=== PATIENT | female | born 1940 | race Caucasian/White ===

== ENCOUNTER 2018-08-26 15:31 | Inpatient (IN) ==
[2018-08-26] MEDS ORDERED: IOPAMIDOL 100 ML BOTTLE IV ONE (15:32)
[2018-08-26] MEDS ORDERED: 0.9 % SODIUM CHLORIDE 1,000 ML IV ONE (16:06)
[2018-08-26] MEDS ORDERED: PIPERACILLIN SODIUM/TAZOBACTAM 3.375 GM in DEXTROSE 5% IN WATER 50 ML IV SCH (16:15)
[2018-08-26 17:12] LABS: Basophils # (Auto) 0 K/mcL (0.0-0.3); Basophils % (Auto) 0.1 % (0.0-2.0); Eosinophils # (Auto) 0.1 K/mcL (0.0-0.7); Eosinophils % (Auto) 1.3 % (0.0-7.0); Granulocytes % (Auto) 68.2 % (38.0-78.0); Lymphocytes # (Auto) 1.9 K/mcL (1.5-4.8); Lymphocytes % (Auto) 20.2 % (15.5-49.0); Mean Cell Volume 76.6 fL (80.0-100.0); Mean Corpuscular HGB Conc 30.8 g/dL (31.0-36.0); Monocytes % (Auto) 10.2 % (1.0-12.0); Platelet Count 157 K/mcL (140-440); RBC 3.19 M/mcL (4.00-5.20); Red Cell Distribution Width 19.7 % (11.5-14.5)
[2018-08-26] MEDS ORDERED: 0.9 % SODIUM CHLORIDE 500 ML IV ONE (17:31)
[2018-08-26 17:35] LABS: ALT/SGPT 34 U/l (0-40); Albumin 3.7 gm/dL (3.2-5.2); Albumin/Globulin Ratio 1.2 (1.0-2.3); Alkaline Phosphatase 43 U/L (39-117); Blood Urea Nitrogen 16 mg/dl (8-23)
[2018-08-26] MEDS ORDERED: 0.9 % SODIUM CHLORIDE 250 ML IV SCH (17:45)
[2018-08-26] MEDS ORDERED: MAGNESIUM SULFATE 2 GM/50 ML BAG IV ONE (18:18)
--- NOTE | 2018-08-26 18:19 | Emergency Department Note ---
SOB HPI - General Chief Complaint: Shortness of Breath/Dyspnea Stated Complaint: sob Time Seen by Provider: 08/26/18 16:06 Source: patient Mode of arrival: ambulatory Limitations: no limitations - History of Present Illness 78-year-old female comes in complaining of shortness of breath. Her sats were about 85% on room air so is requiring oxygen now. She does not take oxygen at home. She does have a productive cough. She was initially seen here on 07/20/2018 and had an GI bleed for which she was transferred over to [place] with a hemoglobin of 5. Dr. Yañez over there did upper and lower endoscopy but could not find the source of the bleed. Anyways they stabilized her and transfused her to a hemoglobin of 9. Then 3 days ago after she had been at home stable she went up to [place] and Dr. iSngh did a balloon enteroscopy to find a bleeding site at the terminal ileum which he took care of. Since the endoscopy 3 days ago she has had trouble breathing and a sore throat along with a cough. She denies fever. She has had loose stools because of the bowel prep and now has been a little constipated; no bowel movement since the colonoscopy 3 days ago. I requested records from [place] and they sent some of the GI records which I reviewed - Related Data Home Medications Medication Instructions Recorded Confirmed Clobetasol Propionate/Emoll 15 gm TP TID PRN 08/26/18 08/26/18 [Clobetasol Emollient 0.05% Crm] Diltiazem [Cardizem Cd] 120 mg PO DAILY 08/26/18 08/26/18 Furosemide [Lasix] 20 mg PO DAILY 08/26/18 08/26/18 Insulin Detemir [Levemir] 75 unit SQ HS 08/26/18 08/26/18 Lovastatin 10 mg PO HS 08/26/18 08/26/18 Nystatin Crm 1 dose TOPICAL DAILY PRN 08/26/18 08/26/18 Omeprazole [PriLOSEC] 20 mg PO ACB 08/26/18 08/26/18 Potassium Chloride [Kdur] 10 meq PO DAILY 08/26/18 08/26/18 metFORMIN HCL [Metformin HCl] 1,000 mg PO BID 08/26/18 08/26/18 sitaGLIPtin [Januvia] 100 mg PO DAILY 08/26/18 08/26/18 Allergies Allergy/AdvReac Type Severity Reaction Status Date / Time clindamycin AdvReac Mild Nausea Verified 08/26/18 20:32 Sulfa (Sulfonamide AdvReac Mild Vomiting Verified 08/26/18 20:32 Antibiotics) Review of Systems All systems ED: reviewed and negative except as stated. Past Medical History - Past Medical History Attestation: Yes: The following information was validated with the patient. [facility] Narrative: Family History (Last Updated 07/20/18 @ 16:30 by Piyush Mcclendon DO) Mother Colon cancer Breast cancer Father Throat cancer Sister Colon cancer Lung cancer Liver cancer Medical History (Last Updated 07/20/18 @ 16:34 by Piyush Mcclendon DO) Heart murmur (Chronic) Abnormal EKG (Chronic) Rosacea (Chronic) History of iron deficiency anemia (Chronic) History of MRSA infection (Resolved) Glaucoma (Chronic) Chronic kidney disease, stage 2 (mild) (Chronic) Chronic anticoagulation (Chronic) Fatty liver (Chronic) Hyperlipidemia (Chronic) Peripheral edema (Chronic) Aortic stenosis (Chronic) Hypertension, essential (Chronic) Paroxysmal atrial fibrillation (Chronic) Obesity (BMI 30.0-34.9) (Chronic) Pneumonia (Acute) Diabetes mellitus type 2, insulin dependent (Chronic) Past Surgical History (Last Updated 07/20/18 @ 16:28 by Piyush Mcclendon DO) Finger amputation, traumatic (Acute) S/P carpal tunnel release (Acute) S/P cataract surgery (Acute) S/P discectomy (Acute) S/P hysterectomy (Acute) S/P knee surgery (Acute) Medical history: Reports: atrial fibrillation, DM, GI bleed, glaucoma, hyperlip idemia, hypertension, AIDEN, osteoporosis, renal disease, other (Aortic stenosis, rosacea). Denies: CVA, DVT, myocardial infarction, pulmonary embolus Psychiatric history: Denies: anxiety, depression Surgical history ED: Reports: hysterectomy, orthopedic, other (Carpal tunnel, cervical spine, patellar fracture), other (Incontinence surgery, endoscopies) - Social History smoking status: Former smoker Alcohol use: Reports: None Drug use: Reports: none. Denies: marijuana Physical Exam Mild pallor. Normocephalic atraumatic. Conjunctive are clear sclerae nonicteric. No nasal discharge or congestion. Oropharynx pink moist. Neck is supple without lymphadenopathy or thyromegaly. Heart is regular rate and rhythm no murmur appreciated. Lungs are clear to auscultation bilaterally but she does have a productive cough and mild end expiratory wheeze. Requiring nasal cannula oxygen. Abdomen is soft nontender nondistended. Rectal exam is Hemoccult negative. +1 bilateral pitting pedal edema. Alert oriented able to answer questions appropriately Limitations: no limitations Course Vital Signs Temperature 97.6 F 08/26/18 15:32 Pulse Rate 111 H 08/26/18 15:32 Respiratory Rate 18 08/26/18 15:32 Blood Pressure 144/60 08/26/18 15:32 Pulse Oximetry (%) 90 08/26/18 15:32 Temperature 99.2 F H 08/27/18 07:47 Pulse Rate 104 H 08/27/18 07:47 Respiratory Rate 26 H 08/27/18 07:47 Blood Pressure 153/69 08/27/18 07:47 Pulse Oximetry (%) 90 08/27/18 07:47 Shortness of Breath/Dyspnea - Lab Data Lab results reviewed: Yes I reviewed the patient's lab results. Result diagrams: 08/27/18 03:45 08/27/18 03:45 Lab Results 08/26/18 08/26/18 08/26/18 Range/Units 16:03 16:03 16:06 WBC 9.5 (4.5-11.0) K/mcL RBC 3.19 L (4.00-5.20) M/mcL Hgb 7.5 L (12.0-15.0) g/dL Hct 24.4 L (36.0-48.0) % MCV 76.6 L (80.0-100.0) fL MCH 23.6 L (26.0-34.0) pg MCHC 30.8 L (31.0-36.0) g/dL RDW 19.7 H (11.5-14.5) % Plt Count 157 (140-440) K/mcL MPV 10.2 (7.4-10.4) fL Gran % 68.2 (38.0-78.0) % Lymph % (Auto) 20.2 (15.5-49.0) % [place] % (Auto) 10.2 (1.0-12.0) % Eos % (Auto) 1.3 (0.0-7.0) % Baso % (Auto) 0.1 (0.0-2.0) % Gran # 6.5 (1.8-8.0) K/mcL Lymph # (Auto) 1.9 (1.5-4.8) K/mcL [place] # (Auto) 1.0 H (0.1-0.9) K/mcL Eos # (Auto) 0.1 (0.0-0.7) K/mcL Baso # (Auto) 0 (0.0-0.3) K/mcL ESR (0-20) mm/hr VBG Lactic Acid (0.5-2.0) mmol/L Sodium 135 (133-145) mmol/L Potassium 4.0 (3.3-5.1) mmol/L Chloride 99 (96-108) mmol/L Carbon Dioxide 23 (22-30) mmol/L Anion Gap 13.0 (8-16) BUN 16 (8-23) mg/dl Creatinine 1.0 (0.6-1.1) mg/dl GFR Calculation 55 Glucose 265 H (70-105) mg/dL Calcium 9.4 (8.6-10.4) mg/dl Magnesium (1.6-2.5) mg/dL Total Bilirubin 0.9 (0.0-1.0) mg/dL AST 40 H (0-37) U/l ALT 34 (0-40) U/l Alkaline Phosphatase 43 (39-117) U/L Troponin T (0-0.03) ng/ml C-Reactive Protein (0.0-0.8) mg/dl NT-Pro-B Natriuret Pep (0-450) pg/ml Total Protein 6.8 (5.9-8.4) gm/dL Albumin 3.7 (3.2-5.2) gm/dL Globulin 3.1 (2.2-3.7) gm/dL Albumin/Globulin Ratio 1.2 (1.0-2.3) Procalcitonin < 0.10 (<0.10) ng/mL 08/26/18 08/26/18 08/26/18 Range/Units 16:17 16:17 16:17 WBC (4.5-11.0) K/mcL RBC (4.00-5.20) M/mcL Hgb (12.0-15.0) g/dL Hct (36.0-48.0) % MCV (80.0-100.0) fL MCH (26.0-34.0) pg MCHC (31.0-36.0) g/dL RDW (11.5-14.5) % Plt Count (140-440) K/mcL MPV (7.4-10.4) fL Gran % (38.0-78.0) % Lymph % (Auto) (15.5-49.0) % [place] % (Auto) (1.0-12.0) % Eos % (Auto) (0.0-7.0) % Baso % (Auto) (0.0-2.0) % Gran # (1.8-8.0) K/mcL Lymph # (Auto) (1.5-4.8) K/mcL [place] # (Auto) (0.1-0.9) K/mcL Eos # (Auto) (0.0-0.7) K/mcL Baso # (Auto) (0.0-0.3) K/mcL ESR (0-20) mm/hr VBG Lactic Acid 2.7 H (0.5-2.0) mmol/L Sodium (133-145) mmol/L Potassium (3.3-5.1) mmol/L Chloride (96-108) mmol/L Carbon Dioxide (22-30) mmol/L Anion Gap (8-16) BUN (8-23) mg/dl Creatinine (0.6-1.1) mg/dl GFR Calculation Glucose (70-105) mg/dL Calcium (8.6-10.4) mg/dl Magnesium 1.4 L (1.6-2.5) mg/dL Total Bilirubin (0.0-1.0) mg/dL AST (0-37) U/l ALT (0-40) U/l Alkaline Phosphatase (39-117) U/L Troponin T 0.03 (0-0.03) ng/ml C-Reactive Protein (0.0-0.8) mg/dl NT-Pro-B Natriuret Pep 1935.0 H (0-450) pg/ml Total Protein (5.9-8.4) gm/dL Albumin (3.2-5.2) gm/dL Globulin (2.2-3.7) gm/dL Albumin/Globulin Ratio (1.0-2.3) Procalcitonin (<0.10) ng/mL 08/26/18 08/26/18 Range/Units 17:00 17:00 WBC (4.5-11.0) K/mcL RBC (4.00-5.20) M/mcL Hgb (12.0-15.0) g/dL Hct (36.0-48.0) % MCV (80.0-100.0) fL MCH (26.0-34.0) pg MCHC (31.0-36.0) g/dL RDW (11.5-14.5) % Plt Count (140-440) K/mcL MPV (7.4-10.4) fL Gran % (38.0-78.0) % Lymph % (Auto) (15.5-49.0) % [place] % (Auto) (1.0-12.0) % Eos % (Auto) (0.0-7.0) % Baso % (Auto) (0.0-2.0) % Gran # (1.8-8.0) K/mcL Lymph # (Auto) (1.5-4.8) K/mcL [place] # (Auto) (0.1-0.9) K/mcL Eos # (Auto) (0.0-0.7) K/mcL Baso # (Auto) (0.0-0.3) K/mcL ESR 45 H (0-20) mm/hr VBG Lactic Acid (0.5-2.0) mmol/L Sodium (133-145) mmol/L Potassium (3.3-5.1) mmol/L Chloride (96-108) mmol/L Carbon Dioxide (22-30) mmol/L Anion Gap (8-16) BUN (8-23) mg/dl Creatinine (0.6-1.1) mg/dl GFR Calculation Glucose (70-105) mg/dL Calcium (8.6-10.4) mg/dl Magnesium (1.6-2.5) mg/dL Total Bilirubin (0.0-1.0) mg/dL AST (0-37) U/l ALT (0-40) U/l Alkaline Phosphatase (39-117) U/L Troponin T (0-0.03) ng/ml C-Reactive Protein 0.7 (0.0-0.8) mg/dl NT-Pro-B Natriuret Pep (0-450) pg/ml Total Protein (5.9-8.4) gm/dL Albumin (3.2-5.2) gm/dL Globulin (2.2-3.7) gm/dL Albumin/Globulin Ratio (1.0-2.3) Procalcitonin (<0.10) ng/mL ABG shows a pH 7.41 PCO2 of 40 and a PO2 of 58 on 1.5 liters per minute nasal cannula O2 - Radiology Data Radiology results reviewed: Yes I reviewed the patient's radiology results. CT scan of the chest was ordered which showed no pulmonary emboli but however it did show stigmata emphysema as well as right lower lobe pneumonia. Right-sided pleural effusion as well - EKG Data EKG attestation: Yes I reviewed and interpreted this EKG. EKG results narrative: EKG shows Q waves in 2 and aVF T wave depression in 1 and aVL. Rate of 105 Disposition Pt seen by BUSINESS TRAINER/PA only: No Clinical Impression: Anemia, blood loss, Pleural effusion, Hypomagnesemia Pneumonia Qualifiers: Pneumonia type: due to unspecified organism Laterality: right Lung location: lower lobe of lung Qualified Code(s): J18.1 - Lobar pneumonia, unspecified organism Summary: Patient was seen and evaluated started along. Workup ordered as noted above Blood cultures were done for the possibility of sepsis and Zosyn started CT scan shows multiple issues including right lower lobe pneumonia. Because of her recent GI bleed and the need for transfusion now-she is symptomatic and has a hemoglobin of 7.5-discussed her case with Dr. Salvador Matthews who agreed to consult on her as long as she was not currently bleeding. Noted rectal exam was negative for lower GI bleed melena/hematochezia she is not having hematemesis. I then discussed the case with Dr. Berg, hospitalist, who agreed to accept the patient for further care and evaluation here in the hospital Blood transfusion was ordered but not given in the ER as we are waiting for crossmatch. Mag rider was ordered for low magnesium Disposition: Xfer As Inpt ([facility]) Condition: Fair
[2018-08-26] MEDS ORDERED: FUROSEMIDE 20 MG/2 ML VIAL IV ONE (18:22)
--- NOTE | 2018-08-26 20:03 | XRay Report ---
HISTORY: Shortness of breath and recent episode of pneumonia FINDINGS: There is a small alveolar infiltrate posteriorly and inferiorly in the right lower lobe. There are tiny bilateral pleural effusions. The heart is mildly enlarged. Pulmonary vessels appear normal in caliber. No adenopathy is detected. Spine has a kyphotic curvature. There has been prior cervical fusion at C6-7. IMPRESSION: Mild right lower lobe pneumonia Interpreted and Authenticated by: José Miguel Montgomery 08/26/18
[2018-08-26] MEDS ORDERED: MAGNESIUM SULFATE 2 GM/50 ML BAG IV PRN (20:06)
[2018-08-26] MEDS ORDERED: ACETAMINOPHEN 1,000 MG/100 ML BOTTLE IV PRN (20:06)
[2018-08-26] MEDS ORDERED: ACETAMINOPHEN 325 MG TABLET PO PRN (20:06)
[2018-08-26] MEDS ORDERED: ONDANSETRON 4 MG/2 ML VIAL IV PRN (20:06)
[2018-08-26] MEDS ORDERED: POTASSIUM CHLORIDE 20 MEQ PACKET PO PRN (20:06)
[2018-08-26] MEDS ORDERED: 0.9 % SODIUM CHLORIDE 1,000 ML IV SCH (20:06)
--- NOTE | 2018-08-26 20:13 | Cat Scan Report ---
CLINICAL INFORMATION: Productive cough, dyspnea and hypoxia COMPARISON: None. TECHNIQUE: 70 cc of Isovue-300 was injected intravenously, and 20 seconds later, 2.5 mm helical slices were obtained from the lung apices through the bases. Following reconstruction, 2.5 mm sagittal, coronal and axial reformations were processed. The exam was reviewed at lung, mediastinal and bone window. 7 mm axial MIPS were also obtained the radiation exposure was limited using dose reduction technology FINDINGS: There are no intraluminal filling defects within the pulmonary arteries. The central pulmonary arteries are relatively large which suggests pulmonary artery hypertension. Right ventricle the heart is not abnormally dilated. There is overall mild cardiomegaly and a moderate amount of calcified plaque is present in the coronary arteries as well as the aorta. The aorta is normal in caliber. Patient has mild emphysema with the greatest involvement in the upper lobes. There are small bilateral layering pleural effusions, right larger than left. Associated with this is consolidation posteriorly in the right lung base. This probably atelectasis. Minor scarring or atelectasis is present in the inferior segment of lingula. There is flattening of the right mainstem bronchus. The wall does not appear to be thickened and there is no extrinsic mass compressing it. This may be due to tracheomalacia. The trachea is normal in caliber. More subtle flattening of the left mainstem bronchus is also present. The peripheral bronchi are normal in contour. Patient has moderate hepatomegaly. The left lobe is bulbous. There may be a few varices in the epigastrium. IMPRESSION: Emphysema Bilateral pleural effusions Atelectasis or pneumonia in the right lower lobe Enlarged central pulmonary arteries suggesting pulmonary artery hypertension Partial collapse of the right mainstem bronchus which may be bronchomalacia Moderate hepatomegaly with a few varices No evidence of pulmonary emboli Dr. Crooks was called with the results Interpreted and Authenticated by: José Miguel Montgomery 08/26/18
[2018-08-26] MEDS: DOCUSATE SODIUM 100 MG CAPSULE PO SCH (21:00)
[2018-08-26] MEDS: SENNOSIDES/DOCUSATE SODIUM 1 TAB TABLET PO SCH (21:00)
[2018-08-26] MEDS: 0.9 % SODIUM CHLORIDE 10 ML SYRINGE IV SCH (21:00)
--- NOTE | 2018-08-26 21:10 | Internal Med History&Physical ---
Medical - H&P: [facility] Patient information: Note initiated : 08/26/18 at 9:07 pm Service Date, if different from initiated Date: [] Patient: Padmini Cunha a 78 y/o F admitted on 08/26/18 for sob. Chief Complaint: [] Chief complaint: cough , SOB History of present illness: Ms. Cunha is a 78 year old F with history of atrial fibrillation and has been on Eliquis for CVA prophylaxis. Patient recently had GI bleed with blood loss anemia requiring multiple endoscopies. Most recent double-balloon enteroscopy was on Monday at [place] where she was intubated during the procedure. Postprocedure patient has noted increasing hoarseness/cough and over the last 24 hours has become progressively short of breath/increasing effort intolerance and very weak and non-productive sputum. She subsequently comes to the ER for evaluation. Initial workup was significant for hemoglobin of 7.5, hypoxia requiring 2 L oxygen and right lower lobe infiltrate on chest imaging. Hospitalist service was consulted. At the time of evaluation patient is alert oriented. She is nondistressed and was able to provide history as above. She denies recent travel,, bloody stool, abdominal pain, weight loss. She further denies sick contacts. She attributes her symptoms secondary to recent procedure. Review of systems 10 point review system was performed and is negative except for one discussed above Medical - H&P: PMH Medical history: Atrial fibrillation DM type II GERD Hyperlipidemia GI bleed Surgical history: Recent double balloon enteroscopy 08/24/18 Pertinent family history: Lives alone Social history: No history of smoking alcoholism Medical - H&P: Meds Home Medications Medication Instructions Recorded Confirmed Type Clobetasol Propionate/Emoll 15 gm TP TID PRN 08/26/18 08/26/18 History [Clobetasol Emollient 0.05% Crm] Diltiazem [Cardizem Cd] 120 mg PO DAILY 08/26/18 08/26/18 History Furosemide [Lasix] 20 mg PO DAILY 08/26/18 08/26/18 History Insulin Detemir [Levemir] 75 unit SQ HS 08/26/18 08/26/18 History Lovastatin 10 mg PO HS 08/26/18 08/26/18 History Nystatin Crm 1 dose TOPICAL DAILY PRN 08/26/18 08/26/18 History Omeprazole [PriLOSEC] 20 mg PO ACB 08/26/18 08/26/18 History Potassium Chloride [Kdur] 10 meq PO DAILY 08/26/18 08/26/18 History metFORMIN HCL [Metformin HCl] 1,000 mg PO BID 08/26/18 08/26/18 History sitaGLIPtin [Januvia] 100 mg PO DAILY 08/26/18 08/26/18 History Allergies Allergy/AdvReac Type Severity Reaction Status Date / Time clindamycin AdvReac Mild Nausea Verified 08/26/18 20:32 Sulfa (Sulfonamide AdvReac Mild Vomiting Verified 08/26/18 20:32 Antibiotics) Medical - H&P: Exam - Constitutional Vitals: Temp Pulse Resp BP Pulse Ox 97.6 F 97 H 29 H 125/65 94 08/26/18 15:32 08/26/18 18:16 08/26/18 18:01 08/26/18 18:16 08/26/18 18:16 General appearance: no acute distress Exam: Morbidly obese Eye movements symmetrical Oral cavity dry No ear nose discharge Head normocephalic neck no lymphadenopathy S1-S2 regular rhythm Diminished breath sounds bases Abdomen soft nontender Lower extremity no cyanosis clubbing [place] is draining clear urine skin no suspicious lesion except for pallor Neuro nonfocal Psych alert cooperative Medical - H&P: Reslt - Labs CBC & Chem 7: 08/27/18 03:45 08/27/18 03:45 Labs: Short CBC 08/26/18 Range/Units 16:03 WBC 9.5 (4.5-11.0) K/mcL Hgb 7.5 L (12.0-15.0) g/dL Hct 24.4 L (36.0-48.0) % Plt Count 157 (140-440) K/mcL BMP 08/26/18 16:03 Sodium 135 Potassium 4.0 Chloride 99 Carbon Dioxide 23 BUN 16 Creatinine 1.0 Glucose 265 H Calcium 9.4 Cardiac Enzymes 08/26/18 Range/Units 16:17 Troponin T 0.03 (0-0.03) ng/ml Liver Function 08/26/18 Range/Units 16:03 Total Bilirubin 0.9 (0.0-1.0) mg/dL AST 40 H (0-37) U/l ALT 34 (0-40) U/l Alkaline Phosphatase 43 (39-117) U/L Albumin 3.7 (3.2-5.2) gm/dL Medical - H&P: A/P (1) Right lower lobe pneumonia Current visit: Yes Status: Acute * Right lower lobe pneumonia-likely aspiration. Continue antibiotic coverage. Aspiration precaution * Anemia likely persistent GI bleed-continue PPI/clear liquid diet. Repeat hemoglobin, 2 units PRBC transfusion * Sepsis-sofa score 2, on antibiotic coverage * Hypoxic respiratory failure secondary to pneumonia. Continue oxygen support/bronchodilators/pulmonary toilet * History of A. fib continue diltiazem * DM type II continue basal prandial insulin * GERD on PPI * Full code * DVT prophylaxis SCDs Plan * Start PPI * 2 units PRBC transfusion * Antibiotic coverage/aspiration precaution * Bronchodilators/pulmonary toilet * prior medical condition management on home meds * Inpatient admit
[2018-08-26] MEDS: IPRATROPIUM/ALBUTEROL 3 ML AMPUL.NEB NEB SCH ×2 (23:41→23:42)
[2018-08-26] MEDS: BUDESONIDE 0.5 MG/2 ML AMPUL.NEB NEB SCH (23:42)
[2018-08-27] MEDS: PIPERACILLIN SODIUM/TAZOBACTAM 3.375 GM in DEXTROSE 5% IN WATER 50 ML IV SCH ×5 (02:08→23:44)
[2018-08-27] MEDS: IPRATROPIUM/ALBUTEROL 3 ML AMPUL.NEB NEB SCH ×6 (03:20→23:29)
[2018-08-27] MEDS: 0.9 % SODIUM CHLORIDE 10 ML SYRINGE IV SCH ×3 (05:22→21:50)
[2018-08-27 05:58] LABS: Mean Cell Volume 79.2 fL (80.0-100.0); Mean Corpuscular HGB Conc 31.9 g/dL (31.0-36.0); Platelet Count 147 K/mcL (140-440); RBC 3.91 M/mcL (4.00-5.20); Red Cell Distribution Width 18.5 % (11.5-14.5)
[2018-08-27 06:48] LABS: ALT/SGPT 33 U/l (0-40); Albumin 3.7 gm/dL (3.2-5.2); Albumin/Globulin Ratio 1.2 (1.0-2.3); Alkaline Phosphatase 44 U/L (39-117); Bilirubin,Direct 0.5 mg/dL (0.0-0.3); Blood Urea Nitrogen 11 mg/dl (8-23); Gamma Glutamyl Transpeptidase 49 U/L (5-36); Uric Acid 7.9 mg/dL (2.5-8.0)
[2018-08-27 06:55] LABS: Anisocytosis 1+ (NONE SEEN); Band Neutrophils % 1 % (0-10); Eosinophils % (Manual) 3 % (0-7); Hypochromasia 1+ (NONE SEEN); Lymphocytes % 28 % (15-49); Monocytes % (Manual) 5 % (1-12); Platelet Estimate NORMAL (NORMAL); RBC Morphology ABNORM (NORMAL); Segmented Neutrophils % 63 % (38-78)
[2018-08-27] MEDS: BUDESONIDE 0.5 MG/2 ML AMPUL.NEB NEB SCH ×2 (07:28→20:06)
[2018-08-27] MEDS: OMEPRAZOLE 20 MG CAPSULE PO SCH (07:41)
[2018-08-27] MEDS: POTASSIUM CHLORIDE 10 MEQ TABLET PO SCH (07:41)
[2018-08-27] MEDS ORDERED: FUROSEMIDE 20 MG TABLET PO SCH (09:00)
[2018-08-27] MEDS: MULTIVIT,THER IRON,CA,FA & MIN 1 TABLET PO SCH (09:12)
[2018-08-27] MEDS: DILTIAZEM 120 MG CAP.XL.24H PO SCH (09:12)
[2018-08-27] MEDS: DOCUSATE SODIUM 100 MG CAPSULE PO SCH ×2 (09:12→21:48)
[2018-08-27] MEDS: sitaGLIPtin 100 MG TABLET PO SCH (09:16)
[2018-08-27] MEDS: FUROSEMIDE 20 MG/2 ML VIAL IV SCH ×2 (10:20→16:12)
--- NOTE | 2018-08-27 11:22 | Internal Med Progress Note ---
Medical - PN: Subj Patient information: Note initiated : 08/27/18 at 11:19 am Service Date, if different from initiated Date: [] Patient: Padmini Cunha a 78 y/o F admitted on 08/26/18 for sob. Chief Complaint: [] Interval history: Ms. Cunha is a 78 year old F with history of atrial fibrillation and has been on Eliquis for CVA prophylaxis. Patient recently had GI bleed with blood loss anemia requiring multiple endoscopies. Most recent double-balloon enteroscopy was on Monday at [place] where she was intubated during the procedure. Postprocedure patient has noted increasing hoarseness/cough and over the last 24 hours has become progressively short of breath/increasing effort intolerance and very weak and non-productive sputum. She subsequently comes to the ER for evaluation. Initial workup was significant for hemoglobin of 7.5, hypoxia requiring 2 L oxygen and right lower lobe infiltrate on chest imaging. Hospitalist service was consulted. At the time of evaluation patient is alert oriented. She is nondistressed and was able to provide history as above. She denies recent travel,, bloody stool, abdominal pain, weight loss. She further denies sick contacts. She attributes her symptoms secondary to recent procedure. 08/27-patient looking worse. More shortness of breath. Diuretics increased. Echocardiogram reviewed, EF 70% as of 05/15/18. Hemoglobin 9.9. Continue close monitoring. Start regular diet/rehab support - Constitutional Vitals: Vital Signs Temp Pulse Resp BP Pulse Ox 99.2 F H 93 H 24 H 153/69 90 08/27/18 07:47 08/27/18 11:03 08/27/18 11:03 08/27/18 07:47 08/27/18 07:47 Period Temp Pulse Resp BP Sys/Bryson Pulse Ox Last 24 Hr 97.6 F-99.4 F 89-111 16-93 125-153/52-70 89-97 Intake and Output 08/26/18 08/27/18 08/27/18 21:59 05:59 13:59 Intake Total 1558 385 50 Output Total 1100 825 Balance 458 -440 50 Weight 194 lb Intake & Output: Intake & Output 08/26/18 08/27/18 08/27/18 21:59 05:59 13:59 Intake Total 1558 385 50 Output Total 1100 825 Balance 458 -440 50 Weight 194 lb Intake: IV 1092 50 50 Sodium Chloride 0.9% 1,000 ml @ 1042 50 mls/hr IV .Q20H [facility] Rx#: [id number] Zosyn 3.375 gm In Dextrose 5% 50 50 50 in Water 50 ml @ 100 mls/hr IV Q6H [facility] Rx#:[id number] Oral 100 Blood Product 366 335 Output: Urine Catheter Amount 1100 825 Other: Urine Appearance Clear Clear Uretheral ([place]) Clear Clear Urine Color Pale Dark Yellow Uretheral ([place]) Pale Blood Tinged Stool Size Small Stool Consistency Loose General appearance: moderate distress (S OB) Exam: Diminished breath sounds bases Alert oriented but labored Anxious Lymphedema Medical - PN: Obj Da - Labs CBC & Chem 7: 08/27/18 03:45 08/27/18 03:45 Labs: Abnormal Lab Results 08/27/18 08/27/18 08/26/18 03:45 03:45 17:00 RBC 3.91 L Hgb 9.9 L Hct 31.0 L MCV 79.2 L MCH 25.2 L MCHC RDW 18.5 H [place] # (Auto) RBC Morphology Abnorm A Polychromasia 1+ A Hypochromasia 1+ A Anisocytosis 1+ A Microcytosis 1+ A ESR 45 H VBG Lactic Acid Glucose 179 H Magnesium 1.5 L Total Bilirubin 3.4 H Direct Bilirubin 0.5 H GGT 49 H AST 38 H Lactate Dehydrogenase 266 H NT-Pro-B Natriuret Pep 08/26/18 08/26/18 08/26/18 16:17 16:17 16:03 RBC Hgb Hct MCV MCH MCHC RDW [place] # (Auto) RBC Morphology Polychromasia Hypochromasia Anisocytosis Microcytosis ESR VBG Lactic Acid 2.7 H Glucose 265 H Magnesium 1.4 L Total Bilirubin Direct Bilirubin GGT AST 40 H Lactate Dehydrogenase NT-Pro-B Natriuret Pep 1935.0 H 08/26/18 16:03 RBC 3.19 L Hgb 7.5 L Hct 24.4 L MCV 76.6 L MCH 23.6 L MCHC 30.8 L RDW 19.7 H [place] # (Auto) 1.0 H RBC Morphology Polychromasia Hypochromasia Anisocytosis Microcytosis ESR VBG Lactic Acid Glucose Magnesium Total Bilirubin Direct Bilirubin GGT AST Lactate Dehydrogenase NT-Pro-B Natriuret Pep Meds: Medications Acetaminophen (Tylenol) 650 mg PO Q4-6HP PRN PRN Reason: PAIN/FEVER > 101 Last Admin: 08/26/18 23:16 Dose: 650 mg Documented by: Albuterol/Ipratropium (Duoneb) 3 ml NEB Q4HRT [facility] Last Admin: 08/27/18 10:57 Dose: 3 ml Documented by: Budesonide (Pulmicort) 0.5 mg NEB Q12 [facility] Last Admin: 08/27/18 07:28 Dose: 0.5 mg Documented by: Diltiazem HCl (Cardizem Cd) 120 mg PO DAILY [facility] Last Admin: 08/27/18 09:12 Dose: 120 mg Documented by: Docusate Sodium (Colace) 100 mg PO BID [facility] Last Admin: 08/27/18 09:12 Dose: 100 mg Documented by: Furosemide (Lasix) 20 mg IV BIDD [facility] Last Admin: 08/27/18 10:20 Dose: 20 mg Documented by: Magnesium Sulfate (Magnesium Sulfate) 2 gm in 50 mls @ 50 mls/hr IV UD PRN PRN Reason: MG = or < 1.7 Acetaminophen (Ofirmev) 1,000 mg in 100 mls @ 200 mls/hr IV Q6HP PRN PRN Reason: PAIN/FEVER > 101 Piperacillin Sod/Tazobactam (Sod 3.375 gm/ Dextrose) 50 mls @ 100 mls/hr IV Q6H [facility] Last Infusion: 08/27/18 06:00 Dose: Infused Documented by: Insulin Glargine (Lantus) 75 unit SQ HS [facility] Iron Carb/Multivit/[place]/Folic Acid (Multivitamin W/Minerals) 1 tab PO DAILY [facility] Last Admin: 08/27/18 09:12 Dose: 1 tab Documented by: Omeprazole (Prilosec) 20 mg PO ACB [facility] Last Admin: 08/27/18 07:41 Dose: 20 mg Documented by: Ondansetron HCl (Zofran) 4 mg IV Q4-6HP PRN PRN Reason: Nausea And Vomiting Potassium Chloride (Klor-Con) 40 meq PO DAILYP PRN PRN Reason: K+ < 3.5 Potassium Chloride (Kdur) 10 meq PO QAMCC [facility] Last Admin: 08/27/18 07:41 Dose: 10 meq Documented by: Senna/Docusate Sodium (Senna Plus Tablet) 1 tab PO [facility] Last Admin: 08/26/18 21:00 Dose: Not Given Documented by: Simvastatin (Zocor) 5 mg PO HS [facility] Sitagliptin Phosphate (Januvia) 100 mg PO DAILY [facility] Last Admin: 08/27/18 09:16 Dose: 100 mg Documented by: Sodium Chloride (Saline Flush) 10 ml IV Q8 [facility] Last Admin: 08/27/18 05:22 Dose: Not Given Documented by: Medical - PN: A/P - Time Spent With Patient Total time spent is greater than 50% in coordination of care (as documented) at patient's floor/unit and/or counseling patient: 25 - 35 minutes (1) Right lower lobe pneumonia Status: Acute Assessment and plan: * Right lower lobe pneumonia- Await viral panel/strep pneumo/mycoplasma and sputum cultures. Continue aspiration precaution. Broad antibiotic coverage * Anemia secondary to recent GI bleed-advance diet, continue PPI. Status post 2 units PRBC transfusion * Sepsis-clinical improvement noted on antibiotics * Hypoxic respiratory failure secondary to pneumonia. On 2.5 L oxygen. Continue bronchodilators/pulmonary toilet. Continue diuresis * History of A. fib continue diltiazem * DM type II continue basal prandial insulin * GERD on PPI * Full code * DVT prophylaxis SCDs Plan * Continue diuresis * Antibiotic coverage/aspiration precaution * Bronchodilators/pulmonary toilet * prior medical condition management on home meds Current Visit: Yes Medical - PN: Qual - VTE Deep Vein Thrombosis/Pulmonary Embolism Present on Admission: No
[2018-08-27] MEDS: INSULIN LISPRO 1 UNIT/0.01 ML UNIT SQ SCH ×3 (12:38→21:49)
[2018-08-27] MEDS ORDERED: SIMVASTATIN 10 MG TABLET PO SCH (21:00)
[2018-08-27] MEDS ORDERED: LOVASTATIN 10 MG PO SCH (21:00)
[2018-08-27] MEDS ORDERED: INSULIN GLARGINE, HUMAN 1 UNIT/0.01 ML SQ SCH (21:00)
[2018-08-27] MEDS ORDERED: INSULIN DETEMIR SQ SCH (21:00)
[2018-08-27] MEDS: SENNOSIDES/DOCUSATE SODIUM 1 TAB TABLET PO SCH (21:48)
[2018-08-28] MEDS: IPRATROPIUM/ALBUTEROL 3 ML AMPUL.NEB NEB SCH ×6 (02:57→22:53)
[2018-08-28] MEDS: PIPERACILLIN SODIUM/TAZOBACTAM 3.375 GM in DEXTROSE 5% IN WATER 50 ML IV SCH ×4 (05:35→23:32)
[2018-08-28] MEDS: 0.9 % SODIUM CHLORIDE 10 ML SYRINGE IV SCH ×4 (05:36→23:33)
[2018-08-28 06:32] LABS: Platelet Count 164 K/mcL (140-440)
[2018-08-28 06:45] LABS: ALT/SGPT 28 U/l (0-40); Albumin 3.6 gm/dL (3.2-5.2); Albumin/Globulin Ratio 1.1 (1.0-2.3); Alkaline Phosphatase 43 U/L (39-117); Bilirubin,Direct 0.4 mg/dL (0.0-0.3); Blood Urea Nitrogen 11 mg/dl (8-23); Gamma Glutamyl Transpeptidase 47 U/L (5-36)
[2018-08-28] MEDS: BUDESONIDE 0.5 MG/2 ML AMPUL.NEB NEB SCH ×2 (07:11→18:47)
[2018-08-28] MEDS: OMEPRAZOLE 20 MG CAPSULE PO SCH (07:39)
[2018-08-28] MEDS: sitaGLIPtin 100 MG TABLET PO SCH (08:35)
[2018-08-28] MEDS: POTASSIUM CHLORIDE 10 MEQ TABLET PO SCH (08:35)
[2018-08-28] MEDS: INSULIN LISPRO 1 UNIT/0.01 ML UNIT SQ SCH ×4 (08:35→21:12)
[2018-08-28] MEDS: DOCUSATE SODIUM 100 MG CAPSULE PO SCH ×2 (08:35→21:11)
[2018-08-28] MEDS: FUROSEMIDE 20 MG/2 ML VIAL IV SCH ×2 (08:36→15:39)
[2018-08-28] MEDS: MULTIVIT,THER IRON,CA,FA & MIN 1 TABLET PO SCH (08:36)
[2018-08-28] MEDS: DILTIAZEM 120 MG CAP.XL.24H PO SCH (08:36)
[2018-08-28 10:16] LABS: Anisocytosis 1+ (NONE SEEN); Band Neutrophils % 1 % (0-10); Eosinophils % (Manual) 3 % (0-7); Hypochromasia 1+ (NONE SEEN); Lymphocytes % 14 % (15-49); Monocytes % (Manual) 7 % (1-12); Platelet Estimate NORMAL (NORMAL); RBC Morphology ABNORM (NORMAL); Segmented Neutrophils % 75 % (38-78)
--- NOTE | 2018-08-28 11:39 | Internal Med Progress Note ---
Medical - PN: Subj Patient information: Note initiated : 08/28/18 at 11:36 am Service Date, if different from initiated Date: [] Patient: Padmini Cunha a 78 y/o F admitted on 08/26/18 for sob. Chief Complaint: [] Interval history: Ms. Cunha is a 78 year old F with history of atrial fibrillation and has been on Eliquis for CVA prophylaxis. Patient recently had GI bleed with blood loss anemia requiring multiple endoscopies. Most recent double-balloon enteroscopy was on Monday at [place] where she was intubated during the procedure. Postprocedure patient has noted increasing hoarseness/cough and over the last 24 hours has become progressively short of breath/increasing effort intolerance and very weak and non-productive sputum. She subsequently comes to the ER for evaluation. Initial workup was significant for hemoglobin of 7.5, hypoxia requiring 2 L oxygen and right lower lobe infiltrate on chest imaging. Hospitalist service was consulted. At the time of evaluation patient is alert oriented. She is nondistressed and was able to provide history as above. She denies recent travel,, bloody stool, abdominal pain, weight loss. She further denies sick contacts. She attributes her symptoms secondary to recent procedure. 08/27-patient looking worse. More shortness of breath. Diuretics increased. Echocardiogram reviewed, EF 70% as of 05/15/18. Hemoglobin 9.9. Continue close monitoring. Start regular diet/rehab support 08/28-patient diuresing well with over 3000 cc net negative. Transfer to medical floor. No overnight fever or chills. On antibiotic coverage. On the right breast recommendations. Ongoing physical therapy. Denies active concerns. - Constitutional Vitals: Vital Signs Temp Pulse Resp BP Pulse Ox 98.5 F 87 16 141/52 96 08/28/18 03:26 08/28/18 11:10 08/28/18 11:10 08/28/18 09:34 08/28/18 09:34 Period Temp Pulse Resp BP Sys/Bryson Pulse Ox Last 24 Hr 98.0 F-99.0 F 82-95 16-22 131-144/52-69 90-97 Intake and Output 08/27/18 08/28/18 08/28/18 21:59 05:59 13:59 Intake Total 360 80 50 Output Total 1200 900 Balance -840 -820 50 Weight 188 lb Intake & Output: Intake & Output 08/27/18 08/28/18 08/28/18 21:59 05:59 13:59 Intake Total 360 80 50 Output Total 1200 900 Balance -840 -820 50 Weight 188 lb Intake: IV 300 50 50 Zosyn 3.375 gm In Dextrose 5% 50 50 50 in Water 50 ml @ 100 mls/hr IV Q6H [facility] Rx#:[id number] Oral 60 30 Output: Urine Catheter Amount 1200 900 Other: Meal Dinner Percent of Meal Consumed 100% Feeding Ability Independent Urine Appearance Cloudy Sediment Uretheral ([place]une) Cloudy Sediment Urine Color Dark Yellow Dark Yellow [place] Uretheral ([place]) Dark Yellow Urine Odor Normal Stool Size Moderate Stool Color Brown Stool Consistency Formed # Bowel Movements 1 General appearance: morbidly obese, no acute distress Exam: Alert oriented Nonlabored breathing Nondistended abdomen No anxiety On 2 L oxygen Medical - PN: Obj Da - Labs CBC & Chem 7: 08/28/18 03:15 08/28/18 03:15 Labs: Abnormal Lab Results 08/28/18 08/28/18 08/27/18 03:15 03:15 03:45 RBC 3.90 L Hgb 9.8 L Hct 30.8 L MCV 79.0 L MCH 25.2 L MCHC RDW 19.0 H [place] # (Auto) Lymphocytes % 14 L RBC Morphology Abnorm A Polychromasia 1+ A Hypochromasia 1+ A Anisocytosis 1+ A Microcytosis 1+ A ESR VBG Lactic Acid Carbon Dioxide 33 H Glucose 212 H 179 H Magnesium 1.5 L Total Bilirubin 1.8 H 3.4 H Direct Bilirubin 0.4 H 0.5 H GGT 47 H 49 H AST 38 H Lactate Dehydrogenase 266 H NT-Pro-B Natriuret Pep 08/27/18 08/26/18 08/26/18 03:45 17:00 16:17 RBC 3.91 L Hgb 9.9 L Hct 31.0 L MCV 79.2 L MCH 25.2 L MCHC RDW 18.5 H [place] # (Auto) Lymphocytes % RBC Morphology Abnorm A Polychromasia 1+ A Hypochromasia 1+ A Anisocytosis 1+ A Microcytosis 1+ A ESR 45 H VBG Lactic Acid Carbon Dioxide Glucose Magnesium 1.4 L Total Bilirubin Direct Bilirubin GGT AST Lactate Dehydrogenase NT-Pro-B Natriuret Pep 1935.0 H 08/26/18 08/26/18 08/26/18 16:17 16:03 16:03 RBC 3.19 L Hgb 7.5 L Hct 24.4 L MCV 76.6 L MCH 23.6 L MCHC 30.8 L RDW 19.7 H [place] # (Auto) 1.0 H Lymphocytes % RBC Morphology Polychromasia Hypochromasia Anisocytosis Microcytosis ESR VBG Lactic Acid 2.7 H Carbon Dioxide Glucose 265 H Magnesium Total Bilirubin Direct Bilirubin GGT AST 40 H Lactate Dehydrogenase NT-Pro-B Natriuret Pep Meds: Medications Acetaminophen (Tylenol) 650 mg PO Q4-6HP PRN PRN Reason: PAIN/FEVER > 101 Last Admin: 08/26/18 23:16 Dose: 650 mg Documented by: Albuterol/Ipratropium (Duoneb) 3 ml NEB Q4HRT [facility] Last Admin: 08/28/18 11:08 Dose: 3 ml Documented by: Budesonide (Pulmicort) 0.5 mg NEB Q12 [facility] Last Admin: 08/28/18 07:11 Dose: 0.5 mg Documented by: Diagnostic Test (Pha) (Accu-Chek) 1 each FS ACHS [facility] Last Admin: 08/28/18 08:35 Dose: 1 each Documented by: Diltiazem HCl (Cardizem Cd) 120 mg PO DAILY [facility] Last Admin: 08/28/18 08:36 Dose: 120 mg Documented by: Docusate Sodium (Colace) 100 mg PO BID [facility] Last Admin: 08/28/18 08:35 Dose: 100 mg Documented by: Furosemide (Lasix) 20 mg IV BIDD [facility] Last Admin: 08/28/18 08:36 Dose: 20 mg Documented by: Magnesium Sulfate (Magnesium Sulfate) 2 gm in 50 mls @ 50 mls/hr IV UD PRN PRN Reason: MG = or < 1.7 Last Admin: 08/27/18 19:35 Dose: 50 mls/hr Documented by: Acetaminophen (Ofirmev) 1,000 mg in 100 mls @ 200 mls/hr IV Q6HP PRN PRN Reason: PAIN/FEVER > 101 Piperacillin Sod/Tazobactam (Sod 3.375 gm/ Dextrose) 50 mls @ 100 mls/hr IV Q6H [facility] Last Infusion: 08/28/18 06:10 Dose: Infused Documented by: Insulin Glargine (Lantus) 75 unit SQ [facility] Last Admin: 08/27/18 21:49 Dose: 75 unit Documented by: Insulin Human Lispro (Humalog) 0 unit SQ [facility]; Protocol Last Admin: 08/28/18 08:35 Dose: 8 units Documented by: Iron Carb/Multivit/[place]/Folic Acid (Multivitamin W/Minerals) 1 tab PO DAILY [facility] Last Admin: 08/28/18 08:36 Dose: 1 tab Documented by: Omeprazole (Prilosec) 20 mg PO ACB [facility] Last Admin: 08/28/18 07:39 Dose: 20 mg Documented by: Ondansetron HCl (Zofran) 4 mg IV Q4-6HP PRN PRN Reason: Nausea And Vomiting Potassium Chloride (Klor-Con) 40 meq PO DAILYP PRN PRN Reason: K+ < 3.5 Potassium Chloride (Kdur) 10 meq PO QAC [facility] Last Admin: 08/28/18 08:35 Dose: 10 meq Documented by: Senna/Docusate Sodium (Senna Plus Tablet) 1 tab PO [facility] Last Admin: 08/27/18 21:48 Dose: 1 tab Documented by: Simvastatin (Zocor) 5 mg PO [facility] Last Admin: 08/27/18 21:48 Dose: 5 mg Documented by: Sitagliptin Phosphate (Januvia) 100 mg PO DAILY [facility] Last Admin: 08/28/18 08:35 Dose: 100 mg Documented by: Sodium Chloride (Saline Flush) 10 ml IV Q8 [facility] Last Admin: 08/28/18 05:36 Dose: 10 ml Documented by: Medical - PN: A/P - Time Spent With Patient Total time spent is greater than 50% in coordination of care (as documented) at patient's floor/unit and/or counseling patient: 25 - 35 minutes (1) Right lower lobe pneumonia Status: Acute Assessment and plan: * Right lower lobe pneumonia-clinically improving however negative viral panel/strep pneumo/mycoplasma and sputum cultures. Likely aspiration. Continue aspiration precaution and antibiotic coverage * Anemia secondary to recent GI bleed-advance diet, continue PPI. Status post 2 units PRBC transfusion * Sepsis-clinical improvement noted * Hypoxic respiratory failure secondary to pneumonia. On supplemental 2-3 L oxygen. Continue bronchodilators/pulmonary toilet. Continue diuresis * History of A. fib continue diltiazem * DM type II continue basal prandial insulin * GERD on PPI * Full code * DVT prophylaxis SCDs Plan * Transfer to medical floor * Antibiotic coverage/aspiration precaution * Diuresis * Bronchodilators/pulmonary toilet * prior medical condition management on home meds Current Visit: Yes Medical - PN: Qual - VTE Deep Vein Thrombosis/Pulmonary Embolism Present on Admission: No
[2018-08-28] MEDS ORDERED: ACETAMINOPHEN 1,000 MG/100 ML BOTTLE IV PRN (12:52)
[2018-08-28] MEDS ORDERED: ONDANSETRON 4 MG/2 ML VIAL IV PRN (12:52)
[2018-08-28] MEDS ORDERED: POTASSIUM CHLORIDE 20 MEQ PACKET PO PRN (12:52)
[2018-08-28] MEDS: MAGNESIUM SULFATE 2 GM/50 ML BAG IV PRN (18:08)
[2018-08-28] MEDS: SIMVASTATIN 10 MG TABLET PO SCH (21:11)
[2018-08-28] MEDS: SENNOSIDES/DOCUSATE SODIUM 1 TAB TABLET PO SCH (21:11)
[2018-08-28] MEDS: INSULIN GLARGINE, HUMAN 1 UNIT/0.01 ML SQ SCH (21:12)
[2018-08-29] MEDS: IPRATROPIUM/ALBUTEROL 3 ML AMPUL.NEB NEB SCH ×6 (04:51→23:24)
[2018-08-29] MEDS: 0.9 % SODIUM CHLORIDE 10 ML SYRINGE IV SCH ×2 (05:46→16:29)
[2018-08-29] MEDS: PIPERACILLIN SODIUM/TAZOBACTAM 3.375 GM in DEXTROSE 5% IN WATER 50 ML IV SCH ×3 (05:46→18:00)
[2018-08-29 06:30] LABS: Mean Cell Volume 79.9 fL (80.0-100.0); Mean Corpuscular HGB Conc 31.7 g/dL (31.0-36.0); Platelet Count 174 K/mcL (140-440); Red Cell Distribution Width 19.4 % (11.5-14.5)
[2018-08-29 07:01] LABS: ALT/SGPT 25 U/l (0-40); Albumin 3.5 gm/dL (3.2-5.2); Albumin/Globulin Ratio 1.1 (1.0-2.3); Alkaline Phosphatase 44 U/L (39-117); Bilirubin,Direct 0.3 mg/dL (0.0-0.3); Blood Urea Nitrogen 12 mg/dl (8-23); Gamma Glutamyl Transpeptidase 44 U/L (5-36); Uric Acid 4.4 mg/dL (2.5-8.0)
[2018-08-29 07:27] LABS: Anisocytosis 1+ (NONE SEEN); Band Neutrophils % 1 % (0-10); Eosinophils % (Manual) 1 % (0-7); Hypochromasia 1+ (NONE SEEN); Lymphocytes % 15 % (15-49); Monocytes % (Manual) 13 % (1-12); Platelet Estimate NORMAL (NORMAL); RBC Morphology ABNORM (NORMAL); Segmented Neutrophils % 70 % (38-78)
[2018-08-29] MEDS: INSULIN LISPRO 1 UNIT/0.01 ML UNIT SQ SCH ×4 (07:56→21:50)
[2018-08-29] MEDS: POTASSIUM CHLORIDE 10 MEQ TABLET PO SCH (07:57)
[2018-08-29] MEDS: FUROSEMIDE 20 MG/2 ML VIAL IV SCH ×2 (07:58→16:29)
[2018-08-29] MEDS: OMEPRAZOLE 20 MG CAPSULE PO SCH (08:10)
[2018-08-29] MEDS: BUDESONIDE 0.5 MG/2 ML AMPUL.NEB NEB SCH ×2 (08:26→20:47)
[2018-08-29] MEDS: DILTIAZEM 120 MG CAP.XL.24H PO SCH (09:56)
[2018-08-29] MEDS: MULTIVIT,THER IRON,CA,FA & MIN 1 TABLET PO SCH (09:56)
[2018-08-29] MEDS: sitaGLIPtin 100 MG TABLET PO SCH (09:56)
[2018-08-29] MEDS: DOCUSATE SODIUM 100 MG CAPSULE PO SCH ×2 (09:56→21:48)
[2018-08-29] MEDS: guaiFENesin/DEXTROMETHORPHAN ORAL SOL PO PRN ×2 (16:37→21:48)
--- NOTE | 2018-08-29 17:36 | Internal Med Progress Note ---
Medical - PN: Subj Patient information: Note initiated : 08/29/18 at 5:33 pm Service Date, if different from initiated Date: [] Patient: Padmini Cunha a 78 y/o F admitted on 08/26/18 for sob. Chief Complaint: [] Interval history: Ms. uCnha is a 78 year old F with history of atrial fibrillation and has been on Eliquis for CVA prophylaxis. Patient recently had GI bleed with blood loss anemia requiring multiple endoscopies. Most recent double-balloon enteroscopy was on Monday at [place] where she was intubated during the procedure. Postprocedure patient has noted increasing hoarseness/cough and over the last 24 hours has become progressively short of breath/increasing effort intolerance and very weak and non-productive sputum. She subsequently comes to the ER for evaluation. Initial workup was significant for hemoglobin of 7.5, hypoxia requiring 2 L oxygen and right lower lobe infiltrate on chest imaging. Hospitalist service was consulted. At the time of evaluation patient is alert oriented. She is nondistressed and was able to provide history as above. She denies recent travel,, bloody stool, abdominal pain, weight loss. She further denies sick contacts. She attributes her symptoms secondary to recent procedure. 08/27-patient looking worse. More shortness of breath. Diuretics increased. Echocardiogram reviewed, EF 70% as of 05/15/18. Hemoglobin 9.9. Continue close monitoring. Start regular diet/rehab support 08/28-patient diuresing well with over 3000 cc net negative. Transfer to medical floor. No overnight fever or chills. On antibiotic coverage. On the right breast recommendations. Ongoing physical therapy. Denies active concerns. 08/29-patient doing better. Persistent cough however now on 1 L oxygen. No GI bleed. Hemoglobin stable. Gradual clinical improvement noted. Denies shortness of breath, fever, chills. No overnight telemetry events. Transfer to medical floor. No concerns expressed by nursing staff. Ongoing rehab/nutrition support. - Constitutional Vitals: Vital Signs Temp Pulse Resp BP Pulse Ox 98.6 F 85 20 140/65 97 08/29/18 16:00 08/29/18 16:00 08/29/18 16:00 08/29/18 16:00 08/29/18 16:00 Period Temp Pulse Resp BP Sys/Bryson Pulse Ox Last 24 Hr 97.8 F-99 F 83-98 12-32 126-149/58-72 92-97 Intake and Output 08/29/18 08/29/18 08/29/18 05:59 13:59 21:59 Intake Total 50 460 600 Output Total 1300 1100 Balance -1250 -640 600 Intake & Output: Intake & Output 08/29/18 08/29/18 08/29/18 05:59 13:59 21:59 Intake Total 50 460 600 Output Total 1300 1100 Balance -1250 -640 600 Intake: IV 50 100 Zosyn 3.375 gm In Dextrose 5% 50 100 in Water 50 ml @ 100 mls/hr IV Q6H [facility] Rx#:[id number] Oral 360 GI Tube Flush 600 Output: Urine Catheter Amount 1300 1100 Uretheral ([place]) 1100 Other: Meal Breakfast Percent of Meal Consumed 100% 75% General appearance: cooperative, no acute distress Exam: Alert oriented Slightly short of breath Minimal anxiety Lymphedema resolved Medical - PN: Obj Da - Labs CBC & Chem 7: 08/29/18 04:14 08/29/18 04:14 Labs: Abnormal Lab Results 08/29/18 08/29/18 08/28/18 04:14 04:14 03:15 RBC 3.90 L Hgb 9.9 L Hct 31.1 L MCV 79.9 L MCH 25.3 L RDW 19.4 H Lymphocytes % Monocytes % (Manual) 13 H RBC Morphology Abnorm A Polychromasia Hypochromasia 1+ A Anisocytosis 1+ A Microcytosis 1+ A ESR Carbon Dioxide 34 H 33 H Glucose 192 H 212 H Magnesium Total Bilirubin 1.5 H 1.8 H Direct Bilirubin 0.4 H GGT 44 H 47 H AST Lactate Dehydrogenase NT-Pro-B Natriuret Pep 08/28/18 08/27/18 08/27/18 03:15 03:45 03:45 RBC 3.90 L 3.91 L Hgb 9.8 L 9.9 L Hct 30.8 L 31.0 L MCV 79.0 L 79.2 L MCH 25.2 L 25.2 L RDW 19.0 H 18.5 H Lymphocytes % 14 L Monocytes % (Manual) RBC Morphology Abnorm A Abnorm A Polychromasia 1+ A 1+ A Hypochromasia 1+ A 1+ A Anisocytosis 1+ A 1+ A Microcytosis 1+ A 1+ A ESR Carbon Dioxide Glucose 179 H Magnesium 1.5 L Total Bilirubin 3.4 H Direct Bilirubin 0.5 H GGT 49 H AST 38 H Lactate Dehydrogenase 266 H NT-Pro-B Natriuret Pep 08/26/18 08/26/18 08/26/18 17:00 16:17 16:03 RBC Hgb Hct MCV MCH RDW Lymphocytes % Monocytes % (Manual) RBC Morphology Polychromasia Hypochromasia Anisocytosis Microcytosis ESR 45 H Carbon Dioxide Glucose 265 H Magnesium Total Bilirubin Direct Bilirubin GGT AST 40 H Lactate Dehydrogenase NT-Pro-B Natriuret Pep 1935.0 H Meds: Medications Acetaminophen (Tylenol) 650 mg PO Q4-6HP PRN PRN Reason: PAIN/FEVER > 101 Albuterol/Ipratropium (Duoneb) 3 ml NEB Q4HRT [facility] Last Admin: 08/29/18 15:37 Dose: 3 ml Documented by: Budesonide (Pulmicort) 0.5 mg NEB Q12 [facility] Last Admin: 08/29/18 08:26 Dose: 0.5 mg Documented by: Diagnostic Test (Pha) (Accu-Chek) 1 each FS ACHS [facility] Last Admin: 08/29/18 11:08 Dose: 1 each Documented by: Diltiazem HCl (Cardizem Cd) 120 mg PO DAILY [facility] Last Admin: 08/29/18 09:56 Dose: 120 mg Documented by: Docusate Sodium (Colace) 100 mg PO BID [facility] Last Admin: 08/29/18 09:56 Dose: 100 mg Documented by: Furosemide (Lasix) 20 mg IV BIDD [facility] Last Admin: 08/29/18 16:29 Dose: 20 mg Documented by: Guaifenesin (Robitussin Dm) 5 ml PO Q4HP PRN PRN Reason: Cough Last Admin: 08/29/18 16:37 Dose: 5 ml Documented by: Magnesium Sulfate (Magnesium Sulfate) 2 gm in 50 mls @ 50 mls/hr IV UD PRN PRN Reason: MG = or < 1.7 Last Infusion: 08/28/18 19:24 Dose: Infused Documented by: Acetaminophen (Ofirmev) 1,000 mg in 100 mls @ 200 mls/hr IV Q6HP PRN PRN Reason: PAIN/FEVER > 101 Piperacillin Sod/Tazobactam (Sod 3.375 gm/ Dextrose) 50 mls @ 100 mls/hr IV Q6H [facility] Last Infusion: 08/29/18 12:40 Dose: Infused Documented by: Insulin Glargine (Lantus) 75 unit SQ [facility] Last Admin: 08/28/18 21:12 Dose: 75 units Documented by: Insulin Human Lispro (Humalog) 0 unit SQ [facility]; Protocol Last Admin: 08/29/18 11:20 Dose: 10 units Documented by: Iron Carb/Multivit/[employer]/Folic Acid (Multivitamin W/Minerals) 1 tab PO DAILY [facility] Last Admin: 08/29/18 09:56 Dose: 1 tab Documented by: [facility] Omeprazole (Prilosec) 20 mg PO ACB [facility] Last Admin: 08/29/18 08:10 Dose: 20 mg Documented by: Ondansetron HCl (Zofran) 4 mg IV Q4-6HP PRN PRN Reason: Nausea And Vomiting Potassium Chloride (Klor-Con) 40 meq PO DAILYP PRN PRN Reason: K+ < 3.5 Last Admin: 08/28/18 15:40 Dose: 40 meq Documented by: Potassium Chloride (Kdur) 10 meq PO QAC [facility] Last Admin: 08/29/18 07:57 Dose: 10 meq Documented by: Senna/Docusate Sodium (Senna Plus Tablet) 1 tab PO [facility] Last Admin: 08/28/18 21:11 Dose: 1 tab Documented by: Simvastatin (Zocor) 5 mg PO [facility] Last Admin: 08/28/18 21:11 Dose: 5 mg Documented by: Sitagliptin Phosphate (Januvia) 100 mg PO DAILY [facility] Last Admin: 08/29/18 09:56 Dose: 100 mg Documented by: Sodium Chloride (Saline Flush) 10 ml IV Q8 [facility] Last Admin: 08/29/18 16:29 Dose: 10 ml Documented by: Medical - PN: A/P - Time Spent With Patient Total time spent is greater than 50% in coordination of care (as documented) at patient's floor/unit and/or counseling patient: 25 - 35 minutes (1) Right lower lobe pneumonia Status: Acute Assessment and plan: * Right lower lobe pneumonia-clinically improving, workup negative including viral panel/strep pneumo/mycoplasma and sputum cultures. Likely aspiration. Continue aspiration precaution and antibiotic coverage * Anemia secondary to recent GI bleed-advance diet, continue PPI. Status post 2 units PRBC transfusion. Hemoglobin stable around 9 * Sepsis-clinically resolved * Hypoxic respiratory failure secondary to pneumonia. Now on 1 L oxygen. Transfer to medical floor. Continue bronchodilators/pulmonary toilet. Continue diuresis * History of A. fib continue diltiazem * DM type II continue basal prandial insulin * GERD on PPI * Full code * DVT prophylaxis SCDs Plan * DC [place] catheter * Antibiotic coverage/aspiration precaution * Continue diuresis * Bronchodilators/pulmonary toilet * Discharge planning per case management * Medical condition management as above Current Visit: Yes Medical - PN: Qual - VTE Deep Vein Thrombosis/Pulmonary Embolism Present on Admission: No
[2018-08-29] MEDS: metFORMIN 500 MG TABLET PO SCH (17:50)
[2018-08-29] MEDS: SIMVASTATIN 10 MG TABLET PO SCH (21:48)
[2018-08-29] MEDS: SENNOSIDES/DOCUSATE SODIUM 1 TAB TABLET PO SCH (21:48)
[2018-08-29] MEDS: INSULIN GLARGINE, HUMAN 1 UNIT/0.01 ML SQ SCH (21:49)
[2018-08-30] MEDS: PIPERACILLIN SODIUM/TAZOBACTAM 3.375 GM in DEXTROSE 5% IN WATER 50 ML IV SCH ×4 (00:23→16:55)
[2018-08-30] MEDS: 0.9 % SODIUM CHLORIDE 10 ML SYRINGE IV SCH ×3 (00:23→13:00)
[2018-08-30] MEDS: IPRATROPIUM/ALBUTEROL 3 ML AMPUL.NEB NEB SCH ×6 (03:58→23:11)
[2018-08-30] MEDS: guaiFENesin/DEXTROMETHORPHAN ORAL SOL PO PRN ×3 (03:58→19:40)
[2018-08-30 06:40] LABS: Mean Cell Volume 80.1 fL (80.0-100.0); Mean Corpuscular HGB Conc 31.7 g/dL (31.0-36.0); Platelet Count 191 K/mcL (140-440); RBC 4.18 M/mcL (4.00-5.20); Red Cell Distribution Width 20.1 % (11.5-14.5)
[2018-08-30 07:12] LABS: ALT/SGPT 24 U/l (0-40); Albumin 3.6 gm/dL (3.2-5.2); Alkaline Phosphatase 46 U/L (39-117); Bilirubin,Direct 0.3 mg/dL (0.0-0.3); Blood Urea Nitrogen 15 mg/dl (8-23); Gamma Glutamyl Transpeptidase 47 U/L (5-36); Uric Acid 4.1 mg/dL (2.5-8.0)
[2018-08-30] MEDS: BUDESONIDE 0.5 MG/2 ML AMPUL.NEB NEB SCH ×2 (07:57→19:13)
[2018-08-30] MEDS: FUROSEMIDE 20 MG/2 ML VIAL IV SCH ×2 (08:32→16:55)
[2018-08-30] MEDS: DOCUSATE SODIUM 100 MG CAPSULE PO SCH ×2 (08:39→21:19)
[2018-08-30] MEDS: sitaGLIPtin 100 MG TABLET PO SCH (08:39)
[2018-08-30] MEDS: POTASSIUM CHLORIDE 10 MEQ TABLET PO SCH (08:39)
[2018-08-30] MEDS: MULTIVIT,THER IRON,CA,FA & MIN 1 TABLET PO SCH (08:40)
[2018-08-30] MEDS: metFORMIN 500 MG TABLET PO SCH ×2 (08:41→16:55)
[2018-08-30] MEDS: DILTIAZEM 120 MG CAP.XL.24H PO SCH (08:41)
[2018-08-30 09:23] LABS: Anisocytosis 1+ (NONE SEEN); Band Neutrophils % 1 % (0-10); Eosinophils % (Manual) 2 % (0-7); Hypochromasia 1+ (NONE SEEN); Lymphocytes % 18 % (15-49); Monocytes % (Manual) 14 % (1-12); Plasma Cells 1 % (0-0); Platelet Estimate NORMAL (NORMAL); RBC Morphology ABNORM (NORMAL); Segmented Neutrophils % 63 % (38-78)
[2018-08-30] MEDS: INSULIN LISPRO 1 UNIT/0.01 ML UNIT SQ SCH ×4 (10:10→21:18)
[2018-08-30] MEDS: OMEPRAZOLE 20 MG CAPSULE PO SCH (10:11)
[2018-08-30] MEDS: MAGNESIUM SULFATE 2 GM/50 ML BAG IV PRN (11:08)
--- NOTE | 2018-08-30 11:30 | Internal Med Progress Note ---
Medical - PN: Subj Patient information: Note initiated : 08/30/18 at 11:26 am Service Date, if different from initiated Date: [] Patient: Padmini Cunha a 78 y/o F admitted on 08/26/18 for sob. Chief Complaint: [] Interval history: Ms. Cunha is a 78 year old F with history of atrial fibrillation and has been on Eliquis for CVA prophylaxis. Patient recently had GI bleed with blood loss anemia requiring multiple endoscopies. Most recent double-balloon enteroscopy was on Monday at [facility] where she was intubated during the procedure. Postprocedure patient has noted increasing hoarseness/cough and over the last 24 hours has become progressively short of breath/increasing effort intolerance and very weak and non-productive sputum. She subsequently comes to the ER for evaluation. Initial workup was significant for hemoglobin of 7.5, hypoxia requiring 2 L oxygen and right lower lobe infiltrate on chest imaging. Hospitalist service was consulted. At the time of evaluation patient is alert oriented. She is nondistressed and was able to provide history as above. She denies recent travel,, bloody stool, abdominal pain, weight loss. She further denies sick contacts. She attributes her symptoms secondary to recent procedure. 08/27-patient looking worse. More shortness of breath. Diuretics increased. Echocardiogram reviewed, EF 70% as of 05/15/18. Hemoglobin 9.9. Continue close monitoring. Start regular diet/rehab support 08/28-patient diuresing well with over 3000 cc net negative. Transfer to medical floor. No overnight fever or chills. On antibiotic coverage. On the right breast recommendations. Ongoing physical therapy. Denies active concerns. 08/29-patient doing better. Persistent cough however now on 1 L oxygen. No GI bleed. Hemoglobin stable. Gradual clinical improvement noted. Denies shortness of breath, fever, chills. No overnight telemetry events. Transfer to medical floor. No concerns expressed by nursing staff. Ongoing rehab/nutrition support. 08/30-patient doing well however feeling a lot fatigued. Persistent cough and was unable to sleep currently on cough suppressant. Diuresing well, no fever chills or overnight events. No other concerns expressed to nursing staff. Tolerating diet and physical therapy. Anticipate discharge in 24 hours if continues to improve clinically. - Constitutional Vitals: Vital Signs Temp Pulse Resp BP Pulse Ox 97.8 F 89 20 141/68 89 L 08/30/18 09:41 08/30/18 09:41 08/30/18 09:41 08/30/18 09:41 08/30/18 09:41 Period Temp Pulse Resp BP Sys/Bryson Pulse Ox Last 24 Hr 97.8 F-98.9 F 84-96 12-32 128-146/56-68 89-97 Intake and Output 08/29/18 08/30/18 08/30/18 21:59 05:59 13:59 Intake Total 650 550 Balance 650 550 Weight 180 lb 8 oz Intake & Output: Intake & Output 08/29/18 08/30/18 08/30/18 21:59 05:59 13:59 Intake Total 650 550 Balance 650 550 Weight 180 lb 8 oz Intake: IV 50 50 Zosyn 3.375 gm In Dextrose 5% 50 50 in Water 50 ml @ 100 mls/hr IV Q6H [facility] Rx#:[id number] Oral 500 GI Tube Flush 600 Other: Percent of Meal Consumed 75% # Voids 2 General appearance: cooperative, no acute distress Exam: Alert oriented Mild anxiety from persistent cough No labored breathing Nondistended abdomen Lymphedema improved Medical - PN: Obj Da - Labs CBC & Chem 7: 08/30/18 05:12 08/30/18 05:12 Labs: Abnormal Lab Results 08/30/18 08/30/18 08/29/18 05:12 05:12 04:14 RBC Hgb 10.6 L Hct 33.5 L MCV MCH 25.4 L RDW 20.1 H Lymphocytes % Monocytes % (Manual) 14 H Nucleated RBCs 1 H Plasma Cells 1 H RBC Morphology Abnorm A Polychromasia 2+ A Hypochromasia 1+ A Anisocytosis 1+ A Microcytosis Carbon Dioxide 35 H 34 H Glucose 165 H 192 H Magnesium 1.4 L Total Bilirubin 1.5 H 1.5 H Direct Bilirubin GGT 47 H 44 H 08/29/18 08/28/18 08/28/18 04:14 03:15 03:15 RBC 3.90 L 3.90 L Hgb 9.9 L 9.8 L Hct 31.1 L 30.8 L MCV 79.9 L 79.0 L MCH 25.3 L 25.2 L RDW 19.4 H 19.0 H Lymphocytes % 14 L Monocytes % (Manual) 13 H Nucleated RBCs Plasma Cells RBC Morphology Abnorm A Abnorm A Polychromasia 1+ A Hypochromasia 1+ A 1+ A Anisocytosis 1+ A 1+ A Microcytosis 1+ A 1+ A Carbon Dioxide 33 H Glucose 212 H Magnesium Total Bilirubin 1.8 H Direct Bilirubin 0.4 H GGT 47 H Meds: Medications Acetaminophen (Tylenol) 650 mg PO Q4-6HP PRN PRN Reason: PAIN/FEVER > 101 Albuterol/Ipratropium (Duoneb) 3 ml NEB Q4HRT COUNT INCLUDES THE [facility] Last Admin: 08/30/18 07:55 Dose: 3 ml Documented by: Budesonide (Pulmicort) 0.5 mg NEB Q12 COUNT [facility]CLUD[facility] Last Admin: 08/30/18 07:57 Dose: 0.5 mg Documented by: Diagnostic Test (Pha) (Accu-Chek) 1 each FS ACHS COUNT INCLUDES THE [facility] Last Admin: 08/30/18 08:33 Dose: 1 each Documented by: Diltiazem HCl (Cardizem Cd) 120 mg PO DAILY COUNT [facility]CLUDES [facility] Last Admin: 08/30/18 08:41 Dose: 120 mg Documented by: Docusate Sodium (Colace) 100 mg PO BID COUNT [facility]CLUDES [facility] Last Admin: 08/30/18 08:39 Dose: 100 mg Documented by: Furosemide (Lasix) 20 mg IV BIDD COUNT INCLUDES [facility] Last Admin: 08/30/18 08:32 Dose: 20 mg Documented by: Guaifenesin (Robitussin Dm) 5 ml PO Q4HP PRN PRN Reason: Cough Last Admin: 08/30/18 10:22 Dose: 5 ml Documented by: Magnesium Sulfate (Magnesium Sulfate) 2 gm in 50 mls @ 50 mls/hr IV UD PRN PRN Reason: MG = or < 1.7 Last Admin: 08/30/18 11:08 Dose: 50 mls/hr Documented by: Acetaminophen (Ofirmev) 1,000 mg in 100 mls @ 200 mls/hr IV Q6HP PRN PRN Reason: PAIN/FEVER > 101 Piperacillin Sod/Tazobactam (Sod 3.375 gm/ Dextrose) 50 mls @ 100 mls/hr IV Q6H COUNT [facility]CLUDES [facility] Last Admin: 08/30/18 05:54 Dose: 100 mls/hr Documented by: Insulin Glargine (Lantus) 75 unit SQ [facility] Last Admin: 08/29/18 21:49 Dose: 75 units Documented by: Insulin Human Lispro (Humalog) 0 unit SQ [facility]; Protocol Last Admin: 08/30/18 10:10 Dose: 2 units Documented by: Iron Carb/Multivit/Evans/Folic Acid (Multivitamin W/Minerals) 1 tab PO DAILY COUNT [facility]CLUDES [facility] Last Admin: 08/30/18 08:40 Dose: 1 tab Documented by: Metformin HCl (Glucophage) 1,000 mg PO BIDCC COUNT INCLUDES [facility] Last Admin: 08/30/18 08:41 Dose: 1,000 mg Documented by: Omeprazole (Prilosec) 20 mg PO ACB COUNT [facility]CLUDES [facility] Last Admin: 08/30/18 10:11 Dose: 20 mg Documented by: Ondansetron HCl (Zofran) 4 mg IV Q4-6HP PRN PRN Reason: Nausea And Vomiting Potassium Chloride (Klor-Con) 40 meq PO DAILYP PRN PRN Reason: K+ < 3.5 Last Admin: 08/28/18 15:40 Dose: 40 meq Documented by: Potassium Chloride (Kdur) 10 meq PO QAC COUNT INCLUDES [facility] Last Admin: 08/30/18 08:39 Dose: 10 meq Documented by: Senna/Docusate Sodium (Senna Plus Tablet) 1 tab PO [facility] Last Admin: 08/29/18 21:48 Dose: 1 tab Documented by: Simvastatin (Zocor) 5 mg PO [facility] Last Admin: 08/29/18 21:48 Dose: 5 mg Documented by: Sitagliptin Phosphate (Januvia) 100 mg PO DAILY COUNT [facility]CLUDES [facility] Last Admin: 08/30/18 08:39 Dose: 100 mg Documented by: Sodium Chloride (Saline Flush) 10 ml IV Q8 COUNT [facility]CLUDES [facility] Last Admin: 08/30/18 08:34 Dose: 10 ml Documented by: Medical - PN: A/P - Time Spent With Patient Total time spent is greater than 50% in coordination of care (as documented) at patient's floor/unit and/or counseling patient: 15 - 24 minutes (1) Right lower lobe pneumonia Status: Acute Assessment and plan: * Right lower lobe pneumonia-clinically improving, workup negative including viral panel/strep pneumo/mycoplasma and sputum cultures. Likely aspiration. Continue aspiration precaution and antibiotic coverage through 09/02 * Sepsis-clinically resolved * Hypoxic respiratory failure secondary to pneumonia. Now on 1 L oxygen. Transfer to medical floor. Continue bronchodilators/pulmonary toilet. Continue diuresis * Blood loss anemia secondary to recent GI bleed status post double balloon enteroscopy at [place] and cauterization- continue PPI. Status post 2 units PRBC transfusion. Hemoglobin improved around 10 * History of A. fib continue diltiazem * DM type II continue basal prandial insulin * GERD on PPI * Full code * DVT prophylaxis SCDs Plan * Continue antitussive * Antibiotic coverage through 09/02 * aspiration precaution * Continue diuresis * Bronchodilators/pulmonary toilet * Anticipate discharge in 24 hours * Medical condition management as above Current Visit: Yes Medical - PN: Qual - VTE Deep Vein Thrombosis/Pulmonary Embolism Present on Admission: No
[2018-08-30] MEDS: INSULIN GLARGINE, HUMAN 1 UNIT/0.01 ML SQ SCH (21:18)
[2018-08-30] MEDS: SIMVASTATIN 10 MG TABLET PO SCH (21:19)
[2018-08-30] MEDS: SENNOSIDES/DOCUSATE SODIUM 1 TAB TABLET PO SCH (21:19)
[2018-08-31] MEDS: PIPERACILLIN SODIUM/TAZOBACTAM 3.375 GM in DEXTROSE 5% IN WATER 50 ML IV SCH ×4 (00:05→17:01)
[2018-08-31] MEDS: 0.9 % SODIUM CHLORIDE 10 ML SYRINGE IV SCH ×4 (00:06→22:13)
[2018-08-31] MEDS: guaiFENesin/DEXTROMETHORPHAN ORAL SOL PO PRN ×3 (02:13→19:15)
[2018-08-31] MEDS: IPRATROPIUM/ALBUTEROL 3 ML AMPUL.NEB NEB SCH ×6 (02:17→23:22)
[2018-08-31 07:00] LABS: Mean Cell Volume 81.1 fL (80.0-100.0); Mean Corpuscular HGB Conc 31.5 g/dL (31.0-36.0); Platelet Count 196 K/mcL (140-440); RBC 3.94 M/mcL (4.00-5.20); Red Cell Distribution Width 20.6 % (11.5-14.5)
[2018-08-31 07:15] LABS: ALT/SGPT 29 U/l (0-40); Albumin 3.7 gm/dL (3.2-5.2); Albumin/Globulin Ratio 1.1 (1.0-2.3); Alkaline Phosphatase 48 U/L (39-117); Bilirubin,Direct 0.2 mg/dL (0.0-0.3); Blood Urea Nitrogen 17 mg/dl (8-23); Gamma Glutamyl Transpeptidase 48 U/L (5-36); Uric Acid 4.4 mg/dL (2.5-8.0)
[2018-08-31] MEDS: OMEPRAZOLE 20 MG CAPSULE PO SCH (07:37)
[2018-08-31] MEDS: INSULIN LISPRO 1 UNIT/0.01 ML UNIT SQ SCH ×4 (07:40→21:44)
[2018-08-31] MEDS: BUDESONIDE 0.5 MG/2 ML AMPUL.NEB NEB SCH ×2 (07:50→19:28)
[2018-08-31 08:35] LABS: Anisocytosis 1+ (NONE SEEN); Band Neutrophils % 1 % (0-10); Eosinophils % (Manual) 1 % (0-7); Hypochromasia 1+ (NONE SEEN); Lymphocytes % 19 % (15-49); Monocytes % (Manual) 12 % (1-12); Platelet Estimate NORMAL (NORMAL); RBC Morphology ABNORM (NORMAL); Segmented Neutrophils % 67 % (38-78)
[2018-08-31] MEDS: metFORMIN 500 MG TABLET PO SCH ×2 (08:44→17:00)
[2018-08-31] MEDS: POTASSIUM CHLORIDE 10 MEQ TABLET PO SCH (08:45)
[2018-08-31] MEDS: sitaGLIPtin 100 MG TABLET PO SCH (08:46)
[2018-08-31] MEDS: DOCUSATE SODIUM 100 MG CAPSULE PO SCH ×2 (08:46→21:46)
[2018-08-31] MEDS: DILTIAZEM 120 MG CAP.XL.24H PO SCH (08:47)
[2018-08-31] MEDS: MULTIVIT,THER IRON,CA,FA & MIN 1 TABLET PO SCH (08:55)
[2018-08-31] MEDS: FUROSEMIDE 20 MG/2 ML VIAL IV SCH (10:27)
--- NOTE | 2018-08-31 11:34 | Internal Med Progress Note ---
Medical - PN: Subj Patient information: Note initiated : 08/31/18 at 11:34 am Service Date, if different from initiated Date: [] Patient: Padmini Cunha a 78 y/o F admitted on 08/26/18 for sob. Chief Complaint: [] Interval history: Ms. Cunha is a 78 year old F with history of atrial fibrillation and has been on Eliquis for CVA prophylaxis. Patient recently had GI bleed with blood loss anemia requiring multiple endoscopies. Most recent double-balloon enteroscopy was on Monday at [facility] where she was intubated during the procedure. Postprocedure patient has noted increasing hoarseness/cough and over the last 24 hours has become progressively short of breath/increasing effort intolerance and very weak and non-productive sputum. She subsequently comes to the ER for evaluation. Initial workup was significant for hemoglobin of 7.5, hypoxia requiring 2 L oxygen and right lower lobe infiltrate on chest imaging. Hospitalist service was consulted. At the time of evaluation patient is alert oriented. She is nondistressed and was able to provide history as above. She denies recent travel,, bloody stool, abdominal pain, weight loss. She further denies sick contacts. She attributes her symptoms secondary to recent procedure. 08/27-patient looking worse. More shortness of breath. Diuretics increased. Echocardiogram reviewed, EF 70% as of 05/15/18. Hemoglobin 9.9. Continue close monitoring. Start regular diet/rehab support 08/28-patient diuresing well with over 3000 cc net negative. Transfer to medical floor. No overnight fever or chills. On antibiotic coverage. On the right breast recommendations. Ongoing physical therapy. Denies active concerns. 08/29-patient doing better. Persistent cough however now on 1 L oxygen. No GI bleed. Hemoglobin stable. Gradual clinical improvement noted. Denies shortness of breath, fever, chills. No overnight telemetry events. Transfer to medical floor. No concerns expressed by nursing staff. Ongoing rehab/nutrition support. 08/30-patient doing well however feeling a lot fatigued. Persistent cough and was unable to sleep currently on cough suppressant. Diuresing well, no fever chills or overnight events. No other concerns expressed to nursing staff. Tolerating diet and physical therapy. Anticipate discharge in 24 hours if continues to improve clinically. 08/31-patient had a rough 24 hours with persistent coughing and was unable to sleep. She feels wiped out. Very uncomfortable this morning. Stat chest x-ray ordered. Continue bronchodilators/antibiotic coverage. Discharge planning on hold due to change in status. - Constitutional Vitals: Vital Signs Temp Pulse Resp BP Pulse Ox 98.3 F 94 H 20 143/65 93 08/31/18 08:00 08/31/18 08:00 08/31/18 08:00 08/31/18 08:00 08/31/18 08:00 Period Temp Pulse Resp BP Sys/Bryson Pulse Ox Last 24 Hr 96.8 F-98.7 F 82-105 16-24 115-149/55-75 90-96 Intake and Output 08/30/18 08/31/18 08/31/18 21:59 05:59 13:59 Intake Total 50 600 50 Output Total 2 Balance 50 598 50 Weight 180 lb Intake & Output: Intake & Output 08/30/18 08/31/18 08/31/18 21:59 05:59 13:59 Intake Total 50 600 50 Output Total 2 Balance 50 598 50 Weight 180 lb Intake: IV 50 50 50 Zosyn 3.375 gm In Dextrose 5% 50 50 50 in Water 50 ml @ 100 mls/hr IV Q6H [facility] Rx#:[id number] Oral 550 Output: # of times incontinent of urine 2 Other: Meal Breakfast Percent of Meal Consumed 100% Feeding Ability Independent General appearance: no acute distress Exam: Feels fatigued lethargic and drowsy Persistent cough with shortness of breath No lymphedema Anxious Medical - PN: Obj Da - Labs CBC & Chem 7: 08/31/18 05:30 08/31/18 05:30 Labs: Abnormal Lab Results 08/31/18 08/31/18 08/30/18 05:30 05:30 05:12 RBC 3.94 L Hgb 10.1 L Hct 32.0 L MCV MCH 25.6 L RDW 20.6 H Monocytes % (Manual) Nucleated RBCs Plasma Cells RBC Morphology Abnorm A Polychromasia Hypochromasia 1+ A Anisocytosis 1+ A Microcytosis Carbon Dioxide 34 H 35 H Glucose 146 H 165 H Magnesium 1.5 L 1.4 L Total Bilirubin 1.1 H 1.5 H GGT 48 H 47 H AST 48 H 08/30/18 08/29/18 08/29/18 05:12 04:14 04:14 RBC 3.90 L Hgb 10.6 L 9.9 L Hct 33.5 L 31.1 L MCV 79.9 L MCH 25.4 L 25.3 L RDW 20.1 H 19.4 H Monocytes % (Manual) 14 H 13 H Nucleated RBCs 1 H Plasma Cells 1 H RBC Morphology Abnorm A Abnorm A Polychromasia 2+ A Hypochromasia 1+ A 1+ A Anisocytosis 1+ A 1+ A Microcytosis 1+ A Carbon Dioxide 34 H Glucose 192 H Magnesium Total Bilirubin 1.5 H GGT 44 H AST Meds: Medications Acetaminophen (Tylenol) 650 mg PO Q4-6HP PRN PRN Reason: PAIN/FEVER > 101 Albuterol/Ipratropium (Duoneb) 3 ml NEB Q4HRT [facility] Last Admin: 08/31/18 07:50 Dose: 3 ml Documented by: Budesonide (Pulmicort) 0.5 mg NEB Q12 [facility] Last Admin: 08/31/18 07:50 Dose: 0.5 mg Documented by: Diagnostic Test (Pha) (Accu-Chek) 1 each FS ACHS [facility] Last Admin: 08/31/18 07:36 Dose: 1 each Documented by: Diltiazem HCl (Cardizem Cd) 120 mg PO DAILY [facility] Last Admin: 08/31/18 08:47 Dose: 120 mg Documented by: Docusate Sodium (Colace) 100 mg PO BID [facility] Last Admin: 08/31/18 08:46 Dose: 100 mg Documented by: Furosemide (Lasix) 20 mg IV BIDD [facility] Last Admin: 08/31/18 10:27 Dose: 20 mg Documented by: Guaifenesin (Robitussin Dm) 5 ml PO Q4HP PRN PRN Reason: Cough Last Admin: 08/31/18 08:47 Dose: 5 ml Documented by: Magnesium Sulfate (Magnesium Sulfate) 2 gm in 50 mls @ 50 mls/hr IV UD PRN PRN Reason: MG = or < 1.7 Last Admin: 08/30/18 11:08 Dose: 50 mls/hr Documented by: Acetaminophen (Ofirmev) 1,000 mg in 100 mls @ 200 mls/hr IV Q6HP PRN PRN Reason: PAIN/FEVER > 101 Piperacillin Sod/Tazobactam (Sod 3.375 gm/ Dextrose) 50 mls @ 100 mls/hr IV Q6H [facility] Last Infusion: 08/31/18 06:30 Dose: Infused Documented by: Insulin Glargine (Lantus) 75 unit SQ [facility] Last Admin: 08/30/18 21:18 Dose: 75 units Documented by: Insulin Human Lispro (Humalog) 0 unit SQ [facility]; Protocol Last Admin: 08/31/18 07:40 Dose: Not Given Documented by: Iron Carb/Multivit/Beckham/Folic Acid (Multivitamin W/Minerals) 1 tab PO DAILY [facility] Last Admin: 08/31/18 08:55 Dose: 1 tab Documented by: Metformin HCl (Glucophage) 1,000 mg PO BIDCC [facility] Last Admin: 08/31/18 08:44 Dose: 1,000 mg Documented by: Omeprazole (Prilosec) 20 mg PO ACB [facility] Last Admin: 08/31/18 07:37 Dose: 20 mg Documented by: Ondansetron HCl (Zofran) 4 mg IV Q4-6HP PRN PRN Reason: Nausea And Vomiting Potassium Chloride (Klor-Con) 40 meq PO DAILYP PRN PRN Reason: K+ < 3.5 Last Admin: 08/28/18 15:40 Dose: 40 meq Documented by: Potassium Chloride (Kdur) 10 meq PO QAC [facility] Last Admin: 08/31/18 08:45 Dose: 10 meq Documented by: Senna/Docusate Sodium (Senna Plus Tablet) 1 tab PO [facility] Last Admin: 08/30/18 21:19 Dose: Not Given Documented by: Simvastatin (Zocor) 5 mg PO [facility] Last Admin: 08/30/18 21:19 Dose: 5 mg Documented by: Sitagliptin Phosphate (Januvia) 100 mg PO DAILY [facility] Last Admin: 08/31/18 08:46 Dose: 100 mg Documented by: Sodium Chloride (Saline Flush) 10 ml IV Q8 [facility] Last Admin: 08/31/18 05:57 Dose: 10 ml Documented by: Medical - PN: A/P - Time Spent With Patient Total time spent is greater than 50% in coordination of care (as documented) at patient's floor/unit and/or counseling patient: 25 - 35 minutes (1) Right lower lobe pneumonia Status: Acute Assessment and plan: * Right lower lobe pneumonia-clinically improving, workup negative including viral panel/strep pneumo/mycoplasma and sputum cultures. Likely aspiration. Continue aspiration precaution and antibiotic coverage through 09/02. Repeat chest imaging in light of worsening cough and shortness of breath * Sepsis-clinically resolved * Hypoxic respiratory failure secondary to pneumonia. Now on 1 L oxygen. Transfer to medical floor. Continue bronchodilators/pulmonary toilet. Continue diuresis * Blood loss anemia secondary to recent GI bleed status post double balloon enteroscopy at [facility] and cauterization- continue PPI. Status post 2 units PRBC transfusion. Hemoglobin improved around 10 * History of A. fib continue diltiazem * DM type II continue basal prandial insulin * GERD on PPI * Full code * DVT prophylaxis SCDs Plan * Continue antitussive * X-ray chest * Continue antibiotic through 09/02 * Continue aspiration precaution * Bronchodilators/pulmonary toilet/diuresis * Hold discharge plan for additional 24 hours * Medical condition management as above Current Visit: Yes Medical - PN: Qual - VTE Deep Vein Thrombosis/Pulmonary Embolism Present on Admission: No
--- NOTE | 2018-08-31 12:27 | XRay Report ---
INDICATION: Cough. Dyspnea. TECHNIQUE: AP chest x-ray,portable upright COMPARISON: Previous chest x-ray dated 08/26/2018. Previous chest CT scan dated 08/26/2018 FINDINGS:Small right pleural effusion. Right basilar volume loss or infiltrate. There is cardiomegaly, unchanged. Pulmonary vascularity is mildly prominent. Right basilar infiltrate and pleural effusion may be due to pneumonia but mild congestive heart failure is possible. Clinical correlation and follow-up radiograph is necessary. IMPRESSION: 1. Cardiomegaly and probable pulmonary congestion 2. Right basilar infiltrate and small effusion. Findings may be due to congestive heart failure or pneumonia Interpreted and Authenticated by: Juan Francisco Barillas 08/31/18
--- NOTE | 2018-08-31 15:31 | Internal Med Progress Note ---
Medical - PN: Subj Patient information: Note initiated : 08/31/18 at 3:23 pm Service Date, if different from initiated Date: [] Patient: Padmini Cunha a 78 y/o F admitted on 08/26/18 for sob. Chief Complaint: [] Interval history: Ms. Cunha is a 78 year old F with history of atrial fibrillation and has been on Eliquis for CVA prophylaxis. Patient recently had GI bleed with blood loss anemia requiring multiple endoscopies. Most recent double-balloon enteroscopy was on Monday at [place] where she was intubated during the procedure. Postprocedure patient has noted increasing hoarseness/cough and over the last 24 hours has become progressively short of breath/increasing effort intolerance and very weak and non-productive sputum. She subsequently comes to the ER for evaluation. Initial workup was significant for hemoglobin of 7.5, hypoxia requiring 2 L oxygen and right lower lobe infiltrate on chest imaging. Hospitalist service was consulted. At the time of evaluation patient is alert oriented. She is nondistressed and was able to provide history as above. She denies recent travel,, bloody stool, abdominal pain, weight loss. She further denies sick contacts. She attributes her symptoms secondary to recent procedure. 08/27-patient looking worse. More shortness of breath. Diuretics increased. Echocardiogram reviewed, EF 70% as of 05/15/18. Hemoglobin 9.9. Continue close monitoring. Start regular diet/rehab support 08/28-patient diuresing well with over 3000 cc net negative. Transfer to medical floor. No overnight fever or chills. On antibiotic coverage. On the right breast recommendations. Ongoing physical therapy. Denies active concerns. 08/29-patient doing better. Persistent cough however now on 1 L oxygen. No GI bleed. Hemoglobin stable. Gradual clinical improvement noted. Denies shortness of breath, fever, chills. No overnight telemetry events. Transfer to medical floor. No concerns expressed by nursing staff. Ongoing rehab/nutrition support. 08/30-patient doing well however feeling a lot fatigued. Persistent cough and was unable to sleep currently on cough suppressant. Diuresing well, no fever chills or overnight events. No other concerns expressed to nursing staff. Tolerating diet and physical therapy. Anticipate discharge in 24 hours if continues to improve clinically. 08/31-patient had a rough 24 hours with persistent coughing and was unable to sleep. She feels wiped out. Very uncomfortable this morning. Stat chest x-ray ordered. Continue bronchodilators/antibiotic coverage. Discharge planning on hold due to change in status. 09/01 - Constitutional Vitals: Vital Signs Temp Pulse Resp BP Pulse Ox 97.5 F 81 16 138/62 96 08/31/18 11:45 08/31/18 14:46 08/31/18 14:46 08/31/18 11:45 08/31/18 11:45 Period Temp Pulse Resp BP Sys/Bryson Pulse Ox Last 24 Hr 96.8 F-98.7 F 81-105 16-24 115-149/55-75 90-96 Intake and Output 08/31/18 08/31/18 08/31/18 05:59 13:59 21:59 Intake Total 600 290 Output Total 2 1 Balance 598 289 Intake & Output: Intake & Output 08/31/18 08/31/18 08/31/18 05:59 13:59 21:59 Intake Total 600 290 Output Total 2 1 Balance 598 289 Intake: IV 50 50 Zosyn 3.375 gm In Dextrose 5% 50 50 in Water 50 ml @ 100 mls/hr IV Q6H [facility] Rx#:[id number] Oral 550 240 Output: # of times incontinent of urine 2 1 Other: Meal Lunch Percent of Meal Consumed 100% Feeding Ability Independent Urine Appearance Clear Urine Color Bright Yellow Urine Odor Normal Stool Size Small Stool Color Brown # Voids 2 # Bowel Movements 1 Exam: General: Alert, Awake, No acute Distress Eyes/N/T: EOMI, Head/Neck: neck supple, CV: RRR, No murmurs, Pulm: Abd: soft, nontender, +BS x4 Ext: no clubbing/cyanosis/edema Neuro: Alert, no focal deficits, moves all extremities, Skin: warm/dry Medical - PN: Obj Da - Labs CBC & Chem 7: 08/31/18 05:30 08/31/18 05:30 Labs: Abnormal Lab Results 08/31/18 08/31/18 08/30/18 05:30 05:30 05:12 RBC 3.94 L Hgb 10.1 L Hct 32.0 L MCV MCH 25.6 L RDW 20.6 H Monocytes % (Manual) Nucleated RBCs Plasma Cells RBC Morphology Abnorm A Polychromasia Hypochromasia 1+ A Anisocytosis 1+ A Microcytosis Carbon Dioxide 34 H 35 H Glucose 146 H 165 H Magnesium 1.5 L 1.4 L Total Bilirubin 1.1 H 1.5 H GGT 48 H 47 H AST 48 H 08/30/18 08/29/18 08/29/18 05:12 04:14 04:14 RBC 3.90 L Hgb 10.6 L 9.9 L Hct 33.5 L 31.1 L MCV 79.9 L MCH 25.4 L 25.3 L RDW 20.1 H 19.4 H Monocytes % (Manual) 14 H 13 H Nucleated RBCs 1 H Plasma Cells 1 H RBC Morphology Abnorm A Abnorm A Polychromasia 2+ A Hypochromasia 1+ A 1+ A Anisocytosis 1+ A 1+ A Microcytosis 1+ A Carbon Dioxide 34 H Glucose 192 H Magnesium Total Bilirubin 1.5 H GGT 44 H AST Meds: Medications Acetaminophen (Tylenol) 650 mg PO Q4-6HP PRN PRN Reason: PAIN/FEVER > 101 Albuterol/Ipratropium (Duoneb) 3 ml NEB Q4HRT [facility] Last Admin: 08/31/18 14:46 Dose: 3 ml Documented by: Budesonide (Pulmicort) 0.5 mg NEB Q12 [facility] Last Admin: 08/31/18 07:50 Dose: 0.5 mg Documented by: Diagnostic Test (Pha) (Accu-Chek) 1 each FS ACHS [facility] Last Admin: 08/31/18 11:43 Dose: 1 each Documented by: Diltiazem HCl (Cardizem Cd) 120 mg PO DAILY [facility] Last Admin: 08/31/18 08:47 Dose: 120 mg Documented by: Docusate Sodium (Colace) 100 mg PO BID [facility] Last Admin: 08/31/18 08:46 Dose: 100 mg Documented by: Furosemide (Lasix) 20 mg IV DAILY [facility] Furosemide (Lasix) 40 mg IV ONCE ONE Stop: 08/31/18 16:01 Guaifenesin (Robitussin Dm) 5 ml PO Q4HP PRN PRN Reason: Cough Last Admin: 08/31/18 08:47 Dose: 5 ml Documented by: Magnesium Sulfate (Magnesium Sulfate) 2 gm in 50 mls @ 50 mls/hr IV UD PRN PRN Reason: MG = or < 1.7 Last Admin: 08/30/18 11:08 Dose: 50 mls/hr Documented by: Acetaminophen (Ofirmev) 1,000 mg in 100 mls @ 200 mls/hr IV Q6HP PRN PRN Reason: PAIN/FEVER > 101 Piperacillin Sod/Tazobactam (Sod 3.375 gm/ Dextrose) 50 mls @ 100 mls/hr IV Q6H [facility] Last Admin: 08/31/18 12:08 Dose: 100 mls/hr Documented by: Insulin Glargine (Lantus) 75 unit SQ [facility] Last Admin: 08/30/18 21:18 Dose: 75 units Documented by: Insulin Human Lispro (Humalog) 0 unit SQ [facility]; Protocol Last Admin: 08/31/18 13:30 Dose: 6 units Documented by: Iron Carb/Multivit/[place]/Folic Acid (Multivitamin W/Minerals) 1 tab PO DAILY [facility] Last Admin: 08/31/18 08:55 Dose: 1 tab Documented by: Metformin [facility] (Gluc[facility]) [facility] Last Admin: 08/31/18 08:44 Dose: 1,000 mg Documented by: Omeprazole (Prilosec) 20 mg PO B [facility] Last Admin: 08/31/18 07:37 Dose: 20 mg Documented by: Ondansetron HCl (Zofran) 4 mg IV Q4-6HP PRN PRN Reason: Nausea And Vomiting Potassium Chloride (Klor-Con) 40 meq PO DAILYP PRN PRN Reason: K+ < 3.5 Last Admin: 08/28/18 15:40 Dose: 40 meq Documented by: [facility] ([facility]) [facility] Last Admin: 08/31/18 08:45 Dose: 10 meq Documented by: Senna/Docusate Sodium (Senna Plus Tablet) 1 tab PO [facility] Last Admin: 08/30/18 21:19 Dose: Not Given Documented by: Simvastatin (Zocor) 5 mg PO [facility] Last Admin: 08/30/18 21:19 Dose: 5 mg Documented by: Sitagliptin Phosphate (Januvia) 100 mg PO DAILY [facility] Last Admin: 08/31/18 08:46 Dose: 100 mg Documented by: Sodium Chloride (Saline Flush) 10 ml IV Q8 [facility] Last Admin: 08/31/18 05:57 Dose: 10 ml Documented by: Medical - PN: A/P - Time Spent With Patient Total time spent is greater than 50% in coordination of care (as documented) at patient's floor/unit and/or counseling patient: - Narrative A/P Narrative: A: *Right lower lobe pneumonia: clinically improving, suspected Aspiration -negative including viral panel/strep pneumo/mycoplasma and sputum cultures. *Sepsis-clinically resolved *Hypoxic respiratory failure secondary to pneumoniaL: -Now on 1 L oxygen. *Volume Overload: echo last April with good EF, unable to assess diastolic fxn *Blood loss anemia secondary to recent GI bleed status post double balloon enteroscopy at [place] and cauterization: continue PPI -Status post 2 units PRBC transfusion (08/26) -Hgb stable *History of A. fib: *DM type II: *GERD on PPI Plan: -Continue aspiration precaution and antibiotic coverage through 09/02 -f/u CXR -Bronchodilators/pulmonary toilet/diuresis -wean O2 -cont diuresis -cont diltiazem -basal and SSI -pt/ot -ppx: SCD Full Code Medical - PN: Qual - VTE Deep Vein Thrombosis/Pulmonary Embolism Present on Admission: No
--- NOTE | 2018-08-31 15:34 | Discharge Summary ---
Medical - DS: Prov Patient information: Note initiated : 08/31/18 at 3:31 pm Service Date, if different from initiated Date: [] Patient: Padmini Cunha 78 y/o F admitted on 08/26/18 for sob. Chief Complaint: [] Date of admission: 08/26/18 19:50 Discharge date: 09/06/18 Primary care physician: Mary Rudd Consults: 08/26/18 Consult to Physician [CONS] Stat Comment: Consulting Provider: Ronnie Berg Reason For Exam: Physician to Consult Medical - DS: Meds - Discharge Medications Prescriptions: Fluticasone/Salmeterol [Advair 250-50 Diskus] 1 puff INH BID #1 inhaler Lactobacillus [Culturelle] 1 cap PO BID #60 cap predniSONE [Prednisone] 40 mg PO QAMCC #1 tab Active and Home Medications: Home Medications Clobetasol Propionate/Emoll [Clobetasol Emollient 0.05% Crm] 15 gm TP TID PRN 08/26/18 [History Confirmed 08/26/18 Last Taken Unknown] Diltiazem [Cardizem Cd] 120 mg PO DAILY 08/26/18 [History Confirmed 08/26/18 Last Taken Unknown] Furosemide [Lasix] 20 mg PO DAILY 08/26/18 [History Confirmed 08/26/18 Last Taken Unknown] Insulin Detemir [Levemir] 75 unit SQ HS 08/26/18 [History Confirmed 08/26/18 Last Taken Unknown] Lovastatin 10 mg PO HS 08/26/18 [History Confirmed 08/26/18 Last Taken Unknown] Nystatin Crm 1 dose TOPICAL DAILY PRN 08/26/18 [History Confirmed 08/26/18 Last Taken Unknown] Omeprazole [PriLOSEC] 20 mg PO ACB 08/26/18 [History Confirmed 08/26/18 Last Taken Unknown] Potassium Chloride [Kdur] 10 meq PO DAILY 08/26/18 [History Confirmed 08/26/18 Last Taken Unknown] metFORMIN HCL [Metformin HCl] 1,000 mg PO BID 08/26/18 [History Confirmed 08/26/18 Last Taken Unknown] sitaGLIPtin [Januvia] 100 mg PO DAILY 08/26/18 [History Confirmed 08/26/18 Last Taken Unknown] Home Medications Clobetasol Propionate/Emoll [Clobetasol Emollient 0.05% Crm] 15 gm TP TID PRN 08/26/18 [History Confirmed 08/26/18 Last Taken Unknown] Diltiazem [Cardizem Cd] 120 mg PO DAILY 08/26/18 [History Confirmed 08/26/18 Last Taken Unknown] Furosemide [Lasix] 20 mg PO DAILY 08/26/18 [History Confirmed 08/26/18 Last Taken Unknown] Insulin Detemir [Levemir] 75 unit SQ HS 08/26/18 [History Confirmed 08/26/18 Last Taken Unknown] Lovastatin 10 mg PO HS 08/26/18 [History Confirmed 08/26/18 Last Taken Unknown] Nystatin Crm 1 dose TOPICAL DAILY PRN 08/26/18 [History Confirmed 08/26/18 Last Taken Unknown] Omeprazole [Prilosec] 20 mg PO ACB 08/26/18 [History Confirmed 08/26/18 Last Taken Unknown] Potassium Chloride [Kdur] 10 meq PO DAILY 08/26/18 [History Confirmed 08/26/18 Last Taken Unknown] metFORMIN HCL [Metformin HCl] 1,000 mg PO BID 08/26/18 [History Confirmed 08/26/18 Last Taken Unknown] sitaGLIPtin [Januvia] 100 mg PO DAILY 08/26/18 [History Confirmed 08/26/18 Last Taken Unknown] Lactobacillus [Culturelle] 1 cap PO BID #60 cap 08/31/18 [Rx Last Taken Unknown] predniSONE [Prednisone] 40 mg PO QAMCC #1 tab 09/04/18 [Rx Last Taken Unknown] Fluticasone/Salmeterol [Advair 250-50 Diskus] 1 puff INH BID #1 inhaler 09/05/18 [Rx Last Taken Unknown] Medical - DS: Hosp Hospital course: Ms. Cunha is a 78 year old F with history of atrial fibrillation and has been on Eliquis for CVA prophylaxis. Patient recently had GI bleed with blood loss anemia requiring multiple endoscopies. Most recent double-balloon enteroscopy was on Monday at [place] where she was intubated during the procedure. Postprocedure patient has noted increasing hoarseness/cough and over the last 24 hours has become progressively short of breath/increasing effort intolerance and very weak and non-productive sputum. She subsequently comes to the ER for evaluation. Initial workup was significant for hemoglobin of 7.5, hypoxia requiring 2 L oxygen and right lower lobe infiltrate on chest imaging. Hospitalist service was consulted. At the time of evaluation patient is alert oriented. She is nondistressed and was able to provide history as above. She denies recent travel,, bloody stool, abdominal pain, weight loss. She further denies sick contacts. She attributes her symptoms secondary to recent procedure. 08/27-patient looking worse. More shortness of breath. Diuretics increased. Echocardiogram reviewed, EF 70% as of 05/15/18. Hemoglobin 9.9. Continue close monitoring. Start regular diet/rehab support 08/28-patient diuresing well with over 3000 cc net negative. Transfer to medical floor. No overnight fever or chills. On antibiotic coverage. On the right breast recommendations. Ongoing physical therapy. Denies active concerns. 08/29-patient doing better. Persistent cough however now on 1 L oxygen. No GI bleed. Hemoglobin stable. Gradual clinical improvement noted. Denies shortness of breath, fever, chills. No overnight telemetry events. Transfer to medical floor. No concerns expressed by nursing staff. Ongoing rehab/nutrition support. 08/30-patient doing well however feeling a lot fatigued. Persistent cough and wa s unable to sleep currently on cough suppressant. Diuresing well, no fever chills or overnight events. No other concerns expressed to nursing staff. Tolerating diet and physical therapy. Anticipate discharge in 24 hours if continues to improve clinically. 08/31-patient had a rough 24 hours with persistent coughing and was unable to sleep. She feels wiped out. Very uncomfortable this morning. Stat chest x-ray ordered. Continue bronchodilators/antibiotic coverage. Discharge planning on hold due to change in status. 09/02 States she feels about the same as yesterday. Coughing kept her up at night. And coughing gives her headache. No fevers. Still feels like she has phlegm the cough up but she cannot get it out. On 1 L nasal cannula. 09/03 Slept better last night, and does feel a little bit better. Still having coughing. Speech therapy evaluate today nursing to decrease oxygen, will increase Tessalon Perle and keep her ambulating more today. Does have a smoking history. No headache no nausea today. 09/04 Slept better. Cough improving. Shortness of breath better. Having dark/soft stools. No other new complaints. Overall feeling better. Repeat H&H with slight drop. Follow-up in a.m. a 09/05 Feeling much better breathing well minimal cough no real significant shortness of breath. Still having dark soft stools. Does not seem to be lightheaded. To Dr. Hernandez GI specialist in [place] who is the partner of Dr. Hernandez. Given the small blood loss, no emergent bleeding, he has for follow-up with him within 2 weeks and for twice weekly blood draws until the appointment. 09/06 Feeling well. Stable hemoglobin. Does not recall any melena last night. Stable for discharge Discharge diagnosis: Pneumonia sepsis hypoxic respiratory failure blood loss anemia secondary to Secondary discharge diagnosis: Blood loss anemia secondary to recent GI bleed Diabetes A. fib GERD - Time Spent with Patient Total time spent providing and/or coordinating discharge services: Greater than 30 minutes Medical - DS: Exam - Constitutional Vitals: Vital Signs Temp Pulse Pulse Resp BP Pulse Ox 08/31/18 15:00 99.4 F H 20 140/58 93 08/31/18 14:46 81 16 08/31/18 11:45 97.5 F 84 20 138/62 96 08/31/18 08:00 98.3 F 87 94 H 20 143/65 93 08/31/18 07:50 87 20 08/31/18 04:00 97.7 F 96 H 20 149/75 96 08/31/18 00:00 97.9 F 102 H 22 133/62 93 08/30/18 23:13 94 H 18 08/30/18 20:00 98.7 F 105 H 24 H 140/63 93 08/30/18 19:15 86 16 94 08/30/18 16:00 96.8 F L 82 18 115/55 94 Intake and Output 08/31/18 08/31/18 08/31/18 05:59 13:59 21:59 Intake Total 600 290 500 Output Total 2 1 Balance 598 289 500 Intake: IV 50 50 Zosyn 3.375 gm In Dextrose 5% 50 50 in Water 50 ml @ 100 mls/hr IV Q6H [facility] Rx#:[id number] Oral 550 240 500 Output: # of times incontinent of urine 2 1 Other: Meal Lunch Percent of Meal Consumed 100% Feeding Ability Independent Urine Appearance Clear Urine Color Bright Yellow Urine Odor Normal Stool Size Small Stool Color Brown # Voids 2 # Bowel Movements 1 3 Medical - DS: Data Labs on day of discharge: Labs from last 24 hours 08/31/18 08/31/18 05:30 05:30 WBC 4.9 RBC 3.94 L Hgb 10.1 L Hct 32.0 L MCV 81.1 MCH 25.6 L MCHC 31.5 RDW 20.6 H Plt Count 196 MPV 9.8 Total Counted 100 Seg Neutrophils % 67 Band Neutrophils % 1 Lymphocytes % 19 Monocytes % (Manual) 12 Eosinophils % (Manual) 1 Platelet Estimate Normal RBC Morphology Abnorm A Hypochromasia 1+ A Anisocytosis 1+ A Sodium 139 Potassium 3.9 Chloride 97 Carbon Dioxide 34 H Anion Gap 8.0 BUN 17 Creatinine 0.8 GFR Calculation 72 Glucose 146 H Uric Acid 4.4 Calcium 9.7 Phosphorus 4.0 Magnesium 1.5 L Total Bilirubin 1.1 H Direct Bilirubin 0.2 GGT 48 H AST 48 H ALT 29 Alkaline Phosphatase 48 Lactate Dehydrogenase 232 Total Protein 7.0 Albumin 3.7 Globulin 3.3 Albumin/Globulin Ratio 1.1 Triglycerides 109 Preliminary micro results at discharge 08/26/18 17:00 Blood Culture - Preliminary Blood 08/26/18 17:10 Blood Culture - Preliminary Blood Medical - DS: A/P - Patient/Caregiver Discharge Instructions Activity: increase activity as tolerated Diet: Consistent Carbohydrate Additional Instructions: Activity: increase activity as tolerated Diet: Consistent Carbohydrate Additional Instructions: Follow-up with GI specialist who performed the recent procedure within 7 days. Prescriptions: Lactobacillus [Culturelle] 1 cap PO BID #60 cap p\PredniSONE [Prednisone] 40 mg PO QAMCC #1 tab LAB: TWICE WEEKLY CBC X4 C for nursing also. Patient to monitor for signs of gross bleeding dark tarry stools symptoms of dizziness lightheadedness chest pain or shortness of breath and to return to the ED immediately. Prescriptions: Fluticasone/Salmeterol [Advair 250-50 Diskus] 1 puff INH BID #1 inhaler Lactobacillus [Culturelle] 1 cap PO BID #60 cap predniSONE [Prednisone] 40 mg PO QAMCC #1 tab Other Amb Orders: OT Discharge Order Location: None Selected Physical Therapy at Discharge - [facility] Location: None Selected - Follow up Plan Follow up with: Mary Rudd ARNP [Primary Care Provider] - Holli [place] [Referring] - (7-14 days) Disposition: Home Health Service Prognosis: Fair Rehab Potential: Fair Medical - DS: Qual - VTE Deep Vein Thrombosis/Pulmonary Embolism Present on Admission: No
[2018-08-31] MEDS ORDERED: FUROSEMIDE 40 MG/4 ML VIAL IV ONE (16:00)
[2018-08-31] MEDS: MAGNESIUM SULFATE 2 GM/50 ML BAG IV PRN (19:15)
[2018-08-31] MEDS: SIMVASTATIN 10 MG TABLET PO SCH (21:45)
[2018-08-31] MEDS: INSULIN GLARGINE, HUMAN 1 UNIT/0.01 ML SQ SCH (21:45)
[2018-08-31] MEDS: SENNOSIDES/DOCUSATE SODIUM 1 TAB TABLET PO SCH (21:46)
[2018-09-01] MEDS: PIPERACILLIN SODIUM/TAZOBACTAM 3.375 GM in DEXTROSE 5% IN WATER 50 ML IV SCH ×4 (00:14→17:37)
[2018-09-01] MEDS: guaiFENesin/DEXTROMETHORPHAN ORAL SOL PO PRN ×6 (00:37→22:46)
[2018-09-01] MEDS: IPRATROPIUM/ALBUTEROL 3 ML AMPUL.NEB NEB SCH ×6 (03:57→23:11)
[2018-09-01] MEDS: 0.9 % SODIUM CHLORIDE 10 ML SYRINGE IV SCH ×3 (05:52→22:49)
[2018-09-01 06:31] LABS: ALT/SGPT 43 U/l (0-40); Albumin 3.5 gm/dL (3.2-5.2); Albumin/Globulin Ratio 0.9 (1.0-2.3); Alkaline Phosphatase 51 U/L (39-117); Bilirubin,Direct 0.2 mg/dL (0.0-0.3); Blood Urea Nitrogen 17 mg/dl (8-23); Gamma Glutamyl Transpeptidase 48 U/L (5-36); Uric Acid 4.9 mg/dL (2.5-8.0)
--- NOTE | 2018-09-01 07:33 | Internal Med Progress Note ---
Medical - PN: Subj Patient information: Note initiated : 09/01/18 at 7:30 am Service Date, if different from initiated Date: [] Patient: Padmini Cunha a 78 y/o F admitted on 08/26/18 for sob. Chief Complaint: [] Interval history: Ms. Cunha is a 78 year old F with history of atrial fibrillation and has been on Eliquis for CVA prophylaxis. Patient recently had GI bleed with blood loss anemia requiring multiple endoscopies. Most recent double-balloon enteroscopy was on Monday at [facility] where she was intubated during the procedure. Postprocedure patient has noted increasing hoarseness/cough and over the last 24 hours has become progressively short of breath/increasing effort intolerance and very weak and non-productive sputum. She subsequently comes to the ER for evaluation. Initial workup was significant for hemoglobin of 7.5, hypoxia requiring 2 L oxygen and right lower lobe infiltrate on chest imaging. Hospitalist service was consulted. At the time of evaluation patient is alert oriented. She is nondistressed and was able to provide history as above. She denies recent travel,, bloody stool, abdominal pain, weight loss. She further denies sick contacts. She attributes her symptoms secondary to recent procedure. 08/27-patient looking worse. More shortness of breath. Diuretics increased. Echocardiogram reviewed, EF 70% as of 05/15/18. Hemoglobin 9.9. Continue close monitoring. Start regular diet/rehab support 08/28-patient diuresing well with over 3000 cc net negative. Transfer to medical floor. No overnight fever or chills. On antibiotic coverage. On the right breast recommendations. Ongoing physical therapy. Denies active concerns. 08/29-patient doing better. Persistent cough however now on 1 L oxygen. No GI bleed. Hemoglobin stable. Gradual clinical improvement noted. Denies shortness of breath, fever, chills. No overnight telemetry events. Transfer to medical floor. No concerns expressed by nursing staff. Ongoing rehab/nutrition support. 08/30-patient doing well however feeling a lot fatigued. Persistent cough and was unable to sleep currently on cough suppressant. Diuresing well, no fever chills or overnight events. No other concerns expressed to nursing staff. Tolerating diet and physical therapy. Anticipate discharge in 24 hours if continues to improve clinically. 08/31-patient had a rough 24 hours with persistent coughing and was unable to sleep. She feels wiped out. Very uncomfortable this morning. Stat chest x-ray ordered. Continue bronchodilators/antibiotic coverage. Discharge planning on hold due to change in status. 09/01 Poor sleep because of coughing. Coughing gives her headache and some back pain. She feels like she has phlegm to cough up but she is unable to cough it out she also has some sinus congestion. Shortness of breath. Does not feel any worse than yesterday, difficult to say if she feels much better. Review of Systems: denies fever/chills/nausea/vomiting/chest or abdominal pain/diarrhea. Otherwise see above. - Constitutional Vitals: Vital Signs Temp Pulse Resp BP Pulse Ox 97.6 F 91 H 20 127/54 93 09/01/18 06:34 09/01/18 04:14 09/01/18 06:34 09/01/18 06:34 09/01/18 06:34 Period Temp Pulse Resp BP Sys/Bryson Pulse Ox Last 24 Hr 97.5 F-99.4 F 81-103 16-30 127-155/52-67 90-96 Intake and Output 08/31/18 09/01/18 09/01/18 21:59 05:59 13:59 Intake Total 550 400 Balance 550 400 Weight 81.647 kg Intake & Output: Intake & Output 08/31/18 09/01/18 09/01/18 21:59 05:59 13:59 Intake Total 550 400 Balance 550 400 Weight 81.647 kg Intake: IV 50 100 Zosyn 3.375 gm In Dextrose 5% 50 50 in Water 50 ml @ 100 mls/hr IV Q6H [facility] Rx#:[id number] Oral 500 300 Other: Meal pudding Percent of Meal Consumed 50% Feeding Ability Independent # Voids 1 1 # Bowel Movements 3 Exam: General: Alert, Awake, No acute Distress Eyes/N/T: EOMI, Head/Neck: neck supple, CV: RRR, No murmurs, Pulm: mild b/l wheezing, mild rhonchi b/l Abd: soft, nontender, +BS x4 Ext: no clubbing/cyanosis, trace bilateral lower extremity edema Neuro: Alert, no focal deficits, moves all extremities, Skin: warm/dry Medical - PN: Obj Da - Labs CBC & Chem 7: 08/31/18 05:30 09/01/18 04:55 Labs: Abnormal Lab Results 09/01/18 08/31/18 08/31/18 04:55 05:30 05:30 RBC 3.94 L Hgb 10.1 L Hct 32.0 L MCH 25.6 L RDW 20.6 H Monocytes % (Manual) Nucleated RBCs Plasma Cells RBC Morphology Abnorm A Polychromasia Hypochromasia 1+ A Anisocytosis 1+ A Chloride 95 L Carbon Dioxide 35 H 34 H Glucose 146 H Magnesium 1.5 L Total Bilirubin 1.1 H GGT 48 H 48 H AST 87 H 48 H ALT 43 H Lactate Dehydrogenase 257 H Albumin/Globulin Ratio 0.9 L 08/30/18 08/30/18 05:12 05:12 RBC Hgb 10.6 L Hct 33.5 L MCH 25.4 L RDW 20.1 H Monocytes % (Manual) 14 H Nucleated RBCs 1 H Plasma Cells 1 H RBC Morphology Abnorm A Polychromasia 2+ A Hypochromasia 1+ A Anisocytosis 1+ A Chloride Carbon Dioxide 35 H Glucose 165 H Magnesium 1.4 L Total Bilirubin 1.5 H GGT 47 H AST ALT Lactate Dehydrogenase Albumin/Globulin Ratio Meds: Medications Acetaminophen (Tylenol) 650 mg PO Q4-6HP PRN PRN Reason: PAIN/FEVER > 101 Albuterol/Ipratropium (Duoneb) 3 ml NEB Q4HRT [facility] Last Admin: 09/01/18 03:57 Dose: 3 ml Documented by: Budesonide (Pulmicort) 0.5 mg NEB Q12 [facility] Last Admin: 08/31/18 19:28 Dose: 0.5 mg Documented by: Diagnostic Test (Pha) (Accu-Chek) 1 each FS ACHS [facility] Last Admin: 08/31/18 21:44 Dose: 1 each Documented by: Diltiazem HCl (Cardizem Cd) 120 mg PO DAILY [facility] Last Admin: 08/31/18 08:47 Dose: 120 mg Documented by: Docusate Sodium (Colace) 100 mg PO BID [facility] Last Admin: 08/31/18 21:46 Dose: Not Given Documented by: Furosemide (Lasix) 20 mg IV DAILY [facility] Guaifenesin (Robitussin Dm) 5 ml PO Q4HP PRN PRN Reason: Cough Last Admin: 09/01/18 06:11 Dose: 5 ml Documented by: Magnesium Sulfate (Magnesium Sulfate) 2 gm in 50 mls @ 50 mls/hr IV UD PRN PRN Reason: MG = or < 1.7 Last Infusion: 09/01/18 00:38 Dose: Infused Documented by: Acetaminophen (Ofirmev) 1,000 mg in 100 mls @ 200 mls/hr IV Q6HP PRN PRN Reason: PAIN/FEVER > 101 Piperacillin Sod/Tazobactam (Sod 3.375 gm/ Dextrose) 50 mls @ 100 mls/hr IV Q6H [facility] Last Admin: 09/01/18 05:53 Dose: 100 mls/hr Documented by: Insulin Glargine (Lantus) 75 unit SQ [facility] Last Admin: 08/31/18 21:45 Dose: 75 units Documented by: Insulin Human Lispro (Humalog) 0 unit SQ [facility]; Protocol Last Admin: 08/31/18 21:44 Dose: 2 units Documented by: Iron Carb/Multivit/[place]/Folic Acid (Multivitamin W/Minerals) 1 tab PO DAILY [facility] Last Admin: 08/31/18 08:55 Dose: 1 tab Documented by: Metformin HCl (Glucophage) 1,000 mg PO BIDCC [facility] Last Admin: 08/31/18 17:00 Dose: 1,000 mg Documented by: Omeprazole (Prilosec) 20 mg PO ACB [facility] Last Admin: 08/31/18 07:37 Dose: 20 mg Documented by: Ondansetron HCl (Zofran) 4 mg IV Q4-6HP PRN PRN Reason: Nausea And Vomiting Potassium Chloride (Klor-Con) 40 meq PO DAILYP PRN PRN Reason: K+ < 3.5 Last Admin: 08/28/18 15:40 Dose: 40 meq Documented by: Potassium Chloride (Kdur) 10 meq PO QAMCC [facility] Last Admin: 08/31/18 08:45 Dose: 10 meq Documented by: Senna/Docusate Sodium (Senna Plus Tablet) 1 tab PO [facility] Last Admin: 08/31/18 21:46 Dose: Not Given Documented by: Simvastatin (Zocor) 5 mg PO [facility] Last Admin: 08/31/18 21:45 Dose: 5 mg Documented by: Sitagliptin Phosphate (Januvia) 100 mg PO DAILY [facility] Last Admin: 08/31/18 08:46 Dose: 100 mg Documented by: Sodium Chloride (Saline Flush) 10 ml IV Q8 [facility] Last Admin: 09/01/18 05:52 Dose: 10 ml Documented by: Medical - PN: A/P - Time Spent With Patient Total time spent is greater than 50% in coordination of care (as documented) at patient's floor/unit and/or counseling patient: - Narrative A/P Narrative: A: *RLL PNA: clinically improving, suspected Aspiration -negative including viral panel/strep pneumo/mycoplasma and sputum cultures. *Sepsis: clinically resolved *Acute Hypoxic respiratory failure: 2/ above -on 1-2L NC *Volume Overload: echo last April with good EF, unable to assess diastolic fxn *Blood loss anemia secondary to recent GI bleed status post double balloon enteroscopy at [facility] and cauterization: continue PPI -Status post 2 units PRBC transfusion (08/26) -Hgb stable *History of A. fib: *DM type II: *GERD on PPI Plan: -Continue aspiration precaution and antibiotic coverage through 09/02 -f/u CXR improved -Bronchodilators/pulmonary toilet -wean O2 -cont diuresis -cont diltiazem -basal and SSI -pt/ot -ppx: SCD Full Code Medical - PN: Qual - VTE Deep Vein Thrombosis/Pulmonary Embolism Present on Admission: No
[2018-09-01] MEDS: INSULIN LISPRO 1 UNIT/0.01 ML UNIT SQ SCH ×4 (07:42→22:50)
[2018-09-01] MEDS: OMEPRAZOLE 20 MG CAPSULE PO SCH (07:46)
[2018-09-01] MEDS: POTASSIUM CHLORIDE 10 MEQ TABLET PO SCH (07:46)
[2018-09-01] MEDS: metFORMIN 500 MG TABLET PO SCH ×2 (07:46→17:37)
[2018-09-01] MEDS: BUDESONIDE 0.5 MG/2 ML AMPUL.NEB NEB SCH ×2 (07:47→19:36)
--- NOTE | 2018-09-01 08:51 | XRay Report ---
INDICATION: Chest pain. History of pneumonia. TECHNIQUE: PA and lateral upright chest x-ray COMPARISON: Chest x-rays dated and FINDINGS:Mild cardiomegaly is essentially unchanged. Pulmonary vascularity appears normal and improved. There are bibasilar infiltrates and blunting of both costophrenic angles consistent with small effusions. Overall appearance is improved since 08/31/2018. Bibasilar parenchymal densities may represent residual edema or pneumonia. No new focal pulmonary parenchymal infiltrate. IMPRESSION: 1. Mild bibasilar parenchymal density and small effusions. Findings may represent pneumonia or residual edema 2. Chest x-ray is improved. No new abnormality. Interpreted and Authenticated by: Juan Francisco Barillas 09/01/18
[2018-09-01] MEDS ORDERED: FUROSEMIDE 20 MG/2 ML VIAL IV SCH (09:00)
[2018-09-01] MEDS: MULTIVIT,THER IRON,CA,FA & MIN 1 TABLET PO SCH (09:18)
[2018-09-01] MEDS: DOCUSATE SODIUM 100 MG CAPSULE PO SCH ×2 (09:18→22:47)
[2018-09-01] MEDS: sitaGLIPtin 100 MG TABLET PO SCH (09:18)
[2018-09-01] MEDS: DILTIAZEM 120 MG CAP.XL.24H PO SCH (09:18)
[2018-09-01] MEDS ORDERED: traMADol 50 MG TABLET PO PRN (09:21)
[2018-09-01] MEDS: ACETAMINOPHEN 325 MG TABLET PO PRN ×2 (09:30→17:45)
[2018-09-01] MEDS: LORATADINE 10 MG TABLET PO SCH (11:11)
[2018-09-01] MEDS: MAGNESIUM SULFATE 2 GM/50 ML BAG IV PRN (16:26)
[2018-09-01] MEDS: INSULIN GLARGINE, HUMAN 1 UNIT/0.01 ML SQ SCH (22:47)
[2018-09-01] MEDS: SIMVASTATIN 10 MG TABLET PO SCH (22:48)
[2018-09-01] MEDS: SENNOSIDES/DOCUSATE SODIUM 1 TAB TABLET PO SCH (22:48)
[2018-09-02] MEDS: PIPERACILLIN SODIUM/TAZOBACTAM 3.375 GM in DEXTROSE 5% IN WATER 50 ML IV SCH ×4 (01:33→17:44)
[2018-09-02] MEDS: IPRATROPIUM/ALBUTEROL 3 ML AMPUL.NEB NEB SCH ×6 (03:12→23:05)
[2018-09-02] MEDS: 0.9 % SODIUM CHLORIDE 10 ML SYRINGE IV SCH ×3 (06:37→21:37)
[2018-09-02 06:43] LABS: ALT/SGPT 45 U/l (0-40); Albumin 3.9 gm/dL (3.2-5.2); Albumin/Globulin Ratio 1.1 (1.0-2.3); Alkaline Phosphatase 51 U/L (39-117); Bilirubin,Direct < 0.2 mg/dL (0.0-0.3); Blood Urea Nitrogen 25 mg/dl (8-23); Gamma Glutamyl Transpeptidase 50 U/L (5-36); Uric Acid 5.5 mg/dL (2.5-8.0)
[2018-09-02] MEDS: ACETAMINOPHEN 325 MG TABLET PO PRN (06:49)
[2018-09-02] MEDS: OMEPRAZOLE 20 MG CAPSULE PO SCH (06:49)
[2018-09-02] MEDS: BUDESONIDE 0.5 MG/2 ML AMPUL.NEB NEB SCH ×2 (07:09→19:04)
--- NOTE | 2018-09-02 07:50 | Internal Med Progress Note ---
Medical - PN: Subj Patient information: Note initiated : 09/02/18 at 7:45 am Service Date, if different from initiated Date: [] Patient: Padmini Cunha a 78 y/o F admitted on 08/26/18 for sob. Chief Complaint: [] Interval history: Ms. Cunha is a 78 year old F with history of atrial fibrillation and has been on Eliquis for CVA prophylaxis. Patient recently had GI bleed with blood loss anemia requiring multiple endoscopies. Most recent double-balloon enteroscopy was on Monday at [facility] where she was intubated during the procedure. Postprocedure patient has noted increasing hoarseness/cough and over the last 24 hours has become progressively short of breath/increasing effort intolerance and very weak and non-productive sputum. She subsequently comes to the ER for evaluation. Initial workup was significant for hemoglobin of 7.5, hypoxia requiring 2 L oxygen and right lower lobe infiltrate on chest imaging. Hospitalist service was consulted. At the time of evaluation patient is alert oriented. She is nondistressed and was able to provide history as above. She denies recent travel,, bloody stool, abdominal pain, weight loss. She further denies sick contacts. She attributes her symptoms secondary to recent procedure. 08/27-patient looking worse. More shortness of breath. Diuretics increased. Echocardiogram reviewed, EF 70% as of 05/15/18. Hemoglobin 9.9. Continue close monitoring. Start regular diet/rehab support 08/28-patient diuresing well with over 3000 cc net negative. Transfer to medical floor. No overnight fever or chills. On antibiotic coverage. On the right breast recommendations. Ongoing physical therapy. Denies active concerns. 08/29-patient doing better. Persistent cough however now on 1 L oxygen. No GI bleed. Hemoglobin stable. Gradual clinical improvement noted. Denies shortness of breath, fever, chills. No overnight telemetry events. Transfer to medical floor. No concerns expressed by nursing staff. Ongoing rehab/nutrition support. 08/30-patient doing well however feeling a lot fatigued. Persistent cough and was unable to sleep currently on cough suppressant. Diuresing well, no fever chills or overnight events. No other concerns expressed to nursing staff. Tolerating diet and physical therapy. Anticipate discharge in 24 hours if continues to improve clinically. 08/31-patient had a rough 24 hours with persistent coughing and was unable to sleep. She feels wiped out. Very uncomfortable this morning. Stat chest x-ray ordered. Continue bronchodilators/antibiotic coverage. Discharge planning on hold due to change in status. 09/01 Poor sleep because of coughing. Coughing gives her headache and some back pain. She feels like she has phlegm to cough up but she is unable to cough it out she also has some sinus congestion. Shortness of breath. Does not feel any worse than yesterday, difficult to say if she feels much better. 09/02 States she feels about the same as yesterday. Coughing kept her up at night. And coughing gives her headache. No fevers. Still feels like she has phlegm the cough up but she cannot get it out. On 1 L nasal cannula. Review of Systems: denies fever/chills/nausea/vomiting/chest or abdominal pain/diarrhea. Otherwise see above. - Constitutional Vitals: Vital Signs Temp Pulse Resp BP Pulse Ox 97.8 F 101 H 16 146/60 90 09/02/18 06:36 09/02/18 07:18 09/02/18 07:18 09/02/18 06:36 09/02/18 07:10 Period Temp Pulse Resp BP Sys/Bryson Pulse Ox Last 24 Hr 97.3 F-98.8 F 82-107 16-26 116-146/51-80 90-96 Intake and Output 09/01/18 09/02/18 09/02/18 21:59 05:59 13:59 Intake Total 690 225 Output Total 500 Balance 690 -275 Weight 80.513 kg Intake & Output: Intake & Output 09/01/18 09/02/18 09/02/18 21:59 05:59 13:59 Intake Total 690 225 Output Total 500 Balance 690 -275 Weight 80.513 kg Intake: IV 50 100 Zosyn 3.375 gm In Dextrose 5% 100 in Water 50 ml @ 100 mls/hr IV Q6H [facility] Rx#:[id number] Oral 640 125 Output: Void Amount 500 Other: Meal Dinner Percent of Meal Consumed 100% Urine Appearance Clear Urine Color Dark Yellow Urine Odor Normal Exam: General: Alert, Awake, No acute Distress Eyes/N/T: EOMI, Head/Neck: neck supple, CV: RRR, No murmurs, Pulm: Shallow breaths but clear as much is able to hear on the shallow breath, no wheezing Abd: soft, nontender, +BS x4 Ext: no clubbing/cyanosis, trace bilateral lower extremity edema Neuro: Alert, no focal deficits, moves all extremities, Skin: warm/dry Medical - PN: Obj Da - Labs CBC & Chem 7: 08/31/18 05:30 09/02/18 05:11 Labs: Abnormal Lab Results 09/02/18 09/01/18 08/31/18 05:11 04:55 05:30 RBC Hgb Hct MCH RDW Monocytes % (Manual) Nucleated RBCs Plasma Cells RBC Morphology Polychromasia Hypochromasia Anisocytosis Chloride 95 L Carbon Dioxide 37 H 35 H 34 H Anion Gap 6.0 L BUN 25 H Glucose 185 H 146 H Magnesium 1.5 L Total Bilirubin 1.1 H GGT 50 H 48 H 48 H AST 72 H 87 H 48 H ALT 45 H 43 H Lactate Dehydrogenase 257 H Albumin/Globulin Ratio 0.9 L 08/31/18 08/30/18 05:30 05:12 RBC 3.94 L Hgb 10.1 L Hct 32.0 L MCH 25.6 L RDW 20.6 H Monocytes % (Manual) 14 H Nucleated RBCs 1 H Plasma Cells 1 H RBC Morphology Abnorm A Abnorm A Polychromasia 2+ A Hypochromasia 1+ A 1+ A Anisocytosis 1+ A 1+ A Chloride Carbon Dioxide Anion Gap BUN Glucose Magnesium Total Bilirubin GGT AST ALT Lactate Dehydrogenase Albumin/Globulin Ratio Meds: Medications Acetaminophen (Tylenol) 650 mg PO Q4-6HP PRN PRN Reason: PAIN/FEVER > 101 Last Admin: 09/02/18 06:49 Dose: 650 mg Documented by: Albuterol/Ipratropium (Duoneb) 3 ml NEB Q4HRT [facility] Last Admin: 09/02/18 07:08 Dose: 3 ml Documented by: Budesonide (Pulmicort) 0.5 mg NEB Q12 [facility] Last Admin: 09/02/18 07:09 Dose: 0.5 mg Documented by: Diagnostic Test (Pha) (Accu-Chek) 1 each FS ACHS [facility] Last Admin: 09/02/18 06:50 Dose: 1 each Documented by: Diltiazem HCl (Cardizem Cd) 120 mg PO DAILY [facility] Last Admin: 09/01/18 09:18 Dose: 120 mg Documented by: Docusate Sodium (Colace) 100 mg PO BID [facility] Last Admin: 09/01/18 22:47 Dose: Not Given Documented by: Furosemide (Lasix) 20 mg IV DAILY [facility] Last Admin: 09/01/18 09:18 Dose: 20 mg Documented by: Guaifenesin (Robitussin Dm) 5 ml PO Q4HP PRN PRN Reason: Cough Last Admin: 09/01/18 22:46 Dose: 5 ml Documented by: Magnesium Sulfate (Magnesium Sulfate) 2 gm in 50 mls @ 50 mls/hr IV UD PRN PRN Reason: MG = or < 1.7 Last Infusion: 09/01/18 17:26 Dose: Infused Documented by: Acetaminophen (Ofirmev) 1,000 mg in 100 mls @ 200 mls/hr IV Q6HP PRN PRN Reason: PAIN/FEVER > 101 Piperacillin Sod/Tazobactam (Sod 3.375 gm/ Dextrose) 50 mls @ 100 mls/hr IV Q6H [facility] Last Admin: 09/02/18 06:36 Dose: 100 mls/hr Documented by: Insulin Glargine (Lantus) 75 unit SQ HS [facility] Last Admin: 09/01/18 22:47 Dose: 75 units Documented by: Insulin Human Lispro (Humalog) 0 unit SQ ACHS [facility]; Protocol Last Admin: 09/01/18 22:50 Dose: 2 units Documented by: Iron Carb/Multivit/[employer]/Folic Acid (Multivitamin W/Minerals) 1 tab PO DAILY [facility] Last Admin: 09/01/18 09:18 Dose: 1 tab Documented by: Loratadine (Claritin) 10 mg PO DAILY [facility] Stop: 09/03/18 09:01 Last Admin: 09/01/18 11:11 Dose: 10 mg Documented by: Metformin HCl (Glucophage) 1,000 mg PO BIDCC [facility] Last Admin: 09/01/18 17:37 Dose: 1,000 mg Documented by: Omeprazole (Prilosec) 20 mg PO ACB [facility] Last Admin: 09/02/18 06:49 Dose: 20 mg Documented by: Ondansetron HCl (Zofran) 4 mg IV Q4-6HP PRN PRN Reason: Nausea And Vomiting Last Admin: 09/01/18 09:29 Dose: 4 mg Documented by: Potassium Chloride (Klor-Con) 40 meq PO DAILYP PRN PRN Reason: K+ < 3.5 Last Admin: 08/28/18 15:40 Dose: 40 meq Documented by: Potassium [facility] ([facility]ur) [facility] Last Admin: 09/01/18 07:46 Dose: 10 meq Documented by: Senna/Docusate Sodium (Senna Plus Tablet) 1 tab PO [facility] Last Admin: 09/01/18 22:48 Dose: Not Given Documented by: Simvastatin (Zocor) 5 mg PO [facility] Last Admin: 09/01/18 22:48 Dose: 5 mg Documented by: Sitagliptin Phosphate (Januvia) 100 mg PO DAILY [facility] Last Admin: 09/01/18 09:18 Dose: 100 mg Documented by: Sodium Chloride (Saline Flush) 10 ml IV Q8 [facility] Last Admin: 09/02/18 06:37 Dose: 10 ml Documented by: Tramadol HCl (Ultram) 50 mg PO Q4-6HP PRN PRN Reason: Pain Medical - PN: A/P - Time Spent With Patient Total time spent is greater than 50% in coordination of care (as documented) at patient's floor/unit and/or counseling patient: - Narrative A/P Narrative: A: *RLL PNA (suspected aspiration: slowly improving but still feels bad with continued cough and keeping her up at night -negative including viral panel/strep pneumo/mycoplasma and sputum cultures. *Sepsis: clinically resolved *Acute Hypoxic respiratory failure: 08/18 above -now on 1L NC *Volume Overload: echo last April with good EF, unable to assess diastolic fxn -good diuresis s/p lasix, now stopped *Blood loss anemia secondary to recent GI bleed status post double balloon enteroscopy at [facility] and cauterization: continue PPI -Status post 2 units PRBC transfusion (08/26) -Hgb stable *History of A. fib: on dilt *DM type II: *GERD on PPI Plan: -Continue aspiration precaution and antibiotic coverage through 09/02 -f/u CXR improved -Bronchodilators/pulmonary toilet -wean O2 -ST eval -cont diltiazem -basal and SSI -pt/ot -ppx: SCD Full Code Medical - PN: Qual - VTE Deep Vein Thrombosis/Pulmonary Embolism Present on Admission: No
[2018-09-02] MEDS: sitaGLIPtin 100 MG TABLET PO SCH (08:12)
[2018-09-02] MEDS: DILTIAZEM 120 MG CAP.XL.24H PO SCH (08:12)
[2018-09-02] MEDS: INSULIN LISPRO 1 UNIT/0.01 ML UNIT SQ SCH ×4 (08:12→21:28)
[2018-09-02] MEDS: LORATADINE 10 MG TABLET PO SCH (08:12)
[2018-09-02] MEDS: MULTIVIT,THER IRON,CA,FA & MIN 1 TABLET PO SCH (08:13)
[2018-09-02] MEDS: POTASSIUM CHLORIDE 10 MEQ TABLET PO SCH (08:13)
[2018-09-02] MEDS: metFORMIN 500 MG TABLET PO SCH ×2 (08:13→17:44)
[2018-09-02] MEDS: DOCUSATE SODIUM 100 MG CAPSULE PO SCH ×2 (08:13→21:35)
[2018-09-02] MEDS: MAGNESIUM SULFATE 2 GM/50 ML BAG IV PRN (08:48)
[2018-09-02] MEDS ORDERED: BENZONATATE 100 MG CAPSULE PO ONE (08:58)
[2018-09-02] MEDS ORDERED: diphenhydrAMINE 25 MG CAPSULE PO PRN (08:58)
[2018-09-02] MEDS: BENZONATATE 100 MG CAPSULE PO PRN ×2 (13:49→21:36)
[2018-09-02] MEDS ORDERED: diphenhydrAMINE 25 MG CAPSULE PO ONE (21:00)
[2018-09-02] MEDS: INSULIN GLARGINE, HUMAN 1 UNIT/0.01 ML SQ SCH ×2 (21:34→21:46)
[2018-09-02] MEDS: SENNOSIDES/DOCUSATE SODIUM 1 TAB TABLET PO SCH (21:35)
[2018-09-02] MEDS: SIMVASTATIN 10 MG TABLET PO SCH (21:35)
[2018-09-03] MEDS: PIPERACILLIN SODIUM/TAZOBACTAM 3.375 GM in DEXTROSE 5% IN WATER 50 ML IV SCH ×5 (00:46→23:43)
[2018-09-03] MEDS: ACETAMINOPHEN 325 MG TABLET PO PRN (01:39)
[2018-09-03] MEDS: IPRATROPIUM/ALBUTEROL 3 ML AMPUL.NEB NEB SCH ×6 (03:23→23:07)
[2018-09-03 05:54] LABS: Blood Urea Nitrogen 33 mg/dl (8-23)
[2018-09-03] MEDS: 0.9 % SODIUM CHLORIDE 10 ML SYRINGE IV SCH ×3 (06:01→20:43)
--- NOTE | 2018-09-03 07:10 | Internal Med Progress Note ---
Medical - PN: Subj Patient information: Note initiated : 09/03/18 at 7:07 am Service Date, if different from initiated Date: [] Patient: Padmini Cunha a 78 y/o F admitted on 08/26/18 for sob. Chief Complaint: [] Interval history: Ms. Cunha is a 78 year old F with history of atrial fibrillation and has been on Eliquis for CVA prophylaxis. Patient recently had GI bleed with blood loss anemia requiring multiple endoscopies. Most recent double-balloon enteroscopy was on Monday at [place] where she was intubated during the procedure. Postprocedure patient has noted increasing hoarseness/cough and over the last 24 hours has become progressively short of breath/increasing effort intolerance and very weak and non-productive sputum. She subsequently comes to the ER for evaluation. Initial workup was significant for hemoglobin of 7.5, hypoxia requiring 2 L oxygen and right lower lobe infiltrate on chest imaging. Hospitalist service was consulted. At the time of evaluation patient is alert oriented. She is nondistressed and was able to provide history as above. She denies recent travel,, bloody stool, abdominal pain, weight loss. She further denies sick contacts. She attributes her symptoms secondary to recent procedure. 08/27-patient looking worse. More shortness of breath. Diuretics increased. Echocardiogram reviewed, EF 70% as of 05/15/18. Hemoglobin 9.9. Continue close monitoring. Start regular diet/rehab support 08/28-patient diuresing well with over 3000 cc net negative. Transfer to medical floor. No overnight fever or chills. On antibiotic coverage. On the right breast recommendations. Ongoing physical therapy. Denies active concerns. 08/29-patient doing better. Persistent cough however now on 1 L oxygen. No GI bleed. Hemoglobin stable. Gradual clinical improvement noted. Denies shortness of breath, fever, chills. No overnight telemetry events. Transfer to medical floor. No concerns expressed by nursing staff. Ongoing rehab/nutrition support. 08/30-patient doing well however feeling a lot fatigued. Persistent cough and was unable to sleep currently on cough suppressant. Diuresing well, no fever chills or overnight events. No other concerns expressed to nursing staff. Tolerating diet and physical therapy. Anticipate discharge in 24 hours if continues to improve clinically. 08/31-patient had a rough 24 hours with persistent coughing and was unable to sleep. She feels wiped out. Very uncomfortable this morning. Stat chest x-ray ordered. Continue bronchodilators/antibiotic coverage. Discharge planning on hold due to change in status. 09/01 Poor sleep because of coughing. Coughing gives her headache and some back pain. She feels like she has phlegm to cough up but she is unable to cough it out she also has some sinus congestion. Shortness of breath. Does not feel any worse than yesterday, difficult to say if she feels much better. 09/02 States she feels about the same as yesterday. Coughing kept her up at night. And coughing gives her headache. No fevers. Still feels like she has phlegm the cough up but she cannot get it out. On 1 L nasal cannula. 09/03 Slept better last night, and does feel a little bit better. Still having coughing. Speech therapy evaluate today nursing to decrease oxygen, will increase Tessalon Perle and keep her ambulating more today. Does have a smoking history. No headache no nausea today. Review of Systems: denies fever/chills/nausea/vomiting/chest or abdominal pain/diarrhea. Otherwise see above. - Constitutional Vitals: Vital Signs Temp Pulse Resp BP Pulse Ox 97.3 F 88 20 142/80 95 09/03/18 06:31 09/03/18 04:00 09/03/18 06:31 09/03/18 06:31 09/03/18 06:31 Period Temp Pulse Resp BP Sys/Bryson Pulse Ox Last 24 Hr 97.3 F-99 F 86-101 16-20 130-148/51-80 90-96 Intake and Output 09/02/18 09/03/18 09/03/18 21:59 05:59 13:59 Intake Total 990 350 Output Total 400 Balance 990 -50 Weight 80.513 kg Intake & Output: Intake & Output 09/02/18 09/03/18 09/03/18 21:59 05:59 13:59 Intake Total 990 350 Output Total 400 Balance 990 -50 Weight 80.513 kg Intake: IV 50 50 Zosyn 3.375 gm In Dextrose 5% 50 50 in Water 50 ml @ 100 mls/hr IV Q6H [facility] Rx#:[id number] Oral 940 300 Output: Void Amount 400 Other: Meal Dinner Percent of Meal Consumed 100% Urine Appearance Clear Urine Color Dark Yellow Urine Odor Normal Stool Size Small Small Stool Color Black Black Stool Consistency Soft Soft Loose Loose # Bowel Movements 1 Exam: General: Alert, Awake, No acute Distress Eyes/N/T: EOMI, Head/Neck: neck supple, CV: RRR, No murmurs, Pulm: mild rhonchi/wheeze b/l Abd: soft, nontender, +BS x4 Ext: no clubbing/cyanosis, trace bilateral lower extremity edema Neuro: Alert, no focal deficits, moves all extremities, Skin: warm/dry Medical - PN: Obj Da - Labs CBC & Chem 7: 08/31/18 05:30 09/03/18 03:48 Labs: Abnormal Lab Results 09/03/18 09/02/18 09/01/18 03:48 05:11 04:55 RBC Morphology Hypochromasia Anisocytosis Chloride 95 L Carbon Dioxide 32 H 37 H 35 H Anion Gap 6.0 L BUN 33 H 25 H Glucose 130 H 185 H Magnesium Total Bilirubin GGT 50 H 48 H AST 72 H 87 H ALT 45 H 43 H Lactate Dehydrogenase 257 H Albumin/Globulin Ratio 0.9 L 08/31/18 08/31/18 05:30 05:30 RBC Morphology Abnorm A Hypochromasia 1+ A Anisocytosis 1+ A Chloride Carbon Dioxide 34 H Anion Gap BUN Glucose 146 H Magnesium 1.5 L Total Bilirubin 1.1 H GGT 48 H AST 48 H ALT Lactate Dehydrogenase Albumin/Globulin Ratio Meds: Medications Acetaminophen (Tylenol) 650 mg PO Q4-6HP PRN PRN Reason: PAIN/FEVER > 101 Last Admin: 09/03/18 01:39 Dose: 650 mg Documented by: Albuterol/Ipratropium (Duoneb) 3 ml NEB Q4HRT [facility] Last Admin: 09/03/18 03:23 Dose: 3 ml Documented by: Benzonatate (Tessalon) 100 mg PO TIDP PRN PRN Reason: Cough Last Admin: 09/02/18 21:36 Dose: 100 mg Documented by: Budesonide (Pulmicort) 0.5 mg NEB Q12 [facility] Last Admin: 09/02/18 19:04 Dose: 0.5 mg Documented by: Diagnostic Test (Pha) (Accu-Chek) 1 each FS ACHS [facility] Last Admin: 09/02/18 21:35 Dose: 1 each Documented by: Diltiazem HCl (Cardizem Cd) 120 mg PO DAILY [facility] Last Admin: 09/02/18 08:12 Dose: 120 mg Documented by: Diphenhydramine HCl (Benadryl) 25 mg PO HSP PRN PRN Reason: Insomnia Docusate Sodium (Colace) 100 mg PO BID [facility] Last Admin: 09/02/18 21:35 Dose: Not Given Documented by: Magnesium Sulfate (Magnesium Sulfate) 2 gm in 50 mls @ 50 mls/hr IV UD PRN PRN Reason: MG = or < 1.7 Last Infusion: 09/02/18 09:50 Dose: Infused Documented by: Acetaminophen (Ofirmev) 1,000 mg in 100 mls @ 200 mls/hr IV Q6HP PRN PRN Reason: PAIN/FEVER > 101 Piperacillin Sod/Tazobactam (Sod 3.375 gm/ Dextrose) 50 mls @ 100 mls/hr IV Q6H [facility] Last Admin: 09/03/18 06:00 Dose: 100 mls/hr Documented by: Insulin Glargine (Lantus) 75 unit SQ [facility] Last Admin: 09/02/18 21:46 Dose: 50 units Documented by: Insulin Human Lispro (Humalog) 0 unit SQ [facility]; Protocol Last Admin: 09/02/18 21:28 Dose: Not Given Documented by: Iron Carb/Multivit/Bond/Folic Acid (Multivitamin W/Minerals) 1 tab PO DAILY [facility] Last Admin: 09/02/18 08:13 Dose: 1 tab Documented by: Loratadine (Claritin) 10 mg PO DAILY [facility] Stop: 09/03/18 09:01 Last Admin: 09/02/18 08:12 Dose: 10 mg Documented by: [facility]) [facility] Last Admin: 09/02/18 17:44 Dose: 1,000 mg Documented by: Morphine Sulfate (Morphine) 2 mg IV Q1HP PRN PRN Reason: pain/anxiety/dyspnea Omeprazole (Prilosec) 20 mg PO ACB [facility] Last Admin: 09/02/18 06:49 Dose: 20 mg Documented by: Ondansetron HCl (Zofran) 4 mg IV Q4-6HP PRN PRN Reason: Nausea And Vomiting Last Admin: 09/01/18 09:29 Dose: 4 mg Documented by: Potassium Chloride (Klor-Con) 40 meq PO DAILYP PRN PRN Reason: K+ < 3.5 Last Admin: 08/28/18 15:40 Dose: 40 meq Documented by: Potassium [facility] ([facility]) [facility] Last Admin: 09/02/18 08:13 Dose: 10 meq Documented by: Senna/Docusate Sodium (Senna Plus Tablet) 1 tab PO [facility] Last Admin: 09/02/18 21:35 Dose: Not Given Documented by: Simvastatin (Zocor) 5 mg PO [facility] Last Admin: 09/02/18 21:35 Dose: 5 mg Documented by: Sitagliptin Phosphate (Januvia) 100 mg PO DAILY [facility] Last Admin: 09/02/18 08:12 Dose: 100 mg Documented by: Sodium Chloride (Saline Flush) 10 ml IV Q8 [facility] Last Admin: 09/03/18 06:01 Dose: 10 ml Documented by: Tramadol HCl (Ultram) 50 mg PO Q4-6HP PRN PRN Reason: Pain Medical - PN: A/P - Time Spent With Patient Total time spent is greater than 50% in coordination of care (as documented) at patient's floor/unit and/or counseling patient: - Narrative A/P Narrative: A: *RLL PNA (suspected aspiration: slowly improving but still feels bad with continued cough and keeping her up at night -negative including viral panel/strep pneumo/mycoplasma and sputum cultures. -CXR improved *Sepsis: clinically resolved *Acute Hypoxic respiratory failure: 08/18 above -now on 1L NC *Volume Overload: echo last April with good EF, unable to assess diastolic fxn -good diuresis s/p lasix, now stopped *Blood loss anemia secondary to recent GI bleed status post double balloon enteroscopy at [place] and cauterization: continue PPI -Status post 2 units PRBC transfusion (08/26) -Hgb stable *History of A. fib: on dilt *DM type II: *GERD on PPI Plan: -Continue aspiration precaution and antibiotic -Bronchodilators/pulmonary toilet -wean O2 -ST eval -ambulate -cont diltiazem -basal and SSI -pt/ot -ppx: SCD/ambulate Full Code Medical - PN: Qual - VTE Deep Vein Thrombosis/Pulmonary Embolism Present on Admission: No
[2018-09-03] MEDS: BUDESONIDE 0.5 MG/2 ML AMPUL.NEB NEB SCH ×2 (07:41→19:13)
[2018-09-03] MEDS: INSULIN LISPRO 1 UNIT/0.01 ML UNIT SQ SCH ×4 (08:06→20:46)
[2018-09-03] MEDS: POTASSIUM CHLORIDE 10 MEQ TABLET PO SCH (08:06)
[2018-09-03] MEDS: metFORMIN 500 MG TABLET PO SCH ×2 (08:06→17:36)
[2018-09-03] MEDS: OMEPRAZOLE 20 MG CAPSULE PO SCH (08:06)
[2018-09-03] MEDS: LORATADINE 10 MG TABLET PO SCH (08:55)
[2018-09-03] MEDS: sitaGLIPtin 100 MG TABLET PO SCH (08:55)
[2018-09-03] MEDS: DOCUSATE SODIUM 100 MG CAPSULE PO SCH ×2 (08:55→20:31)
[2018-09-03] MEDS: MULTIVIT,THER IRON,CA,FA & MIN 1 TABLET PO SCH (08:55)
[2018-09-03] MEDS: DILTIAZEM 120 MG CAP.XL.24H PO SCH (08:55)
--- NOTE | 2018-09-03 10:08 | Cat Scan Report ---
CLINICAL INFORMATION: Hypoxia COMPARISON: Previous examination dated 08/26/2018 TECHNIQUE: Axial noncontrast enhanced images through the chest. Sagittally and coronally reformatted images. MIP reformatted images. FINDINGS: There is centrilobular emphysema with upper lobe predominance. Appearance is consistent with smoking history. Clinical correlation is necessary. There is a single 9 mm noncalcified nodule in the right upper lobe. This abuts the minor fissure and is identified on image [id number] no other pulmonary parenchymal nodules flexion or Society recommendations: [address] follow-up. Bilateral lower lobe pulmonary parenchymal densities most consistent with benign volume loss. Pneumonia is not excluded. There is a small right pleural effusion which is unchanged. There is no bronchiectasis. No significant reticular change. No other focal abnormality. Doreen and mediastinum are negative to the limits of noncontrast enhanced examination. No pathologic adenopathy. There is severe coronary artery calcification. There is calcification in the thoracic aorta. No axillary or supraclavicular adenopathy. Images of the upper abdomen demonstrate hypertrophy of the left lobe of the liver. There are no thoracic compression fractures. No rib or sternal lesions No significant interval change since 08/26/2018 IMPRESSION: 1. Centrilobular emphysema 2. 9 mm right upper lobe subpleural pulmonary parenchymal nodule. Three-month CT follow-up recommended 3. Bilateral lower lobe pulmonary parenchymal density most consistent with atelectasis. Small right pleural effusion. 4. No significant interval change The exam was performed using radiation dose optimization techniques including, but not limited to, automated exposure control, adjustment of the mA and/or kV according to patient size and use of iterative reconstruction technique. Interpreted and Authenticated by: Juan Francisco Barillas 09/03/18
[2018-09-03] MEDS ORDERED: methylPREDNISolone SOD SUCC 125 MG/2 ML VIAL IV ONE (10:27)
[2018-09-03] MEDS: HEPARIN 5,000 UNIT/ML VIAL SQ SCH ×2 (11:21→20:37)
[2018-09-03] MEDS: FLUTICASONE/SALMETEROL 250/50 INHALER #14 INH SCH ×3 (11:23→20:33)
[2018-09-03] MEDS: BENZONATATE 100 MG CAPSULE PO SCH (12:00)
[2018-09-03] MEDS: SIMVASTATIN 10 MG TABLET PO SCH (20:31)
[2018-09-03] MEDS: diphenhydrAMINE 25 MG CAPSULE PO PRN (20:32)
[2018-09-03] MEDS: SENNOSIDES/DOCUSATE SODIUM 1 TAB TABLET PO SCH (20:32)
[2018-09-03] MEDS: methylPREDNISolone SOD SUCC 40 MG/ML VIAL IV SCH (20:34)
[2018-09-03] MEDS: INSULIN GLARGINE, HUMAN 1 UNIT/0.01 ML SQ SCH (20:38)
[2018-09-04] MEDS: IPRATROPIUM/ALBUTEROL 3 ML AMPUL.NEB NEB SCH ×2 (03:31→07:15)
[2018-09-04] MEDS: 0.9 % SODIUM CHLORIDE 10 ML SYRINGE IV SCH ×3 (05:57→20:37)
[2018-09-04] MEDS: PIPERACILLIN SODIUM/TAZOBACTAM 3.375 GM in DEXTROSE 5% IN WATER 50 ML IV SCH (05:57)
[2018-09-04] MEDS: BENZONATATE 100 MG CAPSULE PO PRN (07:02)
[2018-09-04] MEDS: metFORMIN 500 MG TABLET PO SCH ×2 (07:02→17:11)
[2018-09-04] MEDS: POTASSIUM CHLORIDE 10 MEQ TABLET PO SCH (07:03)
[2018-09-04] MEDS: OMEPRAZOLE 20 MG CAPSULE PO SCH (07:03)
[2018-09-04] MEDS: INSULIN LISPRO 1 UNIT/0.01 ML UNIT SQ SCH ×5 (07:03→20:46)
[2018-09-04] MEDS: BUDESONIDE 0.5 MG/2 ML AMPUL.NEB NEB SCH (07:15)
[2018-09-04] MEDS ORDERED: INSULIN GLARGINE, HUMAN 1 UNIT/0.01 ML SQ ONE (07:26)
--- NOTE | 2018-09-04 07:30 | Internal Med Progress Note ---
Medical - PN: Subj Patient information: Note initiated : 09/04/18 at 7:24 am Service Date, if different from initiated Date: [] Patient: Padmini Cunha a 78 y/o F admitted on 08/26/18 for sob. Chief Complaint: [] Interval history: Ms. Cunha is a 78 year old F with history of atrial fibrillation and has been on Eliquis for CVA prophylaxis. Patient recently had GI bleed with blood loss anemia requiring multiple endoscopies. Most recent double-balloon enteroscopy was on Monday at [place] where she was intubated during the procedure. Postprocedure patient has noted increasing hoarseness/cough and over the last 24 hours has become progressively short of breath/increasing effort intolerance and very weak and non-productive sputum. She subsequently comes to the ER for evaluation. Initial workup was significant for hemoglobin of 7.5, hypoxia requiring 2 L oxygen and right lower lobe infiltrate on chest imaging. Hospitalist service was consulted. At the time of evaluation patient is alert oriented. She is nondistressed and was able to provide history as above. She denies recent travel,, bloody stool, abdominal pain, weight loss. She further denies sick contacts. She attributes her symptoms secondary to recent procedure. 08/27-patient looking worse. More shortness of breath. Diuretics increased. Echocardiogram reviewed, EF 70% as of 05/15/18. Hemoglobin 9.9. Continue close monitoring. Start regular diet/rehab support 08/28-patient diuresing well with over 3000 cc net negative. Transfer to medical floor. No overnight fever or chills. On antibiotic coverage. On the right breast recommendations. Ongoing physical therapy. Denies active concerns. 08/29-patient doing better. Persistent cough however now on 1 L oxygen. No GI bleed. Hemoglobin stable. Gradual clinical improvement noted. Denies shortness of breath, fever, chills. No overnight telemetry events. Transfer to medical floor. No concerns expressed by nursing staff. Ongoing rehab/nutrition support. 08/30-patient doing well however feeling a lot fatigued. Persistent cough and was unable to sleep currently on cough suppressant. Diuresing well, no fever chills or overnight events. No other concerns expressed to nursing staff. Tolerating diet and physical therapy. Anticipate discharge in 24 hours if continues to improve clinically. 08/31-patient had a rough 24 hours with persistent coughing and was unable to sleep. She feels wiped out. Very uncomfortable this morning. Stat chest x-ray ordered. Continue bronchodilators/antibiotic coverage. Discharge planning on hold due to change in status. 09/01 Poor sleep because of coughing. Coughing gives her headache and some back pain. She feels like she has phlegm to cough up but she is unable to cough it out she also has some sinus congestion. Shortness of breath. Does not feel any worse than yesterday, difficult to say if she feels much better. 09/02 States she feels about the same as yesterday. Coughing kept her up at night. And coughing gives her headache. No fevers. Still feels like she has phlegm the cough up but she cannot get it out. On 1 L nasal cannula. 09/03 Slept better last night, and does feel a little bit cough improved. Shortness of breath, Still having coughing. Speech therapy evaluate today nursing to decrease oxygen, will increase Tessalon Perle and keep her ambulating more today. Does have a smoking history. No headache no nausea today. 09/04 Slept better. Cough improving. Shortness of breath better. Having dark/soft stools. No other new complaints. Overall feeling better. Review of Systems: denies fever/chills/nausea/vomiting/chest or abdominal pain/diarrhea. Otherwise see above. - Constitutional Vitals: Vital Signs Temp Pulse Resp BP Pulse Ox 97.8 F 102 H 24 H 123/52 94 09/04/18 03:32 09/04/18 03:32 09/04/18 03:32 09/04/18 03:32 09/04/18 07:16 Period Temp Pulse Resp BP Sys/Bryson Pulse Ox Last 24 Hr 97.3 F-98.2 F 89-110 18-32 123-145/52-66 90-94 Intake and Output 09/03/18 09/04/18 09/04/18 21:59 05:59 13:59 Intake Total 1240 250 50 Output Total 600 Balance 1240 -350 50 Weight 80.286 kg Intake & Output: Intake & Output 09/03/18 09/04/18 09/04/18 21:59 05:59 13:59 Intake Total 1240 250 50 Output Total 600 Balance 1240 -350 50 Weight 80.286 kg Intake: IV 100 50 50 Zosyn 3.375 gm In Dextrose 5% 100 50 50 in Water 50 ml @ 100 mls/hr IV Q6H [facility] Rx#:[id number] Oral 1140 200 Output: Void Amount 600 Other: Meal Breakfast Percent of Meal Consumed 100% Feeding Ability Independent Stool Size Moderate Stool Color Black Stool Consistency Soft # Voids 2 Exam: General: Alert, Awake, No acute Distress Eyes/N/T: EOMI, Head/Neck: neck supple, CV: RRR, No murmurs, Pulm: no wheezing today, no rales Abd: soft, nontender, +BS x4 Ext: no clubbing/cyanosis, trace bilateral lower extremity edema Neuro: Alert, no focal deficits, moves all extremities, Skin: warm/dry Medical - PN: Obj Da - Labs CBC & Chem 7: 08/31/18 05:30 09/03/18 03:48 Labs: Abnormal Lab Results 09/03/18 09/02/18 03:48 05:11 Carbon Dioxide 32 H 37 H Anion Gap 6.0 L BUN 33 H 25 H Glucose 130 H 185 H GGT 50 H AST 72 H ALT 45 H Meds: Medications Acetaminophen (Tylenol) 650 mg PO Q4-6HP PRN PRN Reason: PAIN/FEVER > 101 Last Admin: 09/03/18 01:39 Dose: 650 mg Documented by: Albuterol/Ipratropium (Duoneb) 3 ml NEB Q4HRT [facility] Last Admin: 09/04/18 07:15 Dose: 3 ml Documented by: Benzonatate (Tessalon) 100 mg PO TIDP PRN PRN Reason: Cough Last Admin: 09/04/18 07:02 Dose: 100 mg Documented by: Benzonatate (Tessalon) 200 mg PO TIDP [facility] Stop: 09/05/18 08:01 Last Admin: 09/03/18 12:00 Dose: 200 mg Documented by: Budesonide (Pulmicort) 0.5 mg NEB Q12 [facility] Last Admin: 09/04/18 07:15 Dose: 0.5 mg Documented by: Diagnostic Test (Pha) (Accu-Chek) 1 each FS ACHS [facility] Last Admin: 09/04/18 06:56 Dose: 1 each Documented by: Diltiazem HCl (Cardizem Cd) 120 mg PO DAILY [facility] Last Admin: 09/03/18 08:55 Dose: 120 mg Documented by: Diphenhydramine HCl (Benadryl) 25 mg PO HSP PRN PRN Reason: Insomnia Last Admin: 09/03/18 20:32 Dose: 25 mg Documented by: Docusate Sodium (Colace) 100 mg PO BID [facility] Last Admin: 09/03/18 20:31 Dose: 100 mg Documented by: Heparin Sodium (Porcine) (Heparin) 5,000 unit SQ Q12 [facility] Last Admin: 09/03/18 20:37 Dose: 5,000 unit Documented by: Magnesium Sulfate (Magnesium Sulfate) 2 gm in 50 mls @ 50 mls/hr IV UD PRN PRN Reason: MG = or < 1.7 Last Infusion: 09/02/18 09:50 Dose: Infused Documented by: Acetaminophen (Ofirmev) 1,000 mg in 100 mls @ 200 mls/hr IV Q6HP PRN PRN Reason: PAIN/FEVER > 101 Piperacillin Sod/Tazobactam (Sod 3.375 gm/ Dextrose) 50 mls @ 100 mls/hr IV Q6H [facility] Last Infusion: 09/04/18 06:27 Dose: Infused Documented by: Insulin Glargine (Lantus) 75 unit SQ HS [facility] Last Admin: 09/03/18 20:38 Dose: 75 units Documented by: Insulin Human Lispro (Humalog) 0 unit SQ [facility]; Protocol Last Admin: 09/04/18 07:03 Dose: 6 units Documented by: Iron Carb/Multivit/[place]/Folic Acid (Multivitamin W/Minerals) 1 tab PO DAILY [facility] Last Admin: 09/03/18 08:55 Dose: 1 tab Documented by: Metformin HCl (Glucophage) 1,000 mg PO BIDCC [facility] Last Admin: 09/04/18 07:02 Dose: 1,000 mg Documented by: Methylprednisolone Sodium Succinate (Solu-Medrol) 40 mg IV Q12 [facility] Last Admin: 09/03/18 20:34 Dose: 40 mg Documented by: Morphine Sulfate (Morphine) 2 mg IV Q1HP PRN PRN Reason: pain/anxiety/dyspnea Omeprazole (Prilosec) 20 mg PO ACB [facility] Last Admin: 09/04/18 07:03 Dose: 20 mg Documented by: Ondansetron HCl (Zofran) 4 mg IV Q4-6HP PRN PRN Reason: Nausea And Vomiting Last Admin: 09/01/18 09:29 Dose: 4 mg Documented by: Potassium Chloride (Klor-Con) 40 meq PO DAILYP PRN PRN Reason: K+ < 3.5 Last Admin: 08/28/18 15:40 Dose: 40 meq Documented by: Potassium Chloride (Kdur) 10 meq PO QAC [facility] Last Admin: 09/04/18 07:03 Dose: 10 meq Documented by: Fluticasone/Salmeterol (Advair 250-50 Diskus) 1 puff INH BID [facility] Last Admin: 09/03/18 20:33 Dose: 1 puff Documented by: Senna/Docusate Sodium (Senna Plus Tablet) 1 tab PO [facility] Last Admin: 09/03/18 20:32 Dose: 1 tab Documented by: Simvastatin (Zocor) 5 mg PO [facility] Last Admin: 09/03/18 20:31 Dose: 5 mg Documented by: Sitagliptin Phosphate (Januvia) 100 mg PO DAILY [facility] Last Admin: 09/03/18 08:55 Dose: 100 mg Documented by: Sodium Chloride (Saline Flush) 10 ml IV Q8 [facility] Last Admin: 09/04/18 05:57 Dose: 10 ml Documented by: Tramadol HCl (Ultram) 50 mg PO Q4-6HP PRN PRN Reason: Pain Medical - PN: A/P - Time Spent With Patient Total time spent is greater than 50% in coordination of care (as documented) at patient's floor/unit and/or counseling patient: - Narrative A/P Narrative: A: *RLL PNA: slowly improving but still feels bad with continued cough and keeping her up at night -negative including viral panel/strep pneumo/mycoplasma and sputum cultures. -CXR improved but contiually symptomatic -f/u CT with emphysema, b/l atelectasis *AECOPD: h/o smoking *Sepsis: clinically resolved *Acute Hypoxic respiratory failure: 2/2 above -now on 1L NC *Volume Overload: echo last April with good EF, unable to assess diastolic fxn. REsolved -good diuresis s/p lasix, now stopped *Blood loss anemia secondary to recent GI bleed status post double balloon enteroscopy at [place] and cauterization: continue PPI -Status post 2 units PRBC transfusion (08/26) -Hgb stable *History of A. fib: on dilt *DM type II: *GERD on PPI *Incidental Plan: -d/c antibiotic -steroids (wean), started long acting IH's -Bronchodilators/pulmonary toilet -wean O2, likely needs upon d/c -check H&H, likely bleeding again, if H&H stable will have f/u outpt with EGD vs transfer if needed -ambulate -cont diltiazem -basal (increase) and SSI -pt/ot -f/u with [employer] for PFT's -ppx: SCD/ambulate Medical - PN: Qual - VTE Deep Vein Thrombosis/Pulmonary Embolism Present on Admission: No
[2018-09-04] MEDS: DILTIAZEM 120 MG CAP.XL.24H PO SCH (07:51)
[2018-09-04] MEDS: DOCUSATE SODIUM 100 MG CAPSULE PO SCH ×2 (07:51→20:41)
[2018-09-04] MEDS: MULTIVIT,THER IRON,CA,FA & MIN 1 TABLET PO SCH (07:51)
[2018-09-04] MEDS: sitaGLIPtin 100 MG TABLET PO SCH (07:51)
[2018-09-04] MEDS: methylPREDNISolone SOD SUCC 40 MG/ML VIAL IV SCH (07:51)
[2018-09-04] MEDS: HEPARIN 5,000 UNIT/ML VIAL SQ SCH ×2 (07:53→20:37)
[2018-09-04] MEDS: FLUTICASONE/SALMETEROL 250/50 INHALER #14 INH SCH ×2 (07:59→20:30)
[2018-09-04 09:29] LABS: Blood Urea Nitrogen 36 mg/dl (8-23)
[2018-09-04] MEDS ORDERED: ALBUTEROL SULFATE 2.5 MG/3 ML NEBULIZER NEB PRN (10:22)
[2018-09-04] MEDS: IRON POLYSACCHARIDE COMPLEX 150 MG CAPSULE PO SCH ×2 (11:57→20:31)
[2018-09-04] MEDS: SIMVASTATIN 10 MG TABLET PO SCH (20:31)
[2018-09-04] MEDS: diphenhydrAMINE 25 MG CAPSULE PO PRN (20:31)
[2018-09-04] MEDS: INSULIN GLARGINE, HUMAN 1 UNIT/0.01 ML SQ SCH (20:38)
[2018-09-04] MEDS: SENNOSIDES/DOCUSATE SODIUM 1 TAB TABLET PO SCH (20:41)
[2018-09-04] MEDS: BENZONATATE 100 MG CAPSULE PO SCH (20:45)
[2018-09-04] MEDS ORDERED: methylPREDNISolone SOD SUCC 40 MG/ML VIAL IV SCH (21:00)
[2018-09-05 06:06] LABS: Blood Urea Nitrogen 36 mg/dl (8-23)
[2018-09-05] MEDS: INSULIN LISPRO 1 UNIT/0.01 ML UNIT SQ SCH ×3 (08:06→17:37)
[2018-09-05] MEDS: 0.9 % SODIUM CHLORIDE 10 ML SYRINGE IV SCH ×3 (08:12→20:51)
[2018-09-05] MEDS: OMEPRAZOLE 20 MG CAPSULE PO SCH (08:18)
--- NOTE | 2018-09-05 08:22 | Internal Med Progress Note ---
Medical - PN: Subj Patient information: Note initiated : 09/05/18 at 8:18 am Service Date, if different from initiated Date: [] Patient: Padmini Cunha a 78 y/o F admitted on 08/26/18 for sob. Chief Complaint: [] Interval history: Ms. Cunha is a 78 year old F with history of atrial fibrillation and has been on Eliquis for CVA prophylaxis. Patient recently had GI bleed with blood loss anemia requiring multiple endoscopies. Most recent double-balloon enteroscopy was on Monday at [facility] where she was intubated during the procedure. Postprocedure patient has noted increasing hoarseness/cough and over the last 24 hours has become progressively short of breath/increasing effort intolerance and very weak and non-productive sputum. She subsequently comes to the ER for evaluation. Initial workup was significant for hemoglobin of 7.5, hypoxia requiring 2 L oxygen and right lower lobe infiltrate on chest imaging. Hospitalist service was consulted. At the time of evaluation patient is alert oriented. She is nondistressed and was able to provide history as above. She denies recent travel,, bloody stool, abdominal pain, weight loss. She further denies sick contacts. She attributes her symptoms secondary to recent procedure. 08/27-patient looking worse. More shortness of breath. Diuretics increased. Echocardiogram reviewed, EF 70% as of 05/15/18. Hemoglobin 9.9. Continue close monitoring. Start regular diet/rehab support 08/28-patient diuresing well with over 3000 cc net negative. Transfer to medical floor. No overnight fever or chills. On antibiotic coverage. On the right breast recommendations. Ongoing physical therapy. Denies active concerns. 08/29-patient doing better. Persistent cough however now on 1 L oxygen. No GI bleed. Hemoglobin stable. Gradual clinical improvement noted. Denies shortness of breath, fever, chills. No overnight telemetry events. Transfer to medical floor. No concerns expressed by nursing staff. Ongoing rehab/nutrition support. 08/30-patient doing well however feeling a lot fatigued. Persistent cough and was unable to sleep currently on cough suppressant. Diuresing well, no fever chills or overnight events. No other concerns expressed to nursing staff. Tolerating diet and physical therapy. Anticipate discharge in 24 hours if continues to improve clinically. 08/31-patient had a rough 24 hours with persistent coughing and was unable to sleep. She feels wiped out. Very uncomfortable this morning. Stat chest x-ray ordered. Continue bronchodilators/antibiotic coverage. Discharge planning on hold due to change in status. 09/01 Poor sleep because of coughing. Coughing gives her headache and some back pain. She feels like she has phlegm to cough up but she is unable to cough it out she also has some sinus congestion. Shortness of breath. Does not feel any worse than yesterday, difficult to say if she feels much better. 09/02 States she feels about the same as yesterday. Coughing kept her up at night. And coughing gives her headache. No fevers. Still feels like she has phlegm the cough up but she cannot get it out. On 1 L nasal cannula. 09/03 Slept better last night, and does feel a little bit cough improved. Shortness of breath, Still having coughing. Speech therapy evaluate today nursing to decrease oxygen, will increase Tessalon Perle and keep her ambulating more today. Does have a smoking history. No headache no nausea today. 09/04 Slept better. Cough improving. Shortness of breath better. Having dark/soft stools. No other new complaints. Overall feeling better. 09/05 Feeling much better breathing well minimal cough no real significant shortness of breath. Still having dark soft stools. Does not seem to be lightheaded. Review of Systems: denies fever/chills/nausea/vomiting/chest or abdominal pain. Otherwise see above. - Constitutional Vitals: Vital Signs Temp Pulse Resp BP Pulse Ox 97.9 F 89 14 135/62 90 09/05/18 07:44 09/05/18 07:44 09/05/18 07:44 09/05/18 04:23 09/05/18 07:44 Period Temp Pulse Resp BP Sys/Bryson Pulse Ox Last 24 Hr 97.8 F-98.5 F 86-103 14-24 129-146/62-67 90-98 Intake and Output 09/04/18 09/05/18 09/05/18 21:59 05:59 13:59 Intake Total 640 300 Balance 640 300 Weight 79.832 kg Intake & Output: Intake & Output 09/04/18 09/05/18 09/05/18 21:59 05:59 13:59 Intake Total 640 300 Balance 640 300 Weight 79.832 kg Intake: Oral 640 300 Other: Meal Dinner Percent of Meal Consumed 100% Feeding Ability Independent Stool Size Moderate Stool Color Black Stool Consistency Soft # Voids 1 # Bowel Movements 1 Exam: General: Alert, Awake, No acute Distress Eyes/N/T: EOMI, Head/Neck: neck supple, CV: RRR, No murmurs, Pulm: no wheezing today, no rales Abd: soft, nontender, +BS x4 Ext: no clubbing/cyanosis, trace bilateral lower extremity edema Neuro: Alert, no focal deficits, moves all extremities, Skin: warm/dry Medical - PN: Obj Da - Labs CBC & Chem 7: 09/05/18 04:30 09/05/18 04:30 Labs: Abnormal Lab Results 09/05/18 09/05/18 09/04/18 04:30 04:30 08:37 Hgb 9.0 L 9.7 L Hct 27.3 L 30.5 L Carbon Dioxide Anion Gap BUN 36 H Glucose 153 H 09/04/18 09/03/18 08:36 03:48 Hgb Hct Carbon Dioxide 20 L 32 H Anion Gap 21.0 H BUN 36 H 33 H Glucose 240 H 130 H Meds: Medications Acetaminophen (Tylenol) 650 mg PO Q4-6HP PRN PRN Reason: PAIN/FEVER > 101 Last Admin: 09/03/18 01:39 Dose: 650 mg Documented by: Albuterol Sulfate (Ventolin) 2.5 mg NEB Q4HP PRN PRN Reason: Shortness Of Breath Benzonatate (Tessalon) 100 mg PO TIDP PRN PRN Reason: Cough Last Admin: 09/04/18 07:02 Dose: 100 mg Documented by: Diagnostic Test (Pha) (Accu-Chek) 1 each FS ACHS [facility] Last Admin: 09/05/18 08:10 Dose: 1 each Documented by: Diltiazem HCl (Cardizem Cd) 120 mg PO DAILY [facility] Last Admin: 09/04/18 07:51 Dose: 120 mg Documented by: Diphenhydramine HCl (Benadryl) 25 mg PO HSP PRN PRN Reason: Insomnia Last Admin: 09/04/18 20:31 Dose: 25 mg Documented by: Docusate Sodium (Colace) 100 mg PO BID [facility] Last Admin: 09/04/18 20:41 Dose: Not Given Documented by: Heparin Sodium (Porcine) (Heparin) 5,000 unit SQ Q12 [facility] Last Admin: 09/04/18 20:37 Dose: 5,000 unit Documented by: Magnesium Sulfate (Magnesium Sulfate) 2 gm in 50 mls @ 50 mls/hr IV UD PRN PRN Reason: MG = or < 1.7 Last Infusion: 09/02/18 09:50 Dose: Infused Documented by: Acetaminophen (Ofirmev) 1,000 mg in 100 mls @ 200 mls/hr IV Q6HP PRN PRN Reason: PAIN/FEVER > 101 Insulin Glargine (Lantus) 85 unit SQ HS [facility] Last Admin: 09/04/18 20:38 Dose: 85 units Documented by: Insulin Human Lispro (Humalog) 0 unit SQ ACHS [facility]; Protocol Last Admin: 09/05/18 08:06 Dose: Not Given Documented by: Iron Carb/Multivit/[place]/Folic Acid (Multivitamin W/Minerals) 1 tab PO DAILY [facility] Last Admin: 09/04/18 07:51 Dose: 1 tab Documented by: Metformin HCl (Glucophage) 1,000 mg PO BIDCC [facility] Last Admin: 09/04/18 17:11 Dose: 1,000 mg Documented by: Methylprednisolone Sodium Succinate (Solu-Medrol) 20 mg IV Q12 [facility] Last Admin: 09/04/18 20:34 Dose: 20 mg Documented by: Morphine Sulfate (Morphine) 2 mg IV Q1HP PRN PRN Reason: pain/anxiety/dyspnea Omeprazole (Prilosec) 20 mg PO ACB [facility] Last Admin: 09/05/18 08:18 Dose: 20 mg Documented by: Ondansetron HCl (Zofran) 4 mg IV Q4-6HP PRN PRN Reason: Nausea And Vomiting Last Admin: 09/01/18 09:29 Dose: 4 mg Documented by: Polysaccharide Iron Complex (Ferrex 150) 150 mg PO BID [facility] Last Admin: 09/04/18 20:31 Dose: 150 mg Documented by: Potassium Chloride (Klor-Con) 40 meq PO DAILYP PRN PRN Reason: K+ < 3.5 Last Admin: 08/28/18 15:40 Dose: 40 meq Documented by: Potassium Chloride (Kdur) 10 meq PO QAC [facility] Last Admin: 09/04/18 07:03 Dose: 10 meq Documented by: Fluticasone/Salmeterol (Advair 250-50 Diskus) 1 puff INH BID [facility] Last Admin: 09/04/18 20:30 Dose: 1 puff Documented by: Senna/Docusate Sodium (Senna Plus Tablet) 1 tab PO [facility] Last Admin: 09/04/18 20:41 Dose: Not Given Documented by: Simvastatin (Zocor) 5 mg PO [facility] Last Admin: 09/04/18 20:31 Dose: 5 mg Documented by: Sitagliptin Phosphate (Januvia) 100 mg PO DAILY [facility] Last Admin: 09/04/18 07:51 Dose: 100 mg Documented by: Sodium Chloride (Saline Flush) 10 ml IV Q8 [facility] Last Admin: 09/05/18 08:12 Dose: 10 ml Documented by: Tramadol HCl (Ultram) 50 mg PO Q4-6HP PRN PRN Reason: Pain Medical - PN: A/P - Time Spent With Patient Total time spent is greater than 50% in coordination of care (as documented) at patient's floor/unit and/or counseling patient: - Narrative A/P Narrative: A: *RLL PNA: slowly improving but still feels bad with continued cough and keeping her up at night -negative including viral panel/strep pneumo/mycoplasma and sputum cultures. -CXR improved but contiually symptomatic -f/u CT with emphysema, b/l atelectasis *AECOPD: h/o smoking -Did not qualify for home oxygen on RT test *Sepsis: clinically resolved *Acute Hypoxic respiratory failure: 2/2 above -now on room air *Volume Overload: echo last April with good EF, unable to assess diastolic fxn. REsolved -good diuresis s/p lasix, now stopped *Blood loss anemia secondary to recent GI bleed status post double balloon enteroscopy at [facility] and cauterization: continue PPI -Status post 2 units PRBC transfusion (08/26) -Hgb stable *History of A. fib: on dilt *DM type II: *GERD on PPI *Incidental Plan: -finished antibiotic -steroids (wean), started long acting IH's -Bronchodilators/pulmonary toilet -monitor H&H, d/w [place] -ambulate -cont diltiazem -basal (increase) and SSI -pt/ot -f/u with [employer] for PFT's -ppx: SCD/ambulate Medical - PN: Qual - VTE Deep Vein Thrombosis/Pulmonary Embolism Present on Admission: No
[2018-09-05] MEDS: metFORMIN 500 MG TABLET PO SCH ×2 (09:20→17:36)
[2018-09-05] MEDS: predniSONE 20 MG TABLET PO SCH (09:22)
[2018-09-05] MEDS: POTASSIUM CHLORIDE 10 MEQ TABLET PO SCH (09:24)
[2018-09-05] MEDS: MULTIVIT,THER IRON,CA,FA & MIN 1 TABLET PO SCH (09:26)
[2018-09-05] MEDS: IRON POLYSACCHARIDE COMPLEX 150 MG CAPSULE PO SCH ×2 (09:26→20:47)
[2018-09-05] MEDS: DOCUSATE SODIUM 100 MG CAPSULE PO SCH ×2 (09:27→20:53)
[2018-09-05] MEDS: sitaGLIPtin 100 MG TABLET PO SCH (09:30)
[2018-09-05] MEDS: DILTIAZEM 120 MG CAP.XL.24H PO SCH (09:30)
[2018-09-05] MEDS: FLUTICASONE/SALMETEROL 250/50 INHALER #14 INH SCH ×2 (09:32→20:45)
[2018-09-05] MEDS: HEPARIN 5,000 UNIT/ML VIAL SQ SCH (09:33)
[2018-09-05] MEDS ORDERED: 0.9 % SODIUM CHLORIDE 250 ML IV SCH ×2 (10:30→11:15)
[2018-09-05] MEDS: SIMVASTATIN 10 MG TABLET PO SCH (20:46)
[2018-09-05] MEDS: INSULIN GLARGINE, HUMAN 1 UNIT/0.01 ML SQ SCH (20:47)
[2018-09-05] MEDS: SENNOSIDES/DOCUSATE SODIUM 1 TAB TABLET PO SCH (20:54)
[2018-09-06] MEDS: OMEPRAZOLE 20 MG CAPSULE PO SCH (07:14)
[2018-09-06] MEDS: INSULIN LISPRO 1 UNIT/0.01 ML UNIT SQ SCH (08:17)
[2018-09-06] MEDS: predniSONE 20 MG TABLET PO SCH (08:19)
[2018-09-06] MEDS: DOCUSATE SODIUM 100 MG CAPSULE PO SCH (08:20)
[2018-09-06] MEDS: POTASSIUM CHLORIDE 10 MEQ TABLET PO SCH (08:20)
[2018-09-06] MEDS: sitaGLIPtin 100 MG TABLET PO SCH (08:21)
[2018-09-06] MEDS: IRON POLYSACCHARIDE COMPLEX 150 MG CAPSULE PO SCH (08:21)
[2018-09-06] MEDS: DILTIAZEM 120 MG CAP.XL.24H PO SCH (08:21)
[2018-09-06] MEDS: metFORMIN 500 MG TABLET PO SCH (08:22)
[2018-09-06] MEDS: MULTIVIT,THER IRON,CA,FA & MIN 1 TABLET PO SCH (08:23)
[2018-09-06] MEDS: 0.9 % SODIUM CHLORIDE 10 ML SYRINGE IV SCH (08:24)
[2018-09-06] MEDS: FLUTICASONE/SALMETEROL 250/50 INHALER #14 INH SCH (08:25)
== END 2018-09-06 10:45 | disposition home health service (06) | DRG 871 ==
LOC: ED 15:31 → ICU 19:50 → MEDSUR 08-28 13:47
PROVIDERS: ADMIT Internal Medicine; ATTEND Internal Medicine

== ENCOUNTER 2019-12-26 13:47 | Inpatient (IN) ==
[2019-12-26] MEDS ORDERED: MIDAZOLAM 5 MG/5 ML VIAL IV ONE ×2 (14:02→14:04)
[2019-12-26 14:14] LABS: POC Blood Urea Nitrogen 16 mg/dl (8-23); POC CO2 24 mmol/L (22-30); POC Calcium, Ionized 1.15 mmol/L (1.16-1.32); POC Chloride 102 mmol/L (96-108); POC Creatinine 0.7 mg/dl (0.6-1.1); POC Glucose, Random 421 mg/dL (70-105); POC Potassium 4.2 mmol/L (3.3-5.1); POC Sodium 135 mmol/L (133-145)
[2019-12-26] MEDS ORDERED: PIPERACILLIN SODIUM/TAZOBACTAM 3.375 GM in DEXTROSE 5% IN WATER 50 ML IV ONE (14:19)
[2019-12-26] MEDS ORDERED: 0.9 % SODIUM CHLORIDE 1,000 ML IV ONE ×2 (14:20→16:09)
--- NOTE | 2019-12-26 14:29 | Cat Scan Report ---
INDICATION: Neuro Deficit/acute stroke COMPARISON: None. TECHNIQUE: Axial noncontrast-enhanced images through the brain. Sagittally and coronally reformatted images. FINDINGS: Cerebral hemispheres:Negative. No intra-axial abnormality. No intra-axial hematoma. No localized mass effect. Brain volume is within normal limits. No hydrocephalus Brainstem and cerebellum:No intra-axial abnormality Extra-axial:No acute hemorrhage. No subdural or epidural hematoma. No subarachnoid hemorrhage. Basilar cisterns are normal. 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 This may extend cephalad from the anterior communicating artery. CTA recommended Calvarial:No calvarial fracture. No lytic lesion Temporal bones are negative. No destructive lesions Soft tissue:Orbits and visualized facial soft tissues are grossly normal. IMPRESSION: 1. 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 This may be a saccular aneurysm extending cephalad from the anterior communicating artery. There appears to be mural calcification. No subarachnoid hemorrhage. CTA recommended 2. Otherwise negative noncontrast enhanced brain CT scan The exam was performed using radiation dose optimization techniques including, but not limited to, automated exposure control, adjustment of the mA and/or kV according to patient size and use of iterative reconstruction technique. Interpreted and Authenticated by: Juan Francisco Barillas 12/26/19
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
[2019-12-26 14:43] LABS: POC INR 1.1 (0.9-1.2); POC Pro Time 12.9 sec (11.9-14.5)
--- NOTE | 2019-12-26 15:00 | XRay Report ---
INDICATION: Fever. History of COPD. Confusion and obtundation TECHNIQUE: AP portable semiupright chest x-ray COMPARISON: Previous chest x-rays dated 09/01/2018, 08/31/2018 FINDINGS: Lungs:Focal infiltrate at the right lung base, right cardiophrenic angle. Appearance is consistent with pneumonia. Follow-up radiographs recommended Heart, vascular:There is generalized cardiomegaly. Probable pulmonary congestion are mildly prominent vascularity and mild peribronchial thickening Mediastinum, anai:No mediastinal widening. No hilar mass Pleura:No pleural fluid. No pleural-based mass or calcification Skeletal:Previous lower cervical anterior spinal fusion IMPRESSION: 1. Right basilar infiltrate consistent with pneumonia 2. Cardiomegaly. Probable pulmonary congestion Interpreted and Authenticated by: Juan Francisco Barillas 12/26/19
[2019-12-26 15:01] LABS: Basophils # (Auto) 0.04 K/mcL (0.00-0.30); Basophils % (Auto) 0.2 % (0.0-2.0); Eosinophils # (Auto) 0.02 K/mcL (0.00-0.70); Eosinophils % (Auto) 0.1 % (0.0-7.0); Granulocytes % (Auto) 89.9 % (38.0-78.0); Hematocrit 41.4 % (34.1-44.9); Lymphocytes # (Auto) 0.63 K/mcL (1.50-4.80); Lymphocytes % (Auto) 3.6 % (15.5-49.0); Mean Cell Volume 93.7 fL (80.0-100.0); Mean Corpuscular HGB Conc 33.8 g/dL (31.0-36.0); Mean Platelet Volume 12.6 fL (7.4-10.4); Monocytes # (Auto) 1.08 K/mcL (0.10-0.90); Monocytes % (Auto) 6.2 % (1.0-12.0); Platelet Count 109 K/mcL (140-440); RBC 4.42 M/mcL (3.59-5.38); Red Cell Distribution Width 12.5 % (11.5-14.5); WBC 17.5 K/mcL (4.50-11.00)
[2019-12-26] MEDS ORDERED: ACETAMINOPHEN 650 MG SUPP.RECT PR ONE (15:21)
[2019-12-26 15:31] LABS: ALT/SGPT 72 U/l (0-40); AST/SGOT 98 U/l (0-37); Albumin 4.1 gm/dL (3.2-5.2); Albumin/Globulin Ratio 1.4 (1.0-2.3); Alkaline Phosphatase 77 U/L (39-117); Bilirubin,Total 2.8 mg/dL (0.0-1.0); Blood Urea Nitrogen 15 mg/dl (8-23); Carbon Dioxide 23 mmol/L (22-30); Chloride 97 mmol/L (96-108); Glomerular Filtration Rate 84; Glucose 420 mg/dL (70-105)
[2019-12-26 15:40] LABS: ABG Methemoglobin 0.1 % (0.4-1.5); Total Hemoglobin 13.7 gm/dL (12.0-15.0); VBG Base Excess -1.4 (-2.0-2.0); VBG HCO3 23.1 mmol/L (24.0-28.0); VBG Oxygen Saturation 84.1 % (40.0-70.0); VBG PCO2 38.2 mmHg (41.0-51.0); VBG PO2 63 mmHg (25-40); VBG Total CO2 24.3 mmol/L (25.0-29.0)
[2019-12-26] MEDS ORDERED: VANCOMYCIN 1,500 MG in 0.9 % SODIUM CHLORIDE 500 ML IV ONE (16:09)
[2019-12-26 16:19] LABS: Appearance,Urine CLEAR; Bacteria,Urine MANY /hpf (0); Bilirubin,Urine NEG (NEG); Color,Urine YELLOW; Culture Indicated,Urine YES; Glucose,Urine (UA) >=500 mg/dL (NEG); Ketones,Urine NEG (NEG); Leukocyte Esterase,Urine NEG /uL (NEG); Mucus,Urine FEW /hpf (0); Nitrate,Urine POS (NEG); Protein,Urine >=500 mg/dL (NEG); Specific Gravity,Urine 1.026 (1.000-1.035); Urine Blood 0.2 mg/dL (<0.03); Urine RBC 17 /hpf (0-1); Urine Squamous Epithelial Cell 1 /hpf (0-4); Urine Transitional Epi Cells < 1 /hpf (0-2); Urine WBC 1 /hpf (0-4); Urobilinogen,Urine NEG (NEG)
[2019-12-26 16:35] LABS: Amphetamine Screen,Urine NONE DETECTED (NONDETECTED); Barbiturate Screen,Urine NONE DETECTED (NONDETECTED); Benzodiazepines Screen,Urine SUSPECT POSITIVE (NONDETECTED); Cannabinoid Screen,Urine NONE DETECTED (NONDETECTED); Cocaine Screen,Urine NONE DETECTED (NONDETECTED); Opiate Screen,Urine NONE DETECTED (NONDETECTED); Oxycodone, Urine Screen NONE DETECTED (NONDETECTED); Phencyclidine Screen,Urine NONE DETECTED (NONDETECTED)
[2019-12-26] MEDS ORDERED: LORazepam 2 MG/ML VIAL IV ONE ×2 (17:19→18:46)
--- NOTE | 2019-12-26 17:29 | Ultrasound Report ---
INDICATION: elevated lft's, sepsis TECHNIQUE: Grayscale and color flow Doppler spectral imaging COMPARISON: Previous abdominal ultrasound dated 11/23/2018 FINDINGS: Gallbladder:Cholecystectomy. Common bile duct:No intra or extrahepatic bile ducts.. Common bile duct is not optimally visualized and is not measured Liver:Liver is enlarged. Liver measures 22 cm maximally. Liver is sonographically dense and echogenic. This appears somewhat nodular. Size and appearance are unchanged since previous examination. There is no focal intrahepatic abnormality. No discrete mass. There is no ascites. Liver [id number] cm Portal vein:There is bidirectional portal venous flow. There may be midline varices Pancreas:Visualized portions of the pancreas are normal IMPRESSION: 1. Hepatomegaly. Liver is sonographically dense and may be somewhat nodular. This is a new appearance since 11/23/2018 2. Previous cholecystectomy. No bile duct dilatation 3. Probable bidirectional flow in the portal vein. Possible varices Interpreted and Authenticated by: Juan Francisco Barillas 12/26/19
--- NOTE | 2019-12-26 18:19 | Internal Med History&Physical ---
Medical - H&P: [facility] Patient information: Note initiated : 12/26/19 at 6:19 pm Service Date, if different from initiated Date: [] Patient: Padmini Cunha a 79 y/o F admitted on for Confusion, decreased loc, syncope. Chief Complaint: [] Chief complaint: Confused and lethargic History of present illness: Ms. Cunha is a 79 year old F with history of A. fib/DM type II/hyperlipidemia who has had progressive deterioration over the last year and a half and multiple hospitalization including pneumonia/GI bleed. She has been in her baseline state of health over the last few days and was at a libertarian at her son's place on Monday. However family discovered on Monday she was fairly somnolent lethargic and weak. Over the next 2 days she has been laying on the bed and became extremely confused nonfunctional and unresponsive prompting patient's family to bring her to the ER today. Initial work-up in the ER was consistent with Severe sepsis with hypoxic respiratory failure secondary pneumonia and evidence of multiple endorgan dysfunction including elevated bilirubin/altered mental status. Patient was rapidly started on crystalloid/antibiotics along with cultures Hospitalist service was consulted for admission At the time evaluation patient is accompanied with her son Dwain. She remains a DNR as per family recommendations however they would like full medical interventions. I explained based on [place] 2 score and her current hemodynamics she stands very high risk mortality and family is aware of situation. Patient will be admitted to the ICU for aggressive management including vasopressors if indicated. Patient is unresponsive and therefore no history could be obtained other than from son Dwain and ER physician Review of systems A 10 point review system was attempted but could not performed due to patient's unresponsive status Medical - H&P: PMH Medical history: Atrial fibrillation DM type II GERD Hyperlipidemia GI bleed with anemia Recurrent pneumonia History of COPD Surgical history: Recent double balloon enteroscopy 08/24/18 Pertinent family history: Lives alone Social history: No history of smoking alcoholism Medical - H&P: Meds Home Medications Medication Instructions Recorded Confirmed Type Diltiazem [Cardizem Sr] 180 mg PO DAILY 08/26/18 12/26/19 History Insulin Detemir [Levemir] 50 unit SQ BID 08/26/18 12/26/19 History Lovastatin 10 mg PO HS 08/26/18 12/26/19 History Omeprazole [Prilosec] 20 mg PO DAILY 08/26/18 12/26/19 History Potassium Chloride [Kdur] 10 meq PO BID 08/26/18 12/26/19 History metFORMIN HCL [Metformin HCl] 1,000 mg PO BID 08/26/18 12/26/19 History sitaGLIPtin [Januvia] 100 mg PO DAILY 08/26/18 12/26/19 History Lactobacillus [Culturelle] 1 cap PO BID #60 cap 08/31/18 12/26/19 Rx Cyanocobalamin [Vitamin B12] 1,000 mcg IM MONTHLY 12/26/19 12/26/19 History Furosemide [Lasix] 20 mg PO BID 12/26/19 12/26/19 History hydrOXYzine [Atarax] 25 mg PO TID 12/26/19 12/26/19 History Allergies Allergy/AdvReac Type Severity Reaction Status Date / Time levofloxacin [From Levaquin] Allergy Severe Swelling Verified 12/27/19 08:57 of Lip/Tongue/Throat clindamycin AdvReac Mild Nausea Verified 12/26/19 13:48 Sulfa (Sulfonamide AdvReac Mild Vomiting Verified 12/26/19 13:48 Antibiotics) Medical - H&P: Exam - Constitutional Vitals: Temp Pulse Resp BP Pulse Ox 101.9 F H 124 H 29 H 169/78 88 L 12/26/19 17:54 12/26/19 17:54 12/26/19 17:54 12/26/19 17:54 12/26/19 17:54 General appearance: moderate distress (Restless and confused) Exam: Unresponsive Head normocephalic Oral cavity dry, macroglossia No ear nose discharge No scleral icterus Neck no lymphadenopathy S1-S2 tachycardia ESM grade 1 Labored breathing on 4 L oxygen Abdomen pendulous but soft nontender Lower extremity no cyanosis clubbing no joint swelling Skin no suspicious lesion Psych confused restless Neuro could not be examined Medical - H&P: Reslt - Labs CBC & Chem 7: 12/27/19 05:30 12/27/19 05:30 Labs: Short CBC 12/26/19 Range/Units 14:10 WBC 17.5 H (4.50-11.00) K/mcL Hgb 14.0 (11.2-15.7) g/dL Hct 41.4 (34.1-44.9) % Plt Count 109 L (140-440) K/mcL BMP 12/26/19 14:10 Sodium 136 Potassium 4.4 Chloride 97 Carbon Dioxide 23 BUN 15 Creatinine 0.7 Glucose 420 H Calcium 10.0 Cardiac Enzymes 12/26/19 Range/Units 14:10 Troponin T 0.02 (0-0.03) ng/ml Liver Function 12/26/19 Range/Units 14:10 Total Bilirubin 2.8 H (0.0-1.0) mg/dL AST 98 H (0-37) U/l ALT 72 H (0-40) U/l Alkaline Phosphatase 77 (39-117) U/L Albumin 4.1 (3.2-5.2) gm/dL Urine 12/26/19 Range/Units 15:23 Urine Color Yellow Urine Appearance Clear Urine pH 6.0 (5.0-9.0) Ur Specific [place] 1.026 (1.000-1.035) Urine Protein >=500 A (NEG) mg/dL Urine Glucose (UA) >=500 A (NEG) mg/dL - ABG Interpretation ABG results: 12/26/19 14:57 ABG Methemoglobin 0.1 L VBG pH 7.40 VBG pCO2 38.2 L VBG pO2 63 H VBG HCO3 23.1 L VBG Total CO2 24.3 L VBG O2 Saturation 84.1 H VBG Base Excess -1.4 Medical - H&P: A/P (1) Change in mental status Current visit: Yes Status: Acute * Severe sepsis with multiple organ dysfunction and white count 17.5. High risk mortality. [place] 2 score 20. ICU admit * Acute change mental status secondary severe sepsis endorgan dysfunction. Close monitoring in ICU * Hypoxic respiratory failure-on 4 L oxygen. Secondary pneumonia. * Right lobar pneumonia likely community-acquired versus aspiration. Continue broad antibiotic coverage * Patient COPD current bronchodilators * Atrial fibrillation continue rate control measures. Initiate diltiazem drip * Elevated LFTs secondary to sepsis endorgan dysfunction * DM type II continue basal panel insulin * DNR * Prophylaxis heparin Plan * ICU admit * Vasopressors if indicated * High flow oxygen * Broad antibiotic coverage * Cardizem drip * Maintain fall watch * serial lactate * High risk mortality based on [place] 2 score Time spent on history physical in excess of 70 minutes. In addition 45 minutes spent on critical care management including hypoxic respiratory failure/severe sepsis/A. fib RVR and management of multiorgan dysfunction
[2019-12-26] MEDS ORDERED: POLYETHYLENE GLYCOL 3350 17 GM PACKET PO PRN (19:27)
[2019-12-26] MEDS ORDERED: BISACODYL 10 MG SUPP.RECT PR PRN (19:27)
[2019-12-26] MEDS ORDERED: POTASSIUM CHLORIDE 20 MEQ PACKET PO PRN (19:27)
[2019-12-26] MEDS ORDERED: ONDANSETRON 4 MG/2 ML VIAL IV PRN (19:27)
[2019-12-26] MEDS ORDERED: ONDANSETRON 4 MG ODT TABLET SL PRN (19:27)
[2019-12-26] MEDS: 0.9 % SODIUM CHLORIDE 1,000 ML IV SCH (19:46)
[2019-12-26] MEDS ORDERED: IPRATROPIUM/ALBUTEROL 3 ML AMPUL.NEB NEB ONE (20:00)
[2019-12-26] MEDS ORDERED: BUDESONIDE 0.5 MG/2 ML AMPUL.NEB NEB ONE (20:00)
[2019-12-26] MEDS: PIPERACILLIN SODIUM/TAZOBACTAM 3.375 GM in DEXTROSE 5% IN WATER 50 ML IV SCH (20:29)
[2019-12-26] MEDS ORDERED: LEVOFLOXACIN 750 MG/150 ML BAG IV SCH (21:00)
[2019-12-26] MEDS ORDERED: DEXTROSE 31 GM ORAL.SUSP PO PRN (21:16)
[2019-12-26] MEDS ORDERED: DEXTROSE 50% 50 ML VIAL IV PRN (21:16)
[2019-12-26] MEDS: NOREPINEPHRINE BITARTRATE 16 MG in 0.9 % SODIUM CHLORIDE 234 ML IV SCH (21:17)
[2019-12-26] MEDS: IPRATROPIUM/ALBUTEROL 3 ML AMPUL.NEB NEB SCH ×2 (21:17→23:28)
[2019-12-26] MEDS: DOCUSATE SODIUM 100 MG CAPSULE PO SCH (21:19)
[2019-12-26] MEDS ORDERED: 0.9 % SODIUM CHLORIDE 500 ML IV ONE (21:20)
[2019-12-26] MEDS: SENNOSIDES/DOCUSATE SODIUM 1 TAB TABLET PO SCH (21:20)
[2019-12-26] MEDS: BUDESONIDE 0.5 MG/2 ML AMPUL.NEB NEB SCH (21:20)
[2019-12-26] MEDS: 0.9 % SODIUM CHLORIDE 10 ML SYRINGE IV SCH (21:46)
[2019-12-26] MEDS ORDERED: INSULIN LISPRO 1 UNIT/0.01 ML UNIT SQ ONE (21:56)
[2019-12-26] MEDS: HEPARIN 5,000 UNIT/ML VIAL SQ SCH (21:57)
[2019-12-26] MEDS ORDERED: LORazepam 2 MG/ML VIAL IV PRN (22:38)
[2019-12-26] MEDS ORDERED: LORazepam 2 MG/ML VIAL ONE (22:44)
[2019-12-26] MEDS ORDERED: DILTIAZEM 125 MG/25 ML VIAL IV ONE (23:01)
[2019-12-26] MEDS: 0.9 % SODIUM CHLORIDE 250 ML IV SCH (23:20)
[2019-12-26] MEDS: DILTIAZEM 125 MG in DEXTROSE 5% IN WATER 100 ML IV SCH (23:22)
[2019-12-26] MEDS ORDERED: methylPREDNISolone SOD SUCC 40 MG/ML VIAL IV ONE (23:22)
[2019-12-26] MEDS ORDERED: diphenhydrAMINE 50 MG/ML VIAL ONE (23:29)
[2019-12-26] MEDS ORDERED: ACETAMINOPHEN 1,000 MG/100 ML BOTTLE IV ONE (23:29)
[2019-12-26] MEDS ORDERED: methylPREDNISolone SOD SUCC 125 MG/2 ML VIAL ONE (23:29)
[2019-12-26] MEDS: diphenhydrAMINE 50 MG/ML VIAL IV PRN (23:34)
[2019-12-26] MEDS: ACETAMINOPHEN 650 MG/65 ML BOTTLE IV PRN (23:35)
[2019-12-27] MEDS: PIPERACILLIN SODIUM/TAZOBACTAM 3.375 GM in DEXTROSE 5% IN WATER 50 ML IV SCH ×2 (00:41→05:36)
[2019-12-27] MEDS: IPRATROPIUM/ALBUTEROL 3 ML AMPUL.NEB NEB SCH ×3 (02:56→10:55)
[2019-12-27] MEDS ORDERED: LORazepam 2 MG/ML VIAL ONE (04:31)
[2019-12-27] MEDS: 0.9 % SODIUM CHLORIDE 10 ML SYRINGE IV SCH ×4 (05:30→21:40)
[2019-12-27 06:32] LABS: Hemoglobin 12.8 g/dL (11.2-15.7); Mean Cell Volume 100.5 fL (80.0-100.0); Mean Platelet Volume 12.7 fL (7.4-10.4); Platelet Count 106 K/mcL (140-440); RBC 3.98 M/mcL (3.59-5.38); WBC 17.6 K/mcL (4.50-11.00)
[2019-12-27] MEDS ORDERED: VANCOMYCIN PER PHARMACY IV SCH ×2 (06:48→11:37)
[2019-12-27] MEDS ORDERED: 0.9 % SODIUM CHLORIDE 500 ML IV SCH (07:00)
[2019-12-27] MEDS ORDERED: 0.9 % SODIUM CHLORIDE 500 ML IV ONE (07:05)
[2019-12-27 07:15] LABS: ALT/SGPT 72 U/l (0-40); AST/SGOT 85 U/l (0-37); Albumin 3.3 gm/dL (3.2-5.2); Alkaline Phosphatase 61 U/L (39-117); Bilirubin,Direct 0.9 mg/dL (0.0-0.3); Bilirubin,Total 2.5 mg/dL (0.0-1.0); Blood Urea Nitrogen 16 mg/dl (8-23); Calcium 8.5 mg/dl (8.6-10.4); Carbon Dioxide 19 mmol/L (22-30); Chloride 105 mmol/L (96-108); Globulin 3.3 gm/dL (2.2-3.7); Glomerular Filtration Rate 54; Lactate Dehydrogenase 270 U/L (94-250); Phosphorous 3.9 mg/dL (2.7-4.5); Triglycerides 143 mg/dl (<150); Uric Acid 4.5 mg/dL (2.5-8.0)
[2019-12-27] MEDS: INSULIN LISPRO 1 UNIT/0.01 ML UNIT SQ SCH ×6 (07:33→21:42)
[2019-12-27] MEDS: BUDESONIDE 0.5 MG/2 ML AMPUL.NEB NEB SCH (07:35)
[2019-12-27 07:44] LABS: Glucose 472 mg/dL (70-105)
[2019-12-27] MEDS: ACETAMINOPHEN 650 MG/65 ML BOTTLE IV PRN (08:00)
[2019-12-27 08:07] LABS: Band Neutrophils % 2 % (0-10); Lymphocytes % 2 % (15-49); Macrocytosis FEW (NONE SEEN); Platelet Estimate DECREASED (NORMAL); RBC Morphology ABNORM (NORMAL); Segmented Neutrophils % 96 % (38-78)
[2019-12-27] MEDS: 0.9 % SODIUM CHLORIDE 1,000 ML IV SCH ×2 (08:08→18:54)
[2019-12-27] MEDS ORDERED: VANCOMYCIN 1,500 MG in 0.9 % SODIUM CHLORIDE 500 ML IV SCH (09:00)
[2019-12-27] MEDS: DOCUSATE SODIUM 100 MG CAPSULE PO SCH ×2 (09:10→21:40)
[2019-12-27] MEDS: MULTIVIT,THER IRON,CA,FA & MIN 1 TABLET PO SCH (09:10)
[2019-12-27] MEDS: HEPARIN 5,000 UNIT/ML VIAL SQ SCH ×2 (09:10→21:43)
[2019-12-27] MEDS: INSULIN GLARGINE, HUMAN 1 UNIT/0.01 ML SQ SCH ×2 (09:11→21:42)
[2019-12-27] MEDS: DILTIAZEM 180 MG CAP.XL.24H PO SCH (09:12)
--- NOTE | 2019-12-27 09:17 | Internal Med Progress Note ---
Medical - PN: Subj Patient information: Note initiated : 12/27/19 at 9:15 am Service Date, if different from initiated Date: [] Patient: Padmini Cunha a 79 y/o F admitted on 12/26/19 for Confusion, decreased loc, syncope. Chief Complaint: [] Interval history: Ms. Cunha is a 79 year old F with history of A. fib/DM type II/hyperlipidemia who has had progressive deterioration over the last year and a half and multiple hospitalization including pneumonia/GI bleed. She has been in her baseline state of health over the last few days and was at a libertarian at her son's place on Monday. However family discovered on Monday she was fairly somnolent lethargic and weak. Over the next 2 days she has been laying on the bed and became extremely confused nonfunctional and unresponsive prompting patient's family to bring her to the ER today. Initial work-up in the ER was consistent with Severe sepsis with hypoxic respiratory failure secondary pneumonia and evidence of multiple endorgan dysfunction including elevated bilirubin/altered mental status. Patient was rapidly started on crystalloid/antibiotics along with cultures Hospitalist service was consulted for admission At the time evaluation patient is accompanied with her son Dwain. She remains a DNR as per family recommendations however they would like full medical interventions. I explained based on [place] 2 score and her current hemodynamics she stands very high risk mortality and family is aware of situation. Patient will be admitted to the ICU for aggressive management including vasopressors if indicated. Patient is unresponsive and therefore no history could be obtained other than from son Dwain and ER physician 12/26-patient on broad antibiotic coverage. Gram-positive cocci on blood cultures. Surveillance cultures pending. On vancomycin/Zosyn. White count remains elevated at 17.5. Tachycardia much improved. Continue diltiazem drip. Blood sugars over 400. Started on basal insulin. Improved anion gap however lactic acid worsening. Crystalloid challenges being administered. Bilirubin downtrending. Magnesium 1.5 on replacement. Remains critically ill. - Constitutional Vitals: Vital Signs Temp Pulse Resp BP Pulse Ox 100.7 F H 103 H 30 H 169/60 88 L 12/27/19 00:25 12/27/19 07:59 12/27/19 07:59 12/27/19 00:16 12/27/19 01:25 Period Temp Pulse Resp BP Sys/Bryson Pulse Ox Last 24 Hr 100.4 F-102.8 F 74-132 0-41 137-201/59-160 72-97 Intake and Output 12/26/19 12/27/19 12/27/19 21:59 05:59 13:59 Intake Total 2600 823 1115 Output Total 500 370 370 Balance 2100 453 745 Weight 188 lb 1.6 oz Intake & Output: Intake & Output 12/26/19 12/27/19 12/27/19 21:59 05:59 13:59 Intake Total 2600 823 1115 Output Total 500 370 370 Balance 2100 453 745 Weight 188 lb 1.6 oz Intake: IV 2600 823 1115 Sodium Chloride 0.9% 1,000 ml @ 2000 1000 100 mls/hr IV .Q10H [facility] Rx#: [id number] Sodium Chloride 0.9% 500 ml @ 500 Wide Open IV [facility] Rx#: [id number] Cardizem 125 mg In Dextrose 5% 58 in Water 100 ml @ 5 MG/HR 5 mls /hr IV Q12H [facility] Rx#:[id number] Zosyn 3.375 gm In Dextrose 5% 100 50 50 in Water 50 ml @ 100 mls/hr IV Q6H [facility] Rx#:[id number] Vancomycin 1,500 mg In Sodium 500 Chloride 0.9% 500 ml @ 333.3 mls/hr IV ONCE ONE Rx#: [id number] Output: Urine Catheter Amount 500 370 370 Other: Urine Appearance Cloudy Cloudy Clear Uretheral ([place]) Cloudy Cloudy Urine Color Light Miriam Light Miriam Bright Yellow Uretheral ([place]) Light Miriam Light Miriam Urine Odor Strong Strong Uretheral ([place]) Normal Exam: Anxious but now able to respond commands [place] is draining dark urine Tachycardia on telemetry Labored breathing now on 5 L oxygen Medical - PN: Obj Da - Labs CBC & Chem 7: 12/27/19 05:30 12/27/19 05:30 Labs: Abnormal Lab Results 12/27/19 12/27/19 12/27/19 05:30 05:30 05:30 WBC 17.6 H MCV 100.5 H Plt Count 106 L MPV 12.7 H Gran % Lymph % (Auto) Gran # Lymph # (Auto) [place] # (Auto) Seg Neutrophils % 96 H Lymphocytes % 2 L RBC Morphology Abnorm A Macrocytosis Few A ABG Methemoglobin VBG pCO2 VBG pO2 VBG HCO3 VBG Total CO2 VBG O2 Saturation VBG Lactic Acid 4.8 H* Carboxyhemoglobin Carbon Dioxide 19 L Glucose 472 H* POC Glucose Calcium 8.5 L POC WB Ioniz Calcium Magnesium 1.5 L Total Bilirubin 2.5 H Direct Bilirubin 0.9 H GGT 170 H AST 85 H ALT 72 H Lactate Dehydrogenase 270 H C-Reactive Protein Urine Protein Urine Glucose (UA) Urine Occult Blood Urine Nitrate Urine RBC Urine Bacteria U Benzodiazepines Scrn 12/27/19 12/26/19 12/26/19 00:10 15:23 15:23 WBC MCV Plt Count MPV Gran % Lymph % (Auto) Gran # Lymph # (Auto) [place] # (Auto) Seg Neutrophils % Lymphocytes % RBC Morphology Macrocytosis ABG Methemoglobin VBG pCO2 VBG pO2 VBG HCO3 VBG Total CO2 VBG O2 Saturation VBG Lactic Acid 2.5 H Carboxyhemoglobin Carbon Dioxide Glucose POC Glucose Calcium POC WB Ioniz Calcium Magnesium Total Bilirubin Direct Bilirubin GGT AST ALT Lactate Dehydrogenase C-Reactive Protein Urine Protein >=500 A Urine Glucose (UA) >=500 A Urine Occult Blood 0.2 A Urine Nitrate Pos A Urine RBC 17 H Urine Bacteria Many A U Benzodiazepines Scrn Suspect positive A 12/26/19 12/26/19 12/26/19 14:57 14:14 14:14 WBC MCV Plt Count MPV Gran % Lymph % (Auto) Gran # Lymph # (Auto) [place] # (Auto) Seg Neutrophils % Lymphocytes % RBC Morphology Macrocytosis ABG Methemoglobin 0.1 L VBG pCO2 38.2 L VBG pO2 63 H VBG HCO3 23.1 L VBG Total CO2 24.3 L VBG O2 Saturation 84.1 H VBG Lactic Acid 2.4 H Carboxyhemoglobin 9.0 H Carbon Dioxide Glucose POC Glucose Calcium POC WB Ioniz Calcium Magnesium Total Bilirubin Direct Bilirubin GGT AST ALT Lactate Dehydrogenase C-Reactive Protein 1.1 H Urine Protein Urine Glucose (UA) Urine Occult Blood Urine Nitrate Urine RBC Urine Bacteria U Benzodiazepines Scrn 12/26/19 12/26/19 14:10 14:10 WBC 17.5 H MCV Plt Count 109 L MPV 12.6 H Gran % 89.9 H Lymph % (Auto) 3.6 L Gran # 15.71 H Lymph # (Auto) 0.63 L Dillon # (Auto) 1.08 H Seg Neutrophils % Lymphocytes % RBC Morphology Macrocytosis ABG Methemoglobin VBG pCO2 VBG pO2 VBG HCO3 VBG Total CO2 VBG O2 Saturation VBG Lactic Acid Carboxyhemoglobin Carbon Dioxide Glucose 420 H POC Glucose 421 H Calcium POC WB Ioniz Calcium 1.15 L Magnesium Total Bilirubin 2.8 H Direct Bilirubin GGT AST 98 H ALT 72 H Lactate Dehydrogenase C-Reactive Protein Urine Protein Urine Glucose (UA) Urine Occult Blood Urine Nitrate Urine RBC Urine Bacteria U Benzodiazepines Scrn Meds: Medications Acetaminophen (Tylenol) 650 mg PO Q4-6HP PRN; Protocol PRN Reason: Per Pain Protocol/Fever > 101 Albuterol/Ipratropium (Duoneb) 3 ml NEB Q4HRT [facility] Last Admin: 12/27/19 07:35 Dose: 3 ml Documented by: Bisacodyl (Dulcolax) 10 mg IL Q2-3DAYS PRN PRN Reason: Constipation Budesonide (Pulmicort) 0.5 mg NEB Q12 [facility] Last Admin: 12/27/19 07:35 Dose: 0.5 mg Documented by: Dextrose (Dextrose 50%) 0 ml IV UD PRN PRN Reason: Hypoglycemia Diagnostic Test (Pha) (Accu-Chek) 1 each FS ACHS [facility] Last Admin: 12/27/19 07:25 Dose: 1 each Documented by: Diltiazem HCl (Cardizem Cd) 180 mg PO DAILY [facility] Last Admin: 12/27/19 09:12 Dose: Not Given Documented by: Diphenhydramine HCl (Benadryl) 25 mg IV Q4-6HP PRN PRN Reason: Allergic Symptoms Last Admin: 12/26/19 23:34 Dose: 25 mg Documented by: Docusate Sodium (Colace) 100 mg PO BID [facility] Last Admin: 12/27/19 09:10 Dose: Not Given Documented by: Glucose (Insta-Glucose) 15 gm PO PRN PRN PRN Reason: Hypoglycemia Heparin Sodium (Porcine) (Heparin) 5,000 unit SQ Q12 [facility] Last Admin: 12/27/19 09:10 Dose: 5,000 unit Documented by: Magnesium Sulfate (Magnesium Sulfate) 2 gm in 50 mls @ 50 mls/hr IV UD PRN PRN Reason: MG = or < 1.7 Sodium Chloride (Sodium Chloride 0.9%) 1,000 mls @ 100 mls/hr IV .Q10H [facility] Last Admin: 12/27/19 08:08 Dose: 100 mls/hr Documented by: Piperacillin Sod/Tazobactam (Sod 3.375 gm/ Dextrose) 50 mls @ 100 mls/hr IV Q6H [facility]; Protocol Last Infusion: 12/27/19 06:37 Dose: Infused Documented by: Norepinephrine Bitartrate 16 (mg/ Sodium Chloride) 250 mls @ 9.375 mls/hr IV Q24H [facility]; Protocol Last Admin: 12/26/19 21:17 Dose: Not Given Documented by: Diltiazem HCl 125 mg/ Dextrose 125 mls @ 5 mls/hr IV Q12H [facility]; Protocol Last Titration: 12/27/19 02:45 Dose: 2 mg/hr, 2 mls/hr Documented by: Sodium Chloride (Sodium Chloride 0.9%) 250 mls @ 20 mls/hr IV .[id number] [facility] Last Admin: 12/26/19 23:20 Dose: 20 mls/hr Documented by: Acetaminophen (Ofirmev) 650 mg in 65 mls @ 130 mls/hr IV Q6HP PRN; Protocol PRN Reason: PAIN/FEVER > 101 Last Infusion: 12/27/19 09:09 Dose: Infused Documented by: Vancomycin HCl 1,500 mg/ (Sodium Chloride) 500 mls @ 333.3 mls/hr IV DAILY [facility] Insulin Glargine (Lantus) 25 unit SQ BID [facility] Last Admin: 12/27/19 09:11 Dose: 25 unit Documented by: Insulin Human Lispro (Humalog) 0 unit SQ ACHS [facility]; Protocol Last Admin: 12/27/19 07:33 Dose: 10 unit Documented by: Iron Carb/Multivit/[place]/Folic Acid (Multivitamin W/Minerals) 1 tab PO DAILY [facility] Last Admin: 12/27/19 09:10 Dose: Not Given Documented by: Lorazepam (Ativan) 0.5 mg IV Q4HP PRN PRN Reason: ANXIETY/SEDATION Melatonin (Melatonin 3mg Tablet) 3 mg PO HSP PRN PRN Reason: Insomnia Mupirocin (Bactroban Oint 2%) 1 dose TOPICAL BID [facility] Stop: 12/31/19 21:01 Ondansetron HCl (Zofran Odt) 4 mg SL Q4-6HP PRN; Protocol PRN Reason: Nausea And Vomiting Ondansetron HCl (Zofran) 4 mg IV Q4-6HP PRN; Protocol PRN Reason: Nausea And Vomiting Polyethylene Glycol (Miralax) 17 gm PO DAILYP PRN PRN Reason: Constipation Potassium Chloride (Klor-Con) 40 meq PO DAILYP PRN PRN Reason: K+ < 3.5 Senna/Docusate Sodium (Senna Plus Tablet) 1 tab PO HS [facility] Last Admin: 12/26/19 21:20 Dose: Not Given Documented by: Sodium Chloride (Saline Flush) 10 ml IV Q8 [facility] Last Admin: 12/27/19 05:30 Dose: Not Given Documented by: Vancomycin HCl (Vancomycin Per Pharmacy) 1 order IV UD [facility]; Protocol - ABG Interpretation ABG results: 12/26/19 14:57 ABG Methemoglobin 0.1 L VBG pH 7.40 VBG pCO2 38.2 L VBG pO2 63 H VBG HCO3 23.1 L VBG Total CO2 24.3 L VBG O2 Saturation 84.1 H VBG Base Excess -1.4 Medical - PN: A/P - Time Spent With Patient Total time spent is greater than 50% in coordination of care (as documented) at patient's floor/unit and/or counseling patient: Greater than 35 minutes (Critical care time) (1) Change in mental status Status: Acute Assessment and plan: * Gram-positive bacteremia-possible source pneumonia. Echocardiogram. Continue surveillance cultures. Broad antibiotic coverage. ID consult. * Severe sepsis with multiple organ dysfunction -white count remains elevated with bacteremia. Continue management per guidelines. Crystalloid challenge. Lactic acid elevated at 4.6 * Acute change mental status clinically improving with aggressive management of sepsis * Hypoxic respiratory failure-now on 5 L oxygen and worsening. Repeat chest imaging 24 hours. * Right lobar pneumonia likely community-acquired versus aspiration. Continue broad antibiotic coverage * Patient COPD current bronchodilators * Atrial fibrillation with RVR now in sinus. Currently on diltiazem drip at 2 mics * Elevated LFTs secondary to sepsis endorgan dysfunction clinically improving * DM type II continue basal prandial insulin * DNR * Prophylaxis heparin Plan * Broad antibiotic coverage * Echocardiogram * ID consult * Oxygen support * Wean Cardizem drip * Basal prandial insulin * serial lactate * Improving short-term prognosis Current Visit: Yes Medical - PN: Qual - VTE Deep Vein Thrombosis/Pulmonary Embolism Present on Admission: No
[2019-12-27] MEDS: MUPIROCIN OINT 2% 22GM TOPICAL SCH ×2 (09:30→21:37)
[2019-12-27] MEDS ORDERED: cefTRIAXone 2 GM in DEXTROSE 5% IN WATER 50 ML IV SCH (10:00)
[2019-12-27] MEDS: diphenhydrAMINE 50 MG/ML VIAL IV PRN ×2 (10:54→21:14)
[2019-12-27] MEDS ORDERED: methylPREDNISolone SOD SUCC 40 MG/ML VIAL IV ONE (10:56)
[2019-12-27] MEDS ORDERED: IPRATROPIUM/ALBUTEROL 3 ML AMPUL.NEB NEB ONE (11:00)
[2019-12-27] MEDS: DILTIAZEM 125 MG in DEXTROSE 5% IN WATER 100 ML IV SCH (11:00)
--- NOTE | 2019-12-27 11:10 | Infectious Disease Consult ---
History of Present Illness Patient information: Note initiated : 12/27/19 at 11:04 am Service Date, if different from initiated Date: [] Patient: Padmini Cunha 79 y/o F admitted on 12/26/19 for Confusion, decreased loc, syncope. Chief Complaint: [] Consult date: 12/27/19 Requesting Physician: Ronnie Berg Reason for Consult: GPC bacteremia Chief complaint: cannot be obtained as pt is confused History of present illness: HPI obtained from chart review as patient has altered mental status 79-year-old lady was brought to [facility] ER on 12/26/2019 by family members after being found to have confusion, lethargy, slurred speech and recent frequent falls. In addition patient was having chills [1 of her sons found her in a growth with room temperature on the higher side]. At admission the temperature was 101.9 Fahrenheit, heart rate 124, respiratory rate 29, satting 88% on room air, blood pressure 169/78. White blood cell count was 17.5k, creatinine 0.7, blood sugar 420, lactic acid 2.4. LFTs were abnormal with elevated AST, ALT and total bilirubin. Chest x-ray showed right right lower lobe infiltrate along with changes of fluid overload. 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 Blood cultures and urine cultures were sent. Blood cultures grew gram-positive cocci in chains which were found to be group B strep on verigene. Patient had been on IV vancomycin and IV Zosyn. At time of visit, patient could not give any history. Review of Systems ROS unobtainable: due to mental status Past History Past medical history: Atrial fibrillation DM type II GERD Hyperlipidemia GI bleed with anemia COPD Past surgical history: Finger amputation, traumatic (Acute) S/P carpal tunnel release (Acute) S/P cataract surgery (Acute) S/P discectomy (Acute) S/P hysterectomy (Acute) S/P knee surgery (Acute) Past family history: Mother Colon cancer Breast cancer Father Throat cancer Sister Colon cancer Lung cancer Liver cancer Past social history: Lives alone Medications and Allergies Home Medications Medication Instructions Recorded Confirmed Type Diltiazem [Cardizem Sr] 180 mg PO DAILY 08/26/18 12/26/19 History Insulin Detemir [Levemir] 50 unit SQ BID 08/26/18 12/26/19 History Lovastatin 10 mg PO HS 08/26/18 12/26/19 History Omeprazole [Prilosec] 20 mg PO DAILY 08/26/18 12/26/19 History Potassium Chloride [Kdur] 10 meq PO BID 08/26/18 12/26/19 History metFORMIN HCL [Metformin HCl] 1,000 mg PO BID 08/26/18 12/26/19 History sitaGLIPtin [Januvia] 100 mg PO DAILY 08/26/18 12/26/19 History Lactobacillus [Culturelle] 1 cap PO BID #60 cap 08/31/18 12/26/19 Rx Cyanocobalamin [Vitamin B12] 1,000 mcg IM MONTHLY 12/26/19 12/26/19 History Furosemide [Lasix] 20 mg PO BID 12/26/19 12/26/19 History hydrOXYzine [Atarax] 25 mg PO TID 12/26/19 12/26/19 History Allergies Allergy/AdvReac Type Severity Reaction Status Date / Time levofloxacin [From Levaquin] Allergy Severe Swelling Verified 12/27/19 08:57 of Lip/Tongue/Throat vancomycin Allergy Severe Swelling Verified 12/29/19 15:44 of Lip/Tongue/Throat clindamycin AdvReac Mild Nausea Verified 12/26/19 13:48 Sulfa (Sulfonamide AdvReac Mild Vomiting Verified 12/26/19 13:48 Antibiotics) Physical Examination Vital signs: Temp Pulse Resp BP Pulse Ox 36.9 C 107 H 23 H 129/56 95 12/27/19 09:16 12/27/19 09:16 12/27/19 09:16 12/27/19 09:01 12/27/19 09:16 General appearance: appears uncomfortable Auscultation: bilateral: rhonchi (In the lower lung logan) Cardiovascular: other (S1-S2 normal, no murmurs heard) Gastrointestinal: normoactive bowel sounds, soft (Distended, has lower abdominal discomfort in the suprapubic area) Extremities: no edema Musculoskeletal: other (No joint redness, swelling or tenderness noted. No point tenderness on palpation of vertebral spine) unable to assess due to mental status (Confused without a focal neurological deficit) Results - Laboratory Findings CBC and BMP: 12/30/19 05:00 12/30/19 05:00 Abnormal lab findings: Abnormal Labs 12/26/19 12/26/19 12/26/19 14:10 14:10 14:14 WBC 17.5 H MCV Plt Count 109 L MPV 12.6 H Gran % 89.9 H Lymph % (Auto) 3.6 L Gran # 15.71 H Lymph # (Auto) 0.63 L [place] # (Auto) 1.08 H Seg Neutrophils % Lymphocytes % RBC Morphology Macrocytosis ABG Methemoglobin VBG pCO2 VBG pO2 VBG HCO3 VBG Total CO2 VBG O2 Saturation VBG Lactic Acid 2.4 H Carboxyhemoglobin Carbon Dioxide Glucose 420 H POC Glucose 421 H Calcium POC WB Ioniz Calcium 1.15 L Magnesium Total Bilirubin 2.8 H Direct Bilirubin GGT AST 98 H ALT 72 H Lactate Dehydrogenase C-Reactive Protein Urine Protein Urine Glucose (UA) Urine Occult Blood Urine Nitrate Urine RBC Urine Bacteria U Benzodiazepines Scrn 12/26/19 12/26/19 12/26/19 14:14 14:57 15:23 WBC MCV Plt Count MPV Gran % Lymph % (Auto) Gran # Lymph # (Auto) [place] # (Auto) Seg Neutrophils % Lymphocytes % RBC Morphology Macrocytosis ABG Methemoglobin 0.1 L VBG pCO2 38.2 L VBG pO2 63 H VBG HCO3 23.1 L VBG Total CO2 24.3 L VBG O2 Saturation 84.1 H VBG Lactic Acid Carboxyhemoglobin 9.0 H Carbon Dioxide Glucose POC Glucose Calcium POC WB Ioniz Calcium Magnesium Total Bilirubin Direct Bilirubin GGT AST ALT Lactate Dehydrogenase C-Reactive Protein 1.1 H Urine Protein Urine Glucose (UA) Urine Occult Blood Urine Nitrate Urine RBC Urine Bacteria U Benzodiazepines Scrn Suspect positive A 12/26/19 12/27/19 12/27/19 15:23 00:10 05:30 WBC 17.6 H MCV 100.5 H Plt Count 106 L MPV 12.7 H Gran % Lymph % (Auto) Gran # Lymph # (Auto) [place] # (Auto) Seg Neutrophils % 96 H Lymphocytes % 2 L RBC Morphology Abnorm A Macrocytosis Few A ABG Methemoglobin VBG pCO2 VBG pO2 VBG HCO3 VBG Total CO2 VBG O2 Saturation VBG Lactic Acid 2.5 H Carboxyhemoglobin Carbon Dioxide Glucose POC Glucose Calcium POC WB Ioniz Calcium Magnesium Total Bilirubin Direct Bilirubin GGT AST ALT Lactate Dehydrogenase C-Reactive Protein Urine Protein >=500 A Urine Glucose (UA) >=500 A Urine Occult Blood 0.2 A Urine Nitrate Pos A Urine RBC 17 H Urine Bacteria Many A U Benzodiazepines Scrn 12/27/19 12/27/19 05:30 05:30 WBC MCV Plt Count MPV Gran % Lymph % (Auto) Gran # Lymph # (Auto) [place] # (Auto) Seg Neutrophils % Lymphocytes % RBC Morphology Macrocytosis ABG Methemoglobin VBG pCO2 VBG pO2 VBG HCO3 VBG Total CO2 VBG O2 Saturation VBG Lactic Acid 4.8 H* Carboxyhemoglobin Carbon Dioxide 19 L Glucose 472 H* POC Glucose Calcium 8.5 L POC WB Ioniz Calcium Magnesium 1.5 L Total Bilirubin 2.5 H Direct Bilirubin 0.9 H GGT 170 H AST 85 H ALT 72 H Lactate Dehydrogenase 270 H C-Reactive Protein Urine Protein Urine Glucose (UA) Urine Occult Blood Urine Nitrate Urine RBC Urine Bacteria U Benzodiazepines Scrn Microbiology: Microbiology 12/26/19 14:28 Blood Blood Culture - Preliminary Gram positive cocci 12/26/19 14:38 Blood Blood Culture - Preliminary Gram positive cocci 12/26/19 21:20 Nasopharynx Respiratory Virus Panel (PCR) - Final 12/26/19 21:20 Nasopharynx Respiratory Panel (PCR) - Final 12/26/19 20:11 Nose - Both Right and Left MRSA (PCR) - Final MRSA PCR positive Assessment and Plan - Narrative A/P Narrative: A: 1. Gp B Streptococcal bacteremia: - blood Cx 2/2 +ve from 12/26/19 - likely source /GI tract. Skin colonization could also play a role - risk factors: uncontrolled DM2, age 2. Septic shock: sec to (1) 3. COVID-19: should be ruled out given symptoms (altered mental status, fever, cough, shortness of breath) 4. Acute respiratory failure: ?right sided CAP, fluid overload - r/o COVID - Vanc should be continued given +ve MRSA nasal PCR and right sided infiltrate 5. 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 Check trough before the 4th dose (target 10-20). If concerns for Rosalinda syndroms, give it slowly over 3 hours with prior medication with Tylenol and low-dose benadryl. Discussed with Dr Berg - repeat blood Cx every other day until neg for 48 hrs - remove the central line once off pressors - COVID 19 nasopharyngeal PCR - consider moving pt to a negative pressure room as she is on supplemental O2 and coughing - Glycemic control (FSBS 140-180) - MRSA decolonization for 5 days as above will follow Matt Vinson MD Infectious diseases
[2019-12-27] MEDS: cefTRIAXone 2 GM in DEXTROSE 5% IN WATER 50 ML IV SCH (11:31)
[2019-12-27] MEDS ORDERED: LINEZOLID 600 MG/300 ML BAG IV SCH (11:45)
[2019-12-27] MEDS: 0.9 % SODIUM CHLORIDE 250 ML IV SCH ×2 (12:42→18:12)
[2019-12-27] MEDS: ACETAMINOPHEN 325 MG TABLET PO PRN (14:48)
[2019-12-27] MEDS: INSULIN REGULAR, HUMAN 50 UNIT in 0.9 % SODIUM CHLORIDE 99.5 ML IV SCH ×5 (16:45→23:24)
[2019-12-27] MEDS ORDERED: INSULIN REGULAR, HUMAN 1 UNIT/0.01 ML UNIT IV ONE (19:52)
[2019-12-27] MEDS ORDERED: INSULIN REGULAR, HUMAN 1 UNIT/0.01 ML UNIT ONE ×2 (20:04→23:03)
[2019-12-27] MEDS: VANCOMYCIN 1,250 MG in 0.9 % SODIUM CHLORIDE 500 ML IV SCH (21:29)
[2019-12-27] MEDS: SENNOSIDES/DOCUSATE SODIUM 1 TAB TABLET PO SCH (21:40)
[2019-12-27] MEDS: NOREPINEPHRINE BITARTRATE 16 MG in 0.9 % SODIUM CHLORIDE 234 ML IV SCH (21:41)
[2019-12-27] MEDS: IPRATROPIUM/ALBUTEROL 3 ML AMPUL.NEB NEB PRN (23:15)
[2019-12-28] MEDS: INSULIN REGULAR, HUMAN 50 UNIT in 0.9 % SODIUM CHLORIDE 99.5 ML IV SCH (01:02)
[2019-12-28] MEDS: DILTIAZEM 125 MG in DEXTROSE 5% IN WATER 100 ML IV SCH ×2 (01:06→15:32)
[2019-12-28] MEDS: 0.9 % SODIUM CHLORIDE 1,000 ML IV SCH (01:57)
[2019-12-28] MEDS: 0.9 % SODIUM CHLORIDE 250 ML IV SCH ×3 (05:28→22:11)
[2019-12-28] MEDS: 0.9 % SODIUM CHLORIDE 10 ML SYRINGE IV SCH ×7 (06:06→22:10)
[2019-12-28 07:07] LABS: Hematocrit 39.4 % (34.1-44.9); Hemoglobin 12.5 g/dL (11.2-15.7); Mean Cell Volume 100.8 fL (80.0-100.0); Mean Corpuscular HGB Conc 31.7 g/dL (31.0-36.0); Platelet Count 110 K/mcL (140-440); RBC 3.91 M/mcL (3.59-5.38); Red Cell Distribution Width 13.5 % (11.5-14.5); WBC 20.3 K/mcL (4.50-11.00)
--- NOTE | 2019-12-28 07:29 | XRay Report ---
INDICATION: Interval Change TECHNIQUE: AP portable semiupright chest x-ray COMPARISON: Previous chest x-ray 12/26/2019, 09/01/2018 FINDINGS: Lungs:Bilateral diffuse pulmonary parenchymal infiltrates. There is been significant interval worsening since 12/26/2019. Appearance is most consistent with diffuse pulmonary edema and congestive heart failure. Pneumonia is also possible. Heart, vascular:There is cardiomegaly. Findings are consistent with congestive heart failure Mediastinum, anai:Mediastinum is widened. This is probably related to magnification Pleura:Findings consistent with right pleural effusion. This is probably secondary to congestive heart failure Skeletal:Negative. IMPRESSION: 1. Cardiomegaly, diffuse parenchymal infiltrates, pleural fluid right greater than left 2. Findings are consistent with congestive heart failure 3. Significant interval worsening since 12/26/2019 Interpreted and Authenticated by: Juan Francisco Barillas 12/28/19
[2019-12-28] MEDS: INSULIN LISPRO 1 UNIT/0.01 ML UNIT SQ SCH ×4 (08:21→22:08)
[2019-12-28] MEDS: DOCUSATE SODIUM 100 MG CAPSULE PO SCH ×2 (08:22→20:41)
[2019-12-28] MEDS: HEPARIN 5,000 UNIT/ML VIAL SQ SCH ×2 (08:22→22:10)
[2019-12-28] MEDS: MULTIVIT,THER IRON,CA,FA & MIN 1 TABLET PO SCH (08:22)
[2019-12-28] MEDS: DILTIAZEM 180 MG CAP.XL.24H PO SCH (08:22)
[2019-12-28] MEDS: cefTRIAXone 2 GM in DEXTROSE 5% IN WATER 50 ML IV SCH (08:23)
[2019-12-28] MEDS: MUPIROCIN OINT 2% 22GM TOPICAL SCH ×2 (08:35→22:10)
[2019-12-28 09:07] LABS: ALT/SGPT 63 U/l (0-40); AST/SGOT 72 U/l (0-37); Albumin 3.1 gm/dL (3.2-5.2); Albumin/Globulin Ratio 0.9 (1.0-2.3); Alkaline Phosphatase 53 U/L (39-117); Bilirubin,Total 1.1 mg/dL (0.0-1.0); Calcium 8.8 mg/dl (8.6-10.4); Carbon Dioxide 22 mmol/L (22-30); Chloride 107 mmol/L (96-108); Globulin 3.6 gm/dL (2.2-3.7); Glomerular Filtration Rate 54; Glucose 165 mg/dL (70-105); Lactate Dehydrogenase 260 U/L (94-250); Triglycerides 190 mg/dl (<150); Uric Acid 5.6 mg/dL (2.5-8.0)
[2019-12-28 09:08] LABS: Bilirubin,Direct 0.4 mg/dL (0.0-0.3); Blood Urea Nitrogen 26 mg/dl (8-23); Phosphorous 2.5 mg/dL (2.7-4.5)
[2019-12-28] MEDS: INSULIN GLARGINE, HUMAN 1 UNIT/0.01 ML SQ SCH ×2 (09:28→22:09)
[2019-12-28 09:46] LABS: Band Neutrophils % 1 % (0-10); Lymphocytes % 4 % (15-49); Macrocytosis FEW (NONE SEEN); Monocytes % (Manual) 6 % (1-12); Platelet Estimate DECREASED (NORMAL); RBC Morphology ABNORM (NORMAL); Segmented Neutrophils % 89 % (38-78)
[2019-12-28] MEDS: IPRATROPIUM/ALBUTEROL 3 ML AMPUL.NEB NEB PRN ×2 (09:48→12:50)
[2019-12-28] MEDS: VANCOMYCIN 1,250 MG in 0.9 % SODIUM CHLORIDE 500 ML IV SCH (11:08)
--- NOTE | 2019-12-28 11:18 | Internal Med Progress Note ---
Medical - PN: Subj Patient information: Note initiated : 12/28/19 at 11:15 am Service Date, if different from initiated Date: [] Patient: Padmini Cunha a 79 y/o F admitted on 12/26/19 for Confusion, decreased loc, syncope. Chief Complaint: [] Interval history: Ms. Cunha is a 79 year old F with history of A. fib/DM type II/hyperlipidemia who has had progressive deterioration over the last year and a half and multiple hospitalization including pneumonia/GI bleed. She has been in her baseline state of health over the last few days and was at a green party at her son's place on Monday. However family discovered on Monday she was fairly somnolent lethargic and weak. Over the next 2 days she has been laying on the bed and became extremely confused nonfunctional and unresponsive prompting patient's family to bring her to the ER today. Initial work-up in the ER was consistent with Severe sepsis with hypoxic respiratory failure secondary pneumonia and evidence of multiple endorgan dysfunction including elevated bilirubin/altered mental status. Patient was rapidly started on crystalloid/antibiotics along with cultures Hospitalist service was consulted for admission At the time evaluation patient is accompanied with her son Dwain. She remains a DNR as per family recommendations however they would like full medical interventions. I explained based on [place] 2 score and her current hemodynamics she stands very high risk mortality and family is aware of situation. Patient will be admitted to the ICU for aggressive management including vasopressors if indicated. Patient is unresponsive and therefore no history could be obtained other than from son Dwain and ER physician 12/26-patient on broad antibiotic coverage. Gram-positive cocci on blood cultures. Surveillance cultures pending. On vancomycin/Zosyn. White count remains elevated at 17.5. Tachycardia much improved. Continue diltiazem drip. Blood sugars over 400. Started on basal insulin. Improved anion gap however lactic acid worsening. Crystalloid challenges being administered. Bilirubin downtrending. Magnesium 1.5 on replacement. Remains critically ill. 12/27-improved lactate however clinically deteriorating. On 10 L oxygen. CHF/pleural effusion on chest imaging. Started on diuretics. DC IV fluids. Continue antibiotic coverage. White count at 20.3 improved blood sugars off insulin drip. ID consulted. On antibiotic coverage as per ID. Remains high risk mortality. I recommend thoracentesis if inadequate response to diuretics and worsening hypoxia. Maintain COVID precautions. - Constitutional Vitals: Vital Signs Temp Pulse Resp BP Pulse Ox 99.7 F H 110 H 26 H 197/88 98 12/28/19 10:01 12/28/19 10:01 12/28/19 10:01 12/28/19 10:01 12/28/19 10:01 Period Temp Pulse Resp BP Sys/Bryson Pulse Ox Last 24 Hr 95.4 F-99.7 F 95-110 10-29 122-197/56-107 82-98 Intake and Output 12/27/19 12/28/19 12/28/19 21:59 05:59 13:59 Intake Total 1313 1471 936 Output Total 340 285 590 Balance 973 1186 346 Weight 193 lb 4.8 oz Intake & Output: Intake & Output 12/27/19 12/28/19 12/28/19 21:59 05:59 13:59 Intake Total 1313 1471 936 Output Total 340 285 590 Balance 973 1186 346 Weight 193 lb 4.8 oz Intake: IV 1133 971 816 Sodium Chloride 0.9% 1,000 ml @ 1097 0 740 100 mls/hr IV .Q10H [facility] Rx#: [id number] Sodium Chloride 0.9% 250 ml @ 250 20 mls/hr IV .[id number] [facility] Rx#: [id number] Cardizem 125 mg In Dextrose 5% 45 in Water 100 ml @ 5 MG/HR 5 mls /hr IV Q12H [facility] Rx#:[id number] HumuLIN R 50 UNIT In Sodium 36 176 26 Chloride 0.9% 99.5 ml @ 2 UNIT/ HR 4 mls/hr IV DUR [facility] Rx#: [id number] Vancomycin 1,250 mg In Sodium 500 Chloride 0.9% 500 ml @ 166.667 mls/hr IV Q12H [facility] Rx#: [id number] Rocephin 2 gm In Dextrose 5% in 50 Water 50 ml @ 100 mls/hr IV DAILY [facility] Rx#:[id number] Oral 180 500 120 Output: Urine Catheter Amount 340 285 590 Other: Urine Appearance Clear Clear Clear Sediment Uretheral (Fortune) Clear Clear Sediment Urine Color Light Miriam Light Miriam Bright Yellow Uretheral (Fortune) Light Miriam Light Miriam Urine Odor Strong General appearance: moderate distress, obese Exam: Short of breath Anxious Tachycardic Febrile Tachypneic Medical - PN: Obj Da - Labs CBC & Chem 7: 12/28/19 05:10 12/28/19 06:25 Labs: Abnormal Lab Results 12/28/19 12/28/19 12/27/19 06:25 05:10 12:08 WBC 20.3 H MCV 100.8 H Plt Count 110 L MPV 13.0 H Gran % Lymph % (Auto) Gran # Lymph # (Auto) [place] # (Auto) Seg Neutrophils % 89 H Lymphocytes % 4 L RBC Morphology Abnorm A Macrocytosis Few A ABG Methemoglobin VBG pCO2 VBG pO2 VBG HCO3 VBG Total CO2 VBG O2 Saturation VBG Lactic Acid 4.6 H* Carboxyhemoglobin Carbon Dioxide BUN 26 H Glucose 165 H POC Glucose Calcium POC WB Ioniz Calcium Phosphorus 2.5 L Magnesium Total Bilirubin 1.1 H Direct Bilirubin 0.4 H GGT 150 H AST 72 H ALT 63 H Lactate Dehydrogenase 260 H C-Reactive Protein Albumin 3.1 L Albumin/Globulin Ratio 0.9 L Triglycerides 190 H Urine Protein Urine Glucose (UA) Urine Occult Blood Urine Nitrate Urine RBC Urine Bacteria U Benzodiazepines Scrn 12/27/19 12/27/19 12/27/19 05:30 05:30 05:30 WBC 17.6 H MCV 100.5 H Plt Count 106 L MPV 12.7 H Gran % Lymph % (Auto) Gran # Lymph # (Auto) [place] # (Auto) Seg Neutrophils % 96 H Lymphocytes % 2 L RBC Morphology Abnorm A Macrocytosis Few A ABG Methemoglobin VBG pCO2 VBG pO2 VBG HCO3 VBG Total CO2 VBG O2 Saturation VBG Lactic Acid 4.8 H* Carboxyhemoglobin Carbon Dioxide 19 L BUN Glucose 472 H* POC Glucose Calcium 8.5 L POC WB Ioniz Calcium Phosphorus Magnesium 1.5 L Total Bilirubin 2.5 H Direct Bilirubin 0.9 H GGT 170 H AST 85 H ALT 72 H Lactate Dehydrogenase 270 H C-Reactive Protein Albumin Albumin/Globulin Ratio Triglycerides Urine Protein Urine Glucose (UA) Urine Occult Blood Urine Nitrate Urine RBC Urine Bacteria U Benzodiazepines Scrn 12/27/19 12/26/19 12/26/19 00:10 15:23 15:23 WBC MCV Plt Count MPV Gran % Lymph % (Auto) Gran # Lymph # (Auto) [place] # (Auto) Seg Neutrophils % Lymphocytes % RBC Morphology Macrocytosis ABG Methemoglobin VBG pCO2 VBG pO2 VBG HCO3 VBG Total CO2 VBG O2 Saturation VBG Lactic Acid 2.5 H Carboxyhemoglobin Carbon Dioxide BUN Glucose POC Glucose Calcium POC WB Ioniz Calcium Phosphorus Magnesium Total Bilirubin Direct Bilirubin GGT AST ALT Lactate Dehydrogenase C-Reactive Protein Albumin Albumin/Globulin Ratio Triglycerides Urine Protein >=500 A Urine Glucose (UA) >=500 A Urine Occult Blood 0.2 A Urine Nitrate Pos A Urine RBC 17 H Urine Bacteria Many A U Benzodiazepines Scrn Suspect positive A 12/26/19 12/26/19 12/26/19 14:57 14:14 14:14 WBC MCV Plt Count MPV Gran % Lymph % (Auto) Gran # Lymph # (Auto) [place] # (Auto) Seg Neutrophils % Lymphocytes % RBC Morphology Macrocytosis ABG Methemoglobin 0.1 L VBG pCO2 38.2 L VBG pO2 63 H VBG HCO3 23.1 L VBG Total CO2 24.3 L VBG O2 Saturation 84.1 H VBG Lactic Acid 2.4 H Carboxyhemoglobin 9.0 H Carbon Dioxide BUN Glucose POC Glucose Calcium POC WB Ioniz Calcium Phosphorus Magnesium Total Bilirubin Direct Bilirubin GGT AST ALT Lactate Dehydrogenase C-Reactive Protein 1.1 H Albumin Albumin/Globulin Ratio Triglycerides Urine Protein Urine Glucose (UA) Urine Occult Blood Urine Nitrate Urine RBC Urine Bacteria U Benzodiazepines Scrn 12/26/19 12/26/19 14:10 14:10 WBC 17.5 H MCV Plt Count 109 L MPV 12.6 H Gran % 89.9 H Lymph % (Auto) 3.6 L Gran # 15.71 H Lymph # (Auto) 0.63 L [place] # (Auto) 1.08 H Seg Neutrophils % Lymphocytes % RBC Morphology Macrocytosis ABG Methemoglobin VBG pCO2 VBG pO2 VBG HCO3 VBG Total CO2 VBG O2 Saturation VBG Lactic Acid Carboxyhemoglobin Carbon Dioxide BUN Glucose 420 H POC Glucose 421 H Calcium POC WB Ioniz Calcium 1.15 L Phosphorus Magnesium Total Bilirubin 2.8 H Direct Bilirubin GGT AST 98 H ALT 72 H Lactate Dehydrogenase C-Reactive Protein Albumin Albumin/Globulin Ratio Triglycerides Urine Protein Urine Glucose (UA) Urine Occult Blood Urine Nitrate Urine RBC Urine Bacteria U Benzodiazepines Scrn Meds: Medications Acetaminophen (Tylenol) 650 mg PO Q4-6HP PRN; Protocol PRN Reason: Per Pain Protocol/Fever > 101 Last Admin: 12/27/19 14:48 Dose: 650 mg Documented by: Albuterol/Ipratropium (Duoneb) 3 ml NEB Q6HP PRN PRN Reason: Shortness Of Breath Last Admin: 12/28/19 09:48 Dose: 3 ml Documented by: Bisacodyl (Dulcolax) 10 mg OR Q2-3DAYS PRN PRN Reason: Constipation Dextrose (Dextrose 50%) 0 ml IV UD PRN PRN Reason: Hypoglycemia Diagnostic Test (Pha) (Accu-Chek) 1 each FS ACHS [facility] Last Admin: 12/28/19 08:21 Dose: Not Given Documented by: Diagnostic Test (Pha) (Accu-Chek) 1 each FS Q1 [facility] Last Admin: 12/28/19 11:07 Dose: 1 each Documented by: Diltiazem HCl (Cardizem Cd) 180 mg PO DAILY [facility] Last Admin: 12/28/19 08:22 Dose: 180 mg Documented by: Diphenhydramine HCl (Benadryl) 25 mg IV Q4-6HP PRN PRN Reason: Allergic Symptoms Last Admin: 12/27/19 21:14 Dose: 25 mg Documented by: Docusate Sodium (Colace) 100 mg PO BID [facility] Last Admin: 12/28/19 08:22 Dose: 100 mg Documented by: Furosemide (Lasix) 20 mg IV Q8 [facility] Stop: 12/30/19 06:01 Last Admin: 12/28/19 09:05 Dose: 20 mg Documented by: Glucose (Insta-Glucose) 15 gm PO PRN PRN PRN Reason: Hypoglycemia Heparin Sodium (Porcine) (Heparin) 5,000 unit SQ Q12 [facility] Last Admin: 12/28/19 08:22 Dose: 5,000 unit Documented by: Magnesium Sulfate (Magnesium Sulfate) 2 gm in 50 mls @ 50 mls/hr IV UD PRN PRN Reason: MG = or < 1.7 Norepinephrine Bitartrate 16 (mg/ Sodium Chloride) 250 mls @ 9.375 mls/hr IV Q24H [facility]; Protocol Last Admin: 12/27/19 21:41 Dose: Not Given Documented by: Diltiazem HCl 125 mg/ Dextrose 125 mls @ 5 mls/hr IV Q12H [facility]; Protocol Last Admin: 12/28/19 01:06 Dose: 2 mg/hr, 2 mls/hr Documented by: Sodium Chloride (Sodium Chloride 0.9%) 250 mls @ 20 mls/hr IV .[id number] [facility] Last Admin: 12/28/19 05:28 Dose: 18 mls/hr Documented by: Acetaminophen (irm) 650 mg in 65 mls @ 130 mls/hr IV Q6HP PRN; Protocol PRN Reason: PAIN/FEVER > 101 Last Infusion: 12/27/19 09:09 Dose: Infused Documented by: Ceftriaxone Sodium 2 gm/ (Dextrose) 50 mls @ 100 mls/hr IV DAILY [facility]; Protocol Last Infusion: 12/28/19 09:17 Dose: Infused Documented by: Vancomycin HCl 1,250 mg/ (Sodium Chloride) 500 mls @ 166.667 mls/hr IV Q12H [facility] Last Admin: 12/28/19 11:08 Dose: 150 mls/hr Documented by: Insulin Human Regular 50 unit/ (Sodium Chloride) 100 mls @ 4 mls/hr IV DUR [facility]; Protocol Last Titration: 12/28/19 11:08 Dose: 4 unit/hr, 8 mls/hr Documented by: Sodium Chloride (Sodium Chloride 0.9%) 250 mls @ 20 mls/hr IV .[id number] [facility] Last Admin: 12/27/19 18:12 Dose: 10 mls/hr Documented by: Insulin Glargine (Lantus) 50 unit SQ BID [facility] Last Admin: 12/28/19 09:28 Dose: 50 units Documented by: Insulin Human Lispro (Humalog) 0 unit SQ ACHS [facility]; Protocol Last Admin: 12/28/19 08:21 Dose: Not Given Documented by: Iron Carb/Multivit/Electric System Operator/Folic Acid (Multivitamin W/Minerals) 1 tab PO DAILY [facility] Last Admin: 12/28/19 08:22 Dose: 1 tab Documented by: Lorazepam (Ativan) 0.5 mg IV Q4HP PRN PRN Reason: ANXIETY/SEDATION Melatonin (Melatonin 3mg Tablet) 3 mg PO HSP PRN PRN Reason: Insomnia Mupirocin (Bactroban Oint 2%) 1 dose TOPICAL BID [facility] Stop: 12/31/19 21:01 Last Admin: 12/28/19 08:35 Dose: 1 dose Documented by: Ondansetron HCl (Zofran Odt) 4 mg SL Q4-6HP PRN; Protocol PRN Reason: Nausea And Vomiting Ondansetron HCl (Zofran) 4 mg IV Q4-6HP PRN; Protocol PRN Reason: Nausea And Vomiting Polyethylene Glycol (Miralax) 17 gm PO DAILYP PRN PRN Reason: Constipation Potassium Chloride (Klor-Con) 40 meq PO DAILYP PRN PRN Reason: K+ < 3.5 Senna/Docusate Sodium (Senna Plus Tablet) 1 tab PO HS [facility] Last Admin: 12/27/19 21:40 Dose: Not Given Documented by: Sodium Chloride (Saline Flush) 10 ml IV Q8 [facility] Last Admin: 12/28/19 06:06 Dose: Not Given Documented by: Vancomycin HCl (Vancomycin Per Pharmacy) 1 order IV UD [facility]; Protocol - ABG Interpretation ABG results: 12/26/19 14:57 ABG Methemoglobin 0.1 L VBG pH 7.40 VBG pCO2 38.2 L VBG pO2 63 H VBG HCO3 23.1 L VBG Total CO2 24.3 L VBG O2 Saturation 84.1 H VBG Base Excess -1.4 Medical - PN: A/P - Time Spent With Patient Total time spent is greater than 50% in coordination of care (as documented) at patient's floor/unit and/or counseling patient: 25 - 35 minutes (1) Change in mental status Status: Acute Assessment and plan: * Acute hypoxic respiratory failure-now on 10 L oxygen and worsening. CT chest today. * Streptococcus agalactiae bacteremia-possible source pneumonia. Await echocardiogram. Continue surveillance cultures. Antibiotics per ID * Severe sepsis with multiple organ dysfunction -worsening leukocytosis at 20,000. ID on board. Lactic acid downtrending. * Acute congestive heart failure secondary to crystalloid challenge. Start aggressive diuresis. * Right lobar pneumonia likely community-acquired versus aspiration. Continue broad antibiotic coverage, CT chest today * Acute change mental status-secondary to severe sepsis. Clinically improving. * Atrial fibrillation with RVR now in sinus. Transition to oral diltiazem and wean diltiazem drip. * Elevated LFTs secondary to sepsis endorgan dysfunction clinically improving * History of COPD current bronchodilators * DM type II-initially poorly controlled and was managed on insulin drip. Transition to subcutaneous insulin. * DNR * Prophylaxis heparin Plan * Continue antibiotic coverage as per ID * Start aggressive diuresis * CT chest * Thoracentesis if worsening respiratory status * Wean diltiazem drip * Wean insulin drip * Await echocardiogram * Transition to subcutaneous insulin * High flow oxygen * Remains high risk mortality Current Visit: Yes Medical - PN: Qual - VTE Deep Vein Thrombosis/Pulmonary Embolism Present on Admission: No
[2019-12-28] MEDS ORDERED: FUROSEMIDE 40 MG/4 ML VIAL IV ONE (12:01)
[2019-12-28] MEDS: diphenhydrAMINE 50 MG/ML VIAL IV PRN (12:15)
[2019-12-28] MEDS ORDERED: methylPREDNISolone SOD SUCC 40 MG/ML VIAL IV ONE (12:32)
[2019-12-28] MEDS: LINEZOLID 600 MG TABLET PO SCH ×2 (13:47→22:10)
[2019-12-28] MEDS ORDERED: FUROSEMIDE 20 MG/2 ML VIAL IV SCH (14:00)
[2019-12-28] MEDS: ACETAMINOPHEN 325 MG TABLET PO PRN (14:37)
[2019-12-28] MEDS: FUROSEMIDE 20 MG/2 ML VIAL IV SCH ×2 (14:39→22:09)
[2019-12-28] MEDS ORDERED: NOREPINEPHRINE BITARTRATE 16 MG in 0.9 % SODIUM CHLORIDE 234 ML IV PRN (15:30)
--- NOTE | 2019-12-28 18:15 | Infectious Disease Prog Note ---
Subjective Patient information: Note initiated : 12/28/19 at 6:06 pm Service Date, if different from initiated Date: [] Patient: Padmini Cunha a 79 y/o F admitted on 12/26/19 for Confusion, decreased loc, syncope. Chief Complaint: [] Interval history: Pt is more awake and responsive today. No fever, chills, pain reported by pt. No diarrhea. Still on supplemental O2 to maintain sats above 90%. Objective Objective Narrative: alert, oriented x 2 no thrush chest has decreased BS at bases s1 s2 normal, no m/r/g bs ++, distended, non tender no edema over legs no central lines - Vital Signs Vital signs: Vital Signs Temp Pulse Pulse Resp BP Pulse Ox 12/28/19 17:01 36.9 C 102 H 25 H 137/66 91 12/28/19 16:01 36.7 C 109 H 19 154/57 92 12/28/19 15:01 37.6 C H 109 H 18 107/95 93 12/28/19 14:37 37.6 C H 12/28/19 14:01 37.6 C H 109 H 23 H 145/64 98 12/28/19 13:50 97 12/28/19 13:01 37.4 C H 113 H 22 163/76 99 12/28/19 12:56 111 H 26 H 12/28/19 12:01 37.3 C H 115 H 28 H 186/79 96 12/28/19 11:01 37.6 C H 120 H 30 H 188/82 97 12/28/19 10:01 37.6 C H 110 H 26 H 197/88 98 12/28/19 09:48 109 H 26 H 12/28/19 09:01 37.5 C H 22 169/76 95 12/28/19 08:01 37.2 C 107 H 29 H 178/92 91 12/28/19 07:01 37.3 C H 98 H 22 155/78 92 12/28/19 07:00 85 L 12/28/19 06:02 37.2 C 97 H 18 94 12/28/19 06:01 37.2 C 97 H 18 148/70 94 12/28/19 05:01 37.0 C 98 H 21 160/78 93 12/28/19 04:52 37.0 C 100 H 21 91 12/28/19 04:01 36.8 C 97 H 22 179/89 92 12/28/19 03:01 36.7 C 96 H 18 173/87 93 12/28/19 02:15 36.6 C 102 H 23 H 92 12/28/19 02:01 36.7 C 101 H 21 163/57 87 L 12/28/19 02:00 86 L 12/28/19 01:58 82 L 12/28/19 01:40 35.2 C L 101 H 22 89 L 12/28/19 01:17 83 L 12/28/19 01:15 97 H 92 12/28/19 01:09 88 L 12/28/19 01:01 36.6 C 97 H 22 158/72 93 12/28/19 00:01 36.7 C 97 H 23 H 154/73 92 12/27/19 23:28 36.6 C 95 H 23 H 148/76 93 12/27/19 23:01 36.6 C 96 H 17 135/107 94 12/27/19 22:01 36.7 C 98 H 20 153/63 94 12/27/19 21:58 36.7 C 99 H 24 H 92 12/27/19 21:01 36.7 C 97 H 27 H 156/65 96 12/27/19 20:01 36.2 C 100 H 21 142/67 97 12/27/19 19:01 36.3 C 102 H 21 122/90 96 12/27/19 18:19 96 H 95 Intake and Output 12/28/19 12/28/19 12/28/19 05:59 13:59 21:59 Intake Total 1471 1141 438 Output Total 285 880 590 Balance 1186 261 -152 Intake: IV 971 1021 438 Sodium Chloride 0.9% 1,000 ml @ 0 740 100 mls/hr IV .Q10H [facility] Rx#: [id number] Sodium Chloride 0.9% 250 ml @ 250 408 20 mls/hr IV .[id number] [facility] Rx#: [id number] Cardizem 125 mg In Dextrose 5% 45 30 in Water 100 ml @ 5 MG/HR 5 mls /hr IV Q12H [facility] Rx#:[id number] HumuLIN R 50 UNIT In Sodium 176 26 Chloride 0.9% 99.5 ml @ 2 UNIT/ HR 4 mls/hr IV DUR [facility] Rx#: [id number] Vancomycin 1,250 mg In Sodium 500 205 Chloride 0.9% 500 ml @ 166.667 mls/hr IV Q12H [facility] Rx#: [id number] Rocephin 2 gm In Dextrose 5% in 50 Water 50 ml @ 100 mls/hr IV DAILY [facility] Rx#:[id number] Oral 500 120 Output: Urine Catheter Amount 285 880 590 Other: Urine Appearance Clear Clear Clear Sediment Uretheral (Fortune) Clear Clear Sediment Urine Color Light Miriam Bright Yellow Bright Yellow Uretheral (Fortune) Light Miriam Bright Yellow Stool Size Moderate Stool Color Green Stool Consistency Loose # of times incontinent of 1 Bowels Intake & Output: Intake & Output 12/28/19 12/28/19 12/28/19 05:59 13:59 21:59 Intake Total 1471 1141 438 Output Total 285 880 590 Balance 1186 261 -152 Intake: IV 971 1021 438 Sodium Chloride 0.9% 1,000 ml @ 0 740 100 mls/hr IV .Q10H [facility] Rx#: [id number] Sodium Chloride 0.9% 250 ml @ 250 408 20 mls/hr IV .[id number] [facility] Rx#: [id number] Cardizem 125 mg In Dextrose 5% 45 30 in Water 100 ml @ 5 MG/HR 5 mls /hr IV Q12H [facility] Rx#:[id number] HumuLIN R 50 UNIT In Sodium 176 26 Chloride 0.9% 99.5 ml @ 2 UNIT/ HR 4 mls/hr IV DUR [facility] Rx#: [id number] Vancomycin 1,250 mg In Sodium 500 205 Chloride 0.9% 500 ml @ 166.667 mls/hr IV Q12H [facility] Rx#: [id number] Rocephin 2 gm In Dextrose 5% in 50 Water 50 ml @ 100 mls/hr IV DAILY [facility] Rx#:[id number] Oral 500 120 Output: Urine Catheter Amount 285 880 590 Other: Urine Appearance Clear Clear Clear Sediment Uretheral (Fortune) Clear Clear Sediment Urine Color Light Miriam Bright Yellow Bright Yellow Uretheral (Fortune) Light Miriam Bright Yellow Stool Size Moderate Stool Color Green Stool Consistency Loose # of times incontinent of 1 Bowels - Lab 12/28/19 05:10 12/28/19 06:25 Most recent lab results Calcium 8.8 mg/dl (8.6-10.4) 12/28/19 06:25 Phosphorus 2.5 mg/dL (2.7-4.5) L 12/28/19 06:25 Magnesium 1.9 mg/dL (1.6-2.5) 12/28/19 06:25 Microbiology 12/28/19 10:50 Stool C. difficile GDH Antigen & Toxins - Final 12/26/19 15:23 Urine - Catheterized Urine Culture - Final Klebsiella pneumoniae 12/27/19 09:40 Blood Blood Culture - Preliminary 12/27/19 09:30 Blood Blood Culture - Preliminary 12/26/19 14:38 Blood Blood Culture - Preliminary Strep agalactiae - (group b) 12/26/19 14:28 Blood Blood Culture - Preliminary Gram positive cocci 12/26/19 21:20 Nasopharynx Respiratory Virus Panel (PCR) - Final 12/26/19 21:20 Nasopharynx Respiratory Panel (PCR) - Final 12/26/19 20:11 Nose - Both Right and Left MRSA (PCR) - Final MRSA PCR positive Medications Active Medications: Acetaminophen (Tylenol) 650 mg PO Q4-6HP PRN; Protocol PRN Reason: Per Pain Protocol/Fever > 101 Last Admin: 12/28/19 14:37 Dose: 650 mg Documented by: Admin: 12/27/19 14:48 Dose: 650 mg Documented by: UXF Albuterol/Ipratropium (Duoneb) 3 ml NEB Q6HP PRN PRN Reason: Shortness Of Breath Last Admin: 12/28/19 12:50 Dose: 3 ml Documented by: Admin: 12/28/19 09:48 Dose: 3 ml Documented by: MICHAELEDELAGO Admin: 12/27/19 23:15 Dose: 3 ml Documented by: [email or web address] Bisacodyl (Dulcolax) [address] Q2-3DAYS PRN PRN Reason: Constipation Dextrose (Dextrose 50%) 0 ml IV UD PRN PRN Reason: Hypoglycemia Diagnostic Test (Pha) (Accu-Chek) 1 each FS ACHS [facility] Last Admin: 12/28/19 17:00 Dose: 1 each Documented by: Admin: 12/28/19 12:03 Dose: Not Given Documented by: UXF Non-Admin Reason: See hourlyaccu checks Admin: 12/28/19 08:21 Dose: Not Given Documented by: ChristineXF Non-Admin Reason: See hourly accu checks Admin: 12/27/19 21:22 Dose: Not Given Documented by: KAYLEEN Non-Admin Reason: insulin gtt Admin: 12/27/19 15:43 Dose: 1 each Documented by: ChristineXF Admin: 12/27/19 13:19 Dose: 1 each Documented by: ChristineXF Admin: 12/27/19 11:35 Dose: 1 each Documented by: ChristineXF Admin: 12/27/19 09:41 Dose: 1 each Documented by: ChristineXShandra Admin: 12/27/19 07:25 Dose: 1 each Documented by: ChristineXShandra Admin: 12/26/19 21:56 Dose: 1 each Documented by: KAYLEEN Diltiazem HCl (Cardizem Cd) 180 mg PO DAILY [facility] Last Admin: 12/28/19 08:22 Dose: 180 mg Documented by: ChristineXShandra Admin: 12/27/19 09:12 Dose: Not Given Documented by: ChristineXF Non-Admin Reason: NPO Diphenhydramine HCl (Benadryl) 25 mg IV Q4-6HP PRN PRN Reason: Allergic Symptoms Last Admin: 12/28/19 12:15 Dose: 25 mg Documented by: Admin: 12/27/19 21:14 Dose: 25 mg Documented by: KAYLEEN Comments: premedicating before Vancomycin dose Admin: 12/27/19 10:54 Dose: 25 mg Documented by: Admin: 12/26/19 23:34 Dose: 25 mg Documented by: ROXI Docusate Sodium (Colace) 100 mg PO BID [facility] Last Admin: 12/28/19 08:22 Dose: 100 mg Documented by: Admin: 12/27/19 21:40 Dose: Not Given Documented by: KAYLEEN Non-Admin Reason: Difficulty Swallowing Admin: 12/27/19 09:10 Dose: Not Given Documented by: RICH Non-Admin Reason: NPO Admin: 12/26/19 21:19 Dose: Not Given Documented by: KAYLEEN Non-Admin Reason: unable to swallow Furosemide (Lasix) 40 mg IV Q8 [facility] Stop: 12/29/19 22:01 Last Admin: 12/28/19 14:39 Dose: 40 mg Documented by: RICH Glucose (Insta-Glucose) 15 gm PO PRN PRN PRN Reason: Hypoglycemia Heparin Sodium (Porcine) (Heparin) 5,000 unit SQ Q12 [facility] Last Admin: 12/28/19 08:22 Dose: 5,000 unit Documented by: Admin: 12/27/19 21:43 Dose: 5,000 unit Documented by: Admin: 12/27/19 09:10 Dose: 5,000 unit Documented by: Admin: 12/26/19 21:57 Dose: 5,000 unit Documented by: KAYLEEN Magnesium Sulfate (Magnesium Sulfate) 2 gm in 50 mls @ 50 mls/hr IV UD PRN PRN Reason: MG = or < 1.7 Diltiazem HCl 125 mg/ Dextrose 125 mls @ 5 mls/hr IV Q12H [facility]; Protocol Last Titration: 12/28/19 16:19 Dose: 0 mg/hr, 0 mls/hr Documented by: Admin: 12/28/19 15:32 Dose: Not Given Documented by: ChristineXF Non-Admin Reason: Clinical Judgement Admin: 12/28/19 01:06 Dose: 2 mg/hr, 2 mls/hr Documented by: Titration: 12/28/19 01:05 Dose: 0 mg/hr, 0 mls/hr Documented by: Admin: 12/27/19 11:00 Dose: Not Given Documented by: KAYLEEN Non-Admin Reason: running current bag Titration: 12/27/19 02:45 Dose: 2 mg/hr, 2 mls/hr Documented by: Titration: 12/27/19 02:30 Dose: 2 mg/hr, 2 mls/hr Documented by: Titration: 12/27/19 02:15 Dose: 101 mg/hr, 101 mls/hr Documented by: Titration: 12/27/19 02:00 Dose: 4 mg/hr, 4 mls/hr Documented by: Titration: 12/27/19 01:45 Dose: 6 mg/hr, 6 mls/hr Documented by: Titration: 12/27/19 01:30 Dose: 8 mg/hr, 8 mls/hr Documented by: [email or web address] Titration: 12/27/19 01:15 Dose: 10 mg/hr, 10 mls/hr Documented by: [email or web address] Titration: 12/27/19 01:00 Dose: 12 mg/hr, 12 mls/hr Documented by: [email or web address] Titration: 12/27/19 00:45 Dose: 15 mg/hr, 15 mls/hr Documented by: [email or web address] Titration: 12/27/19 00:30 Dose: 15 mg/hr, 15 mls/hr Documented by: [email or web address] Titration: 12/27/19 00:15 Dose: 15 mg/hr, 15 mls/hr Documented by: [email or web address] Titration: 12/27/19 00:00 Dose: 12 mg/hr, 12 mls/hr Documented by: [email or web address] Titration: 12/26/19 23:45 Dose: 10 mg/hr, 10 mls/hr Documented by: [email or web address] Titration: 12/26/19 23:30 Dose: 8 mg/hr, 8 mls/hr Documented by: [email or web address] Admin: 12/26/19 23:22 Dose: 5 mg/hr, 5 mls/hr Documented by: [email or web address] Sodium Chloride (Sodium Chloride 0.9%) 250 mls @ 20 mls/hr IV .[id number] [facility] Last Infusion: 12/28/19 16:18 Dose: 0 mls/hr Documented by: Admin: 12/28/19 05:28 Dose: 18 mls/hr Documented by: [email or web address] Infusion: 12/28/19 05:27 Dose: 0 mls/hr Documented by: [email or web address] Admin: 12/27/19 12:42 Dose: 15 mls/hr Documented by: Infusion: 12/27/19 12:39 Dose: 0 mls/hr Documented by: Infusion: 12/27/19 10:00 Dose: 15 mls/hr Documented by: Admin: 12/26/19 23:20 Dose: 20 mls/hr Documented by: [email or web address] Acetaminophen (Ofirmev) 650 mg in 65 mls @ 130 mls/hr IV Q6HP PRN; Protocol PRN Reason: PAIN/FEVER > 101 Last Infusion: 12/27/19 09:09 Dose: 0 mls/hr Documented by: Admin: 12/27/19 08:00 Dose: 130 mls/hr Documented by: ChristineXF Infusion: 12/27/19 00:05 Dose: 0 mls/hr Documented by: Admin: 12/26/19 23:35 Dose: 130 mls/hr Documented by: ROXI Ceftriaxone Sodium 2 gm/ (Dextrose) 50 mls @ 100 mls/hr IV DAILY [facility]; Protocol Last Infusion: 12/28/19 09:17 Dose: 0 mls/hr Documented by: ChristineXF Admin: 12/28/19 08:23 Dose: 100 mls/hr Documented by: UXShandra Infusion: 12/27/19 12:44 Dose: 0 mls/hr Documented by: Admin: 12/27/19 11:31 Dose: 100 mls/hr Documented by: RICH Norepinephrine Bitartrate 16 (mg/ Sodium Chloride) 250 mls @ 9.375 mls/hr IV Q24HP PRN; Protocol PRN Reason: TITRATE TO KEEP MAP > 65 Insulin Glargine (Lantus) 50 unit SQ BID [facility] Last Admin: 12/28/19 09:28 Dose: 50 units Documented by: RICH Insulin Human Lispro (Humalog) 0 unit SQ ACHS [facility]; Protocol Last Admin: 12/28/19 17:16 Dose: 3 unit Documented by: ChristineXShandra Admin: 12/28/19 12:02 Dose: Not Given Documented by: UXF Non-Admin Reason: See hourly accu checks Admin: 12/28/19 08:21 Dose: Not Given Documented by: UXF Non-Admin Reason: Insulin drip Admin: 12/27/19 21:42 Dose: Not Given Documented by: KAYLEEN Non-Admin Reason: insulin gtt Admin: 12/27/19 16:15 Dose: 6 unit Documented by: Admin: 12/27/19 14:00 Dose: 10 unit Documented by: RICH Comments: q 2 hrs Admin: 12/27/19 11:45 Dose: 10 unit Documented by: ChristineXF Admin: 12/27/19 09:45 Dose: 10 unit Documented by: ChristineXF Admin: 12/27/19 07:33 Dose: 10 unit Documented by: RICH Iron Carb/Multivit/Barren/Folic Acid (Multivitamin W/Minerals) 1 tab PO DAILY S Last Admin: 12/28/19 08:22 Dose: 1 tab Documented by: Admin: 12/27/19 09:10 Dose: Not Given Documented by: RICH Non-Admin Reason: NPO Linezolid (Zyvox) 600 mg PO Q12 [facility]; Protocol Last Admin: 12/28/19 13:47 Dose: 600 mg Documented by: RICH Lorazepam (Ativan) 0.5 mg IV Q4HP PRN PRN Reason: ANXIETY/SEDATION Melatonin (Melatonin 3mg Tablet) 3 mg PO HSP PRN PRN Reason: Insomnia Mupirocin (Bactroban Oint 2%) 1 dose TOPICAL BID [facility] Stop: 12/31/19 21:01 Last Admin: 12/28/19 08:35 Dose: 1 dose Documented by: Admin: 12/27/19 21:37 Dose: 1 dose Documented by: Admin: 12/27/19 09:30 Dose: 1 dose Documented by: RICH Ondansetron HCl (Zofran Odt) 4 mg SL Q4-6HP PRN; Protocol PRN Reason: Nausea And Vomiting Ondansetron HCl (Zofran) 4 mg IV Q4-6HP PRN; Protocol PRN Reason: Nausea And Vomiting Polyethylene Glycol (Miralax) 17 gm PO DAILYP PRN PRN Reason: Constipation Potassium Chloride (Klor-Con) 40 meq PO DAILYP PRN PRN Reason: K+ < 3.5 Senna/Docusate Sodium (Senna Plus Tablet) 1 tab PO HS [facility] Last Admin: 12/27/19 21:40 Dose: Not Given Documented by: KAYLEEN Non-Admin Reason: Difficulty Swallowing Admin: 12/26/19 21:20 Dose: Not Given Documented by: KAYLEEN Non-Admin Reason: unable to swallow Sodium Chloride (Saline Flush) 10 ml IV Q8 [facility] Last Admin: 12/28/19 16:22 Dose: 10 ml Documented by: Admin: 12/28/19 15:37 Dose: 10 ml Documented by: Admin: 12/28/19 14:39 Dose: 10 ml Documented by: Admin: 12/28/19 12:38 Dose: 10 ml Documented by: Admin: 12/28/19 12:10 Dose: 10 ml Documented by: Admin: 12/28/19 06:06 Dose: Not Given Documented by: [email or web address] Non-Admin Reason: Continuous IV Admin: 12/27/19 21:40 Dose: Not Given Documented by: [email or web address] Non-Admin Reason: Continuous IV Admin: 12/27/19 16:25 Dose: 10 ml Documented by: Admin: 12/27/19 14:24 Dose: Not Given Documented by: UXF Non-Admin Reason: Continuous IV Admin: 12/27/19 05:30 Dose: Not Given Documented by: [email or web address] Non-Admin Reason: Continuous IV Admin: 12/26/19 21:46 Dose: 10 ml Documented by: KAYLEEN Assessment and Plan - Narrative A/P Narrative: A: 1. Gp B Streptococcal bacteremia: - blood Cx 2/2 +ve from 12/26/19 - likely source /GI tract. Skin colonization could also play a role - risk factors: uncontrolled DM2, age - repeat blood Cx from 12/27/19 NGTD 2. Sepsis: resolving - lactate normal today 3. COVID-19: should be ruled out given symptoms (altered mental status, fever, cough, shortness of breath) 4. Acute respiratory failure: fluid overload due to resuscitation IVF, ? CAP - r/o COVID - Anti-MRSA antibiotic coverage should be continued given +ve MRSA nasal PCR and right sided infiltrate 5. 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 Vancomycin induced Rosalinda syndrome: symptoms despite pre-medication and slow rate of Vanc infusion 7. Leucocytosis: sec to (1), (4) Recommendations: - Stop IV Vanc. Start PO Linezolid 600 mg q12 hrs. will plan for a 5 day course, day 2 - Continue IV Ceftriaxone 2 gm q24 hrs, day 2 - repeat blood Cx every other day until neg for 48 hrs - COVID 19 nasopharyngeal PCR pending - CT chest without contrast this evening. Plan for thoracentesis and sending sample for GS and C/S, glu, LDH, protein, pH, cell count. Check serum LDH. - Glycemic control (FSBS 140-180) - MRSA decolonization for 5 days as above will follow Matt Vinson MD Infectious diseases
--- NOTE | 2019-12-28 19:03 | Cat Scan Report ---
INDICATION: assess for empyema/loculated effusion COMPARISON: Previous chest x-rays dated 12/28/2019 and 12/26/2019 TECHNIQUE: Axial noncontrast enhanced images through the chest. Sagittally and coronally reformatted images. MIP reformatted images. FINDINGS: Lungs:There is centrilobular emphysema. This suggests smoking history. Clinical correlation is necessary. There are bilateral infiltrates, right worse than left. There is right lower lobe predominance. Chest x-ray is suggestive of pulmonary edema. Right lower lobe pneumonia is suspected. Mediastinum, vascular:No pathologic mediastinal or hilar adenopathy Thoracic aorta is negative. No aneurysmal dilatation. Main pulmonary artery measures 3.7 cm. Right pulmonary artery is also dilated and measures approximately 3.0 cm. Findings suggest pulmonary hypertension. Heart:There is mild cardiomegaly. No pericardial effusion. There is severe coronary artery calcification. Pleura:There are small bilateral pleural effusions. No definite loculation. No evidence for empyema Axilla, supraclavicular regions, chest wall:No axillary or supraclavicular adenopathy.. There is a 16 mm soft tissue mass in the right breast. Mammography is recommended when clinically appropriate. Musculoskeletal:No thoracic compression fractures. No lytic lesions. No sternal or rib lesions Upper Abdomen:Liver is enlarged. Liver contour is nodular. Cirrhosis is possible. There is no ascites. IMPRESSION: 1. Bilateral pulmonary parenchymal infiltrates. Bilateral small effusions. Appearance suggests congestive heart failure. Right lower lobe pneumonia is also suspected 2. Centrilobular emphysema 3. Enlarged main pulmonary artery and right pulmonary artery consistent with pulmonary arterial hypertension 4. Probable 16mm right breast mass. Recommend mammography when clinically appropriate The exam was performed using radiation dose optimization techniques including, but not limited to, automated exposure control, adjustment of the mA and/or kV according to patient size and use of iterative reconstruction technique. Interpreted and Authenticated by: Juan Francisco Barillas 12/28/19
[2019-12-28] MEDS: SENNOSIDES/DOCUSATE SODIUM 1 TAB TABLET PO SCH (20:44)
[2019-12-28] MEDS: MELATONIN 3 MG TABLET PO PRN (22:10)
[2019-12-29] MEDS: DILTIAZEM 125 MG in DEXTROSE 5% IN WATER 100 ML IV SCH (03:57)
[2019-12-29] MEDS: 0.9 % SODIUM CHLORIDE 250 ML IV SCH ×2 (03:58→16:41)
[2019-12-29] MEDS: 0.9 % SODIUM CHLORIDE 10 ML SYRINGE IV SCH ×4 (05:14→21:17)
[2019-12-29] MEDS: FUROSEMIDE 20 MG/2 ML VIAL IV SCH ×3 (05:15→21:15)
[2019-12-29 06:52] LABS: Hematocrit 39.9 % (34.1-44.9); Hemoglobin 12.3 g/dL (11.2-15.7); Mean Cell Volume 104.5 fL (80.0-100.0); Mean Corpuscular HGB Conc 30.8 g/dL (31.0-36.0); Mean Platelet Volume 12.7 fL (7.4-10.4); Platelet Count 111 K/mcL (140-440); RBC 3.82 M/mcL (3.59-5.38); Red Cell Distribution Width 13.8 % (11.5-14.5); WBC 15.2 K/mcL (4.50-11.00)
[2019-12-29 07:08] LABS: ALT/SGPT 57 U/l (0-40); AST/SGOT 61 U/l (0-37); Albumin 2.9 gm/dL (3.2-5.2); Albumin/Globulin Ratio 0.7 (1.0-2.3); Alkaline Phosphatase 59 U/L (39-117); Bilirubin,Direct 0.4 mg/dL (0.0-0.3); Bilirubin,Total 1.2 mg/dL (0.0-1.0); Calcium 9.2 mg/dl (8.6-10.4); Carbon Dioxide 23 mmol/L (22-30); Chloride 101 mmol/L (96-108); Glomerular Filtration Rate 54; Glucose 406 mg/dL (70-105); Lactate Dehydrogenase 292 U/L (94-250); Triglycerides 197 mg/dl (<150); Uric Acid 7.3 mg/dL (2.5-8.0)
[2019-12-29 07:12] LABS: Blood Urea Nitrogen 34 mg/dl (8-23)
[2019-12-29] MEDS: INSULIN LISPRO 1 UNIT/0.01 ML UNIT SQ SCH ×5 (07:51→20:34)
[2019-12-29] MEDS: DILTIAZEM 180 MG CAP.XL.24H PO SCH (08:16)
[2019-12-29] MEDS: MULTIVIT,THER IRON,CA,FA & MIN 1 TABLET PO SCH (08:16)
[2019-12-29] MEDS: LINEZOLID 600 MG TABLET PO SCH ×2 (08:16→20:11)
[2019-12-29] MEDS: INSULIN GLARGINE, HUMAN 1 UNIT/0.01 ML SQ SCH ×2 (08:16→20:34)
[2019-12-29] MEDS: cefTRIAXone 2 GM in DEXTROSE 5% IN WATER 50 ML IV SCH (08:17)
[2019-12-29] MEDS: HEPARIN 5,000 UNIT/ML VIAL SQ SCH ×2 (08:20→20:11)
[2019-12-29] MEDS: DOCUSATE SODIUM 100 MG CAPSULE PO SCH ×2 (08:21→20:39)
[2019-12-29 08:33] LABS: Band Neutrophils % 1 % (0-10); Lymphocytes % 10 % (15-49); Macrocytosis 1+ (NONE SEEN); Monocytes % (Manual) 3 % (1-12); Nucleated Red Blood Cells 1 % (0-0); Platelet Estimate DECREASED (NORMAL); Segmented Neutrophils % 86 % (38-78)
[2019-12-29 08:50] LABS: RBC Morphology ABNORM (NORMAL)
[2019-12-29] MEDS: MUPIROCIN OINT 2% 22GM TOPICAL SCH ×2 (09:20→20:39)
[2019-12-29] MEDS ORDERED: DILTIAZEM 125 MG in DEXTROSE 5% IN WATER 100 ML IV PRN (10:00)
[2019-12-29] MEDS: ACETAMINOPHEN 325 MG TABLET PO PRN ×2 (10:25→20:32)
--- NOTE | 2019-12-29 11:19 | Internal Med Progress Note ---
Medical - PN: Subj Patient information: Note initiated : 12/29/19 at 11:16 am Service Date, if different from initiated Date: [] Patient: Padmini Cunha a 79 y/o F admitted on 12/26/19 for Confusion, decreased loc, syncope. Chief Complaint: [] Interval history: Ms. Cunha is a 79 year old F with history of A. fib/DM type II/hyperlipidemia who has had progressive deterioration over the last year and a half and multiple hospitalization including pneumonia/GI bleed. She has been in her baseline state of health over the last few days and was at a democrat at her son's place on Monday. However family discovered on Monday she was fairly somnolent lethargic and weak. Over the next 2 days she has been laying on the bed and became extremely confused nonfunctional and unresponsive prompting patient's family to bring her to the ER today. Initial work-up in the ER was consistent with Severe sepsis with hypoxic respiratory failure secondary pneumonia and evidence of multiple endorgan dysfunction including elevated bilirubin/altered mental status. Patient was rapidly started on crystalloid/antibiotics along with cultures Hospitalist service was consulted for admission At the time evaluation patient is accompanied with her son Dwain. She remains a DNR as per family recommendations however they would like full medical interventions. I explained based on [place] 2 score and her current hemodynamics she stands very high risk mortality and family is aware of situation. Patient will be admitted to the ICU for aggressive management including vasopressors if indicated. Patient is unresponsive and therefore no history could be obtained other than from son Dwain and ER physician 12/26-patient on broad antibiotic coverage. Gram-positive cocci on blood cultures. Surveillance cultures pending. On vancomycin/Zosyn. White count remains elevated at 17.5. Tachycardia much improved. Continue diltiazem drip. Blood sugars over 400. Started on basal insulin. Improved anion gap however lactic acid worsening. Crystalloid challenges being administered. Bilirubin downtrending. Magnesium 1.5 on replacement. Remains critically ill. 12/27-improved lactate however clinically deteriorating. On 10 L oxygen. CHF/pleural effusion on chest imaging. Started on diuretics. DC IV fluids. Continue antibiotic coverage. White count at 20.3 improved blood sugars off insulin drip. ID consulted. On antibiotic coverage as per ID. Remains high risk mortality. I recommend thoracentesis if inadequate response to diuretics and worsening hypoxia. Maintain COVID precautions. 12/28-patient showing clinical improvement on aggressive diuresis. Improved hypoxic respiratory failure now on 4 L oxygen. Off diltiazem drip. More alert lucid and able to follow commands. Transition to p.o. medications. Continue antibiotic coverage. White count down from 20,300-15.2. BUN 34, lower diuretic dose blood sugar is elevated at 4 6. Continue basal prandial insulin/increase sliding scale. Bilirubin down to 1.2 LFTs improving. Restart sitagliptin/metformin - Constitutional Vitals: Vital Signs Temp Pulse Resp BP Pulse Ox 98.4 F 90 24 H 165/74 95 12/29/19 11:03 12/29/19 11:03 12/29/19 11:03 12/29/19 11:03 12/29/19 11:03 Period Temp Pulse Resp BP Sys/Bryson Pulse Ox Last 24 Hr 86.5 F-99.7 F 90-115 16-28 107-186/57-116 70-99 Intake and Output 12/28/19 12/29/19 12/29/19 21:59 05:59 13:59 Intake Total 477 720 410 Output Total 1240 1371 1240 Balance -763 -651 -830 Weight 196 lb 14.4 oz Intake & Output: Intake & Output 12/28/19 12/29/19 12/29/19 21:59 05:59 13:59 Intake Total 477 720 410 Output Total 1240 1371 1240 Balance -763 -651 -830 Weight 196 lb 14.4 oz Intake: IV 477 0 50 Sodium Chloride 0.9% 250 ml @ 408 0 20 mls/hr IV .[id number] [facility] Rx#: [id number] Cardizem 125 mg In Dextrose 5% 30 0 in Water 100 ml @ 5 MG/HR 5 mls /hr IV Q12H [facility] Rx#:[id number] HumuLIN R 50 UNIT In Sodium 39 Chloride 0.9% 99.5 ml @ 2 UNIT/ HR 4 mls/hr IV DUR [facility] Rx#: [id number] Rocephin 2 gm In Dextrose 5% in 50 Water 50 ml @ 100 mls/hr IV DAILY [facility] Rx#:[id number] Oral 720 360 Output: Urine Catheter Amount 1240 1370 1240 # of times incontinent of urine 1 Other: Meal Breakfast Percent of Meal Consumed 50% Feeding Ability Total Assistance Urine Appearance Clear Clear Clear Sediment Uretheral ([place]) Clear Clear Clear Urine Color Dark Yellow Straw Bright Yellow Uretheral ([place]) Dark Yellow Straw Pale General appearance: no acute distress Exam: Alert oriented Nonlabored breathing No anxiety Nondistended abdomen Medical - PN: Obj Da - Labs CBC & Chem 7: 12/29/19 05:15 12/29/19 05:15 Labs: Abnormal Lab Results 12/29/19 12/29/19 12/28/19 05:15 05:15 06:25 WBC 15.2 H MCV 104.5 H MCHC 30.8 L Plt Count 111 L MPV 12.7 H Gran % Lymph % (Auto) Gran # Lymph # (Auto) [place] # (Auto) Seg Neutrophils % 86 H Lymphocytes % 10 L Nucleated RBCs 1 H RBC Morphology Abnorm A Macrocytosis 1+ A ABG Methemoglobin VBG pCO2 VBG pO2 VBG HCO3 VBG Total CO2 VBG O2 Saturation VBG Lactic Acid Carboxyhemoglobin Carbon Dioxide BUN 34 H 26 H Glucose 406 H 165 H POC Glucose Calcium POC WB Ioniz Calcium Phosphorus 2.5 L Magnesium Total Bilirubin 1.2 H 1.1 H Direct Bilirubin 0.4 H 0.4 H GGT 144 H 150 H AST 61 H 72 H ALT 57 H 63 H Lactate Dehydrogenase 292 H 260 H C-Reactive Protein Albumin 2.9 L 3.1 L Globulin 4.0 H Albumin/Globulin Ratio 0.7 L 0.9 L Triglycerides 197 H 190 H Urine Protein Urine Glucose (UA) Urine Occult Blood Urine Nitrate Urine RBC Urine Bacteria U Benzodiazepines Scrn 12/28/19 12/27/19 12/27/19 05:10 12:08 05:30 WBC 20.3 H MCV 100.8 H MCHC Plt Count 110 L MPV 13.0 H Gran % Lymph % (Auto) Gran # Lymph # (Auto) [place] # (Auto) Seg Neutrophils % 89 H Lymphocytes % 4 L Nucleated RBCs RBC Morphology Abnorm A Macrocytosis Few A ABG Methemoglobin VBG pCO2 VBG pO2 VBG HCO3 VBG Total CO2 VBG O2 Saturation VBG Lactic Acid 4.6 H* 4.8 H* Carboxyhemoglobin Carbon Dioxide BUN Glucose POC Glucose Calcium POC WB Ioniz Calcium Phosphorus Magnesium Total Bilirubin Direct Bilirubin GGT AST ALT Lactate Dehydrogenase C-Reactive Protein Albumin Globulin Albumin/Globulin Ratio Triglycerides Urine Protein Urine Glucose (UA) Urine Occult Blood Urine Nitrate Urine RBC Urine Bacteria U Benzodiazepines Scrn 12/27/19 12/27/19 12/27/19 05:30 05:30 00:10 WBC 17.6 H MCV 100.5 H MCHC Plt Count 106 L MPV 12.7 H Gran % Lymph % (Auto) Gran # Lymph # (Auto) [place] # (Auto) Seg Neutrophils % 96 H Lymphocytes % 2 L Nucleated RBCs RBC Morphology Abnorm A Macrocytosis Few A ABG Methemoglobin VBG pCO2 VBG pO2 VBG HCO3 VBG Total CO2 VBG O2 Saturation VBG Lactic Acid 2.5 H Carboxyhemoglobin Carbon Dioxide 19 L BUN Glucose 472 H* POC Glucose Calcium 8.5 L POC WB Ioniz Calcium Phosphorus Magnesium 1.5 L Total Bilirubin 2.5 H Direct Bilirubin 0.9 H GGT 170 H AST 85 H ALT 72 H Lactate Dehydrogenase 270 H C-Reactive Protein Albumin Globulin Albumin/Globulin Ratio Triglycerides Urine Protein Urine Glucose (UA) Urine Occult Blood Urine Nitrate Urine RBC Urine Bacteria U Benzodiazepines Scrn 12/26/19 12/26/19 12/26/19 15:23 15:23 14:57 WBC MCV MCHC Plt Count MPV Gran % Lymph % (Auto) Gran # Lymph # (Auto) [place] # (Auto) Seg Neutrophils % Lymphocytes % Nucleated RBCs RBC Morphology Macrocytosis ABG Methemoglobin 0.1 L VBG pCO2 38.2 L VBG pO2 63 H VBG HCO3 23.1 L VBG Total CO2 24.3 L VBG O2 Saturation 84.1 H VBG Lactic Acid Carboxyhemoglobin 9.0 H Carbon Dioxide BUN Glucose POC Glucose Calcium POC WB Ioniz Calcium Phosphorus Magnesium Total Bilirubin Direct Bilirubin GGT AST ALT Lactate Dehydrogenase C-Reactive Protein Albumin Globulin Albumin/Globulin Ratio Triglycerides Urine Protein >=500 A Urine Glucose (UA) >=500 A Urine Occult Blood 0.2 A Urine Nitrate Pos A Urine RBC 17 H Urine Bacteria Many A U Benzodiazepines Scrn Suspect positive A 12/26/19 12/26/19 12/26/19 14:14 14:14 14:10 WBC MCV MCHC Plt Count MPV Gran % Lymph % (Auto) Gran # Lymph # (Auto) [place] # (Auto) Seg Neutrophils % Lymphocytes % Nucleated RBCs RBC Morphology Macrocytosis ABG Methemoglobin VBG pCO2 VBG pO2 VBG HCO3 VBG Total CO2 VBG O2 Saturation VBG Lactic Acid 2.4 H Carboxyhemoglobin Carbon Dioxide BUN Glucose 420 H POC Glucose 421 H Calcium POC WB Ioniz Calcium 1.15 L Phosphorus Magnesium Total Bilirubin 2.8 H Direct Bilirubin GGT AST 98 H ALT 72 H Lactate Dehydrogenase C-Reactive Protein 1.1 H Albumin Globulin Albumin/Globulin Ratio Triglycerides Urine Protein Urine Glucose (UA) Urine Occult Blood Urine Nitrate Urine RBC Urine Bacteria U Benzodiazepines Scrn 12/26/19 14:10 WBC 17.5 H MCV MCHC Plt Count 109 L MPV 12.6 H Gran % 89.9 H Lymph % (Auto) 3.6 L Gran # 15.71 H Lymph # (Auto) 0.63 L [place] # (Auto) 1.08 H Seg Neutrophils % Lymphocytes % Nucleated RBCs RBC Morphology Macrocytosis ABG Methemoglobin VBG pCO2 VBG pO2 VBG HCO3 VBG Total CO2 VBG O2 Saturation VBG Lactic Acid Carboxyhemoglobin Carbon Dioxide BUN Glucose POC Glucose Calcium POC WB Ioniz Calcium Phosphorus Magnesium Total Bilirubin Direct Bilirubin GGT AST ALT Lactate Dehydrogenase C-Reactive Protein Albumin Globulin Albumin/Globulin Ratio Triglycerides Urine Protein Urine Glucose (UA) Urine Occult Blood Urine Nitrate Urine RBC Urine Bacteria U Benzodiazepines Scrn Meds: Medications Acetaminophen (Tylenol) 650 mg PO Q4-6HP PRN; Protocol PRN Reason: Per Pain Protocol/Fever > 101 Last Admin: 12/29/19 10:25 Dose: 650 mg Documented by: Albuterol/Ipratropium (Duoneb) 3 ml NEB Q6HP PRN PRN Reason: Shortness Of Breath Last Admin: 12/28/19 12:50 Dose: 3 ml Documented by: Bisacodyl (Dulcolax) 10 mg VA Q2-3DAYS PRN PRN Reason: Constipation Dextrose (Dextrose 50%) 0 ml IV UD PRN PRN Reason: Hypoglycemia Diagnostic Test (Pha) (Accu-Chek) 1 each FS ACHS [facility] Last Admin: 12/29/19 06:55 Dose: 1 each Documented by: Diltiazem HCl (Cardizem Cd) 180 mg PO DAILY [facility] Last Admin: 12/29/19 08:16 Dose: 180 mg Documented by: Diphenhydramine HCl (Benadryl) 25 mg IV Q4-6HP PRN PRN Reason: Allergic Symptoms Last Admin: 12/28/19 12:15 Dose: 25 mg Documented by: Docusate Sodium (Colace) 100 mg PO BID [facility] Last Admin: 12/29/19 08:21 Dose: Not Given Documented by: Furosemide (Lasix) 40 mg IV Q8 [facility] Stop: 12/29/19 22:01 Last Admin: 12/29/19 05:15 Dose: 40 mg Documented by: Glucose (Insta-Glucose) 15 gm PO PRN PRN PRN Reason: Hypoglycemia Heparin Sodium (Porcine) (Heparin) 5,000 unit SQ Q12 [facility] Last Admin: 12/29/19 08:20 Dose: 5,000 unit Documented by: Magnesium Sulfate (Magnesium Sulfate) 2 gm in 50 mls @ 50 mls/hr IV UD PRN PRN Reason: MG = or < 1.7 Sodium Chloride (Sodium Chloride 0.9%) 250 mls @ 20 mls/hr IV .[id number] [facility] Last Infusion: 12/29/19 03:58 Dose: Infused Documented by: Acetaminophen (Ofirmev) 650 mg in 65 mls @ 130 mls/hr IV Q6HP PRN; Protocol PRN Reason: PAIN/FEVER > 101 Last Infusion: 12/27/19 09:09 Dose: Infused Documented by: Ceftriaxone Sodium 2 gm/ (Dextrose) 50 mls @ 100 mls/hr IV DAILY [facility]; Protocol Last Infusion: 12/29/19 09:20 Dose: Infused Documented by: Norepinephrine Bitartrate 16 (mg/ Sodium Chloride) 250 mls @ 9.375 mls/hr IV Q24HP PRN; Protocol PRN Reason: TITRATE TO KEEP MAP > 65 Diltiazem HCl 125 mg/ Dextrose 125 mls @ 5 mls/hr IV Q12HP PRN; Protocol PRN Reason: TITRATE TO KEEP HR <100,SBP>90 Insulin Glargine (Lantus) 50 unit SQ BID [facility] Last Admin: 12/29/19 08:16 Dose: 50 units Documented by: Insulin Human Lispro (Humalog) 0 unit SQ ACHS [facility]; Protocol Last Admin: 12/29/19 08:19 Dose: 12 units Documented by: Iron Carb/Multivit/[place]/Folic Acid (Multivitamin W/Minerals) 1 tab PO DAILY [facility] Last Admin: 12/29/19 08:16 Dose: 1 tab Documented by: Linezolid (Zyvox) 600 mg PO Q12 [facility]; Protocol Last Admin: 12/29/19 08:16 Dose: 600 mg Documented by: Lorazepam (Ativan) 0.5 mg IV Q4HP PRN PRN Reason: ANXIETY/SEDATION Melatonin (Melatonin 3mg Tablet) 3 mg PO HSP PRN PRN Reason: Insomnia Last Admin: 12/28/19 22:10 Dose: 3 mg Documented by: Mupirocin (Bactroban Oint 2%) 1 dose TOPICAL BID [facility] Stop: 12/31/19 21:01 Last Admin: 12/29/19 09:20 Dose: 1 dose Documented by: Ondansetron HCl (Zofran Odt) 4 mg SL Q4-6HP PRN; Protocol PRN Reason: Nausea And Vomiting Ondansetron HCl (Zofran) 4 mg IV Q4-6HP PRN; Protocol PRN Reason: Nausea And Vomiting Polyethylene Glycol (Miralax) 17 gm PO DAILYP PRN PRN Reason: Constipation Potassium Chloride (Klor-Con) 40 meq PO DAILYP PRN PRN Reason: K+ < 3.5 Senna/Docusate Sodium (Senna Plus Tablet) 1 tab PO HS [facility] Last Admin: 12/28/19 20:44 Dose: Not Given Documented by: Sodium Chloride (Saline Flush) 10 ml IV Q8 [facility] Last Admin: 12/29/19 08:17 Dose: 10 ml Documented by: - ABG Interpretation ABG results: 12/26/19 14:57 ABG Methemoglobin 0.1 L VBG pH 7.40 VBG pCO2 38.2 L VBG pO2 63 H VBG HCO3 23.1 L VBG Total CO2 24.3 L VBG O2 Saturation 84.1 H VBG Base Excess -1.4 Medical - PN: A/P - Time Spent With Patient Total time spent is greater than 50% in coordination of care (as documented) at patient's floor/unit and/or counseling patient: 25 - 35 minutes (1) Change in mental status Status: Acute Assessment and plan: * Acute hypoxic respiratory failure-clinical improvement noted. On 4 L oxygen. Continue diuresis. CT chest reveals minimal effusion however bilateral infiltrate consistent with pneumonia * Streptococcus agalactiae bacteremia-likely source pneumonia. Await echocardiogram. Surveillance cultures negative. On antibiotic coverage per ID * Severe sepsis with multiple organ dysfunction -improving leukocytosis now at 14,000. ID on board. Lactic acid downtrending. * Acute congestive heart failure secondary to crystalloid challenge. Responding well to diuretics. Over 3000 cc negative. * Right lobar pneumonia likely community-acquired versus aspiration. Improving on antibiotic coverage * Acute change mental status-much improved now lucid alert and respond to commands * Atrial fibrillation with RVR now in sinus. Continue diltiazem * Elevated LFTs improving with resolution of sepsis * History of COPD current bronchodilators * DM type II-continue basal panel insulin/metformin/sitagliptin * DNR * Prophylaxis heparin Plan * Continue antibiotic coverage as per ID * Continue diuresis * Restart oral medications * Await echocardiogram * Increase sliding scale to second tier * Wean oxygen as tolerated * PT OT/nutrition support Current Visit: Yes Medical - PN: Qual - VTE Deep Vein Thrombosis/Pulmonary Embolism Present on Admission: No
[2019-12-29] MEDS: metFORMIN 500 MG TABLET PO SCH (17:17)
[2019-12-29] MEDS: SIMVASTATIN 10 MG TABLET PO SCH (20:12)
[2019-12-29] MEDS: MELATONIN 3 MG TABLET PO PRN (20:16)
[2019-12-29] MEDS: SENNOSIDES/DOCUSATE SODIUM 1 TAB TABLET PO SCH (20:39)
[2019-12-29] MEDS ORDERED: hydrALAZINE 20 MG/ML VIAL IV PRN (21:11)
[2019-12-29] MEDS ORDERED: hydrALAZINE 20 MG/ML VIAL ONE (21:18)
[2019-12-30] MEDS: 0.9 % SODIUM CHLORIDE 10 ML SYRINGE IV SCH ×6 (05:46→20:54)
[2019-12-30] MEDS: ACETAMINOPHEN 325 MG TABLET PO PRN (07:29)
[2019-12-30] MEDS: INSULIN LISPRO 1 UNIT/0.01 ML UNIT SQ SCH ×4 (07:29→20:49)
[2019-12-30 08:22] LABS: Hematocrit 39.3 % (34.1-44.9); Hemoglobin 12.6 g/dL (11.2-15.7); Mean Cell Volume 99.2 fL (80.0-100.0); Mean Corpuscular HGB Conc 32.1 g/dL (31.0-36.0); Mean Platelet Volume 12.8 fL (7.4-10.4); Platelet Count 122 K/mcL (140-440); RBC 3.96 M/mcL (3.59-5.38); Red Cell Distribution Width 13.5 % (11.5-14.5); WBC 9.7 K/mcL (4.50-11.00)
[2019-12-30] MEDS: MULTIVIT,THER IRON,CA,FA & MIN 1 TABLET PO SCH (08:23)
[2019-12-30] MEDS: metFORMIN 500 MG TABLET PO SCH ×2 (08:23→17:34)
[2019-12-30] MEDS: DILTIAZEM 180 MG CAP.XL.24H PO SCH ×3 (08:23→20:52)
[2019-12-30] MEDS: DOCUSATE SODIUM 100 MG CAPSULE PO SCH ×2 (08:24→20:54)
[2019-12-30] MEDS: HEPARIN 5,000 UNIT/ML VIAL SQ SCH ×2 (08:24→20:51)
[2019-12-30] MEDS: MUPIROCIN OINT 2% 22GM TOPICAL SCH ×2 (08:25→20:53)
[2019-12-30 08:32] LABS: ALT/SGPT 46 U/l (0-40); AST/SGOT 48 U/l (0-37); Albumin/Globulin Ratio 0.8 (1.0-2.3); Alkaline Phosphatase 59 U/L (39-117); Bilirubin,Direct 0.4 mg/dL (0.0-0.3); Bilirubin,Total 1.4 mg/dL (0.0-1.0); Blood Urea Nitrogen 35 mg/dl (8-23); Calcium 9.9 mg/dl (8.6-10.4); Carbon Dioxide 29 mmol/L (22-30); Chloride 100 mmol/L (96-108); Globulin 3.8 gm/dL (2.2-3.7); Glomerular Filtration Rate 62; Glucose 91 mg/dL (70-105); Lactate Dehydrogenase 279 U/L (94-250); Triglycerides 222 mg/dl (<150); Uric Acid 7.8 mg/dL (2.5-8.0)
[2019-12-30 08:34] LABS: Phosphorous 2.3 mg/dL (2.7-4.5)
[2019-12-30] MEDS: sitaGLIPtin 100 MG TABLET PO SCH (08:51)
[2019-12-30] MEDS: INSULIN GLARGINE, HUMAN 1 UNIT/0.01 ML SQ SCH ×2 (08:51→20:50)
[2019-12-30] MEDS: LINEZOLID 600 MG TABLET PO SCH ×2 (08:51→20:52)
[2019-12-30] MEDS: cefTRIAXone 2 GM in DEXTROSE 5% IN WATER 50 ML IV SCH (08:54)
[2019-12-30 09:14] LABS: Eosinophils % (Manual) 1 % (0-7); Lymphocytes % 10 % (15-49); Monocytes % (Manual) 9 % (1-12); Platelet Estimate DECREASED (NORMAL); RBC Morphology NORMAL (NORMAL); Segmented Neutrophils % 80 % (38-78)
--- NOTE | 2019-12-30 09:14 | Internal Med Progress Note ---
Medical - PN: Subj Patient information: Note initiated : 12/30/19 at 9:11 am Service Date, if different from initiated Date: [] Patient: Padmini Cunha a 79 y/o F admitted on 12/26/19 for Confusion, decreased loc, syncope. Chief Complaint: [] Interval history: Ms. Cunha is a 79 year old F with history of A. fib/DM type II/hyperlipidemia who has had progressive deterioration over the last year and a half and multiple hospitalization including pneumonia/GI bleed. She has been in her baseline state of health over the last few days and was at a libertarian at her son's place on Monday. However family discovered on Monday she was fairly somnolent lethargic and weak. Over the next 2 days she has been laying on the bed and became extremely confused nonfunctional and unresponsive prompting patient's family to bring her to the ER today. Initial work-up in the ER was consistent with Severe sepsis with hypoxic respiratory failure secondary pneumonia and evidence of multiple endorgan dysfunction including elevated bilirubin/altered mental status. Patient was rapidly started on crystalloid/antibiotics along with cultures Hospitalist service was consulted for admission At the time evaluation patient is accompanied with her son Dwain. She remains a DNR as per family recommendations however they would like full medical interventions. I explained based on [place] 2 score and her current hemodynamics she stands very high risk mortality and family is aware of situation. Patient will be admitted to the ICU for aggressive management including vasopressors if indicated. Patient is unresponsive and therefore no history could be obtained other than from son Dwain and ER physician 12/26-patient on broad antibiotic coverage. Gram-positive cocci on blood cultures. Surveillance cultures pending. On vancomycin/Zosyn. White count remains elevated at 17.5. Tachycardia much improved. Continue diltiazem drip. Blood sugars over 400. Started on basal insulin. Improved anion gap however lactic acid worsening. Crystalloid challenges being administered. Bilirubin downtrending. Magnesium 1.5 on replacement. Remains critically ill. 12/27-improved lactate however clinically deteriorating. On 10 L oxygen. CHF/pleural effusion on chest imaging. Started on diuretics. DC IV fluids. Continue antibiotic coverage. White count at 20.3 improved blood sugars off insulin drip. ID consulted. On antibiotic coverage as per ID. Remains high risk mortality. I recommend thoracentesis if inadequate response to diuretics and worsening hypoxia. Maintain COVID precautions. 12/28-patient showing clinical improvement on aggressive diuresis. Improved hypoxic respiratory failure now on 4 L oxygen. Off diltiazem drip. More alert lucid and able to follow commands. Transition to p.o. medications. Continue antibiotic coverage. White count down from 20,300-15.2. BUN 34, lower diuretic dose blood sugar is elevated at 4 6. Continue basal prandial insulin/increase sliding scale. Bilirubin down to 1.2 LFTs improving. Restart sitagliptin/metformin 12/29-patient clinically improving more lucid alert. On 6 L oxygen. Diuresing well. Drug reaction improved. Off Solu-Medrol. Blood sugars improving. ST eval today. Transient into A. fib RVR. Diltiazem increased to 360 in 2 divided doses. White count 9.7. Potassium 3.2 on replacement. BUN 35 creatinine 0.9. Lower diuretic dose to 20 mg twice daily. Bilirubin down to 1.4, LFTs downtrending, phosphorus 2.3 start replacement. On antibiotic coverage as per ID. - Constitutional Vitals: Vital Signs Temp Pulse Resp BP Pulse Ox 97.8 F 118 H 26 H 134/65 91 12/30/19 07:00 12/30/19 08:02 12/30/19 08:02 12/30/19 08:02 12/30/19 08:02 Period Temp Pulse Resp BP Sys/Bryson Pulse Ox Last 24 Hr 95.1 F-98.8 F 78-118 16-35 134-188/62-89 75-98 Intake and Output 12/29/19 12/30/19 12/30/19 21:59 05:59 13:59 Intake Total 665 825 Output Total 790 1105 100 Balance -125 -280 -100 Weight 193 lb 4.8 oz Intake & Output: Intake & Output 12/29/19 12/30/19 12/30/19 21:59 05:59 13:59 Intake Total 665 825 Output Total 790 1105 100 Balance -125 -280 -100 Weight 193 lb 4.8 oz Intake: Oral 665 825 Output: Urine Catheter Amount 790 1105 100 Other: Meal Dinner Percent of Meal Consumed 100% Feeding Ability Independent Urine Appearance Clear Clear Clear Uretheral ([place]) Clear Clear Urine Color Bright Yellow Bright Yellow Bright Yellow Uretheral ([place]) Straw Straw Stool Size Large Stool Color Brown Stool Consistency Loose # of times incontinent of 1 Bowels General appearance: no acute distress Exam: On nasal cannula 6 L oxygen Telemetry A. fib RVR transient now in sinus tachycardia On 6 L oxygen [place] is draining dark urine Medical - PN: Obj Da - Labs CBC & Chem 7: 12/30/19 05:00 12/30/19 05:00 Labs: Abnormal Lab Results 12/30/19 12/30/19 12/29/19 05:00 05:00 05:15 WBC MCV MCHC Plt Count 122 L MPV 12.8 H Seg Neutrophils % Lymphocytes % Nucleated RBCs RBC Morphology Macrocytosis VBG Lactic Acid Potassium 3.2 L BUN 35 H 34 H Glucose 406 H Phosphorus 2.3 L Total Bilirubin 1.4 H 1.2 H Direct Bilirubin 0.4 H 0.4 H GGT 139 H 144 H AST 48 H 61 H ALT 46 H 57 H Lactate Dehydrogenase 279 H 292 H Albumin 3.0 L 2.9 L Globulin 3.8 H 4.0 H Albumin/Globulin Ratio 0.8 L 0.7 L Triglycerides 222 H 197 H 12/29/19 12/28/19 12/28/19 05:15 06:25 05:10 WBC 15.2 H 20.3 H MCV 104.5 H 100.8 H MCHC 30.8 L Plt Count 111 L 110 L MPV 12.7 H 13.0 H Seg Neutrophils % 86 H 89 H Lymphocytes % 10 L 4 L Nucleated RBCs 1 H RBC Morphology Abnorm A Abnorm A Macrocytosis 1+ A Few A VBG Lactic Acid Potassium BUN 26 H Glucose 165 H Phosphorus 2.5 L Total Bilirubin 1.1 H Direct Bilirubin 0.4 H GGT 150 H AST 72 H ALT 63 H Lactate Dehydrogenase 260 H Albumin 3.1 L Globulin Albumin/Globulin Ratio 0.9 L Triglycerides 190 H 12/27/19 12:08 WBC MCV MCHC Plt Count MPV Seg Neutrophils % Lymphocytes % Nucleated RBCs RBC Morphology Macrocytosis VBG Lactic Acid 4.6 H* Potassium BUN Glucose Phosphorus Total Bilirubin Direct Bilirubin GGT AST ALT Lactate Dehydrogenase Albumin Globulin Albumin/Globulin Ratio Triglycerides Meds: Medications Acetaminophen (Tylenol) 650 mg PO Q4-6HP PRN; Protocol PRN Reason: Per Pain Protocol/Fever > 101 Last Admin: 12/30/19 07:29 Dose: 650 mg Documented by: Albuterol/Ipratropium (Duoneb) 3 ml NEB Q6HP PRN PRN Reason: Shortness Of Breath Last Admin: 12/28/19 12:50 Dose: 3 ml Documented by: Bisacodyl (Dulcolax) 10 mg NJ Q2-3DAYS PRN PRN Reason: Constipation Dextrose (Dextrose 50%) 0 ml IV UD PRN PRN Reason: Hypoglycemia Diagnostic Test (Pha) (Accu-Chek) 1 each FS ACHS [facility] Last Admin: 12/30/19 07:25 Dose: 1 each Documented by: Diltiazem HCl (Cardizem Cd) 180 mg PO BID [facility] Last Admin: 12/30/19 08:54 Dose: Not Given Documented by: Diphenhydramine HCl (Benadryl) 25 mg IV Q4-6HP PRN PRN Reason: Allergic Symptoms Last Admin: 12/28/19 12:15 Dose: 25 mg Documented by: Docusate Sodium (Colace) 100 mg PO BID [facility] Last Admin: 12/30/19 08:24 Dose: Not Given Documented by: Glucose (Insta-Glucose) 15 gm PO PRN PRN PRN Reason: Hypoglycemia Heparin Sodium (Porcine) (Heparin) 5,000 unit SQ Q12 [facility] Last Admin: 12/30/19 08:24 Dose: 5,000 unit Documented by: Hydralazine HCl (Apresoline) 10 mg IV Q4-6HP PRN PRN Reason: Hypertension Magnesium Sulfate (Magnesium Sulfate) 2 gm in 50 mls @ 50 mls/hr IV UD PRN PRN Reason: MG = or < 1.7 Acetaminophen (Ofirmev) 650 mg in 65 mls @ 130 mls/hr IV Q6HP PRN; Protocol PRN Reason: PAIN/FEVER > 101 Last Infusion: 12/27/19 09:09 Dose: Infused Documented by: Ceftriaxone Sodium 2 gm/ (Dextrose) 50 mls @ 100 mls/hr IV DAILY [facility]; Protocol Last Admin: 12/30/19 08:54 Dose: 100 mls/hr Documented by: Norepinephrine Bitartrate 16 (mg/ Sodium Chloride) 250 mls @ 9.375 mls/hr IV Q24HP PRN; Protocol PRN Reason: TITRATE TO KEEP MAP > 65 Diltiazem HCl 125 mg/ Dextrose 125 mls @ 5 mls/hr IV Q12HP PRN; Protocol PRN Reason: TITRATE TO KEEP HR <100,SBP>90 Insulin Glargine (Lantus) 40 unit SQ BID [facility] Last Admin: 12/30/19 08:51 Dose: 40 units Documented by: Insulin Human Lispro (Humalog) 0 unit SQ ACHS [facility]; Protocol Last Admin: 12/30/19 07:29 Dose: Not Given Documented by: Iron Carb/Multivit/Ocean/Folic Acid (Multivitamin W/Minerals) 1 tab PO DAILY [facility] Last Admin: 12/30/19 08:23 Dose: 1 tab Documented by: Linezolid (Zyvox) 600 mg PO Q12 [facility]; Protocol Last Admin: 12/30/19 08:51 Dose: 600 mg Documented by: Lorazepam (Ativan) 0.5 mg IV Q4HP PRN PRN Reason: ANXIETY/SEDATION Melatonin (Melatonin 3mg Tablet) 3 mg PO HSP PRN PRN Reason: Insomnia Last Admin: 12/29/19 20:16 Dose: 3 mg Documented by: Metformin [facility] (Glucophage) [facility] Last Admin: 12/30/19 08:23 Dose: 1,000 mg Documented by: Mupirocin (Bactroban Oint 2%) 1 dose TOPICAL BID [facility] Stop: 12/31/19 21:01 Last Admin: 12/30/19 08:25 Dose: 1 dose Documented by: Ondansetron HCl (Zofran Odt) 4 mg SL Q4-6HP PRN; Protocol PRN Reason: Nausea And Vomiting Ondansetron HCl (Zofran) 4 mg IV Q4-6HP PRN; Protocol PRN Reason: Nausea And Vomiting Polyethylene Glycol (Miralax) 17 gm PO DAILYP PRN PRN Reason: Constipation Potassium Chloride (Klor-Con) 40 meq PO DAILYP PRN PRN Reason: K+ < 3.5 Senna/Docusate Sodium (Senna Plus Tablet) 1 tab PO HS [facility] Last Admin: 12/29/19 20:39 Dose: Not Given Documented by: Simvastatin (Zocor) 5 mg PO HS [facility] Last Admin: 12/29/19 20:12 Dose: 5 mg Documented by: Sitagliptin Phosphate (Januvia) 100 mg PO DAILY [facility] Last Admin: 12/30/19 08:51 Dose: 100 mg Documented by: Sodium Chloride (Saline Flush) 10 ml IV Q8 [facility] Last Admin: 12/30/19 08:55 Dose: 10 ml Documented by: - ABG Interpretation ABG results: 12/26/19 14:57 ABG Methemoglobin 0.1 L VBG pH 7.40 VBG pCO2 38.2 L VBG pO2 63 H VBG HCO3 23.1 L VBG Total CO2 24.3 L VBG O2 Saturation 84.1 H VBG Base Excess -1.4 Medical - PN: A/P - Time Spent With Patient Total time spent is greater than 50% in coordination of care (as documented) at patient's floor/unit and/or counseling patient: Greater than 35 minutes (1) Change in mental status Status: Acute Assessment and plan: * Acute hypoxic respiratory failure-clinical improvement noted. On 6 L nasal cannula oxygen. CT chest reveals minimal effusion however bilateral infiltrate consistent with pneumonia. * Streptococcus agalactiae bacteremia-likely source pneumonia. Echocardiogram no evidence of IE, EF 60%. Surveillance cultures negative. On antibiotic coverage per ID * Severe sepsis with multiple organ dysfunction -White count normalized. Clinically improving. * A. fib RVR-increase diltiazem to 360 * Acute congestive heart failure secondary to crystalloid challenge. Echo EF 65%. Responding well to diuretics. * ST eval today multifocal pneumonia likely community-acquired versus aspiration. Improving on antibiotic coverage. * Acute change mental status-much improved now lucid alert and respond to commands * Elevated LFTs improving with resolution of sepsis * History of COPD current bronchodilators * DM type II-continue basal prandial insulin/metformin/sitagliptin/CC diet * DNR * Prophylaxis heparin Plan * Continue antibiotic coverage per ID * Lower diuretic dose to 20 mg twice daily * Increase diltiazem to 360 * ST eval today * Wean oxygen as tolerated * PT OT/nutrition support * Discharge planning likely SNF Current Visit: Yes Medical - PN: Qual - VTE Deep Vein Thrombosis/Pulmonary Embolism Present on Admission: No
[2019-12-30] MEDS: MAGNESIUM SULFATE 2 GM/50 ML BAG IV PRN (10:34)
--- NOTE | 2019-12-30 10:36 | XRay Report ---
INDICATION: hypoxia TECHNIQUE: AP portable semiupright chest x-ray COMPARISON: Previous chest x-rays dated 12/28/2019, 12/26/2019, 09/01/2018 FINDINGS: Lungs:Diffuse pulmonary parenchymal infiltrates. There is right basilar consolidation. Findings are nonspecific. Findings May BE due to congestive heart failure. Pneumonia or ARDS are possible. Clinical correlation and continued follow-up recommended. Heart, vascular:There is cardiomegaly, unchanged Mediastinum, anai:No mediastinal widening. No hilar mass Pleura:Probable right pleural effusion. No evidence for left pleural effusion Skeletal:Negative. IMPRESSION: 1. Cardiomegaly, unchanged 2. Diffuse pulmonary parenchymal infiltrates, right worse than left. Findings are most consistent with congestive heart failure but pneumonia or ARDS or possible 3. Probable small right effusion 4. No significant interval change since 12/28/2019 Interpreted and Authenticated by: Juan Francisco Barillas 12/30/19
--- NOTE | 2019-12-30 11:27 | Infectious Disease Prog Note ---
Subjective Patient information: Note initiated : 12/30/19 at 11:24 am Service Date, if different from initiated Date: [] Patient: Padmini Cunha 79 y/o F admitted on 12/26/19 for Confusion, decreased loc, syncope. Chief Complaint: [] Interval history: Patient feels better. Endorses shortness of breath. Denies any nausea, vomiting, diarrhea, fever, chills. Objective Objective Narrative: Alert, oriented x3 No thrush Chest clear to auscultation with some decreased breath sounds at bases Heart sounds normal, no murmurs heard Belly distended, nontender, bowel sounds present No leg edema No redness or swelling over knee or ankle joints - Vital Signs Vital signs: Vital Signs Temp Pulse Pulse Resp BP Pulse Ox 12/30/19 10:01 118 H 32 H 136/67 95 12/30/19 08:02 118 H 26 H 134/65 91 12/30/19 07:00 36.6 C 21 163/64 98 12/30/19 06:01 36.6 C 86 21 163/64 98 12/30/19 05:13 96 12/30/19 05:07 98 12/30/19 05:05 36.6 C 95 H 17 86 L 12/30/19 05:04 93 12/30/19 05:03 81 L 12/30/19 05:02 83 L 12/30/19 04:55 88 L 12/30/19 04:50 80 L 12/30/19 04:45 75 L 12/30/19 04:01 35.1 C L 95 H 27 H 153/65 92 12/30/19 03:09 36.6 C 90 22 97 12/30/19 02:01 36.6 C 92 H 17 152/65 96 12/30/19 00:16 88 96 12/30/19 00:07 36.5 C 93 H 21 95 12/30/19 00:01 36.5 C 94 H 21 151/64 96 12/29/19 22:37 94 12/29/19 22:16 36.6 C 93 H 35 H 96 12/29/19 22:01 36.7 C 94 H 27 H 175/71 94 12/29/19 21:50 93 12/29/19 21:40 88 L 12/29/19 21:34 36.7 C 95 H 21 159/62 95 12/29/19 21:07 92 12/29/19 21:00 37.1 C 94 H 24 H 186/89 90 12/29/19 20:58 37.1 C 93 H 23 H 188/85 92 12/29/19 20:06 37.1 C 95 H 22 169/68 94 12/29/19 20:01 37.1 C 96 H 26 H 181/70 94 12/29/19 19:28 91 12/29/19 19:26 86 L 12/29/19 19:05 89 L 12/29/19 18:20 88 93 12/29/19 18:00 36.7 C 89 23 H 166/64 91 12/29/19 16:01 79 23 H 161/74 94 12/29/19 14:20 92 12/29/19 14:01 36.5 C 83 21 147/63 94 12/29/19 12:01 78 19 163/68 94 Intake and Output 12/29/19 12/30/19 12/30/19 21:59 05:59 13:59 Intake Total 665 825 650 Output Total 790 1105 180 Balance -125 -280 470 Intake: IV 50 Rocephin 2 gm In Dextrose 5% in 50 Water 50 ml @ 100 mls/hr IV DAILY SHARITA Rx#:[id number] Oral 665 825 600 Output: Urine Catheter Amount 790 1105 180 Other: Meal Dinner Breakfast Percent of Meal Consumed 100% 50% Feeding Ability Independent Independent Urine Appearance Clear Clear Clear Uretheral (Fortune) Clear Clear Urine Color Bright Yellow Bright Yellow Dark Yellow Uretheral (Fortune) Straw Straw Stool Size Large Moderate Stool Color Brown Brown Stool Consistency Loose Soft # of times incontinent of 1 Bowels Weight 87.679 kg Intake & Output: Intake & Output 12/29/19 12/30/19 12/30/19 21:59 05:59 13:59 Intake Total 665 825 650 Output Total 790 1105 180 Balance -125 -280 470 Weight 87.679 kg Intake: IV 50 Rocephin 2 gm In Dextrose 5% in 50 Water 50 ml @ 100 mls/hr IV DAILY SHARITA Rx#:[id number] Oral 665 825 600 Output: Urine Catheter Amount 790 1105 180 Other: Meal Dinner Breakfast Percent of Meal Consumed 100% 50% Feeding Ability Independent Independent Urine Appearance Clear Clear Clear Uretheral (Fortune) Clear Clear Urine Color Bright Yellow Bright Yellow Dark Yellow Uretheral (Fortune) Straw Straw Stool Size Large Moderate Stool Color Brown Brown Stool Consistency Loose Soft # of times incontinent of 1 Bowels - Lab 12/30/19 05:00 12/30/19 05:00 Most recent lab results Calcium 9.9 mg/dl (8.6-10.4) 12/30/19 05:00 Phosphorus 2.3 mg/dL (2.7-4.5) L 12/30/19 05:00 Magnesium 1.6 mg/dL (1.6-2.5) 12/30/19 05:00 Microbiology 12/27/19 09:40 Blood Blood Culture - Preliminary 12/27/19 09:30 Blood Blood Culture - Preliminary 12/26/19 14:28 Blood Blood Culture - Preliminary Strep agalactiae - (group b) 12/28/19 10:50 Stool C. difficile GDH Antigen & Toxins - Final 12/26/19 15:23 Urine - Catheterized Urine Culture - Final Klebsiella pneumoniae 12/26/19 14:38 Blood Blood Culture - Preliminary Strep agalactiae - (group b) 12/26/19 21:20 Nasopharynx Respiratory Virus Panel (PCR) - Final 12/26/19 21:20 Nasopharynx Respiratory Panel (PCR) - Final 12/26/19 20:11 Nose - Both Right and Left MRSA (PCR) - Final MRSA PCR positive Medications Active Medications: Acetaminophen (Tylenol) 650 mg PO Q4-6HP PRN; Protocol PRN Reason: Per Pain Protocol/Fever > 101 Last Admin: 12/30/19 07:29 Dose: 650 mg Documented by: ChristineXF Admin: 12/29/19 20:32 Dose: 650 mg Documented by: [email or web address] Admin: 12/29/19 10:25 Dose: 650 mg Documented by: ChristineXF Admin: 12/28/19 14:37 Dose: 650 mg Documented by: ChristineXF Admin: 12/27/19 14:48 Dose: 650 mg Documented by: ROSEF Albuterol/Ipratropium (Duoneb) 3 ml NEB Q6HP PRN PRN Reason: Shortness Of Breath Last Admin: 12/28/19 12:50 Dose: 3 ml Documented by: Admin: 12/28/19 09:48 Dose: 3 ml Documented by: Admin: 12/27/19 23:15 Dose: 3 ml Documented by: KAYLEEN Bisacodyl (Dulcolax) 10 mg TX Q2-3DAYS PRN PRN Reason: Constipation Dextrose (Dextrose 50%) 0 ml IV UD PRN PRN Reason: Hypoglycemia Diagnostic Test (Pha) (Accu-Chek) 1 each FS ACHS [facility] Last Admin: 12/30/19 07:25 Dose: 1 each Documented by: Admin: 12/29/19 20:33 Dose: 1 each Documented by: Admin: 12/29/19 16:46 Dose: 1 each Documented by: ChristineXShandra Admin: 12/29/19 11:15 Dose: 1 each Documented by: Admin: 12/29/19 06:55 Dose: 1 each Documented by: ChristineXShandra Admin: 12/28/19 22:08 Dose: 1 each Documented by: Admin: 12/28/19 17:00 Dose: 1 each Documented by: Admin: 12/28/19 12:03 Dose: Not Given Documented by: UXF Non-Admin Reason: See hourlyaccu checks Admin: 12/28/19 08:21 Dose: Not Given Documented by: UXF Non-Admin Reason: See hourly accu checks Admin: 12/27/19 21:22 Dose: Not Given Documented by: KALYEEN Non-Admin Reason: insulin gtt Admin: 12/27/19 15:43 Dose: 1 each Documented by: Admin: 12/27/19 13:19 Dose: 1 each Documented by: Admin: 12/27/19 11:35 Dose: 1 each Documented by: Admin: 12/27/19 09:41 Dose: 1 each Documented by: Admin: 12/27/19 07:25 Dose: 1 each Documented by: Admin: 12/26/19 21:56 Dose: 1 each Documented by: KAYLEEN Diltiazem HCl (Cardizem Cd) 180 mg PO BID [facility] Last Admin: 12/30/19 08:54 Dose: Not Given Documented by: UXF Non-Admin Reason: See discontinued order Diphenhydramine HCl (Benadryl) 25 mg IV Q4-6HP PRN PRN Reason: Allergic Symptoms Last Admin: 12/28/19 12:15 Dose: 25 mg Documented by: ChristineXF Admin: 12/27/19 21:14 Dose: 25 mg Documented by: KAYLEEN Comments: premedicating before Vancomycin dose Admin: 12/27/19 10:54 Dose: 25 mg Documented by: ChristineXF Admin: 12/26/19 23:34 Dose: 25 mg Documented by: ROXI Docusate Sodium (Colace) 100 mg PO BID [facility] Last Admin: 12/30/19 08:24 Dose: Not Given Documented by: ChristineXF Non-Admin Reason: Loose Stool Admin: 12/29/19 20:39 Dose: Not Given Documented by: KAYLEEN Non-Admin Reason: Loose Stool Admin: 12/29/19 08:21 Dose: Not Given Documented by: ChristineXShandra Non-Admin Reason: Loose Stool Admin: 12/28/19 20:41 Dose: Not Given Documented by: KAYLEEN Non-Admin Reason: Loose Stool Admin: 12/28/19 08:22 Dose: 100 mg Documented by: ChristineXShandra Admin: 12/27/19 21:40 Dose: Not Given Documented by: KAYLEEN Non-Admin Reason: Difficulty Swallowing Admin: 12/27/19 09:10 Dose: Not Given Documented by: ChristineXShandra Non-Admin Reason: NPO Admin: 12/26/19 21:19 Dose: Not Given Documented by: KAYLEEN Non-Admin Reason: unable to swallow Furosemide (Lasix) 20 mg IV Q12 [facility] Glucose (Insta-Glucose) 15 gm PO PRN PRN PRN Reason: Hypoglycemia Heparin Sodium (Porcine) (Heparin) 5,000 unit SQ Q12 [facility] Last Admin: 12/30/19 08:24 Dose: 5,000 unit Documented by: Admin: 12/29/19 20:11 Dose: 5,000 unit Documented by: Admin: 12/29/19 08:20 Dose: 5,000 unit Documented by: ChristineXF Admin: 12/28/19 22:10 Dose: 5,000 unit Documented by: Admin: 12/28/19 08:22 Dose: 5,000 unit Documented by: ChristineXF Admin: 12/27/19 21:43 Dose: 5,000 unit Documented by: [email or web address] Admin: 12/27/19 09:10 Dose: 5,000 unit Documented by: Admin: 12/26/19 21:57 Dose: 5,000 unit Documented by: [email or web address] Hydralazine HCl (Apresoline) 10 mg IV Q4-6HP PRN PRN Reason: Hypertension Magnesium Sulfate (Magnesium Sulfate) 2 gm in 50 mls @ 50 mls/hr IV UD PRN PRN Reason: MG = or < 1.7 Last Admin: 12/30/19 10:34 Dose: 50 mls/hr Documented by: UXShandra Acetaminophen (Ofirmev) 650 mg in 65 mls @ 130 mls/hr IV Q6HP PRN; Protocol PRN Reason: PAIN/FEVER > 101 Last Infusion: 12/27/19 09:09 Dose: 0 mls/hr Documented by: Admin: 12/27/19 08:00 Dose: 130 mls/hr Documented by: Infusion: 12/27/19 00:05 Dose: 0 mls/hr Documented by: Admin: 12/26/19 23:35 Dose: 130 mls/hr Documented by: AJKapil Ceftriaxone Sodium 2 gm/ (Dextrose) 50 mls @ 100 mls/hr IV DAILY SHARITA; Protocol Last Infusion: 12/30/19 10:08 Dose: 0 mls/hr Documented by: Admin: 12/30/19 08:54 Dose: 100 mls/hr Documented by: Infusion: 12/29/19 09:20 Dose: 0 mls/hr Documented by: Admin: 12/29/19 08:17 Dose: 100 mls/hr Documented by: Infusion: 12/28/19 09:17 Dose: 0 mls/hr Documented by: Admin: 12/28/19 08:23 Dose: 100 mls/hr Documented by: Infusion: 12/27/19 12:44 Dose: 0 mls/hr Documented by: Admin: 12/27/19 11:31 Dose: 100 mls/hr Documented by: UXF Norepinephrine Bitartrate 16 (mg/ Sodium Chloride) 250 mls @ 9.375 mls/hr IV Q 24HP PRN; Protocol PRN Reason: TITRATE TO KEEP MAP > 65 Diltiazem HCl 125 mg/ Dextrose 125 mls @ 5 mls/hr IV Q12HP PRN; Protocol PRN Reason: TITRATE TO KEEP HR <100,SBP>90 Insulin Glargine (Lantus) 40 unit SQ BID [facility] Last Admin: 12/30/19 08:51 Dose: 40 units Documented by: ROSEF Insulin Human Lispro (Humalog) 0 unit SQ ACHS [facility]; Protocol Last Admin: 12/30/19 07:29 Dose: Not Given Documented by: UXF Non-Admin Reason: No Coverage Needed Admin: 12/29/19 20:34 Dose: 6 units Documented by: Admin: 12/29/19 17:16 Dose: 8 units Documented by: ChristineXF Admin: 12/29/19 11:24 Dose: 12 units Documented by: ChristineXF Admin: 12/29/19 08:19 Dose: 12 units Documented by: ChristineXF Iron Carb/Multivit/[place]/Folic Acid (Multivitamin W/Minerals) 1 tab PO DAILY [facility] Last Admin: 12/30/19 08:23 Dose: 1 tab Documented by: ChristineXF Admin: 12/29/19 08:16 Dose: 1 tab Documented by: ChristineXF Admin: 12/28/19 08:22 Dose: 1 tab Documented by: Admin: 12/27/19 09:10 Dose: Not Given Documented by: UXF Non-Admin Reason: NPO Linezolid (Zyvox) 600 mg PO Q12 [facility]; Protocol Last Admin: 12/30/19 08:51 Dose: 600 mg Documented by: Admin: 12/29/19 20:11 Dose: 600 mg Documented by: Admin: 12/29/19 08:16 Dose: 600 mg Documented by: ChristineXF Admin: 12/28/19 22:10 Dose: 600 mg Documented by: Admin: 12/28/19 13:47 Dose: 600 mg Documented by: UXF Lorazepam (Ativan) 0.5 mg IV Q4HP PRN PRN Reason: ANXIETY/SEDATION Melatonin (Melatonin 3mg Tablet) 3 mg PO HSP PRN PRN Reason: Insomnia Last Admin: 12/29/19 20:16 Dose: 3 mg Documented by: Admin: 12/28/19 22:10 Dose: 3 mg Documented by: KAYLEEN [facility] Last Admin: 12/30/19 08:23 Dose: 1,000 mg Documented by: ChristineXF Admin: 12/29/19 17:17 Dose: 1,000 mg Documented by: UXF Mupirocin (Bactroban Oint 2%) 1 dose TOPICAL BID [facility] Stop: 12/31/19 21:01 Last Admin: 12/30/19 08:25 Dose: 1 dose Documented by: ChristineXF Admin: 12/29/19 20:39 Dose: 1 dose Documented by: Admin: 12/29/19 09:20 Dose: 1 dose Documented by: Admin: 12/28/19 22:10 Dose: 1 dose Documented by: Admin: 12/28/19 08:35 Dose: 1 dose Documented by: ChristineXShandra Admin: 12/27/19 21:37 Dose: 1 dose Documented by: Admin: 12/27/19 09:30 Dose: 1 dose Documented by: ChristineXF Ondansetron HCl (Zofran Odt) 4 mg SL Q4-6HP PRN; Protocol PRN Reason: Nausea And Vomiting Ondansetron HCl (Zofran) 4 mg IV Q4-6HP PRN; Protocol PRN Reason: Nausea And Vomiting Polyethylene Glycol (Miralax) 17 gm PO DAILYP PRN PRN Reason: Constipation Potassium Chloride (Klor-Con) 40 meq PO DAILYP PRN PRN Reason: K+ < 3.5 Last Admin: 12/30/19 10:10 Dose: 40 meq Documented by: RICH Senna/Docusate Sodium (Senna Plus Tablet) 1 tab PO [facility] Last Admin: 12/29/19 20:39 Dose: Not Given Documented by: KAYLEEN Non-Admin Reason: Loose Stool Admin: 12/28/19 20:44 Dose: Not Given Documented by: KAYLEEN Non-Admin Reason: Loose Stool Admin: 12/27/19 21:40 Dose: Not Given Documented by: KAYLEEN Non-Admin Reason: Difficulty Swallowing Admin: 12/26/19 21:20 Dose: Not Given Documented by: KAYLEEN Non-Admin Reason: unable to swallow Simvastatin (Zocor) 5 mg PO HS [facility] Last Admin: 12/29/19 20:12 Dose: 5 mg Documented by: KAYLEEN Sitagliptin Phosphate (Januvia) 100 mg PO DAILY [facility] Last Admin: 12/30/19 08:51 Dose: 100 mg Documented by: UXF Sodium Chloride (Saline Flush) 10 ml IV Q8 [facility] Last Admin: 12/30/19 10:35 Dose: 10 ml Documented by: Admin: 12/30/19 08:55 Dose: 10 ml Documented by: Admin: 12/30/19 05:46 Dose: 10 ml Documented by: Admin: 12/29/19 21:17 Dose: 10 ml Documented by: Admin: 12/29/19 14:32 Dose: 10 ml Documented by: Admin: 12/29/19 08:17 Dose: 10 ml Documented by: Admin: 12/29/19 05:14 Dose: 10 ml Documented by: Admin: 12/28/19 22:10 Dose: 10 ml Documented by: Admin: 12/28/19 16:22 Dose: 10 ml Documented by: Admin: 12/28/19 15:37 Dose: 10 ml Documented by: Admin: 12/28/19 14:39 Dose: 10 ml Documented by: Admin: 12/28/19 12:38 Dose: 10 ml Documented by: Admin: 12/28/19 12:10 Dose: 10 ml Documented by: Admin: 12/28/19 06:06 Dose: Not Given Documented by: KAYLEEN Non-Admin Reason: Continuous IV Admin: 12/27/19 21:40 Dose: Not Given Documented by: [email or web address] Non-Admin Reason: Continuous IV Admin: 12/27/19 16:25 Dose: 10 ml Documented by: Admin: 12/27/19 14:24 Dose: Not Given Documented by: UXF Non-Admin Reason: Continuous IV Admin: 12/27/19 05:30 Dose: Not Given Documented by: [email or web address] Non-Admin Reason: Continuous IV Admin: 12/26/19 21:46 Dose: 10 ml Documented by: KAYLEEN Assessment and Plan - Narrative A/P Narrative: A: 1. Gp B Streptococcal bacteremia: - blood Cx 2/2 +ve from 12/26/19 - likely source /GI tract. Skin colonization could also play a role - risk factors: uncontrolled DM2, age - repeat blood Cx from 12/27/19 NGTD 2. Sepsis: resolving - lactate normal today 3. Acute respiratory failure: Resolving - fluid overload due to resuscitation IVF, ? CAP -COVID testing negative - Anti-MRSA antibiotic coverage should be continued given +ve MRSA nasal PCR and right sided infiltrate 4. 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 will plan for a 5 day course, day 4 of anti-MRSA therapy - Continue IV Ceftriaxone 2 gm q24 hrs, day 4 -Consider midline placement. Anticipate 2 weeks of therapy counting from first day of negative blood cultures [12/27/2019] with tentative stop date of 01/10/2020 - Glycemic control (FSBS 140-180) - MRSA decolonization for 5 days, today day 4 out of 5 will follow Matt Vinson MD Infectious diseases
[2019-12-30] MEDS: FUROSEMIDE 20 MG/2 ML VIAL IV SCH (20:50)
[2019-12-30] MEDS: SIMVASTATIN 10 MG TABLET PO SCH (20:52)
[2019-12-30] MEDS: MELATONIN 3 MG TABLET PO PRN ×2 (20:52→20:55)
[2019-12-30] MEDS: SENNOSIDES/DOCUSATE SODIUM 1 TAB TABLET PO SCH (20:54)
[2019-12-31] MEDS: 0.9 % SODIUM CHLORIDE 10 ML SYRINGE IV SCH ×5 (05:16→21:20)
[2019-12-31 06:27] LABS: Hemoglobin 11.7 g/dL (11.2-15.7); Mean Cell Volume 99.2 fL (80.0-100.0); Mean Corpuscular HGB Conc 31.6 g/dL (31.0-36.0); Mean Platelet Volume 12.1 fL (7.4-10.4); Platelet Count 122 K/mcL (140-440); RBC 3.73 M/mcL (3.59-5.38); Red Cell Distribution Width 13.4 % (11.5-14.5); WBC 7.9 K/mcL (4.50-11.00)
[2019-12-31 06:46] LABS: ALT/SGPT 36 U/l (0-40); AST/SGOT 43 U/l (0-37); Albumin 2.8 gm/dL (3.2-5.2); Albumin/Globulin Ratio 0.9 (1.0-2.3); Alkaline Phosphatase 51 U/L (39-117); Bilirubin,Total 0.9 mg/dL (0.0-1.0); Blood Urea Nitrogen 35 mg/dl (8-23); Calcium 9.8 mg/dl (8.6-10.4); Carbon Dioxide 30 mmol/L (22-30); Chloride 102 mmol/L (96-108); Globulin 3.2 gm/dL (2.2-3.7); Glomerular Filtration Rate 71; Glucose 92 mg/dL (70-105); Lactate Dehydrogenase 237 U/L (94-250); Triglycerides 187 mg/dl (<150); Uric Acid 7.6 mg/dL (2.5-8.0)
[2019-12-31 06:53] LABS: Bilirubin,Direct 0.3 mg/dL (0.0-0.3); Phosphorous 4.4 mg/dL (2.7-4.5)
[2019-12-31] MEDS: INSULIN LISPRO 1 UNIT/0.01 ML UNIT SQ SCH ×4 (07:25→21:17)
[2019-12-31 08:15] LABS: Hypochromasia 1+ (NONE SEEN); Lymphocytes % 18 % (15-49); Monocytes % (Manual) 10 % (1-12); Platelet Estimate DECREASED (NORMAL); RBC Morphology ABNORM (NORMAL); Segmented Neutrophils % 72 % (38-78)
[2019-12-31] MEDS: cefTRIAXone 2 GM in DEXTROSE 5% IN WATER 50 ML IV SCH (09:04)
[2019-12-31] MEDS: HEPARIN 5,000 UNIT/ML VIAL SQ SCH ×2 (09:05→21:18)
[2019-12-31] MEDS: DILTIAZEM 180 MG CAP.XL.24H PO SCH ×2 (09:08→21:19)
[2019-12-31] MEDS: LINEZOLID 600 MG TABLET PO SCH (09:09)
[2019-12-31] MEDS: MULTIVIT,THER IRON,CA,FA & MIN 1 TABLET PO SCH (09:09)
[2019-12-31] MEDS: metFORMIN 500 MG TABLET PO SCH ×2 (09:10→16:34)
[2019-12-31] MEDS: sitaGLIPtin 100 MG TABLET PO SCH (09:10)
[2019-12-31] MEDS: MUPIROCIN OINT 2% 22GM TOPICAL SCH ×2 (09:14→21:19)
[2019-12-31] MEDS: DOCUSATE SODIUM 100 MG CAPSULE PO SCH ×2 (09:15→21:18)
[2019-12-31] MEDS: FUROSEMIDE 20 MG/2 ML VIAL IV SCH ×2 (09:17→21:18)
--- NOTE | 2019-12-31 09:48 | Internal Med Progress Note ---
Medical - PN: Subj Patient information: Note initiated : 12/31/19 at 9:46 am Service Date, if different from initiated Date: [] Patient: Padmini Cunha a 79 y/o F admitted on 12/26/19 for Confusion, decreased loc, syncope. Chief Complaint: [] Interval history: Ms. Cunha is a 79 year old F with history of A. fib/DM type II/hyperlipidemia who has had progressive deterioration over the last year and a half and multiple hospitalization including pneumonia/GI bleed. She has been in her baseline state of health over the last few days and was at a constitution party at her son's place on Monday. However family discovered on Monday she was fairly somnolent lethargic and weak. Over the next 2 days she has been laying on the bed and became extremely confused nonfunctional and unresponsive prompting patient's family to bring her to the ER today. Initial work-up in the ER was consistent with Severe sepsis with hypoxic respiratory failure secondary pneumonia and evidence of multiple endorgan dysfunction including elevated bilirubin/altered mental status. Patient was rapidly started on crystalloid/antibiotics along with cultures Hospitalist service was consulted for admission At the time evaluation patient is accompanied with her son Dwain. She remains a DNR as per family recommendations however they would like full medical interventions. I explained based on Zapata 2 score and her current hemodynamics she stands very high risk mortality and family is aware of situation. Patient will be admitted to the ICU for aggressive management including vasopressors if indicated. Patient is unresponsive and therefore no history could be obtained other than from son Dwain and ER physician 12/26-patient on broad antibiotic coverage. Gram-positive cocci on blood cultures. Surveillance cultures pending. On vancomycin/Zosyn. White count remains elevated at 17.5. Tachycardia much improved. Continue diltiazem drip. Blood sugars over 400. Started on basal insulin. Improved anion gap however lactic acid worsening. Crystalloid challenges being administered. Bilirubin downtrending. Magnesium 1.5 on replacement. Remains critically ill. 12/27-improved lactate however clinically deteriorating. On 10 L oxygen. CHF/pleural effusion on chest imaging. Started on diuretics. DC IV fluids. Continue antibiotic coverage. White count at 20.3 improved blood sugars off insulin drip. ID consulted. On antibiotic coverage as per ID. Remains high risk mortality. I recommend thoracentesis if inadequate response to diuretics and worsening hypoxia. Maintain COVID precautions. 12/28-patient showing clinical improvement on aggressive diuresis. Improved hypoxic respiratory failure now on 4 L oxygen. Off diltiazem drip. More alert lucid and able to follow commands. Transition to p.o. medications. Continue antibiotic coverage. White count down from 20,300-15.2. BUN 34, lower diuretic dose blood sugar is elevated at 4 6. Continue basal prandial insulin/increase sliding scale. Bilirubin down to 1.2 LFTs improving. Restart sitagliptin/metformin 12/29-patient clinically improving more lucid alert. On 6 L oxygen. Diuresing well. Drug reaction improved. Off Solu-Medrol. Blood sugars improving. ST eval today. Transient into A. fib RVR. Diltiazem increased to 360 in 2 divided doses. White count 9.7. Potassium 3.2 on replacement. BUN 35 creatinine 0.9. Lower diuretic dose to 20 mg twice daily. Bilirubin down to 1.4, LFTs downtrending, phosphorus 2.3 start replacement. On antibiotic coverage as per ID. 12/30-patient remarkably better. Sitting on chair. Tolerating breakfast. Able to express needs. On 6 L oxygen. C PT ordered. Continue diuresis. DC Fortune's catheter. Initiate aggressive physical therapy. Continue antibiotic coverage as per ID recommendations. White count 7.9. Potassium up to 3.8. Creatinine 0.8. LFTs much improved. Heart rate well controlled on 360 diltiazem. - Constitutional Vitals: Vital Signs Temp Pulse Resp BP Pulse Ox 98.3 F 90 23 H 151/72 92 12/31/19 07:45 12/31/19 09:05 12/31/19 09:05 12/31/19 09:05 12/31/19 09:05 Period Temp Pulse Resp BP Sys/Bryson Pulse Ox Last 24 Hr 97.6 F-98.3 F 70-118 15-32 130-175/51-72 81-97 Intake and Output 12/30/19 12/31/19 12/31/19 21:59 05:59 13:59 Intake Total 360 500 240 Output Total 250 535 Balance 110 -35 240 Weight 193 lb 4.8 oz Intake & Output: Intake & Output 12/30/19 12/31/19 12/31/19 21:59 05:59 13:59 Intake Total 360 500 240 Output Total 250 535 Balance 110 -35 240 Weight 193 lb 4.8 oz Intake: Oral 360 500 240 Output: Urine Catheter Amount 250 535 Other: Meal Dinner Breakfast Percent of Meal Consumed 50% 75% Feeding Ability Independent Independent Urine Appearance Clear Clear Uretheral (Fortune) Clear Clear Sediment Sediment Urine Color Dark Yellow Dark Yellow Uretheral (Fortune) Dark Yellow Dark Yellow Stool Size Large Moderate Stool Color Brown Brown Stool Consistency Loose Soft Formed # Bowel Movements 1 1 # of times incontinent of 1 Bowels General appearance: no acute distress Exam: Alert oriented Nonlabored breathing No anxiety On 6 L oxygen Improving lymphedema Fortune is draining clear urine Medical - PN: Obj Da - Labs CBC & Chem 7: 12/31/19 04:54 12/31/19 04:54 Labs: Abnormal Lab Results 12/31/19 12/31/19 12/30/19 04:54 04:54 05:00 WBC MCV MCHC Plt Count 122 L MPV 12.1 H Seg Neutrophils % Lymphocytes % Nucleated RBCs RBC Morphology Abnorm A Hypochromasia 1+ A Macrocytosis Potassium 3.2 L BUN 35 H 35 H Glucose Phosphorus 2.3 L Total Bilirubin 1.4 H Direct Bilirubin 0.4 H GGT 117 H 139 H AST 43 H 48 H ALT 46 H Lactate Dehydrogenase 279 H Albumin 2.8 L 3.0 L Globulin 3.8 H Albumin/Globulin Ratio 0.9 L 0.8 L Triglycerides 187 H 222 H 12/30/19 12/29/19 12/29/19 05:00 05:15 05:15 WBC 15.2 H MCV 104.5 H MCHC 30.8 L Plt Count 122 L 111 L MPV 12.8 H 12.7 H Seg Neutrophils % 80 H 86 H Lymphocytes % 10 L 10 L Nucleated RBCs 1 H RBC Morphology Abnorm A Hypochromasia Macrocytosis 1+ A Potassium BUN 34 H Glucose 406 H Phosphorus Total Bilirubin 1.2 H Direct Bilirubin 0.4 H GGT 144 H AST 61 H ALT 57 H Lactate Dehydrogenase 292 H Albumin 2.9 L Globulin 4.0 H Albumin/Globulin Ratio 0.7 L Triglycerides 197 H 12/28/19 05:10 WBC MCV MCHC Plt Count MPV Seg Neutrophils % 89 H Lymphocytes % 4 L Nucleated RBCs RBC Morphology Abnorm A Hypochromasia Macrocytosis Few A Potassium BUN Glucose Phosphorus Total Bilirubin Direct Bilirubin GGT AST ALT Lactate Dehydrogenase Albumin Globulin Albumin/Globulin Ratio Triglycerides Meds: Medications Acetaminophen (Tylenol) 650 mg PO Q4-6HP PRN; Protocol PRN Reason: Per Pain Protocol/Fever > 101 Last Admin: 12/30/19 07:29 Dose: 650 mg Documented by: Albuterol/Ipratropium (Duoneb) 3 ml NEB Q6HP PRN PRN Reason: Shortness Of Breath Last Admin: 12/28/19 12:50 Dose: 3 ml Documented by: Bisacodyl (Dulcolax) 10 mg ID Q2-3DAYS PRN PRN Reason: Constipation Dextrose (Dextrose 50%) 0 ml IV UD PRN PRN Reason: Hypoglycemia Diagnostic Test (Pha) (Accu-Chek) 1 each FS ACHS [facility] Last Admin: 12/31/19 07:15 Dose: 1 each Documented by: Diltiazem HCl (Cardizem Cd) 180 mg PO BID [facility] Last Admin: 12/31/19 09:08 Dose: 180 mg Documented by: Diphenhydramine HCl (Benadryl) 25 mg IV Q4-6HP PRN PRN Reason: Allergic Symptoms Last Admin: 12/28/19 12:15 Dose: 25 mg Documented by: Docusate Sodium (Colace) 100 mg PO BID [facility] Last Admin: 12/31/19 09:15 Dose: Not Given Documented by: Furosemide (Lasix) 20 mg IV Q12 [facility] Last Admin: 12/31/19 09:17 Dose: 20 mg Documented by: Glucose (Insta-Glucose) 15 gm PO PRN PRN PRN Reason: Hypoglycemia Heparin Sodium (Porcine) (Heparin) 5,000 unit SQ Q12 [facility] Last Admin: 12/31/19 09:05 Dose: 5,000 unit Documented by: Hydralazine HCl (Apresoline) 10 mg IV Q4-6HP PRN PRN Reason: Hypertension Magnesium Sulfate (Magnesium Sulfate) 2 gm in 50 mls @ 50 mls/hr IV UD PRN PRN Reason: MG = or < 1.7 Last Infusion: 12/30/19 11:37 Dose: Infused Documented by: Acetaminophen (Ofirmev) 650 mg in 65 mls @ 130 mls/hr IV Q6HP PRN; Protocol PRN Reason: PAIN/FEVER > 101 Last Infusion: 12/27/19 09:09 Dose: Infused Documented by: Ceftriaxone Sodium 2 gm/ (Dextrose) 50 mls @ 100 mls/hr IV DAILY [facility]; Protocol Last Admin: 12/31/19 09:04 Dose: 100 mls/hr Documented by: Norepinephrine Bitartrate 16 (mg/ Sodium Chloride) 250 mls @ 9.375 mls/hr IV Q 24HP PRN; Protocol PRN Reason: TITRATE TO KEEP MAP > 65 Diltiazem HCl 125 mg/ Dextrose 125 mls @ 5 mls/hr IV Q12HP PRN; Protocol PRN Reason: TITRATE TO KEEP HR <100,SBP>90 Insulin Glargine (Lantus) 30 unit SQ BID [facility] Insulin Human Lispro (Humalog) 0 unit SQ ACHS [facility]; Protocol Last Admin: 12/31/19 07:25 Dose: Not Given Documented by: Iron Carb/Multivit/Duarte/Folic Acid (Multivitamin W/Minerals) 1 tab PO DAILY [facility] Last Admin: 12/31/19 09:09 Dose: 1 tab Documented by: Linezolid (Zyvox) 600 mg PO Q12 [facility]; Protocol Last Admin: 12/31/19 09:09 Dose: 600 mg Documented by: Lorazepam (Ativan) 0.5 mg IV Q4HP PRN PRN Reason: ANXIETY/SEDATION Melatonin (Melatonin 3mg Tablet) 3 mg PO HSP PRN PRN Reason: Insomnia Last Admin: 12/30/19 20:55 Dose: 3 mg Documented by: [facility] Last Admin: 12/31/19 09:10 Dose: 1,000 mg Documented by: Mupirocin (Bactroban Oint 2%) 1 dose TOPICAL BID [facility] Stop: 12/31/19 21:01 Last Admin: 12/31/19 09:14 Dose: 1 dose Documented by: Ondansetron HCl (Zofran Odt) 4 mg SL Q4-6HP PRN; Protocol PRN Reason: Nausea And Vomiting Ondansetron HCl (Zofran) 4 mg IV Q4-6HP PRN; Protocol PRN Reason: Nausea And Vomiting Polyethylene Glycol (Miralax) 17 gm PO DAILYP PRN PRN Reason: Constipation Potassium Chloride (Klor-Con) 40 meq PO DAILYP PRN PRN Reason: K+ < 3.5 Last Admin: 12/30/19 10:10 Dose: 40 meq Documented by: Senna/Docusate Sodium (Senna Plus Tablet) 1 tab PO HS [facility] Last Admin: 12/30/19 20:54 Dose: Not Given Documented by: Simvastatin (Zocor) 5 mg PO HS [facility] Last Admin: 12/30/19 20:52 Dose: 5 mg Documented by: Sitagliptin Phosphate (Januvia) 100 mg PO DAILY [facility] Last Admin: 12/31/19 09:10 Dose: 100 mg Documented by: Sodium Chloride (Saline Flush) 10 ml IV Q8 [facility] Last Admin: 12/31/19 09:04 Dose: 10 ml Documented by: - ABG Interpretation ABG results: 12/26/19 14:57 ABG Methemoglobin 0.1 L VBG pH 7.40 VBG pCO2 38.2 L VBG pO2 63 H VBG HCO3 23.1 L VBG Total CO2 24.3 L VBG O2 Saturation 84.1 H VBG Base Excess -1.4 Medical - PN: A/P - Time Spent With Patient Total time spent is greater than 50% in coordination of care (as documented) at patient's floor/unit and/or counseling patient: 25 - 35 minutes (1) Change in mental status Status: Acute Assessment and plan: * Acute hypoxic respiratory failure-clinical improvement noted. Clinically improved however continues to be on 6 L nasal cannula oxygen. Continue CPT. Repeat chest x-ray worsening infiltrates. * Multifocal pneumonia-continue antibiotic coverage. Clinical improvement noted. * Streptococcus agalactiae bacteremia-likely source pneumonia. Echocardiogram no evidence of IE, EF 60%. Surveillance cultures negative. On antibiotic coverage per ID * Severe sepsis with multiple organ dysfunction -clinically resolved * A. fib RVR-now rate controlled on diltiazem 360 * Acute decompensated heart failure systolic-Echo EF 65%. Responding well to diuretics * Acute change mental status-much improved now lucid alert and respond to commands * Elevated LFTs improved * History of COPD current bronchodilators * DM type II-now well controlled on basal prandial insulin/metformin/sitagliptin/CC diet * DNR * Prophylaxis heparin Plan * Continue antibiotic coverage per ID * Continue diuresis * Diet per his recommendations * Wean oxygen as tolerated * Aggressive CPT * PT OT/nutrition support * Discharge planning likely SNF Current Visit: Yes Medical - PN: Qual - VTE Deep Vein Thrombosis/Pulmonary Embolism Present on Admission: No
[2019-12-31] MEDS: INSULIN GLARGINE, HUMAN 1 UNIT/0.01 ML SQ SCH ×3 (10:28→21:17)
[2019-12-31] MEDS: ACETAMINOPHEN 325 MG TABLET PO PRN (11:26)
--- NOTE | 2019-12-31 20:43 | Infectious Disease Prog Note ---
Subjective Patient information: Note initiated : 12/31/19 at 8:39 pm Service Date, if different from initiated Date: [] Patient: Padmini Cunha a 79 y/o F admitted on 12/26/19 for Confusion, decreased loc, syncope. Chief Complaint: [] Interval history: Pt feels much better today. Denied any fever, chills, n/v/diarrhea. Still on 6L of O2. Able to ambulate around. Objective Objective Narrative: ao x 3, in nad no thrush chest has VBS b/l with decreased BS at bases distended abd, non tender - Vital Signs Vital signs: Vital Signs Temp Pulse Pulse Resp BP Pulse Ox 12/31/19 17:52 88 25 H 179/70 94 12/31/19 16:13 77 17 91 12/31/19 16:00 36.6 C 18 177/76 91 12/31/19 14:01 81 21 147/69 92 12/31/19 12:01 37.1 C 90 25 H 166/64 96 12/31/19 11:39 37.2 C 88 25 H 166/68 94 12/31/19 10:28 90 24 H 189/86 92 12/31/19 10:02 89 25 H 182/80 92 12/31/19 10:01 90 25 H 179/86 92 12/31/19 09:05 90 23 H 151/72 92 12/31/19 07:45 36.8 C 74 24 H 154/69 91 12/31/19 07:30 93 12/31/19 05:46 87 L 12/31/19 05:09 76 19 89 L 12/31/19 04:00 36.4 C 73 22 154/57 92 12/31/19 03:10 71 30 H 92 12/31/19 02:01 70 20 152/63 93 12/31/19 00:29 86 22 91 12/31/19 00:05 89 93 12/31/19 00:01 36.6 C 78 25 H 158/51 90 12/30/19 22:53 83 20 95 12/30/19 22:01 90 15 159/57 93 Intake and Output 12/31/19 12/31/19 12/31/19 05:59 13:59 21:59 Intake Total 444 915 2849 Output Total 535 815 400 Balance -35 -285 620 Intake: Nourishment/Supplement quantity 240 (ml) IV 50 Rocephin 2 gm In Dextrose 5% in 50 Water 50 ml @ 100 mls/hr IV DAILY [facility] Rx#:[id number] Oral 500 480 780 Output: Urine Catheter Amount 535 740 Void Amount 75 25 Stool 375 Other: Meal Breakfast Nourishment/Supplement Percent of Meal Consumed 75% 100% Feeding Ability Independent Independent Nourishment/Supplement name Glucerna Urine Appearance Clear Clear Clear Uretheral ([place]une) Clear Clear Sediment Urine Color Dark Yellow Dark Yellow Bright Yellow Uretheral ([place]une) Dark Yellow Dark Yellow Urine Odor Normal Normal Stool Size Moderate Large Smear Stool Color Brown Brown Brown Green Green Stool Consistency Soft Soft Soft Formed # Bowel Movements 1 1 # of times incontinent of 0 Bowels Weight 87.679 kg Patient Weight 01/01/20 05:59 Weight 87.679 kg Intake & Output: Intake & Output 12/31/19 12/31/19 12/31/19 05:59 13:59 21:59 Intake Total 902 064 9796 Output Total 535 815 400 [facility] 48 -290 620 Weight 87.679 kg Intake: Nourishment/Supplement quantity 240 (ml) IV 50 Rocephin 2 gm In Dextrose 5% in 50 Water 50 ml @ 100 mls/hr IV DAILY [facility] Rx#:[id number] Oral 500 722 780 Output: Urine Catheter Amount 535 740 Void Amount 75 25 Stool 375 Other: Meal Breakfast Nourishment/Supplement Percent of Meal Consumed 75% 100% Feeding Ability Independent Independent Nourishment/Supplement name Glucerna Urine Appearance Clear Clear Clear Uretheral (Fortune) Clear Clear Sediment Urine Color Dark Yellow Dark Yellow Bright Yellow Uretheral ([place]une) Dark Yellow Dark Yellow Urine Odor Normal Normal Stool Size Moderate Large Smear Stool Color Brown Brown Brown Green Green Stool Consistency Soft Soft Soft Formed # Bowel Movements 1 1 # of times incontinent of 0 Bowels - Lab 12/31/19 04:54 12/31/19 04:54 Most recent lab results Calcium 9.8 mg/dl (8.6-10.4) 12/31/19 04:54 Phosphorus 4.4 mg/dL (2.7-4.5) 12/31/19 04:54 Magnesium 1.8 mg/dL (1.6-2.5) 12/31/19 04:54 Microbiology 12/27/19 09:40 Blood Blood Culture - Preliminary 12/27/19 09:30 Blood Blood Culture - Preliminary 12/26/19 14:28 Blood Blood Culture - Preliminary Strep agalactiae - (group b) 12/28/19 10:50 Stool C. difficile GDH Antigen & Toxins - Final 12/26/19 15:23 Urine - Catheterized Urine Culture - Final Klebsiella pneumoniae 12/26/19 14:38 Blood Blood Culture - Preliminary Strep agalactiae - (group b) 12/26/19 21:20 Nasopharynx Respiratory Virus Panel (PCR) - Final 12/26/19 21:20 Nasopharynx Respiratory Panel (PCR) - Final 12/26/19 20:11 Nose - Both Right and Left MRSA (PCR) - Final MRSA PCR positive Medications Active Medications: Acetaminophen (Tylenol) 650 mg PO Q4-6HP PRN; Protocol PRN Reason: Per Pain Protocol/Fever > 101 Last Admin: 12/31/19 11:26 Dose: 650 mg Documented by: DAISY Cosigned by: RICH Admin: 12/30/19 07:29 Dose: 650 mg Documented by: Admin: 12/29/19 20:32 Dose: 650 mg Documented by: Admin: 12/29/19 10:25 Dose: 650 mg Documented by: Admin: 12/28/19 14:37 Dose: 650 mg Documented by: ChristineXF Admin: 12/27/19 14:48 Dose: 650 mg Documented by: RICH Albuterol/Ipratropium (Duoneb) 3 ml NEB Q6HP PRN PRN Reason: Shortness Of Breath Last Admin: 12/28/19 12:50 Dose: 3 ml Documented by: Admin: 12/28/19 09:48 Dose: 3 ml Documented by: Admin: 12/27/19 23:15 Dose: 3 ml Documented by: KAYLEEN Bisacodyl (Dulcolax) 10 mg MN Q2-3DAYS PRN PRN Reason: Constipation Dextrose (Dextrose 50%) 0 ml IV UD PRN PRN Reason: Hypoglycemia Diagnostic Test (Pha) (Accu-Chek) 1 each FS ACHS SHARITA Last Admin: 12/31/19 16:37 Dose: 1 each Documented by: DAISY Cosigned by: UXF Admin: 12/31/19 11:05 Dose: 1 each Documented by: DAISY Cosigned by: UXF Admin: 12/31/19 07:15 Dose: 1 each Documented by: DAISY Cosigned by: UXF Admin: 12/30/19 20:48 Dose: 1 each Documented by: Admin: 12/30/19 17:15 Dose: 1 each Documented by: Admin: 12/30/19 11:34 Dose: 1 each Documented by: Admin: 12/30/19 07:25 Dose: 1 each Documented by: Admin: 12/29/19 20:33 Dose: 1 each Documented by: Admin: 12/29/19 16:46 Dose: 1 each Documented by: Admin: 12/29/19 11:15 Dose: 1 each Documented by: Admin: 12/29/19 06:55 Dose: 1 each Documented by: Admin: 12/28/19 22:08 Dose: 1 each Documented by: Admin: 12/28/19 17:00 Dose: 1 each Documented by: Admin: 12/28/19 12:03 Dose: Not Given Documented by: ChristineXF Non-Admin Reason: See hourlyaccu checks Admin: 12/28/19 08:21 Dose: Not Given Documented by: UXF Non-Admin Reason: See hourly accu checks Admin: 12/27/19 21:22 Dose: Not Given Documented by: KAYLEEN Non-Admin Reason: insulin gtt Admin: 12/27/19 15:43 Dose: 1 each Documented by: Admin: 12/27/19 13:19 Dose: 1 each Documented by: Admin: 12/27/19 11:35 Dose: 1 each Documented by: Admin: 12/27/19 09:41 Dose: 1 each Documented by: Admin: 12/27/19 07:25 Dose: 1 each Documented by: Admin: 12/26/19 21:56 Dose: 1 each Documented by: KAYLEEN Diltiazem HCl (Cardizem Cd) 180 mg PO BID [facility] Last Admin: 12/31/19 09:08 Dose: 180 mg Documented by: DAISY Cosigned by: UXF Admin: 12/30/19 20:52 Dose: 180 mg Documented by: Admin: 12/30/19 08:54 Dose: Not Given Documented by: UXF Non-Admin Reason: See discontinued order Diphenhydramine HCl (Benadryl) 25 mg IV Q4-6HP PRN PRN Reason: Allergic Symptoms Last Admin: 12/28/19 12:15 Dose: 25 mg Documented by: ChristineXF Admin: 12/27/19 21:14 Dose: 25 mg Documented by: KAYLEEN Comments: premedicating before Vancomycin dose Admin: 12/27/19 10:54 Dose: 25 mg Documented by: ChristineXF Admin: 12/26/19 23:34 Dose: 25 mg Documented by: ROXI Docusate Sodium (Colace) 100 mg PO BID [facility] Last Admin: 12/31/19 09:15 Dose: Not Given Documented by: DAISY Non-Admin Reason: Loose Stool Admin: 12/30/19 20:54 Dose: Not Given Documented by: [email or web address] Non-Admin Reason: Loose Stool Admin: 12/30/19 08:24 Dose: Not Given Documented by: ChristineXF Non-Admin Reason: Loose Stool Admin: 12/29/19 20:39 Dose: Not Given Documented by: KAYLEEN Non-Admin Reason: Loose Stool Admin: 12/29/19 08:21 Dose: Not Given Documented by: UXF Non-Admin Reason: Loose Stool Admin: 12/28/19 20:41 Dose: Not Given Documented by: KAYLEEN Non-Admin Reason: Loose Stool Admin: 12/28/19 08:22 Dose: 100 mg Documented by: ChristineXF Admin: 12/27/19 21:40 Dose: Not Given Documented by: [email or web address] Non-Admin Reason: Difficulty Swallowing Admin: 12/27/19 09:10 Dose: Not Given Documented by: ChristineXF Non-Admin Reason: NPO Admin: 12/26/19 21:19 Dose: Not Given Documented by: [email or web address] Non-Admin Reason: unable to swallow Furosemide (Lasix) 20 mg IV Q12 [facility] Last Admin: 12/31/19 09:17 Dose: 20 mg Documented by: ChristineXF Admin: 12/30/19 20:50 Dose: 20 mg Documented by: KAYLEEN Glucose (Insta-Glucose) 15 gm PO PRN PRN PRN Reason: Hypoglycemia Heparin Sodium (Porcine) (Heparin) 5,000 unit SQ Q12 [facility] Last Admin: 12/31/19 09:05 Dose: 5,000 unit Documented by: DAISY Cosigned by: ChristineXShandra Admin: 12/30/19 20:51 Dose: 5,000 unit Documented by: Admin: 12/30/19 08:24 Dose: 5,000 unit Documented by: Admin: 12/29/19 20:11 Dose: 5,000 unit Documented by: Admin: 12/29/19 08:20 Dose: 5,000 unit Documented by: ChristineXShandra Admin: 12/28/19 22:10 Dose: 5,000 unit Documented by: Admin: 12/28/19 08:22 Dose: 5,000 unit Documented by: ChristineXShandra Admin: 12/27/19 21:43 Dose: 5,000 unit Documented by: Admin: 12/27/19 09:10 Dose: 5,000 unit Documented by: ChristineXF Admin: 12/26/19 21:57 Dose: 5,000 unit Documented by: KAYLEEN Hydralazine HCl (Apresoline) 10 mg IV Q4-6HP PRN PRN Reason: Hypertension Magnesium Sulfate (Magnesium Sulfate) 2 gm in 50 mls @ 50 mls/hr IV UD PRN PRN Reason: MG = or < 1.7 Last Infusion: 12/30/19 11:37 Dose: 0 mls/hr Documented by: Admin: 12/30/19 10:34 Dose: 50 mls/hr Documented by: RICH Acetaminophen (Ofirmev) 650 mg in 65 mls @ 130 mls/hr IV Q6HP PRN; Protocol PRN Reason: PAIN/FEVER > 101 Last Infusion: 12/27/19 09:09 Dose: 0 mls/hr Documented by: ChristineXF Admin: 12/27/19 08:00 Dose: 130 mls/hr Documented by: Infusion: 12/27/19 00:05 Dose: 0 mls/hr Documented by: Admin: 12/26/19 23:35 Dose: 130 mls/hr Documented by: ROXI Ceftriaxone Sodium 2 gm/ (Dextrose) 50 mls @ 100 mls/hr IV DAILY [facility]; Protocol Last Infusion: 12/31/19 09:35 Dose: 0 mls/hr Documented by: DAISY Cosigned by: UXF Admin: 12/31/19 09:04 Dose: 100 mls/hr Documented by: DAISY Cosigned by: UXF Infusion: 12/30/19 10:08 Dose: 0 mls/hr Documented by: Admin: 12/30/19 08:54 Dose: 100 mls/hr Documented by: Infusion: 12/29/19 09:20 Dose: 0 mls/hr Documented by: Admin: 12/29/19 08:17 Dose: 100 mls/hr Documented by: Infusion: 12/28/19 09:17 Dose: 0 mls/hr Documented by: Admin: 12/28/19 08:23 Dose: 100 mls/hr Documented by: Infusion: 12/27/19 12:44 Dose: 0 mls/hr Documented by: Admin: 12/27/19 11:31 Dose: 100 mls/hr Documented by: UXF Norepinephrine Bitartrate 16 (mg/ Sodium Chloride) 250 mls @ 9.375 mls/hr IV Q24HP PRN; Protocol PRN Reason: TITRATE TO KEEP MAP > 65 Diltiazem HCl 125 mg/ Dextrose 125 mls @ 5 mls/hr IV Q12HP PRN; Protocol PRN Reason: TITRATE TO KEEP HR <100,SBP>90 Insulin Glargine (Lantus) 30 unit SQ BID [facility] Last Admin: 12/31/19 10:28 Dose: 30 units Documented by: UXShandra Insulin Human Lispro (Humalog) 0 unit SQ ACHS SHARITA; Protocol Last Admin: 12/31/19 16:46 Dose: 2 units Documented by: DAISY Cosigned by: UXF Admin: 12/31/19 11:28 Dose: 4 units Documented by: DAISY Cosigned by: UXF Admin: 12/31/19 07:25 Dose: Not Given Documented by: DAISY Non-Admin Reason: No Coverage Needed Admin: 12/30/19 20:49 Dose: 4 units Documented by: Admin: 12/30/19 17:33 Dose: 4 units Documented by: Admin: 12/30/19 11:36 Dose: 6 units Documented by: ChristineXShandra Admin: 12/30/19 07:29 Dose: Not Given Documented by: ChristineXF Non-Admin Reason: No Coverage Needed Admin: 12/29/19 20:34 Dose: 6 units Documented by: Admin: 12/29/19 17:16 Dose: 8 units Documented by: ChristineXShandra Admin: 12/29/19 11:24 Dose: 12 units Documented by: ChristineXShandra Admin: 12/29/19 08:19 Dose: 12 units Documented by: RICH Iron Carb/Multivit/[place]/Folic Acid (Multivitamin W/Minerals) 1 tab PO DAILY [facility] Last Admin: 12/31/19 09:09 Dose: 1 tab Documented by: DAISY Cosigned by: RICH Admin: 12/30/19 08:23 Dose: 1 tab Documented by: Admin: 12/29/19 08:16 Dose: 1 tab Documented by: Admin: 12/28/19 08:22 Dose: 1 tab Documented by: Admin: 12/27/19 09:10 Dose: Not Given Documented by: ChristineXF Non-Admin Reason: NPO Linezolid (Zyvox) 600 mg PO Q12 [facility]; Protocol Last Admin: 12/31/19 09:09 Dose: 600 mg Documented by: DAISY Cosigned by: RICH Admin: 12/30/19 20:52 Dose: 600 mg Documented by: Admin: 12/30/19 08:51 Dose: 600 mg Documented by: Admin: 12/29/19 20:11 Dose: 600 mg Documented by: Admin: 12/29/19 08:16 Dose: 600 mg Documented by: Admin: 12/28/19 22:10 Dose: 600 mg Documented by: Admin: 12/28/19 13:47 Dose: 600 mg Documented by: RICH Lorazepam (Ativan) 0.5 mg IV Q4HP PRN PRN Reason: ANXIETY/SEDATION Melatonin (Melatonin 3mg Tablet) 3 mg PO HSP PRN PRN Reason: Insomnia Last Admin: 12/30/19 20:55 Dose: 3 mg Documented by: Admin: 12/30/19 20:52 Dose: 3 mg Documented by: Admin: 12/29/19 20:16 Dose: 3 mg Documented by: Admin: 12/28/19 22:10 Dose: 3 mg Documented by: KAYLEEN Metformin HCl (Glucophage) 1,000 mg PO BIDCC [facility] Last Admin: 12/31/19 16:34 Dose: 1,000 mg Documented by: DAISY Cosigned by: RICH Admin: 12/31/19 09:10 Dose: 1,000 mg Documented by: DAISY Cosigned by: ChristineXShandra Admin: 12/30/19 17:34 Dose: 1,000 mg Documented by: Admin: 12/30/19 08:23 Dose: 1,000 mg Documented by: ChristineXShandra Admin: 12/29/19 17:17 Dose: 1,000 mg Documented by: RICH Mupirocin (Bactroban Oint 2%) 1 dose TOPICAL BID [facility] Stop: 12/31/19 21:01 Last Admin: 12/31/19 09:14 Dose: 1 dose Documented by: DAISY Cosigned by: ChristineXShandra Admin: 12/30/19 20:53 Dose: 1 dose Documented by: Admin: 12/30/19 08:25 Dose: 1 dose Documented by: Admin: 12/29/19 20:39 Dose: 1 dose Documented by: Admin: 12/29/19 09:20 Dose: 1 dose Documented by: Admin: 12/28/19 22:10 Dose: 1 dose Documented by: Admin: 12/28/19 08:35 Dose: 1 dose Documented by: Admin: 12/27/19 21:37 Dose: 1 dose Documented by: Admin: 12/27/19 09:30 Dose: 1 dose Documented by: RCIH Ondansetron HCl (Zofran Odt) 4 mg SL Q4-6HP PRN; Protocol PRN Reason: Nausea And Vomiting Ondansetron HCl (Zofran) 4 mg IV Q4-6HP PRN; Protocol PRN Reason: Nausea And Vomiting Polyethylene Glycol (Miralax) 17 gm PO DAILYP PRN PRN Reason: Constipation Potassium Chloride (Klor-Con) 40 meq PO DAILYP PRN PRN Reason: K+ < 3.5 Last Admin: 12/30/19 10:10 Dose: 40 meq Documented by: RICH Senna/Docusate Sodium (Senna Plus Tablet) 1 tab PO [facility] Last Admin: 12/30/19 20:54 Dose: Not Given Documented by: KAYLEEN Non-Admin Reason: Loose Stool Admin: 12/29/19 20:39 Dose: Not Given Documented by: KAYLEEN Non-Admin Reason: Loose Stool Admin: 12/28/19 20:44 Dose: Not Given Documented by: KAYLEEN Non-Admin Reason: Loose Stool Admin: 12/27/19 21:40 Dose: Not Given Documented by: KAYLEEN Non-Admin Reason: Difficulty Swallowing Admin: 12/26/19 21:20 Dose: Not Given Documented by: KAYLEEN Non-Admin Reason: unable to swallow Simvastatin (Zocor) 5 mg PO [facility] Last Admin: 12/30/19 20:52 Dose: 5 mg Documented by: Admin: 12/29/19 20:12 Dose: 5 mg Documented by: KAYLEEN Sitagliptin Phosphate (Januvia) 100 mg PO DAILY [facility] Last Admin: 12/31/19 09:10 Dose: 100 mg Documented by: DAISY Cosigned by: RICH Admin: 12/30/19 08:51 Dose: 100 mg Documented by: RICH Sodium Chloride (Saline Flush) 10 ml IV Q8 [facility] Last Admin: 12/31/19 16:31 Dose: 10 ml Documented by: DAISY Cosigned by: RICH Admin: 12/31/19 09:35 Dose: 10 ml Documented by: DAISY Cosigned by: RICH Admin: 12/31/19 09:04 Dose: 10 ml Documented by: DAISY Cosigned by: RICH Admin: 12/31/19 05:16 Dose: 10 ml Documented by: Admin: 12/30/19 20:54 Dose: 10 ml Documented by: Admin: 12/30/19 17:32 Dose: 10 ml Documented by: Admin: 12/30/19 11:37 Dose: 10 ml Documented by: Admin: 12/30/19 10:35 Dose: 10 ml Documented by: Admin: 12/30/19 08:55 Dose: 10 ml Documented by: Admin: 12/30/19 05:46 Dose: 10 ml Documented by: [email or web address] Admin: 12/29/19 21:17 Dose: 10 ml Documented by: [email or web address] Admin: 12/29/19 14:32 Dose: 10 ml Documented by: Admin: 12/29/19 08:17 Dose: 10 ml Documented by: Admin: 12/29/19 05:14 Dose: 10 ml Documented by: [email or web address] Admin: 12/28/19 22:10 Dose: 10 ml Documented by: [email or web address] Admin: 12/28/19 16:22 Dose: 10 ml Documented by: Admin: 12/28/19 15:37 Dose: 10 ml Documented by: Admin: 12/28/19 14:39 Dose: 10 ml Documented by: Admin: 12/28/19 12:38 Dose: 10 ml Documented by: Admin: 12/28/19 12:10 Dose: 10 ml Documented by: Admin: 12/28/19 06:06 Dose: Not Given Documented by: [email or web address] Non-Admin Reason: Continuous IV Admin: 12/27/19 21:40 Dose: Not Given Documented by: [email or web address] Non-Admin Reason: Continuous IV Admin: 12/27/19 16:25 Dose: 10 ml Documented by: Admin: 12/27/19 14:24 Dose: Not Given Documented by: UXF Non-Admin Reason: Continuous IV Admin: 12/27/19 05:30 Dose: Not Given Documented by: [email or web address] Non-Admin Reason: Continuous IV Admin: 12/26/19 21:46 Dose: 10 ml Documented by: [email or web address] Assessment and Plan - Narrative A/P Narrative: A: 1. Gp B Streptococcal bacteremia: - blood Cx 2/2 +ve from 12/26/19 - likely source /GI tract. Skin colonization could also play a role - risk factors: uncontrolled DM2, age - repeat blood Cx from 12/27/19 neg 2. Sepsis: resolved 3. Acute respiratory failure: Resolving - fluid overload due to resuscitation IVF, ? CAP -COVID testing negative - s/p 5 days of PO Linezolid for right sided pneumonia 4. 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 Right breast mass: noted on chest CT 6. NOdular hepatomegaly: could be due to cirrhosis. R/o malignancy Recommendations: - Stop PO Linezolid - Continue IV Ceftriaxone 2 gm q24 hrs, day 5 - Spoke with line department supervisor to place a midline. Anticipate 2 weeks of therapy counting from first day of negative blood cultures [12/27/2019] with tentative stop date of 01/10/2020 - Glycemic control (FSBS 140-180) - MRSA decolonization for 5 days, today day 5 out of 5 - NOdular liver enlargement and breast mass w/u per primary team and PCP (possibly r/o malignancy) Will sign off. Please call ID for any questions. Matt Vinson MD Infectious Diseases
[2019-12-31] MEDS: SIMVASTATIN 10 MG TABLET PO SCH (21:19)
[2019-12-31] MEDS: MELATONIN 3 MG TABLET PO PRN (21:19)
[2019-12-31] MEDS: SENNOSIDES/DOCUSATE SODIUM 1 TAB TABLET PO SCH (21:19)
[2020-01-01] MEDS: 0.9 % SODIUM CHLORIDE 10 ML SYRINGE IV SCH ×5 (05:23→20:28)
[2020-01-01] MEDS: metFORMIN 500 MG TABLET PO SCH ×2 (07:32→17:31)
[2020-01-01] MEDS: DOCUSATE SODIUM 100 MG CAPSULE PO SCH ×2 (07:33→20:27)
[2020-01-01] MEDS: INSULIN LISPRO 1 UNIT/0.01 ML UNIT SQ SCH ×4 (07:33→21:14)
[2020-01-01] MEDS: FUROSEMIDE 20 MG/2 ML VIAL IV SCH ×2 (07:52→20:27)
[2020-01-01] MEDS: MULTIVIT,THER IRON,CA,FA & MIN 1 TABLET PO SCH (08:01)
[2020-01-01] MEDS: DILTIAZEM 180 MG CAP.XL.24H PO SCH ×2 (08:02→20:27)
[2020-01-01] MEDS: sitaGLIPtin 100 MG TABLET PO SCH (08:02)
[2020-01-01] MEDS: HEPARIN 5,000 UNIT/ML VIAL SQ SCH ×2 (08:04→20:27)
[2020-01-01] MEDS: cefTRIAXone 2 GM in DEXTROSE 5% IN WATER 50 ML IV SCH (08:05)
[2020-01-01] MEDS: INSULIN GLARGINE, HUMAN 1 UNIT/0.01 ML SQ SCH ×2 (08:05→21:14)
--- NOTE | 2020-01-01 10:00 | Internal Med Progress Note ---
Medical - PN: Subj Patient information: Note initiated : 01/01/20 at 9:57 am Service Date, if different from initiated Date: [] Patient: Padmini Cunha a 79 y/o F admitted on 12/26/19 for Confusion, decreased loc, syncope. Chief Complaint: [] Interval history: Ms. Cunha is a 79 year old F with history of A. fib/DM type II/hyperlipidemia who has had progressive deterioration over the last year and a half and multiple hospitalization including pneumonia/GI bleed. She has been in her baseline state of health over the last few days and was at a democrat at her son's place on Monday. However family discovered on Monday she was fairly somnolent lethargic and weak. Over the next 2 days she has been laying on the bed and became extremely confused nonfunctional and unresponsive prompting patient's family to bring her to the ER today. Initial work-up in the ER was consistent with Severe sepsis with hypoxic respiratory failure secondary pneumonia and evidence of multiple endorgan dysfunction including elevated bilirubin/altered mental status. Patient was rapidly started on crystalloid/antibiotics along with cultures Hospitalist service was consulted for admission At the time evaluation patient is accompanied with her son Dwain. She remains a DNR as per family recommendations however they would like full medical interventions. I explained based on [place] 2 score and her current hemodynamics she stands very high risk mortality and family is aware of situation. Patient will be admitted to the ICU for aggressive management including vasopressors if indicated. Patient is unresponsive and therefore no history could be obtained other than from son Dwain and ER physician 12/26-patient on broad antibiotic coverage. Gram-positive cocci on blood cultures. Surveillance cultures pending. On vancomycin/Zosyn. White count remains elevated at 17.5. Tachycardia much improved. Continue diltiazem drip. Blood sugars over 400. Started on basal insulin. Improved anion gap however lactic acid worsening. Crystalloid challenges being administered. Bilirubin downtrending. Magnesium 1.5 on replacement. Remains critically ill. 12/27-improved lactate however clinically deteriorating. On 10 L oxygen. CHF/pleural effusion on chest imaging. Started on diuretics. DC IV fluids. Continue antibiotic coverage. White count at 20.3 improved blood sugars off insulin drip. ID consulted. On antibiotic coverage as per ID. Remains high risk mortality. I recommend thoracentesis if inadequate response to diuretics and worsening hypoxia. Maintain COVID precautions. 12/28-patient showing clinical improvement on aggressive diuresis. Improved hypoxic respiratory failure now on 4 L oxygen. Off diltiazem drip. More alert lucid and able to follow commands. Transition to p.o. medications. Continue antibiotic coverage. White count down from 20,300-15.2. BUN 34, lower diuretic dose blood sugar is elevated at 4 6. Continue basal prandial insulin/increase sliding scale. Bilirubin down to 1.2 LFTs improving. Restart sitagliptin/metformin 12/29-patient clinically improving more lucid alert. On 6 L oxygen. Diuresing well. Drug reaction improved. Off Solu-Medrol. Blood sugars improving. ST eval today. Transient into A. fib RVR. Diltiazem increased to 360 in 2 divided doses. White count 9.7. Potassium 3.2 on replacement. BUN 35 creatinine 0.9. Lower diuretic dose to 20 mg twice daily. Bilirubin down to 1.4, LFTs downtrending, phosphorus 2.3 start replacement. On antibiotic coverage as per ID. 12/30-patient remarkably better. Sitting on chair. Tolerating breakfast. Able to express needs. On 6 L oxygen. C PT ordered. Continue diuresis. DC Fortune's catheter. Initiate aggressive physical therapy. Continue antibiotic coverage as per ID recommendations. White count 7.9. Potassium up to 3.8. Creatinine 0.8. LFTs much improved. Heart rate well controlled on 360 diltiazem. 12/31-patient doing well. Alert. PICC line being placed. Able to ambulate with physical therapy and assistance. On 6 L oxygen mask. Attempting to wean. Anticipate SNF transfer in 48 hours pending clinical improvement. Systolics around 180s. Add lisinopril 5 mg daily. Continue antibiotic coverage per ID. - Constitutional Vitals: Vital Signs Temp Pulse Resp BP Pulse Ox 97.1 F 77 17 166/67 92 01/01/20 04:01 01/01/20 08:01 01/01/20 09:24 01/01/20 08:01 01/01/20 09:24 Period Temp Pulse Resp BP Sys/Bryson Pulse Ox Last 24 Hr 97.1 F-99.0 F 70-107 17-30 127-202/62-102 77-96 Intake and Output 12/31/19 01/01/20 01/01/20 21:59 05:59 13:59 Intake Total 1445 480 Output Total 851 401 200 Balance 594 -401 280 Weight 193 lb 1.6 oz Intake & Output: Intake & Output 12/31/19 01/01/20 01/01/20 21:59 05:59 13:59 Intake Total 1445 480 Output Total 851 401 200 Balance 594 -401 280 Weight 193 lb 1.6 oz Intake: Nourishment/Supplement quantity 240 (ml) Oral 1205 480 Output: Urine Catheter Amount 200 Void Amount 275 400 # of times incontinent of urine 1 1 Urine/Stool Mix 200 Stool 375 Other: Meal Nourishment/Supplement Breakfast Percent of Meal Consumed 100% 100% Feeding Ability Independent Independent Nourishment/Supplement name Glucerna Urine Appearance Clear Clear Clear Urine Color Dark Yellow Dark Yellow Dark Yellow Light Miriam Urine Odor Normal Normal Stool Size Smear Large Stool Color Brown Brown Green Green Stool Consistency Loose Loose # Bowel Movements 1 # of times incontinent of 1 Bowels General appearance: no acute distress Exam: Alert oriented Nonlabored breathing however on 6 L oxygen No telemetry events, occasionally irregular rate controlled Fortune is draining clear urine No anxiety Medical - PN: Obj Da - Labs CBC & Chem 7: 01/01/20 08:28 01/01/20 08:28 Labs: Abnormal Lab Results 12/31/19 12/31/19 12/30/19 04:54 04:54 05:00 Plt Count 122 L MPV 12.1 H Seg Neutrophils % Lymphocytes % RBC Morphology Abnorm A Hypochromasia 1+ A Potassium 3.2 L BUN 35 H 35 H Phosphorus 2.3 L Total Bilirubin 1.4 H Direct Bilirubin 0.4 H GGT 117 H 139 H AST 43 H 48 H ALT 46 H Lactate Dehydrogenase 279 H Albumin 2.8 L 3.0 L Globulin 3.8 H Albumin/Globulin Ratio 0.9 L 0.8 L Triglycerides 187 H 222 H 12/30/19 05:00 Plt Count 122 L MPV 12.8 H Seg Neutrophils % 80 H Lymphocytes % 10 L RBC Morphology Hypochromasia Potassium BUN Phosphorus Total Bilirubin Direct Bilirubin GGT AST ALT Lactate Dehydrogenase Albumin Globulin Albumin/Globulin Ratio Triglycerides Meds: Medications Acetaminophen (Tylenol) 650 mg PO Q4-6HP PRN; Protocol PRN Reason: Per Pain Protocol/Fever > 101 Last Admin: 12/31/19 11:26 Dose: 650 mg Documented by: Albuterol/Ipratropium (Duoneb) 3 ml NEB Q6HP PRN PRN Reason: Shortness Of Breath Last Admin: 12/28/19 12:50 Dose: 3 ml Documented by: Bisacodyl (Dulcolax) 10 mg AL Q2-3DAYS PRN PRN Reason: Constipation Dextrose (Dextrose 50%) 0 ml IV UD PRN PRN Reason: Hypoglycemia Diagnostic Test (Pha) (Accu-Chek) 1 each FS ACHS [facility] Last Admin: 01/01/20 07:27 Dose: 1 each Documented by: Diltiazem HCl (Cardizem Cd) 180 mg PO BID [facility] Last Admin: 01/01/20 08:02 Dose: 180 mg Documented by: Diphenhydramine HCl (Benadryl) 25 mg IV Q4-6HP PRN PRN Reason: Allergic Symptoms Last Admin: 12/28/19 12:15 Dose: 25 mg Documented by: Docusate Sodium (Colace) 100 mg PO BID [facility] Last Admin: 01/01/20 07:33 Dose: Not Given Documented by: Furosemide (Lasix) 20 mg IV Q12 [facility] Last Admin: 01/01/20 07:52 Dose: 20 mg Documented by: Glucose (Insta-Glucose) 15 gm PO PRN PRN PRN Reason: Hypoglycemia Heparin Sodium (Porcine) (Heparin) 5,000 unit SQ Q12 [facility] Last Admin: 01/01/20 08:04 Dose: 5,000 unit Documented by: Heparin Sodium (Porcine) (Heparin 10 Units/Ml Flush) 2 ml IV Q12 [facility] Last Admin: 01/01/20 07:35 Dose: Not Given Documented by: Hydralazine HCl (Apresoline) 10 mg IV Q4-6HP PRN PRN Reason: Hypertension Magnesium Sulfate (Magnesium Sulfate) 2 gm in 50 mls @ 50 mls/hr IV UD PRN PRN Reason: MG = or < 1.7 Last Infusion: 12/30/19 11:37 Dose: Infused Documented by: Acetaminophen (Ofirmev) 650 mg in 65 mls @ 130 mls/hr IV Q6HP PRN; Protocol PRN Reason: PAIN/FEVER > 101 Last Infusion: 12/27/19 09:09 Dose: Infused Documented by: Ceftriaxone Sodium 2 gm/ (Dextrose) 50 mls @ 100 mls/hr IV DAILY [facility]; Protocol Last Admin: 01/01/20 08:05 Dose: 100 mls/hr Documented by: Norepinephrine Bitartrate 16 (mg/ Sodium Chloride) 250 mls @ 9.375 mls/hr IV Q24HP PRN; Protocol PRN Reason: TITRATE TO KEEP MAP > 65 Diltiazem HCl 125 mg/ Dextrose 125 mls @ 5 mls/hr IV Q12HP PRN; Protocol PRN Reason: TITRATE TO KEEP HR <100,SBP>90 Insulin Glargine (Lantus) 30 unit SQ BID [facility] Last Admin: 01/01/20 08:05 Dose: 30 units Documented by: Insulin Human Lispro (Humalog) 0 unit SQ ACHS [facility]; Protocol Last Admin: 01/01/20 07:33 Dose: 4 units Documented by: Iron Carb/Multivit/[place]/Folic Acid (Multivitamin W/Minerals) 1 tab PO DAILY [facility] Last Admin: 01/01/20 08:01 Dose: 1 tab Documented by: Lorazepam (Ativan) 0.5 mg IV Q4HP PRN PRN Reason: ANXIETY/SEDATION Melatonin (Melatonin 3mg Tablet) 3 mg PO HSP PRN PRN Reason: Insomnia Last Admin: 12/31/19 21:19 Dose: 3 mg Documented by: Met[facility]) [facility] Last Admin: 01/01/20 07:32 Dose: 1,000 mg Documented by: Ondansetron HCl (Zofran Odt) 4 mg SL Q4-6HP PRN; Protocol PRN Reason: Nausea And Vomiting Ondansetron HCl (Zofran) 4 mg IV Q4-6HP PRN; Protocol PRN Reason: Nausea And Vomiting Polyethylene Glycol (Miralax) 17 gm PO DAILYP PRN PRN Reason: Constipation Potassium Chloride (Klor-Con) 40 meq PO DAILYP PRN PRN Reason: K+ < 3.5 Last Admin: 12/30/19 10:10 Dose: 40 meq Documented by: Senna/Docusate Sodium (Senna Plus Tablet) 1 tab PO [facility] Last Admin: 12/31/19 21:19 Dose: Not Given Documented by: Simvastatin (Zocor) 5 mg PO [facility] Last Admin: 12/31/19 21:19 Dose: 5 mg Documented by: Sitagliptin Phosphate (Januvia) 100 mg PO DAILY [facility] Last Admin: 01/01/20 08:02 Dose: 100 mg Documented by: Sodium Chloride (Saline Flush) 10 ml IV Q8 [facility] Last Admin: 01/01/20 05:23 Dose: 10 ml Documented by: Sodium Chloride (Saline Flush) 10 ml IV Q12 [facility] Last Admin: 01/01/20 08:07 Dose: Not Given Documented by: - ABG Interpretation ABG results: 12/26/19 14:57 ABG Methemoglobin 0.1 L VBG pH 7.40 VBG pCO2 38.2 L VBG pO2 63 H VBG HCO3 23.1 L VBG Total CO2 24.3 L VBG O2 Saturation 84.1 H VBG Base Excess -1.4 Medical - PN: A/P - Time Spent With Patient Total time spent is greater than 50% in coordination of care (as documented) at patient's floor/unit and/or counseling patient: 25 - 35 minutes (1) Change in mental status Status: Acute Assessment and plan: * Acute hypoxic respiratory failure-on 6 L oxygen mask. However much improved dyspnea. Able to ambulate. Ongoing COPD. * Multifocal pneumonia-aspiration versus community-acquired. Clinically improving on antibiotic coverage. On diet per ST recommendations * Streptococcus agalactiae bacteremia-likely source pneumonia. Echocardiogram no evidence of IE, EF 60%. Surveillance cultures negative. On antibiotic coverage per ID. PICC line being placed. * Severe sepsis with multiple organ dysfunction -clinically resolved * A. fib RVR-now rate controlled on diltiazem 360 * History of hypertension-suboptimally controlled. On CCB. Added lisinopril 5 mg daily * Acute decompensated heart failure systolic-Echo EF 65%. Responding well to diuretics * Acute change mental status-much improved now lucid alert and respond to commands * Elevated LFTs improved * History of COPD current bronchodilators * DM type II-now well controlled on basal prandial insu arie/metformin/sitagliptin/CC diet * DNR * Prophylaxis heparin Plan * Continue antibiotic coverage per ID * PICC line placement * Continue diuresis * Lisinopril 5 mg daily * Diet per ST recommendations * Wean oxygen as tolerated * Deep breathing exercise/CPT * PT OT/nutrition support * Discharge planning likely SNF in 48 hours Current Visit: Yes Medical - PN: Qual - VTE Deep Vein Thrombosis/Pulmonary Embolism Present on Admission: No
[2020-01-01 10:05] LABS: Hematocrit 39.3 % (34.1-44.9); Hemoglobin 12.4 g/dL (11.2-15.7); Mean Cell Volume 101.3 fL (80.0-100.0); Mean Corpuscular HGB Conc 31.6 g/dL (31.0-36.0); Mean Platelet Volume 11.8 fL (7.4-10.4); Platelet Count 138 K/mcL (140-440); RBC 3.88 M/mcL (3.59-5.38); Red Cell Distribution Width 13.2 % (11.5-14.5); WBC 6.8 K/mcL (4.50-11.00)
[2020-01-01 10:28] LABS: ALT/SGPT 38 U/l (0-40); AST/SGOT 48 U/l (0-37); Albumin 2.9 gm/dL (3.2-5.2); Albumin/Globulin Ratio 0.8 (1.0-2.3); Alkaline Phosphatase 60 U/L (39-117); Bilirubin,Direct 0.3 mg/dL (0.0-0.3); Bilirubin,Total 0.9 mg/dL (0.0-1.0); Blood Urea Nitrogen 28 mg/dl (8-23); Calcium 9.9 mg/dl (8.6-10.4); Carbon Dioxide 32 mmol/L (22-30); Chloride 96 mmol/L (96-108); Globulin 3.8 gm/dL (2.2-3.7); Glomerular Filtration Rate 71; Glucose 288 mg/dL (70-105); Lactate Dehydrogenase 281 U/L (94-250); Phosphorous 4.3 mg/dL (2.7-4.5); Triglycerides 189 mg/dl (<150); Uric Acid 6.9 mg/dL (2.5-8.0)
[2020-01-01 10:49] LABS: Basophils % (Manual) 1 % (0-2); Eosinophils % (Manual) 3 % (0-7); Lymphocytes % 12 % (15-49); Macrocytosis 1+ (NONE SEEN); Monocytes % (Manual) 8 % (1-12); Platelet Estimate DECREASED (NORMAL); RBC Morphology ABNORM (NORMAL); Segmented Neutrophils % 76 % (38-78)
[2020-01-01] MEDS: LISINOPRIL 5 MG TABLET PO SCH (13:44)
[2020-01-01] MEDS: MAGNESIUM SULFATE 2 GM/50 ML BAG IV PRN (18:19)
[2020-01-01] MEDS: SENNOSIDES/DOCUSATE SODIUM 1 TAB TABLET PO SCH (20:27)
[2020-01-01] MEDS: SIMVASTATIN 10 MG TABLET PO SCH (20:27)
[2020-01-01] MEDS: MELATONIN 3 MG TABLET PO PRN (20:50)
[2020-01-02] MEDS: 0.9 % SODIUM CHLORIDE 10 ML SYRINGE IV SCH ×5 (05:21→20:27)
[2020-01-02 06:50] LABS: Hematocrit 34.8 % (34.1-44.9); Hemoglobin 11.1 g/dL (11.2-15.7); Mean Corpuscular HGB Conc 31.9 g/dL (31.0-36.0); Mean Platelet Volume 11.8 fL (7.4-10.4); Platelet Count 137 K/mcL (140-440); RBC 3.48 M/mcL (3.59-5.38); Red Cell Distribution Width 13.1 % (11.5-14.5); WBC 7.9 K/mcL (4.50-11.00)
[2020-01-02 07:25] LABS: ALT/SGPT 35 U/l (0-40); AST/SGOT 46 U/l (0-37); Albumin 2.9 gm/dL (3.2-5.2); Albumin/Globulin Ratio 0.9 (1.0-2.3); Alkaline Phosphatase 56 U/L (39-117); Bilirubin,Direct 0.2 mg/dL (0.0-0.3); Bilirubin,Total 0.7 mg/dL (0.0-1.0); Blood Urea Nitrogen 31 mg/dl (8-23); Calcium 9.7 mg/dl (8.6-10.4); Carbon Dioxide 31 mmol/L (22-30); Chloride 99 mmol/L (96-108); Globulin 3.1 gm/dL (2.2-3.7); Glomerular Filtration Rate 84; Glucose 108 mg/dL (70-105); Lactate Dehydrogenase 239 U/L (94-250); Phosphorous 4.6 mg/dL (2.7-4.5); Triglycerides 153 mg/dl (<150); Uric Acid 6.6 mg/dL (2.5-8.0)
[2020-01-02] MEDS: INSULIN LISPRO 1 UNIT/0.01 ML UNIT SQ SCH ×4 (07:38→20:38)
[2020-01-02] MEDS: DOCUSATE SODIUM 100 MG CAPSULE PO SCH ×2 (07:44→20:28)
[2020-01-02 07:49] LABS: Band Neutrophils % 2 % (0-10); Eosinophils % (Manual) 3 % (0-7); Lymphocytes % 16 % (15-49); Macrocytosis FEW (NONE SEEN); Monocytes % (Manual) 13 % (1-12); Platelet Estimate DECREASED (NORMAL); RBC Morphology ABNORM (NORMAL); Segmented Neutrophils % 66 % (38-78)
[2020-01-02] MEDS: metFORMIN 500 MG TABLET PO SCH ×2 (08:17→17:05)
[2020-01-02] MEDS: DILTIAZEM 180 MG CAP.XL.24H PO SCH ×2 (08:18→20:24)
[2020-01-02] MEDS: INSULIN GLARGINE, HUMAN 1 UNIT/0.01 ML SQ SCH ×2 (08:19→20:23)
[2020-01-02] MEDS: FUROSEMIDE 20 MG/2 ML VIAL IV SCH ×2 (08:19→20:24)
[2020-01-02] MEDS: HEPARIN 5,000 UNIT/ML VIAL SQ SCH ×2 (08:19→20:26)
[2020-01-02] MEDS: sitaGLIPtin 100 MG TABLET PO SCH (08:19)
[2020-01-02] MEDS: MULTIVIT,THER IRON,CA,FA & MIN 1 TABLET PO SCH (08:20)
[2020-01-02] MEDS: cefTRIAXone 2 GM in DEXTROSE 5% IN WATER 50 ML IV SCH (08:20)
[2020-01-02] MEDS: LISINOPRIL 5 MG TABLET PO SCH (08:22)
--- NOTE | 2020-01-02 09:26 | Internal Med Progress Note ---
Medical - PN: Subj Patient information: Note initiated : 01/02/20 at 9:20 am Service Date, if different from initiated Date: [] Patient: Padmini Cunha a 79 y/o F admitted on 12/26/19 for Confusion, decreased loc, syncope. Chief Complaint: [] Interval history: Ms. Cunha is a 79 year old F with history of A. fib/DM type II/hyperlipidemia who has had progressive deterioration over the last year and a half and multiple hospitalization including pneumonia/GI bleed. She has been in her baseline state of health over the last few days and was at a constitution party at her son's place on Monday. However family discovered on Monday she was fairly somnolent lethargic and weak. Over the next 2 days she has been laying on the bed and became extremely confused nonfunctional and unresponsive prompting patient's family to bring her to the ER today. Initial work-up in the ER was consistent with Severe sepsis with hypoxic respiratory failure secondary pneumonia and evidence of multiple endorgan dysfunction including elevated bilirubin/altered mental status. Patient was rapidly started on crystalloid/antibiotics along with cultures Hospitalist service was consulted for admission At the time evaluation patient is accompanied with her son Dwain. She remains a DNR as per family recommendations however they would like full medical interventions. I explained based on [place] 2 score and her current hemodynamics she stands very high risk mortality and family is aware of situation. Patient will be admitted to the ICU for aggressive management including vasopressors if indicated. Patient is unresponsive and therefore no history could be obtained other than from son Dwain and ER physician 12/26-patient on broad antibiotic coverage. Gram-positive cocci on blood cultures. Surveillance cultures pending. On vancomycin/Zosyn. White count remains elevated at 17.5. Tachycardia much improved. Continue diltiazem drip. Blood sugars over 400. Started on basal insulin. Improved anion gap however lactic acid worsening. Crystalloid challenges being administered. Bilirubin downtrending. Magnesium 1.5 on replacement. Remains critically ill. 12/27-improved lactate however clinically deteriorating. On 10 L oxygen. CHF/pleural effusion on chest imaging. Started on diuretics. DC IV fluids. Continue antibiotic coverage. White count at 20.3 improved blood sugars off insulin drip. ID consulted. On antibiotic coverage as per ID. Remains high risk mortality. I recommend thoracentesis if inadequate response to diuretics and worsening hypoxia. Maintain COVID precautions. 12/28-patient showing clinical improvement on aggressive diuresis. Improved hypoxic respiratory failure now on 4 L oxygen. Off diltiazem drip. More alert lucid and able to follow commands. Transition to p.o. medications. Continue antibiotic coverage. White count down from 20,300-15.2. BUN 34, lower diuretic dose blood sugar is elevated at 4 6. Continue basal prandial insulin/increase sliding scale. Bilirubin down to 1.2 LFTs improving. Restart sitagliptin/metformin 12/29-patient clinically improving more lucid alert. On 6 L oxygen. Diuresing well. Drug reaction improved. Off Solu-Medrol. Blood sugars improving. ST eval today. Transient into A. fib RVR. Diltiazem increased to 360 in 2 divided doses. White count 9.7. Potassium 3.2 on replacement. BUN 35 creatinine 0.9. Lower diuretic dose to 20 mg twice daily. Bilirubin down to 1.4, LFTs downtrending, phosphorus 2.3 start replacement. On antibiotic coverage as per ID. 12/30-patient remarkably better. Sitting on chair. Tolerating breakfast. Able to express needs. On 6 L oxygen. C PT ordered. Continue diuresis. DC Fortune's catheter. Initiate aggressive physical therapy. Continue antibiotic coverage as per ID recommendations. White count 7.9. Potassium up to 3.8. Creatinine 0.8. LFTs much improved. Heart rate well controlled on 360 diltiazem. 12/31-patient doing well. Alert. PICC line being placed. Able to ambulate with physical therapy and assistance. On 6 L oxygen mask. Attempting to wean. Anticipate SNF transfer in 48 hours pending clinical improvement. Systolics around 180s. Add lisinopril 5 mg daily. Continue antibiotic coverage per ID. 01/01-persistent hypoxia requiring 4 to 10 L oxygen. Ambulating. Tolerating diet. Nursing well. Stable labs and hemodynamics. No other concerns per nursing staff. Ongoing PT OT. Anticipate transfer to SNF. Case discussed with patient's son Dwain on phone and updated on progress. - Constitutional Vitals: Vital Signs Temp Pulse Resp BP Pulse Ox 98.7 F 77 21 143/51 96 01/02/20 08:02 01/01/20 08:01 01/02/20 08:02 01/02/20 08:02 01/02/20 08:02 Period Temp Pulse Resp BP Sys/Bryson Pulse Ox Last 24 Hr 97.5 F-99 F 16-23 89-189/37-103 90-99 Intake and Output 01/01/20 01/02/20 01/02/20 21:59 05:59 13:59 Intake Total 770 480 Output Total 200 550 250 Balance 570 -550 230 Weight 195 lb 1.6 oz Intake & Output: Intake & Output 01/01/20 01/02/20 01/02/20 21:59 05:59 13:59 Intake Total 770 480 Output Total 200 550 250 Balance 570 -550 230 Weight 195 lb 1.6 oz Intake: Nourishment/Supplement quantity 240 (ml) IV 50 Oral 480 480 Output: Void Amount 200 550 Urine/Stool Mix 250 Other: Meal Dinner Breakfast Percent of Meal Consumed 100% 100% Nourishment/Supplement name glucerna Urine Appearance Clear Urine Color Bright Yellow Stool Size Small Large Small Stool Color Brown Brown Stool Consistency Soft Soft Loose Formed # Voids 1 # Bowel Movements 1 General appearance: no acute distress, obese Exam: On 8 L oxygen Nonlabored breathing No anxiety No telemetry events Medical - PN: Obj Da - Labs CBC & Chem 7: 01/02/20 04:46 01/02/20 04:46 Labs: Abnormal Lab Results 01/02/20 01/02/20 01/01/20 04:46 04:46 08:28 RBC 3.48 L Hgb 11.1 L MCV Plt Count 137 L MPV 11.8 H Lymphocytes % Monocytes % (Manual) 13 H RBC Morphology Abnorm A Hypochromasia Macrocytosis Few A Carbon Dioxide 31 H 32 H BUN 31 H 28 H Glucose 108 H 288 H Phosphorus 4.6 H GGT 113 H 125 H AST 46 H 48 H Lactate Dehydrogenase 281 H Albumin 2.9 L 2.9 L Globulin 3.8 H Albumin/Globulin Ratio 0.9 L 0.8 L Triglycerides 153 H 189 H 01/01/20 12/31/19 12/31/19 08:28 04:54 04:54 RBC Hgb MCV 101.3 H Plt Count 138 L 122 L MPV 11.8 H 12.1 H Lymphocytes % 12 L Monocytes % (Manual) RBC Morphology Abnorm A Abnorm A Hypochromasia 1+ A Macrocytosis 1+ A Carbon Dioxide BUN 35 H Glucose Phosphorus GGT 117 H AST 43 H Lactate Dehydrogenase Albumin 2.8 L Globulin Albumin/Globulin Ratio 0.9 L Triglycerides 187 H Meds: Medications Acetaminophen (Tylenol) 650 mg PO Q4-6HP PRN; Protocol PRN Reason: Per Pain Protocol/Fever > 101 Last Admin: 12/31/19 11:26 Dose: 650 mg Documented by: Albuterol/Ipratropium (Duoneb) 3 ml NEB Q6HP PRN PRN Reason: Shortness Of Breath Last Admin: 12/28/19 12:50 Dose: 3 ml Documented by: Bisacodyl (Dulcolax) 10 mg GA Q2-3DAYS PRN PRN Reason: Constipation Dextrose (Dextrose 50%) 0 ml IV UD PRN PRN Reason: Hypoglycemia Diagnostic Test (Pha) (Accu-Chek) 1 each FS ACHS [facility] Last Admin: 01/02/20 07:37 Dose: 1 each Documented by: Diltiazem HCl (Cardizem Cd) 180 mg PO BID [facility] Last Admin: 01/02/20 08:18 Dose: 180 mg Documented by: Diphenhydramine HCl (Benadryl) 25 mg IV Q4-6HP PRN PRN Reason: Allergic Symptoms Last Admin: 12/28/19 12:15 Dose: 25 mg Documented by: Docusate Sodium (Colace) 100 mg PO BID [facility] Last Admin: 01/02/20 07:44 Dose: Not Given Documented by: Furosemide (Lasix) 20 mg IV Q12 [facility] Last Admin: 01/02/20 08:19 Dose: 20 mg Documented by: Glucose (Insta-Glucose) 15 gm PO PRN PRN PRN Reason: Hypoglycemia Heparin Sodium (Porcine) (Heparin) 5,000 unit SQ Q12 [facility] Last Admin: 01/02/20 08:19 Dose: 5,000 unit Documented by: Heparin Sodium (Porcine) (Heparin 10 Units/Ml Flush) 2 ml IV Q12 [facility] Last Admin: 01/02/20 08:20 Dose: 2 ml Documented by: Hydralazine HCl (Apresoline) 10 mg IV Q4-6HP PRN PRN Reason: Hypertension Last Admin: 01/01/20 12:18 Dose: 10 mg Documented by: Magnesium Sulfate (Magnesium Sulfate) 2 gm in 50 mls @ 50 mls/hr IV UD PRN PRN Reason: MG = or < 1.7 Last Infusion: 01/01/20 20:30 Dose: Infused Documented by: Acetaminophen (Ofirmev) 650 mg in 65 mls @ 130 mls/hr IV Q6HP PRN; Protocol PRN Reason: PAIN/FEVER > 101 Last Infusion: 12/27/19 09:09 Dose: Infused Documented by: Ceftriaxone Sodium 2 gm/ (Dextrose) 50 mls @ 100 mls/hr IV DAILY [facility]; Protocol Last Admin: 01/02/20 08:20 Dose: 100 mls/hr Documented by: Norepinephrine Bitartrate 16 (mg/ Sodium Chloride) 250 mls @ 9.375 mls/hr IV Q24HP PRN; Protocol PRN Reason: TITRATE TO KEEP MAP > 65 Diltiazem HCl 125 mg/ Dextrose 125 mls @ 5 mls/hr IV Q12HP PRN; Protocol PRN Reason: TITRATE TO KEEP HR <100,SBP>90 Insulin Glargine (Lantus) 30 unit SQ BID [facility] Last Admin: 01/02/20 08:19 Dose: 30 units Documented by: Insulin Human Lispro (Humalog) 0 unit SQ ACHS [facility]; Protocol Last Admin: 01/02/20 07:38 Dose: Not Given Documented by: Iron Carb/Multivit/[place]/Folic Acid (Multivitamin W/Minerals) 1 tab PO DAILY [facility] Last Admin: 01/02/20 08:20 Dose: 1 tab Documented by: Lisinopril (Zestril) 5 mg PO DAILY [facility] Last Admin: 01/02/20 08:22 Dose: 5 mg Documented by: Lorazepam (Ativan) 0.5 mg IV Q4HP PRN PRN Reason: ANXIETY/SEDATION Melatonin (Melatonin 3mg Tablet) 3 mg PO HSP PRN PRN Reason: Insomnia Last Admin: 01/01/20 20:50 Dose: 3 mg Documented by: [facility] Last Admin: 01/02/20 08:17 Dose: 1,000 mg Documented by: Ondansetron HCl (Zofran Odt) 4 mg SL Q4-6HP PRN; Protocol PRN Reason: Nausea And Vomiting Ondansetron HCl (Zofran) 4 mg IV Q4-6HP PRN; Protocol PRN Reason: Nausea And Vomiting Polyethylene Glycol (Miralax) 17 gm PO DAILYP PRN PRN Reason: Constipation Potassium Chloride (Klor-Con) 40 meq PO DAILYP PRN PRN Reason: K+ < 3.5 Last Admin: 12/30/19 10:10 Dose: 40 meq Documented by: Senna/Docusate Sodium (Senna Plus Tablet) 1 tab PO [facility] Last Admin: 01/01/20 20:27 Dose: 1 tab Documented by: Simvastatin (Zocor) 5 mg PO [facility] Last Admin: 01/01/20 20:27 Dose: 5 mg Documented by: Sitagliptin Phosphate (Januvia) 100 mg PO DAILY [facility] Last Admin: 01/02/20 08:19 Dose: 100 mg Documented by: Sodium Chloride (Saline Flush) 10 ml IV Q8 [facility] Last Admin: 01/02/20 05:21 Dose: 10 ml Documented by: Sodium Chloride (Saline Flush) 10 ml IV Q12 [facility] Last Admin: 01/01/20 20:28 Dose: 10 ml Documented by: - ABG Interpretation ABG results: 12/26/19 14:57 ABG Methemoglobin 0.1 L VBG pH 7.40 VBG pCO2 38.2 L VBG pO2 63 H VBG HCO3 23.1 L VBG Total CO2 24.3 L VBG O2 Saturation 84.1 H VBG Base Excess -1.4 Medical - PN: A/P - Time Spent With Patient Total time spent is greater than 50% in coordination of care (as documented) at patient's floor/unit and/or counseling patient: 25 - 35 minutes (1) Change in mental status Status: Acute Assessment and plan: * Acute hypoxic respiratory failure-on 8 L oxygen mask. Dyspnea resolved. Continue CPT * Multifocal pneumonia-aspiration versus community-acquired. Clinically im proving on antibiotic coverage. On diet per ST recommendations. Repeat chest imaging today * Streptococcus agalactiae bacteremia-likely source pneumonia. Echocardiogram no evidence of IE, EF 60%. Surveillance cultures negative. On antibiotic coverage per ID. PICC line placed. * Severe sepsis with multiple organ dysfunction -clinically resolved * A. fib RVR-now rate controlled on diltiazem 360 * History of hypertension-improved control on addition of CLAY inhibitor. Continue CCB * Acute decompensated heart failure systolic-Echo EF 65%. Responding well to diuretics. Continue CLAY inhibitor * Acute change mental status-back at baseline * Elevated LFTs improved * History of COPD continue bronchodilators * DM type II-now well controlled on basal prandial insulin/metformin/sitagliptin/CC diet * DNR * Prophylaxis heparin Plan * Continue antibiotic coverage per ID * Check ABG/repeat chest imaging * Pulmonary consult if abnormal chest imaging/ABG * Continue diuresis * Diet per ST recommendations * Wean oxygen as tolerated * Deep breathing exercise/CPT * PT OT/nutrition support * Discharge planning likely SNF once clinically improved Current Visit: Yes Medical - PN: Qual - VTE Deep Vein Thrombosis/Pulmonary Embolism Present on Admission: No
--- NOTE | 2020-01-02 09:47 | XRay Report ---
INDICATION: hypoxia TECHNIQUE: AP portable semiupright chest x-ray COMPARISON: Previous chest x-rays dated 12/30/2019, 12/28/2019, 09/01/2018. Previous chest CT scan dated 12/28/2019 FINDINGS: Lungs:Bilateral pulmonary parenchymal infiltrates with bibasilar predominance. Right base is worse than left. Appearance is nonspecific and may be due to pulmonary edema but pneumonia is possible. Lungs are improved since 12/30/2019. Interval improvement suggests improved pulmonary edema. Heart, vascular:Findings consistent with mild residual interstitial edema. There has been interval improvement since 12/30/2019 Mediastinum, anai:No mediastinal widening. No hilar mass Pleura:Probable bilateral pleural effusions, right larger than left. Right pleural effusion may be slightly smaller than on 12/30/2019 Skeletal:Negative. IMPRESSION: 1. Bilateral parenchymal infiltrates and probable pleural fluid 2. Some interval improvement since 12/30/2019 consistent with improved interstitial edema 3. Bibasilar pneumonia is suspected Interpreted and Authenticated by: Juan Francisco Barillas 01/02/20
[2020-01-02] MEDS: SIMVASTATIN 10 MG TABLET PO SCH (20:24)
[2020-01-02] MEDS: SENNOSIDES/DOCUSATE SODIUM 1 TAB TABLET PO SCH (20:27)
[2020-01-02] MEDS: MELATONIN 3 MG TABLET PO PRN (22:46)
[2020-01-03 06:25] LABS: Hematocrit 34.9 % (34.1-44.9); Mean Cell Volume 100.3 fL (80.0-100.0); Mean Corpuscular HGB Conc 31.5 g/dL (31.0-36.0); Mean Platelet Volume 11.6 fL (7.4-10.4); Platelet Count 140 K/mcL (140-440); RBC 3.48 M/mcL (3.59-5.38); Red Cell Distribution Width 13.2 % (11.5-14.5)
[2020-01-03] MEDS: 0.9 % SODIUM CHLORIDE 10 ML SYRINGE IV SCH ×2 (06:56→09:11)
[2020-01-03 07:14] LABS: ALT/SGPT 41 U/l (0-40); AST/SGOT 54 U/l (0-37); Albumin 2.9 gm/dL (3.2-5.2); Albumin/Globulin Ratio 0.9 (1.0-2.3); Alkaline Phosphatase 62 U/L (39-117); Bilirubin,Direct 0.2 mg/dL (0.0-0.3); Bilirubin,Total 0.7 mg/dL (0.0-1.0); Blood Urea Nitrogen 28 mg/dl (8-23); Calcium 9.9 mg/dl (8.6-10.4); Carbon Dioxide 31 mmol/L (22-30); Chloride 97 mmol/L (96-108); Globulin 3.4 gm/dL (2.2-3.7); Glomerular Filtration Rate 71; Glucose 153 mg/dL (70-105); Lactate Dehydrogenase 234 U/L (94-250); Phosphorous 3.9 mg/dL (2.7-4.5); Triglycerides 199 mg/dl (<150); Uric Acid 6.4 mg/dL (2.5-8.0)
[2020-01-03] MEDS: sitaGLIPtin 100 MG TABLET PO SCH (07:51)
[2020-01-03] MEDS: metFORMIN 500 MG TABLET PO SCH (07:51)
[2020-01-03] MEDS: INSULIN LISPRO 1 UNIT/0.01 ML UNIT SQ SCH (08:00)
[2020-01-03] MEDS: INSULIN GLARGINE, HUMAN 1 UNIT/0.01 ML SQ SCH (08:00)
[2020-01-03] MEDS: MAGNESIUM SULFATE 2 GM/50 ML BAG IV PRN (08:01)
[2020-01-03 08:48] LABS: Band Neutrophils % 3 % (0-10); Eosinophils % (Manual) 3 % (0-7); Lymphocytes % 20 % (15-49); Metamyelocytes % 1 % (0-0); Monocytes % (Manual) 11 % (1-12); Platelet Estimate NORMAL (NORMAL); Polychromasia 1+ (NONE SEEN); RBC Morphology ABNORM (NORMAL); Segmented Neutrophils % 62 % (38-78)
[2020-01-03] MEDS: DILTIAZEM 180 MG CAP.XL.24H PO SCH (09:09)
[2020-01-03] MEDS: MULTIVIT,THER IRON,CA,FA & MIN 1 TABLET PO SCH (09:09)
[2020-01-03] MEDS: FUROSEMIDE 20 MG/2 ML VIAL IV SCH (09:09)
[2020-01-03] MEDS: DOCUSATE SODIUM 100 MG CAPSULE PO SCH (09:09)
[2020-01-03] MEDS: HEPARIN 5,000 UNIT/ML VIAL SQ SCH (09:09)
[2020-01-03] MEDS: cefTRIAXone 2 GM in DEXTROSE 5% IN WATER 50 ML IV SCH (09:10)
[2020-01-03] MEDS: LISINOPRIL 5 MG TABLET PO SCH (09:15)
--- NOTE | 2020-01-03 11:36 | Discharge Summary ---
Discharge Provider Provider Patient information: Note initiated : 01/03/20 at 8:38 am Service Date, if different from initiated Date: [] Patient: Padmini Cunha 79 y/o F admitted on 12/26/19 for Confusion, decreased loc, syncope. Chief Complaint: Date of admission: 12/26/19 19:13 Discharge date: 01/03/20 Primary care physician: Mary Rudd Discharge Meds Discharge Medications Active and Home Medications: Home Medications insulin detemir U-100 50 unit SQ BID 08/26/18 [History Confirmed 12/26/19 Last Taken Unknown] lovastatin 10 mg PO HS 08/26/18 [History Confirmed 12/26/19 Last Taken Unknown] metformin 1,000 mg PO BID 08/26/18 [History Confirmed 12/26/19 Last Taken Unknown] omeprazole 20 mg PO DAILY 08/26/18 [History Confirmed 12/26/19 Last Taken Unknown] potassium chloride 10 meq PO BID 08/26/18 [History Confirmed 12/26/19 Last Taken Unknown] sitagliptin 100 mg PO DAILY 08/26/18 [History Confirmed 12/26/19 Last Taken Unknown] Lactobacillus rhamnosus GG 1 cap PO BID #60 cap 08/31/18 [Rx Confirmed 12/26/19 Last Taken Unknown] cyanocobalamin (vitamin B-12) 1,000 mcg IM MONTHLY 12/26/19 [History Confirmed 12/26/19 Last Taken Unknown] furosemide 20 mg PO BID 12/26/19 [History Confirmed 12/26/19 Last Taken Unknown] hydroxyzine HCl 25 mg PO TID 12/26/19 [History Confirmed 12/26/19 Last Taken Unknown] ceftriaxone 2 gm IV DAILY #8 vial 01/02/20 [Rx Last Taken Unknown] diltiazem HCl 360 mg PO DAILY #60 cap.xl.24h 01/02/20 [Rx Last Taken Unknown] lisinopril 5 mg PO DAILY #30 tab 01/02/20 [Rx Last Taken Unknown] COURSE Hospital Course Hospital Course: Discharge diagnosis * Acute hypoxic respiratory failure-on 8 L oxygen mask. Dyspnea resolved. Continue CPT * Multifocal pneumonia-aspiration versus community-acquired. Clinically improving on antibiotic coverage. On diet per ST recommendations. Repeat chest imaging today * Streptococcus agalactiae bacteremia-likely source pneumonia. Echocardiogram no evidence of IE, EF 60%. Surveillance cultures negative. On antibiotic coverage per ID. PICC line placed. * Severe sepsis with multiple organ dysfunction -clinically resolved * A. fib RVR-now rate controlled on diltiazem 360 * History of hypertension-improved control on addition of CLAY inhibitor. Continue CCB * Acute decompensated heart failure systolic-Echo EF 65%. Responding well to diuretics. Continue CLAY inhibitor * Acute change mental status-back at baseline * Elevated LFTs improved * History of COPD continue bronchodilators * DM type II-now well controlled on basal prandial insulin/metformin/sitagliptin/CC diet Brief hospital course Ms. Cunha is a 79 year old F with history of A. fib/DM type II/hyperlipidemia who has had progressive deterioration over the last year and a half and multiple hospitalization including pneumonia/GI bleed. She has been in her baseline state of health over the last few days and was at a green party at her son's place on Monday. However family discovered on Monday she was fairly somnolent lethargic and weak. Over the next 2 days she has been laying on the bed and became extremely confused nonfunctional and unresponsive prompting patient's family to bring her to the ER today. Initial work-up in the ER was consistent with Severe sepsis with hypoxic respiratory failure secondary pneumonia and evidence of multiple endorgan dysfunction including elevated bilirubin/altered mental status. Patient was rapidly started on crystalloid/antibiotics along with cultures Hospitalist service was consulted for admission At the time evaluation patient is accompanied with her son Dwain. She remains a DNR as per family recommendations however they would like full medical interventions. I explained based on [place] 2 score and her current hemodynamics she stands very high risk mortality and family is aware of situation. Patient will be admitted to the ICU for aggressive management including vasopressors if indicated. Patient is unresponsive and therefore no history could be obtained other than from son Dwain and ER physician 12/26-patient on broad antibiotic coverage. Gram-positive cocci on blood cultures. Surveillance cultures pending. On vancomycin/Zosyn. White count remains elevated at 17.5. Tachycardia much improved. Continue diltiazem drip. Blood sugars over 400. Started on basal insulin. Improved anion gap however lactic acid worsening. Crystalloid challenges being administered. Bilirubin downtrending. Magnesium 1.5 on replacement. Remains critically ill. 12/27-improved lactate however clinically deteriorating. On 10 L oxygen. C HF/pleural effusion on chest imaging. Started on diuretics. DC IV fluids. Continue antibiotic coverage. White count at 20.3 improved blood sugars off insulin drip. ID consulted. On antibiotic coverage as per ID. Remains high risk mortality. I recommend thoracentesis if inadequate response to diuretics and worsening hypoxia. Maintain COVID precautions. 12/28-patient showing clinical improvement on aggressive diuresis. Improved hypoxic respiratory failure now on 4 L oxygen. Off diltiazem drip. More alert lucid and able to follow commands. Transition to p.o. medications. Continue an tibiotic coverage. White count down from 20,300-15.2. BUN 34, lower diuretic dose blood sugar is elevated at 4 6. Continue basal prandial insulin/increase sliding scale. Bilirubin down to 1.2 LFTs improving. Restart sitagliptin/metformin 12/29-patient clinically improving more lucid alert. On 6 L oxygen. Diuresing well. Drug reaction improved. Off Solu-Medrol. Blood sugars improving. ST eval today. Transient into A. fib RVR. Diltiazem increased to 360 in 2 divided doses. White count 9.7. Potassium 3.2 on replacement. BUN 35 creatinine 0.9. Lower diuretic dose to 20 mg twice daily. Bilirubin down to 1.4, LFTs downtrending, phosphorus 2.3 start replacement. On antibiotic coverage as per ID. 12/30-patient remarkably better. Sitting on chair. Tolerating breakfast. Able to express needs. On 6 L oxygen. C PT ordered. Continue diuresis. DC Fortune's catheter. Initiate aggressive physical therapy. Continue antibiotic coverage as per ID recommendations. White count 7.9. Potassium up to 3.8. Creatinine 0.8. LFTs much improved. Heart rate well controlled on 360 diltiazem. 12/31-patient doing well. Alert. PICC line being placed. Able to ambulate with physical therapy and assistance. On 6 L oxygen mask. Attempting to wean. Anticipate SNF transfer in 48 hours pending clinical improvement. Systolics around 180s. Add lisinopril 5 mg daily. Continue antibiotic coverage per ID. 01/01-persistent hypoxia requiring 4 to 10 L oxygen. Ambulating. Tolerating diet. Nursing well. Stable labs and hemodynamics. No other concerns per nursing staff. Ongoing PT OT. Anticipate transfer to SNF. Case discussed with patient's son Dwain on phone and updated on progress. 01/02-patient discharging to [facility] with antibiotics to continue until January 09 as per ID. Continue PICC line care. Continue 2 g IV Rocephin. Detailed discharge instructions below. Wean oxygen as tolerated while keeping sats at 92 and above. Discharge instructions * Continue aggressive PT OT * Continue IV ceftriaxone through 01/09 2 g daily * Dietary intervention * Maintain fall risk * Continue oxygen to maintain sats over 92. Wean oxygen as tolerated. * Follow-up PCP in [7] days I recommend SNF physician to check CBC BMP UA as a posthospital follow-up in 1 week. Continue aggressive bowel regimen to prevent constipation Continue aggressive PT OT evaluation and treatment at [facility]. ST eval and treatment if indicated High protein calorie supplements All meals on chair sitting upright at 90 degrees to prevent aspiration Return to ER if worsening fever chills shortness of breath, diarrhea, bleeding Review risk and side effect profile of medications including antibiotics. Side effect may include mild to severe reaction including rash, diarrhea, cdiff and even which can be prevented by close follow-up with PCP and monitoring for side effects Continue diet and activity as advised Discussed importance of medication adherence Please review medication list with patient prior to discharge Please schedule follow-up with PCP/Providers prior to discharge and provide printouts Discharge diagnosis: . Time Spent with Patient Time attestation: Total time spent providing and/or coordinating discharge services: Time spent: Greater than 30 minutes EXAM Constitutional Vitals: Temp Pulse Resp BP Pulse Ox 98.3 F 77 20 136/49 95 01/03/20 00:01 01/01/20 08:01 01/03/20 02:00 01/03/20 06:01 01/03/20 06:49 Discharge Data Data Completed and Pending Labs on day of discharge: Labs from last 24 hours 01/03/20 01/03/20 01/03/20 05:12 05:12 05:00 WBC 8.0 RBC 3.48 L Hgb 11.0 L Hct 34.9 MCV 100.3 H MCH 31.6 MCHC 31.5 RDW 13.2 Plt Count 140 MPV 11.6 H Total Counted Pending Band Neutrophils % Not Reportable Platelet Estimate Pending RBC Morphology Pending Sodium 139 Potassium 4.1 Chloride 97 Carbon Dioxide 31 H Anion Gap 11.0 BUN 28 H Creatinine 0.8 GFR Calculation 71 Glucose 153 H Uric Acid 6.4 Calcium 9.9 Phosphorus 3.9 Magnesium 1.6 Total Bilirubin 0.7 Direct Bilirubin 0.2 GGT 118 H AST 54 H ALT 41 H Alkaline Phosphatase 62 Lactate Dehydrogenase 234 Total Protein 6.3 Albumin 2.9 L Globulin 3.4 Albumin/Globulin Ratio 0.9 L Triglycerides 199 H QUALITY VTE Deep Vein Thrombosis/Pulmonary Embolism Present on Admission: No
== END 2020-01-03 11:35 | DRG 871 ==
LOC: ED 13:47 → ICU 19:13
PROVIDERS: ADMIT Internal Medicine; ATTEND Internal Medicine